=== PATIENT | female | born 1945 | race Caucasian/White ===

== ENCOUNTER 2018-12-03 12:00 | Inpatient (IN) | payer MEDICARE, BC ==
[2018-12-03] MEDS ORDERED: SODIUM CHLORIDE 0.9% 1,000 ML IV STA (12:12)
--- NOTE | 2018-12-03 12:37 | ED ---
General Adult HPI - General Source: patient, family, EMS, RN notes reviewed Mode of arrival: EMS Limitations: no limitations <Mj Kc - Last Filed: 12/03/18 15:29> <Kong Powell - Last Filed: 12/03/18 15:54> - General Stated complaint: Abd pain/weakness Time Seen by Provider: 12/03/18 12:03 - History of Present Illness Initial comments: This is a 73-year-old male presents emergency department via EMS with family chief complaint of weakness. Patient had progressive weakness over the last few weeks. Patient does live alone has not seen a primary care physician in over 30 years. Patient does ambulate currently with a walker but recently has been having more difficulty time ambulating. Patient also complains of increasing l ower abdominal pain and some urinary incontinence. Patient states that the pain is in her lower abdomen but is much better when she lays down. Family states that she is much more pale than usual she has no specific complaints of chest pain or pleuritic chest pain. Patient does complain that she does feel short of breath and she feels very rundown, weak denies noticing any melena, hematochezia, hematemesis coffee-ground emesis. (Mj Kc) - Related Data Allergies Allergy/AdvReac Type Severity Reaction Status Date / Time No Known Allergies Allergy Verified 12/03/18 12:22 Review of Systems ROS Other: All systems not noted in ROS Statement are negative. <Mj Kc - Last Filed: 12/03/18 15:29> ROS Other: All systems not noted in ROS Statement are negative. <Kong Powell - Last Filed: 12/03/18 15:54> ROS Statement: Those systems with pertinent positive or pertinent negative responses have been documented in the HPI. Past Medical History Past Medical History: No Reported History History of Any Multi-Drug Resistant Organisms: None Reported Past Surgical History: No Surgical Hx Reported Past Psychological History: No Psychological Hx Reported Smoking Status: Former smoker Past Alcohol Use History: None Reported Past Drug Use History: None Reported <Mj Kc - Last Filed: 12/03/18 15:29> General Exam Limitations: no limitations General appearance: alert, in no apparent distress, lethargic, other (Pale appearing) Head exam: Present: atraumatic, normocephalic, normal inspection Eye exam: Present: normal appearance, PERRL, EOMI. Absent: scleral icterus, conjunctival injection, periorbital swelling ENT exam: Present: normal exam, normal oropharynx, mucous membranes moist Neck exam: Present: normal inspection, full ROM. Absent: tenderness, meningismus, lymphadenopathy Respiratory exam: Present: normal lung sounds bilaterally. Absent: respiratory distress, wheezes, rales, rhonchi, stridor Cardiovascular Exam: Present: regular rate, normal rhythm, normal heart sounds. Absent: systolic murmur, diastolic murmur, rubs, gallop, clicks GI/Abdominal exam: Present: soft, tenderness, normal bowel sounds, mass. Abse nt: distended, guarding, rebound, rigid, hernia Neurological exam: Present: alert, oriented X3, CN II-XII intact Skin exam: Present: warm. Absent: normal color (Pale) <Mj Kc - Last Filed: 12/03/18 15:29> Course <Kong Powell - Last Filed: 12/03/18 15:54> Vital Signs 12/03/18 12/03/18 12/03/18 12:17 13:50 14:01 Temperature 97.6 F 97.3 F L Pulse Rate 60 54 L 52 L Respiratory 20 17 18 Rate Blood Pressure 116/87 142/64 160/72 O2 Sat by Pulse 88 L 90 L 100 Oximetry 12/03/18 12/03/18 12/03/18 14:16 14:30 15:00 Temperature 97.8 F 97.4 F L 97.3 F L Pulse Rate 54 L 53 L 49 L Respiratory 17 18 17 Rate Blood Pressure 173/71 173/76 165/62 O2 Sat by Pulse 100 100 100 Oximetry - Reevaluation(s) Reevaluation #1: 12/03/18 15:52 PA supervision: I proceeded [id number] evaluation the patient and did discuss [employer] her and with her family. Patient does have evidence of GI bleed with back he positive stool she is very anemic patient receive blood in the ER 3 and his total I did discuss case Dr. Walker. Patient will be admitted with GI consultation. I do agree with assessment and plan to the anemia the patient case will be discussed with Dr. Hairston (Kong Powell) EKG Findings - EKG Comments: EKG Findings:: EKG interpreted by me at 12:14 normal sinus rhythm rate of 60 DE 186 QRS 100 QT/QTC 458/458 <Mj Kc - Last Filed: 12/03/18 15:29> Medical Decision Making - Lab Data Result diagrams: 12/03/18 12:28 12/03/18 12:28 <Mj Kc - Last Filed: 12/03/18 15:29> - Lab Data Result diagrams: 12/03/18 12:28 12/03/18 12:28 <Kong Powell - Last Filed: 12/03/18 15:54> - Medical Decision Making Patient will be admitted for anemia with GI bleed, pleural effusion, lumbar burst fracture. Patient will consult to GI, orthopedics. (Mj Kc) - Lab Data Lab Results 12/03/18 12/03/18 12/03/18 Range/Units 12:15 12:28 12:28 WBC 2.7 L (3.8-10.6) k/uL RBC 2.15 L (3.80-5.40) m/uL Hgb 4.3 L* (11.4-16.0) gm/dL Hct 16.8 L* (34.0-46.0) % MCV 78.2 L (80.0-100.0) fL MCH 20.0 L (25.0-35.0) pg MCHC 25.5 L (31.0-37.0) g/dL RDW 19.3 H (11.5-15.5) % Plt Count 149 L (150-450) k/uL Neutrophils % (Manual) 73 % Lymphocytes % (Manual) 18 % Monocytes % (Manual) 4 % Eosinophils % (Manual) 5 % Neutrophils # (Manual) 1.97 (1.3-7.7) k/uL Lymphocytes # (Manual) 0.49 L (1.0-4.8) k/uL Monocytes # (Manual) 0.11 (0-1.0) k/uL Eosinophils # (Manual) 0.14 (0-0.7) k/uL Nucleated RBCs 0 (0-0) /100 WBC Manual Slide Review Performed Hypochromasia Marked Poikilocytosis Slight Anisocytosis Slight Microcytosis Slight PT (9.0-12.0) sec INR (<1.2) APTT (22.0-30.0) sec Sodium 141 (137-145) mmol/L Potassium 4.1 (3.5-5.1) mmol/L Chloride 104 (98-107) mmol/L Carbon Dioxide 30 (22-30) mmol/L Anion Gap 7 mmol/L BUN 27 H (7-17) mg/dL Creatinine 1.93 H (0.52-1.04) mg/dL Est GFR (CKD-EPI)AfAm 29 (>60 ml/min/1.73 sqM) Est GFR (CKD-EPI)NonAf 25 (>60 ml/min/1.73 sqM) Glucose 76 (74-99) mg/dL Plasma Lactic Acid Sharif (0.7-2.0) mmol/L Calcium 8.6 (8.4-10.2) mg/dL Phosphorus 3.1 (2.5-4.5) mg/dL Magnesium 2.2 (1.6-2.3) mg/dL Total Bilirubin 0.4 (0.2-1.3) mg/dL AST 24 (14-36) U/L ALT 21 (9-52) U/L Alkaline Phosphatase 62 (38-126) U/L Creatine Kinase 90 (30-135) U/L Troponin I (0.000-0.034) ng/mL NT-Pro-B Natriuret Pep pg/mL Total Protein 5.8 L (6.3-8.2) g/dL Albumin 3.4 L (3.5-5.0) g/dL Urine Color Urine Appearance (Clear) Urine pH (5.0-8.0) Ur Specific [place] (1.001-1.035) Urine Protein (Negative) Urine Glucose (UA) (Negative) Urine Ketones (Negative) Urine Blood (Negative) Urine Nitrite (Negative) Urine Bilirubin (Negative) Urine Urobilinogen (<2.0) mg/dL Ur Leukocyte Esterase (Negative) Stool Occult Blood (Negative) Blood Type Blood Type Confirm O Positive Blood Type Recheck Bld Type Recheck Status Antibody Screen Crossmatch Spec Expiration Date 12/03/18 12/03/18 12/03/18 Range/Units 12:28 12:28 12:28 WBC (3.8-10.6) k/uL RBC (3.80-5.40) m/uL Hgb (11.4-16.0) gm/dL Hct (34.0-46.0) % MCV (80.0-100.0) fL MCH (25.0-35.0) pg MCHC (31.0-37.0) g/dL RDW (11.5-15.5) % Plt Count (150-450) k/uL Neutrophils % (Manual) % Lymphocytes % (Manual) % Monocytes % (Manual) % Eosinophils % (Manual) % Neutrophils # (Manual) (1.3-7.7) k/uL Lymphocytes # (Manual) (1.0-4.8) k/uL Monocytes # (Manual) (0-1.0) k/uL Eosinophils # (Manual) (0-0.7) k/uL Nucleated RBCs (0-0) /100 WBC Manual Slide Review Hypochromasia Poikilocytosis Anisocytosis Microcytosis PT 10.4 (9.0-12.0) sec INR 1.0 (<1.2) APTT 23.0 (22.0-30.0) sec Sodium (137-145) mmol/L Potassium (3.5-5.1) mmol/L Chloride (98-107) mmol/L Carbon Dioxide (22-30) mmol/L Anion Gap mmol/L BUN (7-17) mg/dL Creatinine (0.52-1.04) mg/dL Est GFR (CKD-EPI)AfAm (>60 ml/min/1.73 sqM) Est GFR (CKD-EPI)NonAf (>60 ml/min/1.73 sqM) Glucose (74-99) mg/dL Plasma Lactic Acid Sharif 0.7 (0.7-2.0) mmol/L Calcium (8.4-10.2) mg/dL Phosphorus (2.5-4.5) mg/dL Magnesium (1.6-2.3) mg/dL Total Bilirubin (0.2-1.3) mg/dL AST (14-36) U/L ALT (9-52) U/L Alkaline Phosphatase (38-126) U/L Creatine Kinase (30-135) U/L Troponin I (0.000-0.034) ng/mL NT-Pro-B Natriuret Pep 808 pg/mL Total Protein (6.3-8.2) g/dL Albumin (3.5-5.0) g/dL Urine Color Urine Appearance (Clear) Urine pH (5.0-8.0) Ur Specific [place] (1.001-1.035) Urine Protein (Negative) Urine Glucose (UA) (Negative) Urine Ketones (Negative) Urine Blood (Negative) Urine Nitrite (Negative) Urine Bilirubin (Negative) Urine Urobilinogen (<2.0) mg/dL Ur Leukocyte Esterase (Negative) Stool Occult Blood (Negative) Blood Type Blood Type Confirm Blood Type Recheck Bld Type Recheck Status Antibody Screen Crossmatch Spec Expiration Date 12/03/18 12/03/18 12/03/18 Range/Units 12:28 12:28 13:15 WBC (3.8-10.6) k/uL RBC (3.80-5.40) m/uL Hgb (11.4-16.0) gm/dL Hct (34.0-46.0) % MCV (80.0-100.0) fL MCH (25.0-35.0) pg MCHC (31.0-37.0) g/dL RDW (11.5-15.5) % Plt Count (150-450) k/uL Neutrophils % (Manual) % Lymphocytes % (Manual) % Monocytes % (Manual) % Eosinophils % (Manual) % Neutrophils # (Manual) (1.3-7.7) k/uL Lymphocytes # (Manual) (1.0-4.8) k/uL Monocytes # (Manual) (0-1.0) k/uL Eosinophils # (Manual) (0-0.7) k/uL Nucleated RBCs (0-0) /100 WBC Manual Slide Review Hypochromasia Poikilocytosis Anisocytosis Microcytosis PT (9.0-12.0) sec INR (<1.2) APTT (22.0-30.0) sec Sodium (137-145) mmol/L Potassium (3.5-5.1) mmol/L Chloride (98-107) mmol/L Carbon Dioxide (22-30) mmol/L Anion Gap mmol/L BUN (7-17) mg/dL Creatinine (0.52-1.04) mg/dL Est GFR (CKD-EPI)AfAm (>60 ml/min/1.73 sqM) Est GFR (CKD-EPI)NonAf (>60 ml/min/1.73 sqM) Glucose (74-99) mg/dL Plasma Lactic Acid Sharif (0.7-2.0) mmol/L Calcium (8.4-10.2) mg/dL Phosphorus (2.5-4.5) mg/dL Magnesium (1.6-2.3) mg/dL Total Bilirubin (0.2-1.3) mg/dL AST (14-36) U/L ALT (9-52) U/L Alkaline Phosphatase (38-126) U/L Creatine Kinase (30-135) U/L Troponin I <0.012 (0.000-0.034) ng/mL NT-Pro-B Natriuret Pep pg/mL Total Protein (6.3-8.2) g/dL Albumin (3.5-5.0) g/dL Urine Color Yellow Urine Appearance Clear (Clear) Urine pH 5.5 (5.0-8.0) Ur Specific [place] 1.013 (1.001-1.035) Urine Protein Trace H (Negative) Urine Glucose (UA) Negative (Negative) Urine Ketones Negative (Negative) Urine Blood Negative (Negative) Urine Nitrite Negative (Negative) Urine Bilirubin Negative (Negative) Urine Urobilinogen <2.0 (<2.0) mg/dL Ur Leukocyte Esterase Negative (Negative) Stool Occult Blood (Negative) Blood Type O Positive Blood Type Confirm Blood Type Recheck No Previous Record Bld Type Recheck Status CABO Indicated Antibody Screen NEGATIVE Crossmatch See Detail Spec Expiration Date 12/06/2018232712/03/18 Range/Units 15:00 WBC (3.8-10.6) k/uL RBC (3.80-5.40) m/uL Hgb (11.4-16.0) gm/dL Hct (34.0-46.0) % MCV (80.0-100.0) fL MCH (25.0-35.0) pg MCHC (31.0-37.0) g/dL RDW (11.5-15.5) % Plt Count (150-450) k/uL Neutrophils % (Manual) % Lymphocytes % (Manual) % Monocytes % (Manual) % Eosinophils % (Manual) % Neutrophils # (Manual) (1.3-7.7) k/uL Lymphocytes # (Manual) (1.0-4.8) k/uL Monocytes # (Manual) (0-1.0) k/uL Eosinophils # (Manual) (0-0.7) k/uL Nucleated RBCs (0-0) /100 WBC Manual Slide Review Hypochromasia Poikilocytosis Anisocytosis Microcytosis PT (9.0-12.0) sec INR (<1.2) APTT (22.0-30.0) sec Sodium (137-145) mmol/L Potassium (3.5-5.1) mmol/L Chloride (98-107) mmol/L Carbon Dioxide (22-30) mmol/L Anion Gap mmol/L BUN (7-17) mg/dL Creatinine (0.52-1.04) mg/dL Est GFR (CKD-EPI)AfAm (>60 ml/min/1.73 sqM) Est GFR (CKD-EPI)NonAf (>60 ml/min/1.73 sqM) Glucose (74-99) mg/dL Plasma Lactic Acid Sharif (0.7-2.0) mmol/L Calcium (8.4-10.2) mg/dL Phosphorus (2.5-4.5) mg/dL Magnesium (1.6-2.3) mg/dL Total Bilirubin (0.2-1.3) mg/dL AST (14-36) U/L ALT (9-52) U/L Alkaline Phosphatase (38-126) U/L Creatine Kinase (30-135) U/L Troponin I (0.000-0.034) ng/mL NT-Pro-B Natriuret Pep pg/mL Total Protein (6.3-8.2) g/dL Albumin (3.5-5.0) g/dL Urine Color Urine Appearance (Clear) Urine pH (5.0-8.0) Ur Specific [place] (1.001-1.035) Urine Protein (Negative) Urine Glucose (UA) (Negative) Urine Ketones (Negative) Urine Blood (Negative) Urine Nitrite (Negative) Urine Bilirubin (Negative) Urine Urobilinogen (<2.0) mg/dL Ur Leukocyte Esterase (Negative) Stool Occult Blood Positive H (Negative) Blood Type Blood Type Confirm Blood Type Recheck Bld Type Recheck Status Antibody Screen Crossmatch Spec Expiration Date Critical Care Time Critical Care Time: Yes Total Critical Care Time: 35 <Mj Kc - Last Filed: 12/03/18 15:29> Critical Care Time: Total 35 minutes of critical care time was used to care for the patient. This includes initial evaluation, discussed with EMS, family, patient. Vitals were reviewed. Patient had labs ordered including CBC, CMP, PT and INR, type and screen, troponin urinalysis chest x-ray and CT of abdomen and pelvis. Patient found to have urinary retention Jones was placed at this time. Patient does have moderate constipation on CT and a burst fracture though no known trauma and neurologically intact. Patient does have a hemoglobin of 4.3 quite positive Protonix 80 mg were ordered patient was typed and screened and given 2 units of blood. Chest x-ray shows pleural effusion and CT shows evidence of small pericardial effusion. Case is discussed with admitting physician, family updated patient updated. Patient will be admitted (Mj Kc) Disposition <Mj Kc - Last Filed: 12/03/18 15:29> <Kong Powell - Last Filed: 12/03/18 15:54> Clinical Impression: Anemia, GI bleed, Pleural effusion, Lumbar burst fracture, Dyspnea, Const ipation Disposition: ADMITTED IP TO THIS HOSP Condition: Serious Referrals: Jia Siddiqui MD [Primary Care Provider] - 1-2 days
[2018-12-03 12:51] LABS: Anisocytosis Slight; Hypochromasia Marked; MCHC 25.5 g/dL (31.0-37.0); MCV 78.2 fL (80.0-100.0); Mean Platelet Volume 8.2; Microcytosis Slight; Platelet Count 149 k/uL (150-450); Poikilocytosis Slight; RBC 2.15 m/uL (3.80-5.40); RDW 19.3 % (11.5-15.5); WBC 2.7 k/uL (3.8-10.6)
[2018-12-03 12:53] LABS: Albumin 3.4 g/dL (3.5-5.0); Calcium 8.6 mg/dL (8.4-10.2); Magnesium 2.2 mg/dL (1.6-2.3); Phosphorus 3.1 mg/dL (2.5-4.5); Potassium 4.1 mmol/L (3.5-5.1); Prothrombin Time 10.4 sec (9.0-12.0); Total Bilirubin 0.4 mg/dL (0.2-1.3); Total Protein 5.8 g/dL (6.3-8.2)
[2018-12-03 13:02] LABS: HCT 16.8 % (34.0-46.0); HGB 4.3 gm/dL (11.4-16.0)
--- NOTE | 2018-12-03 13:30 | CT ---
EXAMINATION TYPE: CT abdomen pelvis wo con DATE OF EXAM: 12/03/2018 COMPARISON: NONE HISTORY: Lower abdominal pain, mass CT DLP: 458.2 mGycm Automated exposure control for dose reduction was used. FINDINGS: There is a large hiatal hernia. There are bilateral effusions. The heart is enlarged. There is approximately 1.3 cm a pericardial fluid or thickening. Within the abdomen, there is a small amount of ascites. Liver is not enlarged. The gallbladder is par tially contracted. The spleen is normal. There is extensive splenic artery calcification. There is fullness of both adrenal glands without a definite adrenal mass. There is a 5 mm upper pole calculus involving the right kidney and a smaller mid polar calculus measu ring approximately 2 mm. There is a low attenuating lesion within the upper pole of the right kidney measuring 1.8 cm. This is not simply cystic. There is a larger 4 cm exophytic lesion arising from the mid polar region of the left kidney. This may represent a cyst. Calcifications associated with the l eft kidney are believed to BE vascular. Limited views of the pancreas are unremarkable. There is no significant retroperitoneal, iliac or inguinal adenopathy. The bladder is grossly distended. The uterus is unremarkable. The ovaries are not seen with certainty. There is a tremendous amount of stool within the left side of the colon. There is no significant dive rticular change and there is no radiographic evidence of diverticulitis. The appendix is not visualiz ed with certainty. Small bowel loops are of normal caliber. No free air is seen. There is a fracture of the L3 vertebral body. The age of this is not determined but it does appear ac [place]. There is approximately 5 mm of retropulsion. There is degenerative changes in the facets. IMPRESSION: 1. BURST FRACTURE OF THE L3 VERTEBRAL BODY WITH 5 MM RETROPULSION. 2. GROSSLY DISTENDED BLADDER. 3. LARGE HIATAL HERNIA. 4. BILATERAL PLEURAL EFFUSIONS AND A SMALL PERICARDIAL EFFUSION. 5. ASCITES. 6. NONOBSTRUCTIVE RIGHT-SIDED NEPHROLITHIASIS. 7. LARGE AMOUNT OF STOOL WITHIN THE COLON. 8. MODERATE BLADDER DISTENTION.
--- NOTE | 2018-12-03 13:45 | XR ---
EXAMINATION TYPE: XR chest 2V DATE OF EXAM: 12/03/2018 HISTORY: Weakness. REFERENCE: NONE. FINDINGS: The lungs are overinflated. The heart is enlarged. There is left basilar airspace disease a s well as right basilar atelectasis. There is a left-sided effusion. IMPRESSION: 1. COPD 2. CARDIOMEGALY. 3. BIBASILAR AIRSPACE DISEASE. 4. LEFT-SIDED EFFUSION.
[2018-12-03 13:48] LABS: Appearance,Urine Clear (Clear); Bilirubin,Urine Negative (Negative); Blood,Urine Negative (Negative); Color,Urine Yellow; Glucose,Urine (UA) Negative (Negative); Ketones,Urine Negative (Negative); Leukocyte Esterase,Urine Negative (Negative); Nitrite,Urine Negative (Negative); PH, Urine 5.5 (5.0-8.0); Protein,Urine Trace (Negative); Specific Gravity,Urine 1.013 (1.001-1.035); Urobilinogen,Urine <2.0 mg/dL (<2.0)
[2018-12-03 13:51] LABS: Eosinophils # (M) 0.14 k/uL (0-0.7); Lymphocytes # (M) 0.49 k/uL (1.0-4.8); Monocytes # (M) 0.11 k/uL (0-1.0); Neutrophils % (M) 73 %; Nucleated Red Blood Cells 0 /100 WBC (0-0); Total Cells Counted 100
[2018-12-03] MEDS ORDERED: PANTOPRAZOLE 40 MG/10 ML VIAL IVP STA (14:44)
[2018-12-03] MEDS ORDERED: BISACODYL 5 MG TABLET.DR PO PRN (15:33)
[2018-12-03] MEDS ORDERED: NALOXONE 0.4 MG/ML 1 ML VIAL IV PRN (15:33)
[2018-12-03] MEDS ORDERED: NA PHOS,M-B/NA PHOS,DI-BA 133 ML ENEMA RECTAL PRN (15:33)
[2018-12-03] MEDS ORDERED: HYDROcodone/APAP 5-325MG 1 EACH TAB PO PRN (15:33)
[2018-12-03] MEDS ORDERED: ONDANSETRON 4 MG/2 ML VIAL IVP PRN (15:33)
[2018-12-03] MEDS: ACETAMINOPHEN TAB 325 MG TAB PO PRN (17:08)
[2018-12-03] MEDS ORDERED: IPRATROPIUM-ALBUTEROL 3 ML NEB INHALATION PRN (17:24)
[2018-12-03] MEDS ORDERED: FUROSEMIDE 10 MG/ML 4 ML VIAL IV STA (17:26)
--- NOTE | 2018-12-03 19:20 | HP ---
HISTORY AND PHYSICAL CHIEF COMPLAINTS: Weakness and tiredness. HISTORY OF PRESENT ILLNESS: This 73-year-old woman with a past history of history of nausea and vomiting, and other medical issues, not being followed by any primary care physician for 30 years, is scheduled to see Dr. Siddiqui in the outpatient setting soon, however the family noted that the patient is getting progressively weak. The patient also complains of leg swelling also. Occasionally . The patient also had apparently had a fall also and because of multiple symptomatology, the patient was brought to [facility] and admitted for further evaluation and treatment. Hemoglobin found to be 4.3. No active GI bleed was noted. The patient also complaining of bladder pain. Creatinine found to be 1.93. Stool OB is positive. There is no history of any fever, rigors. No history of headache, loss of consciousness. Patient is hard of hearing. PAST MEDICAL HISTORY: No significant cardiorespiratory illness. MEDICATIONS: Home medications: 1. Ibuprofen 400 mg q.8 p.r.n. 2. Vitamin B12 1000 mcg. 3. Ecotrin 81 mg p.o. daily. ALLERGIES: None. FAMILY HISTORY: No history of heart disease or strokes in the family. SOCIAL HISTORY: Previous history of smoking. No history of current smoking or alcohol. REVIEW OF SYSTEMS: ENT: Diminished vision. Diminished hearing. CARDIOVASCULAR SYSTEM: No angina or palpitations. RESPIRATIONS: Occasional cough. GI mentioned earlier. : As mentioned earlier. CENTRAL NERVOUS SYSTEM: As mentioned earlier. ALLERGY/IMMUNOLOGY: No history of asthma or hayfever. MUSCULOSKELETAL as mentioned earlier. HEMATOLOGY/ONCOLOGY: As mentioned earlier. ENDOCRINE: No history of hypothyroidism. CONSTITUTIONAL: As mentioned earlier. DERMATOLOGY: Negative. RHEUMATOLOGY negative. PSYCHIATRY as mentioned earlier. PHYSICAL EXAM: Patient is alert, oriented x3. The pulse is 52, blood pressure 179/78, respiration 18, temperature 97.5, pulse ox 98% on 4 L. HEENT: Conjunctivae pale. Significant skin pallor also present. Oral mucosa is moist. NECK is no jugular venous distention. Neck fullness present. Cardiovascular system: S1, S2 muffled. Ejection systolic murmur present. RESPIRATIONS: Breath sounds diminished in the bases. A few scattered rhonchi and crackles. ABDOMEN: Soft, nontender. No mass palpable. No ascites. LEGS: Minimal bilateral leg edema. Pulses felt normally. Some deformities of the feet also present. JOINTS: No active deforming arthropathy. NERVOUS SYSTEM: Higher functions as mentioned earlier. Moves all 4 limbs. No focal motor or sensory deficits. LYMPHATICS: No lymph nodes palpable in the neck, axillae or groin. SKIN as mentioned earlier. LAB STUDIES: At this time shows WBC 2.7, hemoglobin 4.3, and platelets are 149. Otherwise significant hypochromia and ascites, microcytosis also present in the peripheral smear. Creatinine is 1.93. ASSESSMENT: 1. Significant severe anemia for evaluation. 3. Microcytosis, rule out iron deficiency. 4. Increased creatinine with possible rule out acute renal failure. 5. Remote history of smoking. 6. FULL CODE: 7. Severe protein calorie malnutrition with BMI of 19.4. 8. Back pain with L3 vertebral fracture. 9. Large hiatal hernia. 10.Bladder distention. 11.Bilateral pleural effusion. 12.Nonobstructive right-sided nephrolithiasis and large amount of stool within the colon. Moderate bladder distention. RECOMMENDATIONS AND DISCUSSION: This 73-year-old woman presents for significant anemia. At this time, we will initiate transfusion. We will administer 3 units of transfusion with Lasix. An abdominal pelvis CAT scan was done today which showed burst fractures, L3 vertebral body with 5 mm retropulsion. A chest x-ray done showed COPD, cardiomegaly, bibasilar airspace disease and left-sided pleural effusion. I recommend x-ray, CT scan was reviewed personally by me and I recommend a course of bronchodilators. At this time, there is no evidence of any pneumonia currently, but I would monitor the patient closely. Otherwise, etiology of anemia unknown at this time. I would recommend a TSH and also gastroenterology evaluation and iron studies and Hematology/Oncology evaluation also. The overall prognosis extremely guarded because of multiple complex medical issues. A copy of dictation forwarded to Dr. Siddiqui who is the primary physician. As mentioned earlier, the patient has not seen a primary physician in the last 30 years and discussed at length with the family at the bedside. Family understands and agrees. Further recommendations to follow. MMODL / IJN: [id number] / MTDD
[2018-12-03 20:15] LABS: T4, Free (Free Thyroxine) <0.07 ng/dL (0.78-2.19)
[2018-12-03] MEDS: IPRATROPIUM-ALBUTEROL 3 ML NEB INHALATION SCH (20:55)
[2018-12-03] MEDS: PANTOPRAZOLE 40 MG/10 ML VIAL IV SCH (22:39)
[2018-12-03 23:05] LABS: Ferritin 7.1 ng/mL (10.0-291.0); Iron Saturation 2.05 (12.00-45.00)
[2018-12-04 01:19] LABS: Anisocytosis Slight; Hypochromasia Marked; MCH 25.7 pg (25.0-35.0); MCHC 30.4 g/dL (31.0-37.0); Mean Platelet Volume 8.4; Platelet Count 110 k/uL (150-450); Poikilocytosis Marked; RBC 3.43 m/uL (3.80-5.40); WBC 4.3 k/uL (3.8-10.6)
[2018-12-04 02:24] LABS: HGB 8.8 gm/dL (11.4-16.0); MCV 84.5 fL (80.0-100.0)
[2018-12-04 03:41] LABS: Band Neutrophils % 4 %; Lymphocytes # (M) 0.95 k/uL (1.0-4.8); Neutrophils % (M) 60 %; Nucleated Red Blood Cells 0 /100 WBC (0-0); Total Cells Counted 100
[2018-12-04 03:42] LABS: Large Platelets Present; Polychromasia Present
[2018-12-04] MEDS: SODIUM CHLORIDE 0.9% 1,000 ML IV SCH ×2 (05:26→23:29)
[2018-12-04 06:07] LABS: Anisocytosis Slight; Basophils % (A) 1 %; Eosinophils # (A) 0.2 k/uL (0-0.7); Eosinophils % (A) 6 %; HCT 29.2 % (34.0-46.0); HGB 8.9 gm/dL (11.4-16.0); Hypochromasia Marked; Lymphocytes # (A) 0.8 k/uL (1.0-4.8); Lymphocytes % (A) 19 %; MCH 25.9 pg (25.0-35.0); MCHC 30.4 g/dL (31.0-37.0); MCV 85.2 fL (80.0-100.0); Mean Platelet Volume 9.8; Monocytes # (A) 0.2 k/uL (0-1.0); Monocytes % (A) 5 %; Neutrophils # (A) 2.8 k/uL (1.3-7.7); Neutrophils % (A) 67 %; Platelet Count 112 k/uL (150-450); Poikilocytosis Marked; RBC 3.43 m/uL (3.80-5.40); RDW 17.8 % (11.5-15.5); WBC 4.1 k/uL (3.8-10.6)
[2018-12-04] MEDS: IPRATROPIUM-ALBUTEROL 3 ML NEB INHALATION SCH ×3 (07:45→20:52)
[2018-12-04] MEDS: PANTOPRAZOLE 40 MG/10 ML VIAL IV SCH ×2 (09:21→22:45)
[2018-12-04] MEDS: ACETAMINOPHEN TAB 325 MG TAB PO PRN (13:49)
[2018-12-04] MEDS: LEVOTHYROXINE 100 MCG TAB PO SCH (13:52)
--- NOTE | 2018-12-04 14:36 | P.CNOR ---
History of Present Illness - [facility] Consult date: 12/04/18 Consult reason: fracture (L3 burst fracture with low back pain), low back pain, other History of present illness: Patient is a pleasant 73-year-old female who seen and examined today at bedside. She is completed by HER-2 daughters at bedside. Patient is having some weakness and difficulty getting around was brought to the hospital where she was found have significant anemia and GI bleed. Apparently the patient has been having some pain at her back as well recently when she tries to mobilize and move. She denies any recent falls. She said she had a fall about a year ago but denies any falls in the past couple weeks. Apparently she had been living on her own in [place] but has now moved moved here couple weeks ago. She denies any pain in her legs. She denies any numbness in her lower extremity. She denies any weakness in her legs. She has been having trouble going the bathroom both with bowel movements and urination. She has any chest pain. She denies any shortness of breath. Review of Systems As stated per HPI. She denies any recent trauma. She denies any falls. She denies any injuries. She says she had a fall about a year ago and had some back pain at that point that resolved. Past Medical History Past Medical History: Osteoarthritis (OA) History of Any Multi-Drug Resistant Organisms: None Reported Past Surgical History: No Surgical Hx Reported Past Psychological History: No Psychological Hx Reported Smoking Status: Former smoker Past Alcohol Use History: None Reported Past Drug Use History: None Reported - Past Family History Mother Family Medical History: No Reported History Medications and Allergies Home Medications Medication Instructions Recorded Confirmed Type Aspirin EC [Ecotrin Low Dose] 81 mg PO DAILY 12/03/18 12/03/18 History Cyanocobalamin (Vitamin B-12) 1,000 mcg PO DAILY 12/03/18 12/03/18 History [Vitamin B-12] Ibuprofen [Advil] 200 - 400 mg PO Q8H PRN 12/03/18 12/03/18 History Allergies Allergy/AdvReac Type Severity Reaction Status Date / Time No Known Allergies Allergy Verified 12/03/18 15:56 Physical Examination Osteopathic Statement: *. No significant issues noted on an osteopathic structural exam other than those noted in the History and Physical/Consult. - L Spine: dermatomal strength & reflexes bilateral Strength: hip flexion: 5/5 (At her lower extremity she has 5 out of 5 strength with dorsiflexion plantarflexion and EHL. She is able to lift her legs gently off the bed independently. There is no pain with internal or external rotation of her hips. Her thighs and calves are soft nontender. She has tenderness at her lower back on the right side around her lumbosacral junction. There is no open wounds lacerations or abrasions. There is some articular paravertebral spasm.) Results - Labs Labs: Abnormal Lab Results - Last 24 Hours (Table) 12/03/18 12/03/18 12/03/18 Range/Units 12:28 12:28 12:28 RBC (3.80-5.40) m/uL Hgb (11.4-16.0) gm/dL Hct (34.0-46.0) % MCHC (31.0-37.0) g/dL RDW (11.5-15.5) % Plt Count (150-450) k/uL Lymphocytes # (1.0-4.8) k/uL Lymphocytes # (Manual) (1.0-4.8) k/uL Iron 8 L (50-170) ug/dL Iron Saturation 2.05 L (12.00-45.00) Ferritin 7.1 L (10.0-291.0) ng/mL TSH 69.100 H (0.465-4.680) mIU/L Free T4 <0.07 L (0.78-2.19) ng/dL Stool Occult Blood (Negative) Crossmatch See Detail 12/03/18 12/04/18 12/04/18 Range/Units 15:00 00:52 05:38 RBC 3.43 L 3.43 L (3.80-5.40) m/uL Hgb 8.8 L D 8.9 L (11.4-16.0) gm/dL Hct 29.0 L 29.2 L (34.0-46.0) % MCHC 30.4 L 30.4 L (31.0-37.0) g/dL RDW 17.0 H 17.8 H (11.5-15.5) % Plt Count 110 L 112 L (150-450) k/uL Lymphocytes # 0.8 L (1.0-4.8) k/uL Lymphocytes # (Manual) 0.95 L (1.0-4.8) k/uL Iron (50-170) ug/dL Iron Saturation (12.00-45.00) Ferritin (10.0-291.0) ng/mL TSH (0.465-4.680) mIU/L Free T4 (0.78-2.19) ng/dL Stool Occult Blood Positive H (Negative) Crossmatch H & H 12/03/18 12/04/18 12/04/18 Range/Units 12:28 00:52 05:38 Hgb 4.3 L* 8.8 L D 8.9 L (11.4-16.0) gm/dL Hct 16.8 L* 29.0 L 29.2 L (34.0-46.0) % Coagulation 12/03/18 Range/Units 12:28 INR 1.0 (<1.2) Result Diagrams: 12/04/18 05:38 12/03/18 12:28 - Diagnostic results CT Scan - lumbar: report reviewed, image reviewed (Computed tomography scan of lumbar spine is reviewed. There are number of the abdominal findings which are reported. Terms of her lumbar spine she has spondylolisthesis L4 5. She has evidence of a burst fracture at L3 with excellent 5 mm retropulsion. There is central and bilateral foraminal stenosis L3 4 and L4 5. Some of the stenosis is chronic due to arthrosis and ligamentum thickening and disc bulging. This is admitted to compression deformity at L3 as well.) Assessment and Plan Assessment: L3 vertebral body burst fracture, age undetermined but appears to be acute or subacute No specific recent trauma reported by the patient GI bleed with anemia No lower extremity weakness or neurologic loss at her lower extremities Plan: L3 vertebral body burst fracture, age undetermined but appears to be acute or subacute No specific recent trauma reported by the patient GI bleed with anemia No lower extremity weakness or neurologic loss at her lower extremities The patient has a L3 vertebral burst fracture of indeterminate age. The fracture lines on the computed tomography scan suggest somewhat acute fracture or at least subacute. She does have significant stenosis L3 4 and L4 5 but is not having specific lower extremity neurologic loss. I do not think that she has evidence for cauda equina syndrome though she is having difficulty with her urinating and with constipation. Certainly she has had some decrease in her mobility with her anemia and I think that this contributes to her urinary issues as well. She has a catheter in place. In terms of the burst fracture at think that she should have conservative treatment with LSO bracing. We've ordered an LSO brace for her to be worn when she is out of bed. It is okay for her to try to get to the bathroom without the brace and she may have the brace off for bathing but whenever she is out of bed she should essentially have the brace intact to sport the L3 burst fracture. At this point we do not plan surgical intervention. We could consider MRI if she has further issues with her bowel bladder function as she does have significant stenosis at L3 4 and L4 5 however many of these findings these findings appear to Be chronic rather than acute. We will see how she does with bracing and therapy. She is continue management medical management in terms of her GI bleed and anemia as well.
--- NOTE | 2018-12-04 15:21 | P.CONS ---
History of Present Illness - Reason for Consult Consult date: 12/04/18 Iron deficiency anemia - History of Present Illness The patient is a 73-year-old white female, was not had any regular medical follow-up for about 30 years. She was living in the [place], [place] area, and moved here few months ago to be closer to family. She does have a history of low back pain, and uses a walker for ambulation. Over the past few weeks she had been having increasing weakness and difficulty getting around. She had also noted increasing back pain. She was therefore brought into the emergency room, where she was found to have a hemoglobin of 4.3 with low MCV of 78. Subsequent labs showed very low iron studies with ferritin only 7.1 and saturation less than 10%, confirming iron deficiency anemia. The patient was therefore admitted and transfusion ordered. Consult was placed for further evaluation and recommendations. The patient appeared to have some hearing difficulty as well as slight memory issues due to which getting an adequate history was somewhat laborious. She denied any obvious bleeding. She denied any prior history of blood problems or need for transfusion. She denied any use of blood thinners, or even NSAIDs/aspirin on a regular basis. She has never had a GI workup previously according to her Review of Systems Constitutional: Reports chronic pain, Reports weakness Eyes: denies blurred vision, denies pain Ears: bilateral: decreased hearing, deny: ear discharge, earache, tinnitus Ears, nose, mouth and throat: Denies headache, Denies sore throat Cardiovascular: Reports dyspnea on exertion Respiratory: Reports dyspnea Gastrointestinal: Denies abdominal pain, Denies diarrhea, Denies nausea, Denies vomiting Genitourinary: Reports urinary frequency Menstruation: Reports postmenopausal Musculoskeletal: Reports low back pain, Reports muscle weakness Integumentary: Denies pruritus, Denies rash Neurological: Reports memory loss, Reports weakness Psychiatric: Reports memory loss Endocrine: Reports fatigue Hematologic/Lymphatic: Reports as per HPI Past Medical History Past Medical History: Osteoarthritis (OA) History of Any Multi-Drug Resistant Organisms: None Reported Past Surgical History: No Surgical Hx Reported Past Psychological History: No Psychological Hx Reported Smoking Status: Former smoker Past Alcohol Use History: None Reported Past Drug Use History: None Reported - Past Family History Mother Family Medical History: No Reported History Medications and Allergies Home Medications Medication Instructions Recorded Confirmed Type Aspirin EC [Ecotrin Low Dose] 81 mg PO DAILY 12/03/18 12/03/18 History Cyanocobalamin (Vitamin B-12) 1,000 mcg PO DAILY 12/03/18 12/03/18 History [Vitamin B-12] Ibuprofen [Advil] 200 - 400 mg PO Q8H PRN 12/03/18 12/03/18 History Allergies Allergy/AdvReac Type Severity Reaction Status Date / Time No Known Allergies Allergy Verified 12/03/18 15:56 Physical Exam Vitals: Vital Signs Temp Pulse Pulse Resp BP BP Pulse Ox 12/04/18 08:00 97.5 F L 54 L 18 150/64 99 12/04/18 07:56 54 L 12/04/18 07:45 52 L 100 12/04/18 04:00 97.6 F 52 L 16 164/72 100 12/04/18 01:13 97 F L 60 16 180/64 12/04/18 00:00 97.5 F L 50 L 16 162/67 100 12/03/18 21:32 185/71 12/03/18 21:31 97.7 F 50 L 16 12/03/18 21:06 60 16 12/03/18 21:02 97.5 F L 50 L 16 180/61 100 12/03/18 20:58 58 L 16 12/03/18 20:52 97.7 F 50 L 16 166/51 98 12/03/18 20:08 97.5 F L 50 L 16 190/69 12/03/18 20:00 97.4 F L 50 L 16 184/70 97 12/03/18 18:38 18 100 12/03/18 18:22 97.8 F 50 L 19 115/73 100 12/03/18 17:52 97.7 F 51 L 18 171/72 100 12/03/18 17:42 97.6 F 49 L 18 157/72 100 12/03/18 17:40 97.6 F 51 L 18 166/75 100 12/03/18 17:13 97.5 F L 52 L 18 179/78 99 12/03/18 15:30 97.5 F L 52 L 18 171/70 100 Intake and Output 12/04/18 12/04/18 12/04/18 06:59 14:59 22:59 Intake Total 300 100 Output Total 0 Balance 300 100 Intake: Oral 300 100 Output: Urine 0 Other: Voiding Method Indwelling Catheter Indwelling Catheter Weight 55.1 kg - Constitutional General appearance: no acute distress - EENT Eyes: EOMI, PERRLA ENT: hard of hearing, normal oropharynx - Neck Neck: no lymphadenopathy Thyroid: bilateral: normal size - Respiratory Respiratory: bilateral: CTA - Cardiovascular Rhythm: regular Heart sounds: normal: S1, S2 - Gastrointestinal General gastrointestinal: normal bowel sounds, soft - Integumentary Integumentary: normal - Neurologic Neurologic: CNII-XII intact - Musculoskeletal Musculoskeletal: generalized weakness, strength equal bilaterally - Psychiatric There appeared to be some difficulty in comprehension of the patient was able to give a reasonable history with repeated questioning. This appeared at least in part, due to some difficulty in hearing. There is also at least mild memory loss. Psychiatric: A&O x's 3, appropriate affect Results CBC & Chem 7: 12/04/18 05:38 12/03/18 12:28 Labs: Abnormal Lab Results - Last 24 Hours (Table) 12/03/18 12/03/18 12/03/18 Range/Units 12:28 12:28 12:28 RBC (3.80-5.40) m/uL Hgb (11.4-16.0) gm/dL Hct (34.0-46.0) % MCHC (31.0-37.0) g/dL RDW (11.5-15.5) % Plt Count (150-450) k/uL Lymphocytes # (1.0-4.8) k/uL Lymphocytes # (Manual) (1.0-4.8) k/uL Iron 8 L (50-170) ug/dL Iron Saturation 2.05 L (12.00-45.00) Ferritin 7.1 L (10.0-291.0) ng/mL TSH 69.100 H (0.465-4.680) mIU/L Free T4 <0.07 L (0.78-2.19) ng/dL Crossmatch See Detail 12/04/18 12/04/18 Range/Units 00:52 05:38 RBC 3.43 L 3.43 L (3.80-5.40) m/uL Hgb 8.8 L D 8.9 L (11.4-16.0) gm/dL Hct 29.0 L 29.2 L (34.0-46.0) % MCHC 30.4 L 30.4 L (31.0-37.0) g/dL RDW 17.0 H 17.8 H (11.5-15.5) % Plt Count 110 L 112 L (150-450) k/uL Lymphocytes # 0.8 L (1.0-4.8) k/uL Lymphocytes # (Manual) 0.95 L (1.0-4.8) k/uL Iron (50-170) ug/dL Iron Saturation (12.00-45.00) Ferritin (10.0-291.0) ng/mL TSH (0.465-4.680) mIU/L Free T4 (0.78-2.19) ng/dL Crossmatch Chest x-ray: report reviewed CT scan - abdomen: report reviewed CT scan - pelvis: report reviewed Assessment and Plan (1) Anemia Narrative/Plan: The patient is presenting with severe anemia and that is microcytic. Iron studies confirm severe iron deficiency. The patient has never had a GI workup before. Therefore this would be strongly recommended. GI is already on consult. - Agree with blood transfusion. Continue to monitor and transfuse to keep hemoglobin greater than 7 - Has a degree of microcytosis is less than the degree of anemia, I will order workup for other causes to rule out a mixed anemia. Current Visit: Yes Status: Acute Code(s): D64.9 - ANEMIA, UNSPECIFIED SNOMED Code(s): 069557449 Plan: Defer to the admitting service and other consultants for management of her other medical problems
[2018-12-04] MEDS ORDERED: BISACODYL 5 MG TABLET.DR PO STA (20:41)
--- NOTE | 2018-12-04 20:51 | PN ---
PROGRESS NOTE DATE OF SERVICE: 12/04/2018 This 73-year-old woman was admitted with significant severe anemia is being closely monitored. No active bleeding was noted but however the TSH is running low indicating hypothyroidism. Hemoglobin is found to be 8.9 after transfusion. The patient has some facial puffiness also. Multiple consultants are following the patient closely. Gastroenterology and Orthopedic. The patient is also complaining of back pain with burst fracture. Dr. Sweeney has also seen the patient for L3 vertebral burst fracture. The patient does have urination problems and constipation and Dr. Sweeney recommend conservative line of treatment with medical treatment as well as LSO bracing. No chest pain. No palpitations. PAST MEDICAL HISTORY: Reviewed. REVIEW OF SYSTEM: Cardiovascular: As mention earlier. RESPIRATORY: As mentioned earlier. GI no nausea or vomiting. as mentioned earlier. Nervous systems: As mentioned earlier. CURRENT MEDICATIONS: Reviewed and include: 1. Tylenol 650 q.6h p.r.n. 2. Bagley 5 mg q.4 p.r.n. 3. DuoNeb q.i.d. and p.r.n. 4. Dulcolax 5 mg p.r.n. 5. Synthroid 100 mcg. 6. Narcan 0.2 q.2 p.r.n. 7. Zofran 4 mg q.8 p.r.n. 8. Protonix. 9. Fleet enema. PHYSICAL EXAM: Patient is alert, oriented x3. Pulse is 54, blood pressure 150/60, respiration 18, temperature 97.4, pulse ox 98% on room air. HEENT: Conjunctivae pale. Oral mucosa moist. NECK is no jugular venous distention. No carotid bruit. No lymph node enlargement. Cardiovascular system: S1, S2 muffled. RESPIRATORY: Breath sounds diminished in the bases. Bilateral scattered rhonchi and crackles. ABDOMEN: Soft, obese, nontender. LEGS no edema. No swelling. NERVOUS SYSTEM: No focal deficits. SKIN: Significant pale pallor. LABS: WBC 4.2, hemoglobin is 8.9, platelets are 112. ASSESSMENT: 1. Severe anemia for evaluation, rule out acute gastrointestinal bleed. 2. Hypothyroidism, new onset, severe. 3. Microcytosis, possibly iron deficiency. 4. Increased creatinine with rule out acute renal failure. 5. Remote history of smoking. 6. Severe protein calorie malnutrition with BMI of 19.4. 7. Back pain with L3 vertebral burst fracture of undetermined etiology. 8. Large hiatal hernia. 9. Bladder distention. 10.Bilateral pleural effusion. 11.Nonobstructive right-sided nephrolithiasis and large amount of stool within the colon. 12.Moderate bladder distention. 13.Gait dysfunction. RECOMMENDATIONS AND DISCUSSION: In this 73-year-old woman who presented with multiple complex medical issues, we will monitor the patient closely, continue the current medications, management and symptomatic treatment. Hemoglobin is improved at this time. I recommend initiate Synthroid. PT/OT evaluation, possible ECF rehab. Otherwise, closely follow with multiple consultants including Hematology/ Oncology and as well as Gastroenterology. Otherwise orthopedic recommendations noted. Further recommendations to follow. MMODL / IJN: [id number] /
--- NOTE | 2018-12-04 20:55 | P.CONS ---
History of Present Illness - Reason for Consult Consult date: 12/04/18 Anemia Requesting physician: Tracey Walker - Chief Complaint Weakness - History of Present Illness 73-year-old female with poor medical follow-up who presented to the hospital with complaints of increasing weakness and back pain. The patient has had increasing generalized weakness and difficulty ambulating over the past few weeks. She was brought to the hospital for further evaluation of her symptoms. On presentation to the hospital patient was found to have WBC 4.1, hemoglobin 4.3 which was subsequently found to be 0.9 after transfusion, platelet count 112,000, iron 80 with saturation 2%, MCV 78.2, total bilirubin 0.4, alkaline phosphatase 62, AST 24 and ALTs 21 with stool positive for occult blood. The patient is seen lying in bed with her daughters bedside. She denies any signs or symptoms of GI bleeding. No nausea or vomiting, with the patient denying any hematemesis. Denies any history of peptic ulcer disease and reports very seldom use of Advil as needed for pain, approximately 2 pills very seldomly. She does report some nonspecific lower abdominal pain. She denies any hematochezia or melena. No family history of colon cancer reported. Review of Systems REVIEW OF SYSTEMS: CONSTITUTIONAL: Denies any fevers, chills, weight change but does report fatigue and generalized weakness. CARDIOVASCULAR: Denies any chest pain, palpitations high or low blood pressures RESPIRATORY: Denies any hemoptysis or cough but does report some shortness of breath with ambulation. GENITOURINARY: No dysuria or hematuria, but does report problems with urinary retention. MUSCULOSKELETAL: Overall weakness reported and ambulation with assistance. SKIN: Denies any new rashes or lesions, jaundice but does report pallor. PSYCHIATRIC: Denies any depression or anxiety but does note problems with memory. NEUROLOGY: Denies headache, denies any new focal deficits. EARS/NOSE/THROAT: No recent hearing change, congestion, nasal discharge or sore throat. EYES: No pain in eyes, discharge or change in vision. GASTROINTESTINAL: As per HPI. Past Medical History Past Medical History: Osteoarthritis (OA) History of Any Multi-Drug Resistant Organisms: None Reported Past Surgical History: No Surgical Hx Reported Past Psychological History: No Psychological Hx Reported Smoking Status: Former smoker Past Alcohol Use History: None Reported Past Drug Use History: None Reported - Past Family History Mother Family Medical History: No Reported History Medications and Allergies Home Medications Medication Instructions Recorded Confirmed Type Aspirin EC [Ecotrin Low Dose] 81 mg PO DAILY 12/03/18 12/03/18 History Cyanocobalamin (Vitamin B-12) 1,000 mcg PO DAILY 12/03/18 12/03/18 History [Vitamin B-12] Ibuprofen [Advil] 200 - 400 mg PO Q8H PRN 12/03/18 12/03/18 History Allergies Allergy/AdvReac Type Severity Reaction Status Date / Time No Known Allergies Allergy Verified 12/03/18 15:56 Physical Exam Vitals: Vital Signs Temp Pulse Pulse Resp BP BP Pulse Ox 12/04/18 08:00 97.5 F L 54 L 18 150/64 99 12/04/18 07:56 54 L 12/04/18 07:45 52 L 100 12/04/18 04:00 97.6 F 52 L 16 164/72 100 12/04/18 01:13 97 F L 60 16 180/64 12/04/18 00:00 97.5 F L 50 L 16 162/67 100 12/03/18 21:32 185/71 12/03/18 21:31 97.7 F 50 L 16 12/03/18 21:06 60 16 12/03/18 21:02 97.5 F L 50 L 16 180/61 100 12/03/18 20:58 58 L 16 12/03/18 20:52 97.7 F 50 L 16 166/51 98 12/03/18 20:08 97.5 F L 50 L 16 190/69 12/03/18 20:00 97.4 F L 50 L 16 184/70 97 12/03/18 18:38 18 100 12/03/18 18:22 97.8 F 50 L 19 115/73 100 12/03/18 17:52 97.7 F 51 L 18 171/72 100 Intake and Output 12/04/18 12/04/18 12/04/18 06:59 14:59 22:59 Intake Total 300 200 Output Total 0 700 Balance 300 200 -700 Intake: Oral 300 200 Output: Urine 0 700 Other: Voiding Method Indwelling Catheter Indwelling Catheter Weight 55.1 kg On physical examination, patient appears comfortable in no apparent distress. HEAD: Normocephalic, atraumatic. EYES: No scleral icterus. No conjunctival injection. MOUTH: No lesions, tongue midline. NECK: Trachea midline, no gross abnormalities. CHEST: Clear to auscultation with no wheezing or rhonchi appreciated. HEART: S1-S2 appreciated with no murmurs appreciated. ABDOMEN: Soft, obese. Bowel sounds are positive. No organomegaly. No guarding or rigidity. EXTREMITIES: No pedal edema. SKIN: No rashes, no jaundice, but pallor noted. NEUROLOGIC: Alert and oriented x2. Results CBC & Chem 7: 12/04/18 05:38 12/03/18 12:28 Labs: Abnormal Lab Results - Last 24 Hours (Table) 12/03/18 12/03/18 12/03/18 Range/Units 12:28 12:28 12:28 RBC (3.80-5.40) m/uL Hgb (11.4-16.0) gm/dL Hct (34.0-46.0) % MCHC (31.0-37.0) g/dL RDW (11.5-15.5) % Plt Count (150-450) k/uL Lymphocytes # (1.0-4.8) k/uL Lymphocytes # (Manual) (1.0-4.8) k/uL Iron 8 L (50-170) ug/dL Iron Saturation 2.05 L (12.00-45.00) Ferritin 7.1 L (10.0-291.0) ng/mL TSH 69.100 H (0.465-4.680) mIU/L Free T4 <0.07 L (0.78-2.19) ng/dL Crossmatch See Detail 12/04/18 12/04/18 Range/Units 00:52 05:38 RBC 3.43 L 3.43 L (3.80-5.40) m/uL Hgb 8.8 L D 8.9 L (11.4-16.0) gm/dL Hct 29.0 L 29.2 L (34.0-46.0) % MCHC 30.4 L 30.4 L (31.0-37.0) g/dL RDW 17.0 H 17.8 H (11.5-15.5) % Plt Count 110 L 112 L (150-450) k/uL Lymphocytes # 0.8 L (1.0-4.8) k/uL Lymphocytes # (Manual) 0.95 L (1.0-4.8) k/uL Iron (50-170) ug/dL Iron Saturation (12.00-45.00) Ferritin (10.0-291.0) ng/mL TSH (0.465-4.680) mIU/L Free T4 (0.78-2.19) ng/dL Crossmatch CT scan - abdomen: report reviewed (Computed tomography scan abdomen and pelvis with multiple findings including stool retention and large hiatal hernia, as well as multiple other findings (please see report for all findings).) Assessment and Plan (1) Iron deficiency anemia Narrative/Plan: 73-year-old female with severe symptomatic iron deficiency anemia. Patient did have stool testing positive for blood, but advised any overt signs or symptoms of GI blood loss. The patient has had poor medical follow-up over the past 30 years. She does report some vague lower abdominal pain and does use NSAIDs occasionally. No prior history of peptic ulcer disease or family history of colon cancer. No prior endoscopic evaluation reported. Unknown etiology with differential including GI blood loss, nutritional deficiencies, hematologic or mixed etiology. Current Visit: Yes Status: Acute Code(s): D50.9 - IRON DEFICIENCY ANEMIA, UNSPECIFIED SNOMED Code(s): 73980533 Plan: Supportive care Okay for diet today Clear liquid diet tomorrow Dulcolax 20 mg given today Continue to monitor hemoglobin and transfuse as needed Hematology/oncology evaluation in the patient with iron supplementation further service recommendations Plan for bowel prep tomorrow with EGD and colonoscopy to be scheduled for Wednesday for further evaluation of iron deficiency anemia Computed tomography scan and iron studies reviewed Thank you for allowing us to participate in the care of the patient we will continue to follow
[2018-12-05 06:36] LABS: Anisocytosis Slight; Basophils % (A) 1 %; Eosinophils # (A) 0.2 k/uL (0-0.7); Eosinophils % (A) 5 %; HCT 28.9 % (34.0-46.0); HGB 8.2 gm/dL (11.4-16.0); Hypochromasia Marked; Lymphocytes # (A) 0.6 k/uL (1.0-4.8); Lymphocytes % (A) 12 %; MCH 24.4 pg (25.0-35.0); MCHC 28.4 g/dL (31.0-37.0); MCV 86.1 fL (80.0-100.0); Mean Platelet Volume 10.2; Monocytes # (A) 0.2 k/uL (0-1.0); Monocytes % (A) 5 %; Neutrophils # (A) 3.4 k/uL (1.3-7.7); Neutrophils % (A) 75 %; Platelet Count 112 k/uL (150-450); Poikilocytosis Marked; RBC 3.36 m/uL (3.80-5.40); RDW 18.2 % (11.5-15.5); WBC 4.5 k/uL (3.8-10.6)
[2018-12-05] MEDS: SODIUM CHLORIDE 0.9% 1,000 ML IV SCH (06:51)
[2018-12-05] MEDS: LEVOTHYROXINE 100 MCG TAB PO SCH (06:51)
[2018-12-05] MEDS: PANTOPRAZOLE 40 MG/10 ML VIAL IV SCH ×2 (08:27→21:30)
--- NOTE | 2018-12-05 08:29 | P.PN ---
Progress Note - Text Progress Note Date: 12/05/18 Patient is a very pleasant 73-year-old female who is seen and examined at bedside for follow-up evaluation in regards to her lumbar spine. She was seen yesterday by Dr. Bob Sweeney. Since that time her back pain has been adequately controlled. She states she is not currently experiencing any significant pain while lying in bed. She has not been out of bed. She continues denying specific lower extremity weakness radiculopathy bilaterally. She is currently eating breakfast. A Jones catheter remains intact. A prescription was written yesterday for an LSO brace for her L3 burst fracture. This brace has not been delivered yet this morning. Patient has been discussed in detail nursing who is planning to contact case management about the brace. Patient has no new complaints at the bedside. Patient is also being treated for symptomatic iron deficiency anemia. Patient denies increased back pain with coughing and sneezing. Physical exam: Patient is awake, alert, and oriented 3 Vital signs stable Good chest excursion with deep inspiration and expiration Examination of lumbar spine reveals skin is intact with no abrasions, lacerations, or bruises; no erythema, purulence or signs of infection No pain with palpation along the lumbar spine Dorsiflexion, plantarflexion, and extensor hallucis longus positive sustained bilaterally Lower extremity strength positive sustained throughout range of motion bilaterally No signs or symptoms of DVT; no calf pain Pneumatic cuffs intact bilateral lower extremities No pain with internal and external rotation of the hips bilaterally Neurovascularly intact Assessment: L3 vertebral body burst fracture that is age-indeterminate appears to be acute or subacute Low back pain currently controlled Symptomatic iron deficiency Anemia Plan: 1. After reviewing of imaging, physical examination the patient, and further discussion with the patient, will currently plan to continue with conservative treatment at this time as set forth yesterday by Dr. Bob Sweeney. At this time we'll plan for bracing. A prescription has been written and provided to case management for an LSO brace. Once this brace is delivered and fitted appropriately, patient should wear this brace while sitting upright at greater than 45, during increase activities, during ambulation. Brace is not have to or while lying in bed or while bathing. Following fitting of this brace, daron corral is clear for discharge from an orthopedic spine standpoint. Following discharge, patient may follow-up with Joel Song PA-C or Dr. Bob Sweeney at [facility]. 2. Continue pain control medications as prescribed 3. Patient will continue to be seeing examined by other medical providers for her other medical diagnoses including GI bleed with anemia
[2018-12-05] MEDS: IPRATROPIUM-ALBUTEROL 3 ML NEB INHALATION SCH ×3 (08:44→21:26)
[2018-12-05] MEDS: SODIUM FERRIC GLUCONAT-SUCROSE 125 MG in SODIUM CHLORIDE 0.9% 100 ML IVPB SCH (12:14)
--- NOTE | 2018-12-05 12:53 | P.PN ---
Subjective This is a pleasant 73 years old female with past medical history of osteoarthritis. She presents because of acute back pain after she twisted her b ack, with imaging showing L3 vertebral body fracture which could be acute versus subacute, patient has been evaluated by orthopedic team and they recommended conservative medical management with back brace, and follow-up as an outpatient with their service. On admission patient also has urinary retention and Jones catheter has been placed. Patient found to have iron deficiency anemia and the tie cutter planning for EGD/colonoscopy, possibly tomorrow patient denies chest pain or dyspnea. No blood was noticed in her bowel movement however her FOBT was positive. Patient is hemodynamically stable and labs reviewed showing hemoglobin of 8.2. We'll check her BMP as well Patient is currently on Protonix 40 mg IV twice daily. Review of systems CONSTITUTIONAL: No fever, no malaise, no fatigue. HEENT: No recent visual problems or hearing problems. Denied any sore throat. CARDIOVASCULAR: No orthopnea, PND, no palpitations, no syncope. PULMONARY: No shortness of breath, no cough, no hemoptysis. GASTROINTESTINAL: Normoactive bowel sounds. NEUROLOGICAL: No headaches, no weakness, no numbness. HEMATOLOGICAL: Denies any bleeding or petechiae. GENITOURINARY: Denies any burning micturition, frequency, or urgency. ENDOCRINE: Denies any polyuria or polydipsia. Active Medications Generic Name Dose Route Start Last Admin Trade Name Freq PRN Reason Stop Dose Admin Acetaminophen 650 mg 12/03/18 15:33 12/04/18 13:49 Tylenol Tab PO 650 mg Q6HR PRN Administration Mild Pain or Fever > 100.5 Hydrocodone Bitart/Acetaminophen 1 each 12/03/18 15:33 Mchenry 5-325 PO Q4HR PRN Moderate Pain Albuterol/Ipratropium 3 ml 12/03/18 20:00 12/05/18 08:44 Duoneb 0.5 Mg-3 Mg/3 Ml Soln INHALATION 3 ml RT-TID SELMA Administration Albuterol/Ipratropium 3 ml 12/03/18 17:24 Duoneb 0.5 Mg-3 Mg/3 Ml Soln INHALATION RT-TID PRN Shortness Of Breath Or Wheezing Bisacodyl 5 mg 12/03/18 15:33 12/04/18 13:50 Dulcolax PO 5 mg DAILY PRN Administration Constipation Sodium Chloride 1,000 mls @ 20 mls/hr 12/03/18 15:45 12/05/18 06:51 Saline 0.9% IV 20 mls/hr .Q24H SELMA Administration Ferric Sodium Gluconate 125 mg 110 mls @ 100 mls/hr 12/05/18 09:00 12/05/18 12:14 / Sodium Chloride IVPB 12/06/18 10:05 100 mls/hr DAILY SELMA Administration Levothyroxine Sodium 100 mcg 12/04/18 11:36 12/05/18 06:51 Synthroid PO 100 mcg DAILY@0630 SELMA Administration Naloxone HCl 0.2 mg 12/03/18 15:33 Narcan IV Q2M PRN Opioid Reversal Ondansetron HCl 4 mg 12/03/18 15:33 Zofran IVP Q8HR PRN Nausea And Vomiting Pantoprazole Sodium 40 mg 12/03/18 21:00 12/05/18 08:27 Protonix IV 40 mg BID SELMA Administration Sodium Biphosphate/Sodium Phosphate 133 ml 12/03/18 15:33 Fleet Adult RECTAL ONCE PRN Constipation Objective - Vital Signs Vital signs: Vital Signs Temp 98.2 F 12/05/18 08:00 Pulse 56 L 12/05/18 12:00 Resp 18 12/05/18 12:00 BP 133/66 12/05/18 12:00 Pulse Ox 99 12/05/18 12:00 Intake & Output 12/04/18 12/05/18 12/05/18 18:59 06:59 18:59 Intake Total 300 470 Output Total 700 1100 Balance -400 -1100 470 Intake: Intake, IV Titration 220 Amount Sodium Chloride 0.9% 1, 120 000 ml @ 20 mls/hr IV . Q24H [facility] Rx#:[id number] Sodium Ferric Gluconat- 100 Sucrose 125 mg In Sodium Chloride 0.9% 100 ml @ 100 mls/hr IVPB DAILY [facility] Rx#:[id number] Oral 300 250 Output: Urine 700 1100 Other: Voiding Method Indwelling Catheter Indwelling Catheter Indwelling Catheter - Exam -GENERAL: The patient is alert and oriented x3, not in any acute distress. Thin and emaciated HEENT: Pupils are round and equally reacting to light. EOMI. No scleral icterus. No conjunctival pallor. Normocephalic, atraumatic. No pharyngeal erythema. No thyromegaly. CARDIOVASCULAR: S1 and S2 present. No murmurs, rubs, or gallops. PULMONARY: Chest is clear to auscultation, no wheezing or crackles. -ABDOMEN: Soft, nontender, nondistended, normoactive bowel sounds. No palpable organomegaly. Jones catheter is in place with clear urine in the back MUSCULOSKELETAL: No joint swelling or deformity. EXTREMITIES: No cyanosis, clubbing, or pedal edema. NEUROLOGICAL: Gross neurological examination did not reveal any focal deficits. SKIN: No rashes. no petechiae. - Labs CBC & Chem 7: 12/05/18 05:50 12/03/18 12:28 Labs: Abnormal Lab Results - Last 24 Hours (Table) 12/05/18 Range/Units 05:50 RBC 3.36 L (3.80-5.40) m/uL Hgb 8.2 L (11.4-16.0) gm/dL Hct 28.9 L (34.0-46.0) % MCH 24.4 L (25.0-35.0) pg MCHC 28.4 L (31.0-37.0) g/dL RDW 18.2 H (11.5-15.5) % Plt Count 112 L (150-450) k/uL Lymphocytes # 0.6 L (1.0-4.8) k/uL Assessment and Plan Assessment: After deficiency anemia, rule out GI bleed Severe new onset hypothyroidism 3 vertebral body fracture could be acute versus subacute, evaluated by orthopedic and he recommended conservative management Urinary retention, present on admission. Increased creatinine, possible acute kidney injury Severe protein calorie malnutrition with BMI of 19.4 Large hiatal hernia Bladder distention Bilateral pleural effusion Nonobstructive right-sided nephrolithiasis Large amount of stool in the colon Gait dysfunction Plan: This is a pleasant 73 year old female who presents with L3 vertebral fracture and possible GI bleed. Continue with Protonix. Continue with recommendation of GI and orthopedics teams. Patient will need possible EGD/colonoscopy Pain management. Back brace. We'll order physical therapy evaluation Labs and medication were reviewed.. Continue same treatment. Continue with symptomatic treatment. Resume home medication. Monitor lytes and vitals. DVT and GI prophylaxis. Further recommendations of the clinical course of the patient DVT prophylaxis: No anticoagulation in view of possible GI bleed GI Prophylaxis: PPI PT/OT: Pending Prognosis is guarded Discussed with the staff
[2018-12-05 14:03] LABS: Anisocytosis Slight; Basophils % (A) 1 %; Eosinophils # (A) 0.2 k/uL (0-0.7); Eosinophils % (A) 4 %; HCT 29.1 % (34.0-46.0); HGB 8.8 gm/dL (11.4-16.0); Hypochromasia Marked; Lymphocytes # (A) 0.5 k/uL (1.0-4.8); Lymphocytes % (A) 10 %; MCH 26.2 pg (25.0-35.0); MCHC 30.2 g/dL (31.0-37.0); MCV 86.9 fL (80.0-100.0); Mean Platelet Volume 8.8; Monocytes # (A) 0.2 k/uL (0-1.0); Monocytes % (A) 3 %; Neutrophils % (A) 81 %; Platelet Count 108 k/uL (150-450); Poikilocytosis Marked; RBC 3.35 m/uL (3.80-5.40); RDW 17.8 % (11.5-15.5); WBC 4.9 k/uL (3.8-10.6)
[2018-12-05 14:51] LABS: Mixed Population RBC Present
[2018-12-05 15:09] LABS: Free Kappa Lt Chain Qnt, Serum 5.71 mg/dL (0.33-1.94)
[2018-12-05] MEDS ORDERED: PEG 3350-NA SULF,BICARB,CL/KCL 4,000 ML BOTTLE PO ONE (15:56)
[2018-12-05] MEDS: ACETAMINOPHEN TAB 325 MG TAB PO PRN (17:04)
[2018-12-05] MEDS ORDERED: BISACODYL 5 MG TABLET.DR PO ONE (18:00)
--- NOTE | 2018-12-05 20:23 | P.PN ---
Subjective Progress Note Date: 12/05/18 Principal diagnosis: Iron deficiency anemia Patient is seen lying in bed resting comfortably with daughter at bedside. No acute events overnight. No signs or symptoms of GI bleeding. Objective - Vital Signs Vital signs: Vital Signs Temp 98.2 F 12/05/18 08:00 Pulse 56 L 12/05/18 15:40 Resp 18 12/05/18 12:00 BP 133/66 12/05/18 12:00 Pulse Ox 99 12/05/18 12:00 Intake & Output 12/04/18 12/05/18 12/05/18 18:59 06:59 18:59 Intake Total 300 590 Output Total 700 1100 Balance -400 -1100 590 Intake: Intake, IV Titration 220 Amount Sodium Chloride 0.9% 1, 120 000 ml @ 20 mls/hr IV . Q24H [facility] Rx#:[id number] Sodium Ferric Gluconat- 100 Sucrose 125 mg In Sodium Chloride 0.9% 100 ml @ 100 mls/hr IVPB DAILY [facility] Rx#:[id number] Oral 300 370 Output: Urine 700 1100 Other: Voiding Method Indwelling Catheter Indwelling Catheter Indwelling Catheter # Voids 0 # Bowel Movements 1 - Exam On physical examination, patient appears comfortable in no apparent distress. HEAD: Normocephalic, atraumatic. EYES: No scleral icterus. No conjunctival injection. MOUTH: No lesions, tongue midline. NECK: Trachea midline, no gross abnormalities. CHEST: No respiratory distress. ABDOMEN: Soft, obese. Bowel sounds are positive. No organomegaly. No guarding or rigidity. EXTREMITIES: No pedal edema. SKIN: No rashes, no jaundice. NEUROLOGIC: No focal deficits. - Labs CBC & Chem 7: 12/05/18 13:11 12/03/18 12:28 Labs: Abnormal Lab Results - Last 24 Hours (Table) 12/05/18 12/05/18 12/05/18 Range/Units 05:50 05:50 13:11 RBC 3.36 L 3.35 L (3.80-5.40) m/uL Hgb 8.2 L 8.8 L (11.4-16.0) gm/dL Hct 28.9 L 29.1 L (34.0-46.0) % MCH 24.4 L (25.0-35.0) pg MCHC 28.4 L 30.2 L (31.0-37.0) g/dL RDW 18.2 H 17.8 H (11.5-15.5) % Plt Count 112 L 108 L (150-450) k/uL Lymphocytes # 0.6 L 0.5 L (1.0-4.8) k/uL Free [place] LC, Quant 5.71 H (0.33-1.94) mg/dL Assessment and Plan (1) Iron deficiency anemia Narrative/Plan: 73-year-old female with severe symptomatic iron deficiency anemia. Patient did have stool testing positive for blood, but advised any overt signs or symptoms of GI blood loss. The patient has had poor medical follow-up over the past 30 years. She does report some vague lower abdominal pain and does use NSAIDs occasionally. No prior history of peptic ulcer disease or family history of colon cancer. No prior endoscopic evaluation reported. Unknown etiology with differential including GI blood loss, nutritional deficiencies, hematologic or mixed etiology. Current Visit: Yes Status: Acute Code(s): D50.9 - IRON DEFICIENCY ANEMIA, UNSPECIFIED SNOMED Code(s): 91346510 Plan: Supportive care Okay for clear liquid diet today Clear liquid diet tomorrow Dulcolax 20 mg given today Continue to monitor hemoglobin and transfuse as needed Hematology/oncology evaluation in the patient with iron supplementation further service recommendations Plan for bowel prep with EGD and colonoscopy to be scheduled for tomorrow for further evaluation of iron deficiency anemia Computed tomography scan and iron studies reviewed Thank you for allowing us to participate in the care of the patient we will continue to follow
[2018-12-05] MEDS ORDERED: LIDOCAINE 1% 20 ML VIAL (10MG/ML) FOR IV START INTRADERMA PRN (20:38)
[2018-12-05 20:39] LABS: Potassium 3.8 mmol/L (3.5-5.1)
--- NOTE | 2018-12-05 20:53 | P.PN ---
Subjective Progress Note Date: 12/05/18 Principal diagnosis: Iron Def Anemia Patient is eating clear liquid diet, Marty MARCELO at bedside Objective - Vital Signs Vital signs: Vital Signs Temp 97.0 F L 12/05/18 16:00 Pulse 59 L 12/05/18 16:00 Resp 16 12/05/18 16:00 BP 125/64 12/05/18 16:00 Pulse Ox 95 12/05/18 16:00 Intake & Output 12/05/18 12/05/18 12/06/18 06:59 18:59 06:59 Intake Total 590 Output Total 1100 Balance -1100 590 Intake: Intake, IV Titration 220 Amount Sodium Chloride 0.9% 1, 120 000 ml @ 20 mls/hr IV . Q24H [facility] Rx#:[id number] Sodium Ferric Gluconat- 100 Sucrose 125 mg In Sodium Chloride 0.9% 100 ml @ 100 mls/hr IVPB DAILY [facility] Rx#:[id number] Oral 370 Output: Urine 1100 Other: Voiding Method Indwelling Catheter Indwelling Catheter # Voids 0 # Bowel Movements 1 - Exam - Constitutional General appearance: no acute distress - EENT Eyes: EOMI, PERRLA ENT: hard of hearing, normal oropharynx - Neck Neck: no lymphadenopathy Thyroid: bilateral: normal size - Respiratory Respiratory: bilateral: CTA - Cardiovascular Rhythm: regular Heart sounds: normal: S1, S2 - Gastrointestinal General gastrointestinal: normal bowel sounds, soft - Integumentary Integumentary: normal - Neurologic Neurologic: CNII-XII intact - Musculoskeletal Musculoskeletal: generalized weakness, strength equal bilaterally - Psychiatric There appeared to be some difficulty in comprehension of the patient was able to give a reasonable history with repeated questioning. This appeared at least in part, due to some difficulty in hearing. There is also at least mild memory loss. Psychiatric: A&O x's 3, appropriate affect - Labs CBC & Chem 7: 12/05/18 13:11 12/05/18 20:07 Labs: Abnormal Lab Results - Last 24 Hours (Table) 12/05/18 12/05/18 12/05/18 Range/Units 05:50 05:50 13:11 RBC 3.36 L 3.35 L (3.80-5.40) m/uL Hgb 8.2 L 8.8 L (11.4-16.0) gm/dL Hct 28.9 L 29.1 L (34.0-46.0) % MCH 24.4 L (25.0-35.0) pg MCHC 28.4 L 30.2 L (31.0-37.0) g/dL RDW 18.2 H 17.8 H (11.5-15.5) % Plt Count 112 L 108 L (150-450) k/uL Lymphocytes # 0.6 L 0.5 L (1.0-4.8) k/uL Sodium (137-145) mmol/L Chloride (98-107) mmol/L BUN (7-17) mg/dL Creatinine (0.52-1.04) mg/dL Calcium (8.4-10.2) mg/dL Free [place] LC, Quant 5.71 H (0.33-1.94) mg/dL 12/05/18 Range/Units 20:07 RBC (3.80-5.40) m/uL Hgb (11.4-16.0) gm/dL Hct (34.0-46.0) % MCH (25.0-35.0) pg MCHC (31.0-37.0) g/dL RDW (11.5-15.5) % Plt Count (150-450) k/uL Lymphocytes # (1.0-4.8) k/uL Sodium 131 L (137-145) mmol/L Chloride 96 L (98-107) mmol/L BUN 23 H (7-17) mg/dL Creatinine 1.56 H (0.52-1.04) mg/dL Calcium 8.0 L (8.4-10.2) mg/dL Free [place] LC, Quant (0.33-1.94) mg/dL Assessment and Plan Plan: Anemia Narrative/Plan: The patient is presenting with severe anemia and that is microcytic. Iron studies confirm severe iron deficiency. The patient has never had a GI workup before. Therefore this would be strongly recommended. GI is already on consult. - Agree with blood transfusion. Continue to monitor and transfuse to keep hemoglobin greater than 7 - Has a degree of microcytosis is less than the degree of anemia, I will order workup for other causes to rule out a mixed anemia. - Appears to be prepping for egD and COlonoscopy in am - Hemoglobin stable, continue IV Iron
[2018-12-06] MEDS: LACTATED RINGERS 1,000 ML IV SCH (06:36)
[2018-12-06] MEDS: LEVOTHYROXINE 100 MCG TAB PO SCH (06:38)
[2018-12-06 08:08] LABS: Anisocytosis Slight; HCT 31.2 % (34.0-46.0); HGB 9.1 gm/dL (11.4-16.0); Hypochromasia Marked; MCH 26.6 pg (25.0-35.0); MCHC 29.1 g/dL (31.0-37.0); MCV 91.5 fL (80.0-100.0); Mean Platelet Volume 9.8; Platelet Count 104 k/uL (150-450); Poikilocytosis Marked; RBC 3.41 m/uL (3.80-5.40); WBC 9.5 k/uL (3.8-10.6)
[2018-12-06 08:16] LABS: Calcium 7.7 mg/dL (8.4-10.2); Potassium 3.8 mmol/L (3.5-5.1)
[2018-12-06 08:19] LABS: Large Platelets Present; Lymphocytes # (M) 0.19 k/uL (1.0-4.8); Monocytes # (M) 0.38 k/uL (0-1.0); Neutrophils % (M) 94 %; Nucleated Red Blood Cells 0 /100 WBC (0-0); Total Cells Counted 100
[2018-12-06] MEDS: SODIUM FERRIC GLUCONAT-SUCROSE 125 MG in SODIUM CHLORIDE 0.9% 100 ML IVPB SCH (08:29)
[2018-12-06] MEDS: PANTOPRAZOLE 40 MG/10 ML VIAL IV SCH ×2 (08:29→20:15)
[2018-12-06] MEDS: SODIUM CHLORIDE 0.9% 1,000 ML IV SCH (08:31)
--- NOTE | 2018-12-06 08:33 | P.PN ---
Subjective This is a pleasant 73 years old female with past medical history of osteoarthritis. She presents because of acute back pain after she twisted her b ack, with imaging showing L3 vertebral body fracture which could be acute versus subacute, patient has been evaluated by orthopedic team and they recommended conservative medical management with back brace, and follow-up as an outpatient with their service. On admission patient also has urinary retention and Jones catheter has been placed. 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 No blood was noticed in her bowel movement however her FOBT was positive. Patient is hemodynamically stable and labs reviewed showing hemoglobin of 8.2. We'll check her BMP as well Patient is currently on Protonix 40 mg IV twice daily. 12/06/2018 Patient remains in bed, lethargic. Her back pain is controlled. She denies chest pain or dyspnea. Vitas looks stable. No shortness improving creatinine From 1.9 down to 1.3. Hemoglobin stable at 9.1. Patient planned to go for EGD/colonoscopy today. After that she will be evaluated by physical therapist, brace for her back pain is at bedside. Currently patient remains on Protonix IV 40 mg twice daily. Objective - Vital Signs Vital signs: Vital Signs Temp 96.8 F L 12/06/18 04:00 Pulse 54 L 12/06/18 04:00 Resp 18 12/06/18 04:00 BP 159/100 12/06/18 04:00 Pulse Ox 93 L 12/06/18 04:00 Intake & Output 12/05/18 12/06/18 12/06/18 18:59 06:59 18:59 Intake Total 590 Output Total 750 Balance 590 -750 Weight 56.5 kg Intake: Intake, IV Titration 220 Amount Sodium Chloride 0.9% 1, 120 000 ml @ 20 mls/hr IV . Q24H [facility] Rx#:[id number] Sodium Ferric Gluconat- 100 Sucrose 125 mg In Sodium Chloride 0.9% 100 ml @ 100 mls/hr IVPB DAILY [facility] Rx#:[id number] Oral 370 Output: Urine 750 Other: Voiding Method Indwelling Catheter Indwelling Catheter # Voids 0 # Bowel Movements 1 1 3 - Exam -GENERAL: The patient is alert and oriented x3, not in any acute distress. Thin and emaciated HEENT: Pupils are round and equally reacting to light. EOMI. No scleral icterus. No conjunctival pallor. Normocephalic, atraumatic. No pharyngeal erythema. No thyromegaly. CARDIOVASCULAR: S1 and S2 present. No murmurs, rubs, or gallops. PULMONARY: Chest is clear to auscultation, no wheezing or crackles. -ABDOMEN: Soft, nontender, nondistended, normoactive bowel sounds. No palpable organomegaly. Jones catheter is in place with clear urine in the back MUSCULOSKELETAL: No joint swelling or deformity. EXTREMITIES: No cyanosis, clubbing, or pedal edema. NEUROLOGICAL: Gross neurological examination did not reveal any focal deficits. SKIN: No rashes. no petechiae. - Labs CBC & Chem 7: 12/06/18 07:19 12/06/18 07:19 Labs: Abnormal Lab Results - Last 24 Hours (Table) 12/05/18 12/05/18 12/05/18 Range/Units 05:50 13:11 20:07 RBC 3.35 L (3.80-5.40) m/uL Hgb 8.8 L (11.4-16.0) gm/dL Hct 29.1 L (34.0-46.0) % MCHC 30.2 L (31.0-37.0) g/dL RDW 17.8 H (11.5-15.5) % Plt Count 108 L (150-450) k/uL Neutrophils # (Manual) (1.3-7.7) k/uL Lymphocytes # 0.5 L (1.0-4.8) k/uL Lymphocytes # (Manual) (1.0-4.8) k/uL Sodium 131 L (137-145) mmol/L Chloride 96 L (98-107) mmol/L BUN 23 H (7-17) mg/dL Creatinine 1.56 H (0.52-1.04) mg/dL Calcium 8.0 L (8.4-10.2) mg/dL Free [place] LC, Quant 5.71 H (0.33-1.94) mg/dL 12/06/18 12/06/18 Range/Units 07:19 07:19 RBC 3.41 L (3.80-5.40) m/uL Hgb 9.1 L (11.4-16.0) gm/dL Hct 31.2 L (34.0-46.0) % MCHC 29.1 L (31.0-37.0) g/dL RDW 18.0 H (11.5-15.5) % Plt Count 104 L (150-450) k/uL Neutrophils # (Manual) 8.93 H (1.3-7.7) k/uL Lymphocytes # (1.0-4.8) k/uL Lymphocytes # (Manual) 0.19 L (1.0-4.8) k/uL Sodium 132 L (137-145) mmol/L Chloride 95 L (98-107) mmol/L BUN 21 H (7-17) mg/dL Creatinine 1.33 H (0.52-1.04) mg/dL Calcium 7.7 L (8.4-10.2) mg/dL Free [place] LC, Quant (0.33-1.94) mg/dL Assessment and Plan Assessment: After deficiency anemia, rule out GI bleed Severe new onset hypothyroidism 3 vertebral body fracture could be acute versus subacute, evaluated by orthopedic and he recommended conservative management Urinary retention, present on admission. Increased creatinine, possible acute kidney injury Severe protein calorie malnutrition with BMI of 19.4 Large hiatal hernia Bladder distention Bilateral pleural effusion Nonobstructive right-sided nephrolithiasis Large amount of stool in the colon Gait dysfunction Plan: This is a pleasant 73 year old female who presents with L3 vertebral fracture and possible GI bleed. Continue with Protonix. Continue with recommendation of GI and orthopedics teams. Patient will need possible EGD/colonoscopy Pain management. Back brace. We'll order physical therapy evaluation Labs and medication were reviewed.. Continue same treatment. Continue with symptomatic treatment. Resume home medication. Monitor lytes and vitals. DVT and GI prophylaxis. Further recommendations of the clinical course of the patient DVT prophylaxis: No anticoagulation in view of possible GI bleed GI Prophylaxis: PPI PT/OT: Pending Prognosis is guarded Discussed with the staff
[2018-12-06] MEDS: IPRATROPIUM-ALBUTEROL 3 ML NEB INHALATION SCH ×3 (09:43→21:16)
[2018-12-06] MEDS ORDERED: GLYCOPYRROLATE 0.2 MG/ML 2 ML VIAL ONE (10:18)
[2018-12-06] MEDS ORDERED: LACTATED RINGERS 950 ML IV ONE (10:18)
[2018-12-06] MEDS ORDERED: PROPOFOL 10 MG/ML 20 ML VIAL IV ONE (10:18)
--- NOTE | 2018-12-06 11:28 | P.PCN ---
Date of Procedure: 12/06/18 Description of Procedure: Brief history: 73-year-old female with poor medical follow-up who presented to the hospital with complaints of increasing weakness and back pain. The patient has had increasing generalized weakness and difficulty ambulating over the past few weeks. She was brought to the hospital for further evaluation of her symptoms. On presentation to the hospital patient was found to have WBC 4.1, hemoglobin 4.3 which was subsequently found to be 0.9 after transfusion, platelet count 112,000, iron 80 with saturation 2%, MCV 78.2, total bilirubin 0.4, alkaline phosphatase 62, AST 24 and ALTs 21 with stool positive for occult blood. She denies any signs or symptoms of GI bleeding. No nausea or vomiting, with the patient denying any hematemesis. Denies any history of peptic ulcer disease and reports very seldom use of Advil as needed for pain, approximately 2 pills very seldomly. She denies any hematochezia or melena. Procedure performed: Esophagogastroduodenoscopy with biopsy Colonoscopy Estimated blood loss: Minimal. Preoperative diagnosis: Iron deficiency anemia Anesthesia: MAC Procedure: After informed consent was obtained from the patient was brought into the endoscopy unit and IV sedation was administered by anesthesia under continuous monitoring. Initially upper endoscopy was done. The Olympus GF 190 video endoscope was inserted inserted into the mouth and esophagus intubated without any difficulty and was gradually advanced into the stomach and duodenum and carefully examined. The bulb and second part of the duodenum appeared normal, with biopsies taken. The scope was then withdrawn into the stomach adequately insufflated with air and upon careful examination the antrum and body, cardia and fundus appeared normal, except for some mild scattered erythema in the antrum and body suggestive of mild gastritis with biopsies taken. The scope was then withdrawn into the esophagus. The GE junction was located at 36 cm to the incisors, with a 5 cm hiatal hernia noted. It appeared regular with no erythema erosions or ulcerations. Rest of the esophagus appeared normal. Patient tolerated the procedure well. At this time the patient continued to remain sedation. Initial digital rectal examination was normal. Olympus CF 190 video colonoscope was then inserted into the rectum and gradually advanced to the cecum without any difficulty. Careful examination was performed as the scope was gradually being withdrawn. The prep was poor with a large amount of solid stool and liquid stool throughout the colon. The cecum, ascending colon, transverse colon, descending colon, sigmoid colon and rectum appeared normal, except for some mild scattered diverticulosis. The visualized mucosa did not appear irritated with no signs of bleeding, colonic masses or other pathology to explain anemia. Retroflexion was performed in the rectum and no lesions were noted. Patient tolerated the procedure well. Impression: 1. Mild gastritis antrum body, biopsied. Duodenal biopsies. Large hiatal hernia. 2. Poor prep, however was able to reach the cecum and there was no evidence of any pathology to explain the anemia from the visualized mucosa of the colon. Recommendations: Findings of this examination were discussed with the patient. Okay to resume diet. Continue to monitor hemoglobin and hematocrit and transfuse as needed. Continue urologic workup per the hematology/oncology service. Continue nutritional supplementation. If patient remains anemic she would benefit from repeat colonoscopy with two-day prep, however no further plans for endoscopic workup at this time.
--- NOTE | 2018-12-06 11:45 | P.PN ---
Subjective Progress Note Date: 12/06/18 Principal diagnosis: Iron Def Anemia Status Post colonoscopy, per procedure note no pathological explanation seen during procedure. Objective - Vital Signs Vital signs: Vital Signs Temp 97.4 F L 12/06/18 08:00 Pulse 60 12/06/18 09:56 Resp 18 12/06/18 08:00 BP 152/64 12/06/18 08:00 Pulse Ox 98 12/06/18 08:00 Intake & Output 12/05/18 12/06/18 12/06/18 18:59 06:59 18:59 Intake Total 590 550 Output Total 750 2 Balance 590 -750 548 Weight 56.5 kg Intake: IV 550 Intake, IV Titration 220 Amount Sodium Chloride 0.9% 1, 120 000 ml @ 20 mls/hr IV . Q24H SELMA Rx#:[id number] Sodium Ferric Gluconat- 100 Sucrose 125 mg In Sodium Chloride 0.9% 100 ml @ 100 mls/hr IVPB DAILY SELMA Rx#:[id number] Oral 370 Output: Urine 750 Stool 2 Other: Voiding Method Indwelling Catheter Indwelling Catheter Indwelling Catheter # Voids 0 # Bowel Movements 1 1 1 - Exam - Constitutional General appearance: no acute distress - EENT Eyes: EOMI, PERRLA ENT: hard of hearing, normal oropharynx - Neck Neck: no lymphadenopathy Thyroid: bilateral: normal size - Respiratory Respiratory: bilateral: CTA - Cardiovascular Rhythm: regular Heart sounds: normal: S1, S2 - Gastrointestinal General gastrointestinal: normal bowel sounds, soft - Integumentary Integumentary: normal - Neurologic Neurologic: CNII-XII intact - Musculoskeletal Musculoskeletal: generalized weakness, strength equal bilaterally - Psychiatric There appeared to be some difficulty in comprehension of the patient was able to give a reasonable history with repeated questioning. This appeared at least in part, due to some difficulty in hearing. There is also at least mild memory loss. Psychiatric: A&O x's 3, appropriate affect - Labs CBC & Chem 7: 12/06/18 07:19 12/06/18 07:19 Labs: Abnormal Lab Results - Last 24 Hours (Table) 12/05/18 12/05/18 12/05/18 Range/Units 05:50 13:11 20:07 RBC 3.35 L (3.80-5.40) m/uL Hgb 8.8 L (11.4-16.0) gm/dL Hct 29.1 L (34.0-46.0) % MCHC 30.2 L (31.0-37.0) g/dL RDW 17.8 H (11.5-15.5) % Plt Count 108 L (150-450) k/uL Neutrophils # (Manual) (1.3-7.7) k/uL Lymphocytes # 0.5 L (1.0-4.8) k/uL Lymphocytes # (Manual) (1.0-4.8) k/uL Sodium 131 L (137-145) mmol/L Chloride 96 L (98-107) mmol/L BUN 23 H (7-17) mg/dL Creatinine 1.56 H (0.52-1.04) mg/dL Calcium 8.0 L (8.4-10.2) mg/dL Free [place] LC, Quant 5.71 H (0.33-1.94) mg/dL 12/06/18 12/06/18 Range/Units 07:19 07:19 RBC 3.41 L (3.80-5.40) m/uL Hgb 9.1 L (11.4-16.0) gm/dL Hct 31.2 L (34.0-46.0) % MCHC 29.1 L (31.0-37.0) g/dL RDW 18.0 H (11.5-15.5) % Plt Count 104 L (150-450) k/uL Neutrophils # (Manual) 8.93 H (1.3-7.7) k/uL Lymphocytes # (1.0-4.8) k/uL Lymphocytes # (Manual) 0.19 L (1.0-4.8) k/uL Sodium 132 L (137-145) mmol/L Chloride 95 L (98-107) mmol/L BUN 21 H (7-17) mg/dL Creatinine 1.33 H (0.52-1.04) mg/dL Calcium 7.7 L (8.4-10.2) mg/dL Free [place] LC, Quant (0.33-1.94) mg/dL Assessment and Plan Plan: Anemia, The patient is presenting with severe anemia and that is microcytic. Iron studies confirm severe iron deficiency. The patient has never had a GI workup before. Therefore this would be strongly recommended. GI is already on consult. - Agree with blood transfusion. Continue to monitor and transfuse to keep h emoglobin greater than 7 - Has a degree of microcytosis is less than the degree of anemia, I will order workup for other causes to rule out a mixed anemia. - Appears to be prepping for egD and COlonoscopy in am - Hemoglobin stable, continue IV Iron Thrombocytopenia: - Mild but decreased since admision 149K to 104K - Recheck Coags - Review Diferntial smear - Likely medication versus ITP but cannot rule out mild underlying MDS Recomendations: - Refrain from NSAIDS - Monitor CBC, Platelts and Hemoglobin as outpatient
[2018-12-06] MEDS ORDERED: SODIUM FERRIC GLUCONAT-SUCROSE 125 MG in SODIUM CHLORIDE 0.9% 100 ML IVPB SCH (12:00)
[2018-12-06 13:21] LABS: Prothrombin Time 10.5 sec (9.0-12.0)
[2018-12-06 20:27] LABS: Protein, Total 4.9 g/dL (6.2-8.2)
[2018-12-07] MEDS: LACTATED RINGERS 1,000 ML IV SCH ×2 (03:00→12:33)
[2018-12-07] MEDS: SODIUM CHLORIDE 0.9% 1,000 ML IV SCH ×2 (06:12→20:59)
[2018-12-07] MEDS: LEVOTHYROXINE 100 MCG TAB PO SCH (06:21)
[2018-12-07 07:10] LABS: Anisocytosis Slight; Basophils % (A) 1 %; Eosinophils # (A) 0.1 k/uL (0-0.7); Eosinophils % (A) 2 %; HCT 27.5 % (34.0-46.0); HGB 8.2 gm/dL (11.4-16.0); Hypochromasia Marked; Lymphocytes # (A) 0.6 k/uL (1.0-4.8); Lymphocytes % (A) 13 %; MCH 25.7 pg (25.0-35.0); MCHC 29.7 g/dL (31.0-37.0); Mean Platelet Volume 7.5; Monocytes # (A) 0.2 k/uL (0-1.0); Monocytes % (A) 5 %; Neutrophils # (A) 3.7 k/uL (1.3-7.7); Neutrophils % (A) 78 %; Platelet Count 107 k/uL (150-450); Poikilocytosis Marked; RBC 3.18 m/uL (3.80-5.40); RDW 18.4 % (11.5-15.5); WBC 4.7 k/uL (3.8-10.6)
[2018-12-07 07:32] LABS: MCV 86.5 fL (80.0-100.0)
[2018-12-07] MEDS: IPRATROPIUM-ALBUTEROL 3 ML NEB INHALATION SCH ×3 (07:34→19:29)
[2018-12-07 08:41] LABS: Methylmalonic Acid 0.44 umol/L (<0.40)
[2018-12-07] MEDS: SODIUM FERRIC GLUCONAT-SUCROSE 125 MG in SODIUM CHLORIDE 0.9% 100 ML IVPB SCH (09:04)
[2018-12-07] MEDS: PANTOPRAZOLE 40 MG/10 ML VIAL IV SCH ×2 (09:04→19:58)
[2018-12-07 10:32] LABS: Free Kappa Lt Chain Qnt, Serum 4.3 mg/dL (0.33-1.94)
[2018-12-07 12:38] LABS: Albumin 2.97 g/dL (3.80-4.90); Gamma Globulin 0.51 g/dL (0.70-1.50)
--- NOTE | 2018-12-07 19:55 | P.PN ---
Subjective Progress Note Date: 12/07/18 Principal diagnosis: Iron deficiency anemia Patient is seen lying in bed resting comfortably with daughter at bedside. No acute events overnight. Patient is tolerating her diet with no signs or symptoms of GI bleeding reported. Objective - Vital Signs Vital signs: Vital Signs Temp 98.0 F 12/07/18 12:21 Pulse 88 12/07/18 12:25 Resp 18 12/07/18 12:25 BP 164/67 12/07/18 12:21 Pulse Ox 98 12/07/18 12:21 Intake & Output 12/06/18 12/07/18 12/07/18 18:59 06:59 18:59 Intake Total 790 240 118 Output Total 303 503 Balance 487 -263 118 Intake: IV 550 Oral 240 240 118 Output: Urine 300 500 Stool 3 3 Other: Voiding Method Indwelling Catheter Indwelling Catheter Indwelling Catheter # Bowel Movements 1 - Exam On physical examination, patient appears comfortable in no apparent distress. HEAD: Normocephalic, atraumatic. EYES: No scleral icterus. No conjunctival injection. MOUTH: No lesions, tongue midline. NECK: Trachea midline, no gross abnormalities. EXTREMITIES: No pedal edema. SKIN: No rashes, no jaundice. NEUROLOGIC: No focal deficits. - Labs CBC & Chem 7: 12/07/18 06:12 12/06/18 07:19 Labs: Abnormal Lab Results - Last 24 Hours (Table) 12/05/18 12/06/18 12/06/18 Range/Units 05:50 07:19 12:32 RBC (3.80-5.40) m/uL Hgb (11.4-16.0) gm/dL Hct (34.0-46.0) % MCHC (31.0-37.0) g/dL RDW (11.5-15.5) % Plt Count (150-450) k/uL Lymphocytes # (1.0-4.8) k/uL APTT 38.0 H (22.0-30.0) sec Total Protein (PEP) 4.9 L (6.2-8.2) g/dL Albumin (PEP) 2.97 L (3.80-4.90) g/dL Beta Globulins 0.51 L (0.60-1.30) g/dL Gamma Globulins 0.51 L (0.70-1.50) g/dL Methylmalonic Acid 0.44 H (<0.40) umol/L RBC Folate 1,057 H (280 - 791) ng/mL IgG 574.0 L (700.0-1600.0) mg/dL IgM 34.0 L (40.0-280.0) mg/dL Free [place] LC, Quant 4.30 H (0.33-1.94) mg/dL 12/07/18 Range/Units 06:12 RBC 3.18 L (3.80-5.40) m/uL Hgb 8.2 L (11.4-16.0) gm/dL Hct 27.5 L (34.0-46.0) % MCHC 29.7 L (31.0-37.0) g/dL RDW 18.4 H (11.5-15.5) % Plt Count 107 L (150-450) k/uL Lymphocytes # 0.6 L (1.0-4.8) k/uL APTT (22.0-30.0) sec Total Protein (PEP) (6.2-8.2) g/dL Albumin (PEP) (3.80-4.90) g/dL Beta Globulins (0.60-1.30) g/dL Gamma Globulins (0.70-1.50) g/dL Methylmalonic Acid (<0.40) umol/L RBC Folate (280 - 791) ng/mL IgG (700.0-1600.0) mg/dL IgM (40.0-280.0) mg/dL Free [place] LC, Quant (0.33-1.94) mg/dL Assessment and Plan (1) Iron deficiency anemia Narrative/Plan: 73-year-old female with severe symptomatic iron deficiency anemia. Patient did have stool testing positive for blood, but advised any overt signs or symptoms of GI blood loss. The patient has had poor medical follow-up over the past 30 years. She does report some vague lower abdominal pain and does use NSAIDs occasionally. No prior history of peptic ulcer disease or family history of colon cancer. Large hiatal hernia, gastritis with no pathology on EGD or colonoscopy to explain anemia. Currently undergoing evaluation with hematology service. Current Visit: Yes Status: Acute Code(s): D50.9 - IRON DEFICIENCY ANEMIA, UNSPECIFIED SNOMED Code(s): 10245028 Plan: Supportive care Okay for regular diet MiraLAX daily for bowel regimen Continue to monitor hemoglobin and transfuse as needed Hematology/oncology evaluation in the patient with iron supplementation further service recommendations No further plans for endoscopic evaluation at this time Thank you for allowing us to participate in the care of the patient, the gastroenterology service will stand by, please call us back with any questions or concerns
[2018-12-07] MEDS: ACETAMINOPHEN TAB 325 MG TAB PO PRN (19:58)
--- NOTE | 2018-12-07 20:22 | P.PN ---
Subjective This is a pleasant 73 years old female with past medical history of osteoarthritis. She presents because of acute back pain after she twisted her b ack, with imaging showing L3 vertebral body fracture which could be acute versus subacute, patient has been evaluated by orthopedic team and they recommended conservative medical management with back brace, and follow-up as an outpatient with their service. On admission patient also has urinary retention and Jones catheter has been placed. Patient found to have iron deficiency anemia and the sales and service consultant planning for EGD/colonoscopy, possibly tomorrow patient denies chest pain or dyspnea. No blood was noticed in her bowel movement however her FOBT was positive. Patient is hemodynamically stable and labs reviewed showing hemoglobin of 8.2. We'll check her BMP as well Patient is currently on Protonix 40 mg IV twice daily. 12/06/2018 Patient remains in bed, lethargic. Her back pain is controlled. She denies chest pain or dyspnea. Vitas looks stable. No shortness improving creatinine From 1.9 down to 1.3. Hemoglobin stable at 9.1. Patient planned to go for EGD/colonoscopy today. After that she will be evaluated by physical therapist, brace for her back pain is at bedside. Currently patient remains on Protonix IV 40 mg twice daily. 12/07/2018 today pt is stable and she feels fine, she denies chest pain or dyspnea, no abd pain , no n/v, abd still somewhat distended but pt had two bowel movement over night vitals are stable, labs are reviewed and showing stable hb at 8.2 , case was discussed with GI team and she is cleared for discharge , pending also hematology follow up Objective - Vital Signs Vital signs: Vital Signs Temp 98.9 F 12/07/18 19:54 Pulse 61 12/07/18 19:54 Resp 18 12/07/18 19:54 BP 139/60 12/07/18 19:54 Pulse Ox 93 L 12/07/18 19:54 Intake & Output 12/07/18 12/07/18 12/08/18 06:59 18:59 06:59 Intake Total 240 580 Output Total 503 500 Balance -263 80 Intake: Oral 240 580 Output: Urine 500 500 Stool 3 Other: Voiding Method Indwelling Catheter Indwelling Catheter - Exam -GENERAL: The patient is alert and oriented x3, not in any acute distress. Thin and emaciated HEENT: Pupils are round and equally reacting to light. EOMI. No scleral icterus. No conjunctival pallor. Normocephalic, atraumatic. No pharyngeal erythema. No thyromegaly. CARDIOVASCULAR: S1 and S2 present. No murmurs, rubs, or gallops. PULMONARY: Chest is clear to auscultation, no wheezing or crackles. -ABDOMEN: Soft, nontender, nondistended, normoactive bowel sounds. No palpable o rganomegaly. Jones catheter is in place with clear urine in the back MUSCULOSKELETAL: No joint swelling or deformity. EXTREMITIES: No cyanosis, clubbing, or pedal edema. NEUROLOGICAL: Gross neurological examination did not reveal any focal deficits. SKIN: No rashes. no petechiae. - Labs CBC & Chem 7: 12/07/18 06:12 12/06/18 07:19 Labs: Abnormal Lab Results - Last 24 Hours (Table) 12/05/18 12/06/18 12/07/18 Range/Units 05:50 07:19 06:12 RBC 3.18 L (3.80-5.40) m/uL Hgb 8.2 L (11.4-16.0) gm/dL Hct 27.5 L (34.0-46.0) % MCHC 29.7 L (31.0-37.0) g/dL RDW 18.4 H (11.5-15.5) % Plt Count 107 L (150-450) k/uL Lymphocytes # 0.6 L (1.0-4.8) k/uL Total Protein (PEP) 4.9 L (6.2-8.2) g/dL Albumin (PEP) 2.97 L (3.80-4.90) g/dL Beta Globulins 0.51 L (0.60-1.30) g/dL Gamma Globulins 0.51 L (0.70-1.50) g/dL Methylmalonic Acid 0.44 H (<0.40) umol/L IgG 574.0 L (700.0-1600.0) mg/dL IgM 34.0 L (40.0-280.0) mg/dL Free [place] LC, Quant 4.30 H (0.33-1.94) mg/dL Assessment and Plan Assessment: After deficiency anemia, rule out GI bleed Severe new onset hypothyroidism 3 vertebral body fracture could be acute versus subacute, evaluated by orthopedic and he recommended conservative management Urinary retention, present on admission. Increased creatinine, possible acute kidney injury Severe protein calorie malnutrition with BMI of 19.4 Large hiatal hernia Bladder distention Bilateral pleural effusion Nonobstructive right-sided nephrolithiasis Large amount of stool in the colon Gait dysfunction Plan: This is a pleasant 73 year old female who presents with L3 vertebral fracture and possible GI bleed. Continue with Protonix. Continue with recommendation of GI and orthopedics teams. Patient will need possible EGD/colonoscopy Pain management. Back brace. We'll order physical therapy evaluation Labs and medication were reviewed.. Continue same treatment. Continue with symptomatic treatment. Resume home medication. Monitor lytes and vitals. DVT and GI prophylaxis. Further recommendations of the clinical course of the renuka choi DVT prophylaxis: No anticoagulation in view of possible GI bleed GI Prophylaxis: PPI PT/OT: Pending Prognosis is guarded Discussed with the staff
[2018-12-08] MEDS: LEVOTHYROXINE 100 MCG TAB PO SCH (06:25)
[2018-12-08 07:41] LABS: Anisocytosis Slight; Basophils # (A) 0.1 k/uL (0-0.2); Basophils % (A) 1 %; Eosinophils # (A) 0.2 k/uL (0-0.7); Eosinophils % (A) 2 %; HCT 27.5 % (34.0-46.0); HGB 8.3 gm/dL (11.4-16.0); Hypochromasia Marked; Lymphocytes # (A) 0.7 k/uL (1.0-4.8); Lymphocytes % (A) 11 %; MCH 26.3 pg (25.0-35.0); MCHC 30.3 g/dL (31.0-37.0); MCV 86.8 fL (80.0-100.0); Mean Platelet Volume 8.6; Monocytes # (A) 0.3 k/uL (0-1.0); Monocytes % (A) 4 %; Neutrophils # (A) 5.1 k/uL (1.3-7.7); Neutrophils % (A) 80 %; Platelet Count 132 k/uL (150-450); Poikilocytosis Marked; RBC 3.17 m/uL (3.80-5.40); RDW 18.7 % (11.5-15.5); WBC 6.4 k/uL (3.8-10.6)
[2018-12-08] MEDS: PANTOPRAZOLE 40 MG/10 ML VIAL IV SCH ×2 (08:19→13:48)
[2018-12-08] MEDS: IPRATROPIUM-ALBUTEROL 3 ML NEB INHALATION SCH ×3 (08:24→13:48)
[2018-12-08 08:26] VITALS: RESP 18
[2018-12-08] MEDS: LACTATED RINGERS 1,000 ML IV SCH (10:17)
[2018-12-08] MEDS: SODIUM FERRIC GLUCONAT-SUCROSE 125 MG in SODIUM CHLORIDE 0.9% 100 ML IVPB SCH (10:36)
[2018-12-08 11:16] VITALS: BP 134/54; TEMP 98
[2018-12-08] MEDS ORDERED: LIDOCAINE 5% PATCH TOPICAL SCH (12:00)
[2018-12-08 12:39] VITALS: PULSE 72
--- NOTE | 2018-12-08 15:53 | P.DS ---
Providers Date of admission: 12/03/18 15:54 Attending physician: Tracey Walker Consults: 12/03/18 17:25 Consult Physician Routine Consulting Provider: Wilman Kingsley Consult Reason/Comments: anemia Do you want consulting provider notified?: Yes 12/04/18 11:45 Consult Physician Urgent Consulting Provider: Anali Sweeney Consult Reason/Comments: Burst fx L3 with 5 mm retropulsion Do you want consulting provider notified?: Yes Primary care physician: Jia Siddiqui [facility] Course: Diagnoses: iron deficiency anemia, rule out GI bleed. Patient undergone EGD/colonoscopy which were unremarkable for a cause of bleed if any Severe new onset hypothyroidism. Patient currently on levothyroxine 250 g daily L3 vertebral body fracture could be acute versus subacute, evaluated by orthopedic and he recommended conservative management. LSO brace is provided Urinary retention, present on admission. status post Jones catheter Increased creatinine, possible acute kidney injury. Improving Severe protein calorie malnutrition with BMI of 19.4 Mild thrombocytopenia Large hiatal hernia Bladder distention Bilateral pleural effusion Nonobstructive right-sided nephrolithiasis Large amount of stool in the colon Gait dysfunction Hospital course: This is a pleasant 73 years old female with past medical history of osteoarthritis. She presents because of acute back pain after she twisted her back, with imaging showing L3 vertebral body fracture which could be acute versus subacute, patient has been evaluated by orthopedic team and they recommended conservative medical management with back brace, brace is a provided for the patient and follow-up as an outpatient with their service. Physical therapy evaluated the patient and recommended subacute rehab. On admission patient also has urinary retention and Jones catheter has been placed. No blood was noticed in her bowel movement however her FOBT was positive. Patient is hemodynamically stable. Patient found to have iron deficiency anemia and the gastroenterologis did EGD/colonoscopy: Mild gastritis and large hiatal hernia, no evidence of any pathology in the colon. Hemoglobin is stable with 9.1 and 8.2 respectively. Patient will be discharged on Protonix and follow-up as an outpatient with gastroenterology. also patient has thrombocytopenia with platelets 104-108 month hematology evaluated the patient for low platelets and anemia, and patient will follow up with hematology as an outpatient for both thrombocytopenia and anemia. On the day of discharge patient denies chest pain or dyspnea. No abdominal pain or nausea vomiting. Patient tolerated diet well. No change in urine or bowel habits, however patient remains to have Jones. No fever Patient is cleared for discharge by all consultants including orthopedic, gastroenterology and hematology team's Problems and management plan were discussed with the patient and he verbalized understanding and acceptance Patient was found stable and can be discharged to shelter however he needs follow-up as an outpatient. Patient was instructed to follow up with PCP within one week and patient agrees, i talked to pt and daughter at bed side Ms. Pathak and instructed the pt to follow up with hematology , GI and ortho wiht appointments made for the pt and they agree Gen: patient is a AAOx3, no distress CVS: S1-S2, RRR, no murmur Lungs: B/L CTA, no wheezing Abdomen: soft, no distention, no tenderness, positive bowel sounds Extremity: no leg edema or induration Time spent more than 35 minutes Patient Condition at Discharge: Serious Plan - Discharge Summary Discharge Rx Participant: No New Discharge Prescriptions: New Bisacodyl [Dulcolax] 5 mg PO DAILY PRN tablet. PRN Reason: Constipation Ipratropium-Albuterol Nebulize [Duoneb 0.5 mg-3 mg/3 ml Soln] 3 ml INHALATION RT-TID ampul.neb Ipratropium-Albuterol Nebulize [Duoneb 0.5 mg-3 mg/3 ml Soln] 3 ml INHALATION RT-TID PRN ampul.neb PRN Reason: Shortness Of Breath Or Wheezing Pantoprazole Sodium [Protonix] 40 mg PO BID #60 tablet. Levothyroxine Sodium [Synthroid] 100 mcg PO DAILY@0630 tab Acetaminophen Tab [Tylenol] 650 mg PO Q6HR PRN tab PRN Reason: Mild Pain Or Fever > 100.5 Lidocaine 5% Patch [Lidoderm 5% Patch] 1 patch TOPICAL DAILY #30 patch Continue Aspirin EC [Ecotrin Low Dose] 81 mg PO DAILY Cyanocobalamin (Vitamin B-12) [Vitamin B-12] 1,000 mcg PO DAILY Discontinued Ibuprofen [Advil] 200 - 400 mg PO Q8H PRN PRN Reason: Pain Discharge Medication List Aspirin EC [Ecotrin Low Dose] 81 mg PO DAILY 12/03/18 [History] Cyanocobalamin (Vitamin B-12) [Vitamin B-12] 1,000 mcg PO DAILY 12/03/18 [History] Acetaminophen Tab [Tylenol] 650 mg PO Q6HR PRN tab 12/08/18 [Rx] Bisacodyl [Dulcolax] 5 mg PO DAILY PRN tablet. 12/08/18 [Rx] Ipratropium-Albuterol Nebulize [Duoneb 0.5 mg-3 mg/3 ml Soln] 3 ml INHALATION RT-TID ampul.mehul 12/08/18 [Rx] Ipratropium-Albuterol Nebulize [Duoneb 0.5 mg-3 mg/3 ml Soln] 3 ml INHALATION RT-TID PRN ampul.neb 12/08/18 [Rx] Levothyroxine Sodium [Synthroid] 100 mcg PO DAILY@0630 tab 12/08/18 [Rx] Lidocaine 5% Patch [Lidoderm 5% Patch] 1 patch TOPICAL DAILY #30 patch 12/08/18 [Rx] Pantoprazole Sodium [Protonix] 40 mg PO BID #60 tablet. 12/08/18 [Rx] Follow up Appointment(s)/Referral(s): Wilman Kingsley MD [STAFF PHYSICIAN] - 01/18/19 10:15 am (Wednesday hematology) Joel Song PAC [PHYSICIAN INDUSTRIAL MAINTENANCE TECHNICIAN] - 12/27/18 9:00 am (Wednesday) Jia Siddiqui MD [Primary Care Provider] - 1-2 days Justin Griffin MD [STAFF PHYSICIAN] - 01/16/19 3:00 pm (Wednesday) Patient Instructions/Handouts: Gastrointestinal Bleeding (DC), Thoracolumbar Fracture (DC) Activity/Diet/Wound Care/Special Instructions: 1. Patient may wear LSO brace for comfort and support while sitting upright at greater than 45, while working with therapy, and while ambulating; patient does not have to wear the brace while lying in bed or bathing 2. Patient should avoid excessive bending, twisting, and lifting; no lifting greater than 10 pounds cardiac diet Discharge Disposition: TRANSFER TO SNF/ECF
== END 2018-12-08 16:00 | DRG 811 ==
LOC: EC 12:00 → 3SCARD 15:54
PROVIDERS: ADMIT Hospitalist; ATTEND Hospitalist
PROC: 30233N1 Transfusion of Nonautologous Red Blood Cells into Peripheral Vein, Percutaneous Approach (ICD-10-PCS; 2018-12-03)
PROC: 0DJD8ZZ Inspection of Lower Intestinal Tract, Via Natural or Artificial Opening Endoscopic (ICD-10-PCS; principal; 2018-12-06 07:30)
PROC: 0DB78ZX Excision of Stomach, Pylorus, Via Natural or Artificial Opening Endoscopic, Diagnostic (ICD-10-PCS; principal; 2018-12-06 07:30)
DX: D53.9 Nutritional anemia, unspecified (principal); E43 Unspecified severe protein-calorie malnutrition; S32.031A Stable burst fracture of third lumbar vertebra, initial encounter for closed fracture; Z68.1 Body mass index [BMI] 19.9 or less, adult; J90 Pleural effusion, not elsewhere classified; D69.6 Thrombocytopenia, unspecified; E03.9 Hypothyroidism, unspecified; H91.90 Unspecified hearing loss, unspecified ear; K44.9 Diaphragmatic hernia without obstruction or gangrene; K57.30 Diverticulosis of large intestine without perforation or abscess without bleeding; K59.00 Constipation, unspecified; N20.0 Calculus of kidney; N32.89 Other specified disorders of bladder; R32 Unspecified urinary incontinence; W19.XXXA Unspecified fall, initial encounter; X50.1XXA Overexertion from prolonged static or awkward postures, initial encounter; Z79.82 Long term (current) use of aspirin; Z87.891 Personal history of nicotine dependence; R33.9 Retention of urine, unspecified; K29.70 Gastritis, unspecified, without bleeding
CPT/HCPCS: 36415; 36430; 43239; 45378; 51702; 71046; 74176; 80048; 80053; 81003; 82272; 82550; 82607; 82728; 82747; 82784; 83540; 83550; 83605; 83615; 83735; 83880; 83883; 83921; 84100; 84165; 84439; 84443; 84484; 85025; 85610; 85730; 86334; 86850; 86900; 86901; 86920; 88305; 88342; 93005; 94640; 94760; 96361; 96374; 96375; 99291

== ENCOUNTER 2019-02-25 21:18 | Inpatient (IN) | payer MEDICARE, BC ==
--- NOTE | 2019-02-25 21:25 | ED ---
SOB HPI - General Stated Complaint: JOJO Time Seen by Provider: 02/25/19 21:24 - History of Present Illness Initial Comments: Pamela is a 73-year-old female presents to ER today via ambulance for evaluation of shortness of breath. Family reports that prior to November 2018 the patient hadn't received any medical care for a number of years. She was admitted at that time. She did follow up with her regular doctor once since that admission and last week was started on a new oral antihypertensive though the daughters at bedside are uncertain what it is. He reports that for the past couple days patient has been feeling too well and when they which policy checker this evening she had labored breathing but did not complain of chest pain or palpitations. Upon EMS arrival they found her to have an oxygen saturation of only 80% on room air. She was treated with supplemental oxygen and breathing treatments in route with resolution of her shortness of breath. - Related Data Home Medications Medication Instructions Recorded Confirmed Aspirin EC [Ecotrin Low Dose] 81 mg PO W/SUPPER 12/03/18 02/25/19 Cyanocobalamin (Vitamin B-12) 1,000 mcg PO DAILY 12/03/18 02/25/19 [Vitamin B-12] Acetaminophen [Tylenol Extra 1,000 mg PO TID 02/25/19 02/25/19 Strength] Ferrous Sulfate [Iron] 325 mg PO BID-W/MEALS 02/25/19 02/25/19 Magnesium 200 mg PO W/SUPPER 02/25/19 02/25/19 Metoprolol Succinate [Kapspargo 25 mg PO DAILY 02/25/19 02/25/19 Sprinkle] Pantoprazole Sodium [Protonix] 40 mg PO BID-W/MEALS 02/25/19 02/25/19 Polyethylene Glycol 3350 [Miralax] 17 gm PO W/SUPPER 02/25/19 02/25/19 Previous Rx's Medication Instructions Recorded Levothyroxine Sodium [Synthroid] 100 mcg PO DAILY@0630 tab 12/08/18 Lidocaine 5% Patch [Lidoderm 5% 1 patch TOPICAL DAILY #30 patch 12/08/18 Patch] Allergies Allergy/AdvReac Type Severity Reaction Status Date / Time No Known Allergies Allergy Verified 12/03/18 15:56 Review of Systems ROS Statement: Those systems with pertinent positive or pertinent negative responses have been documented in the HPI. ROS Other: All systems not noted in ROS Statement are negative. Past Medical History Past Medical History: Osteoarthritis (OA) History of Any Multi-Drug Resistant Organisms: None Reported Past Surgical History: No Surgical Hx Reported Past Psychological History: No Psychological Hx Reported Smoking Status: Former smoker Past Alcohol Use History: None Reported Past Drug Use History: None Reported - Past Family History Mother Family Medical History: No Reported History General Exam - General Exam Comments Initial Comments: Physical Exam GENERAL: Patient is well-developed and well-nourished. Patient is nontoxic and well- hydrated and is in no distress. HENT: Normocephalic, Atraumatic. EYES: PERRL, EOMI PULMONARY: Tachypnea Decreased breath sounds on the left CARDIOVASCULAR: There is a regular rate and rhythm without any murmurs gallops or rubs. ABDOMEN: Soft and nontender with normal bowel sounds. SKIN: Skin is clear with no lesions or rashes and otherwise unremarkable. : Deferred NEUROLOGIC: Alert and oriented but a poor historian am uncertain of her medical history MUSCULOSKELETAL: Normal extremities with adequate strength and full range of motion. No lower extremity swelling or edema. No calf tenderness. PSYCHIATRIC: Normal psychiatric evaluation. Course Vital Signs 02/25/19 02/25/19 02/25/19 21:19 21:36 21:39 Temperature 97.5 F L Pulse Rate 56 L Respiratory 25 H Rate Blood Pressure 188/106 O2 Sat by Pulse 100 93 L 97 Oximetry 02/25/19 22:52 Temperature 97.9 F Pulse Rate 52 L Respiratory 22 Rate Blood Pressure 220/91 O2 Sat by Pulse 99 Oximetry Medical Decision Making - Medical Decision Making The patient was seen and evaluated, history was obtained from patient and daughters at bedside and review of medical record 73-year-old smoker with shortness of breath. Received oxygen and breathing treatments prior to arrival with oxygen saturation improvement. EKG was nonischemic chest x-ray no signs of pneumonia there is pleural scarring in the left signs of pulmonary fibrosis. Considering how hypoxic the patient was upon initial evaluation CT to evaluate for possible pulmonary embolism was obtained however was negative as small pleural effusion. Patient will be admitted for hypoxia and treatment of COPD. - Lab Data Result diagrams: 02/25/19 21:37 02/25/19 21:37 Lab Results 02/25/19 02/25/19 02/25/19 Range/Units 21:37 21:37 21:37 WBC 5.4 (3.8-10.6) k/uL RBC 3.91 (3.80-5.40) m/uL Hgb 12.2 (11.4-16.0) gm/dL Hct 39.9 (34.0-46.0) % MCV 102.0 H (80.0-100.0) fL MCH 31.1 (25.0-35.0) pg MCHC 30.5 L (31.0-37.0) g/dL RDW 15.4 (11.5-15.5) % Plt Count 152 (150-450) k/uL Neutrophils % 65 % Lymphocytes % 20 % Monocytes % 8 % Eosinophils % 4 % Basophils % 1 % Neutrophils # 3.5 (1.3-7.7) k/uL Lymphocytes # 1.1 (1.0-4.8) k/uL Monocytes # 0.4 (0-1.0) k/uL Eosinophils # 0.2 (0-0.7) k/uL Basophils # 0.0 (0-0.2) k/uL Hypochromasia Slight Macrocytosis Slight PT (9.0-12.0) sec INR (<1.2) APTT (22.0-30.0) sec Sodium 138 (137-145) mmol/L Potassium 5.4 H (3.5-5.1) mmol/L Chloride 104 (98-107) mmol/L Carbon Dioxide 27 (22-30) mmol/L Anion Gap 7 mmol/L BUN 34 H (7-17) mg/dL Creatinine 0.99 (0.52-1.04) mg/dL Est GFR (CKD-EPI)AfAm 65 (>60 ml/min/1.73 sqM) Est GFR (CKD-EPI)NonAf 56 (>60 ml/min/1.73 sqM) Glucose 86 (74-99) mg/dL Plasma Lactic Acid Sharif (0.7-2.0) mmol/L Calcium 9.0 (8.4-10.2) mg/dL Magnesium 2.0 (1.6-2.3) mg/dL Total Bilirubin 0.7 (0.2-1.3) mg/dL AST 43 H (14-36) U/L ALT 19 (4-34) U/L Alkaline Phosphatase 94 (38-126) U/L Troponin I (0.000-0.034) ng/mL NT-Pro-B Natriuret Pep pg/mL Total Protein 6.5 (6.3-8.2) g/dL Albumin 3.7 (3.5-5.0) g/dL Urine Color Urine Appearance (Clear) Urine pH (5.0-8.0) Ur Specific [place] (1.001-1.035) Urine Protein (Negative) Urine Glucose (UA) (Negative) Urine Ketones (Negative) Urine Blood (Negative) Urine Nitrite (Negative) Urine Bilirubin (Negative) Urine Urobilinogen (<2.0) mg/dL Ur Leukocyte Esterase (Negative) Urine RBC (0-5) /hpf Urine WBC (0-5) /hpf Ur Squamous Epith Cells (0-4) /hpf Urine Bacteria (None) /hpf Urine Mucus (None) /hpf Influenza Type A RNA Not Detected (Not Detectd) Influenza Type B (PCR) Not Detected (Not Detectd) 02/25/19 02/25/19 02/25/19 Range/Units 21:37 21:37 21:37 WBC (3.8-10.6) k/uL RBC (3.80-5.40) m/uL Hgb (11.4-16.0) gm/dL Hct (34.0-46.0) % MCV (80.0-100.0) fL MCH (25.0-35.0) pg MCHC (31.0-37.0) g/dL RDW (11.5-15.5) % Plt Count (150-450) k/uL Neutrophils % % Lymphocytes % % Monocytes % % Eosinophils % % Basophils % % Neutrophils # (1.3-7.7) k/uL Lymphocytes # (1.0-4.8) k/uL Monocytes # (0-1.0) k/uL Eosinophils # (0-0.7) k/uL Basophils # (0-0.2) k/uL Hypochromasia Macrocytosis PT 9.6 (9.0-12.0) sec INR 0.9 (<1.2) APTT 23.6 (22.0-30.0) sec Sodium (137-145) mmol/L Potassium (3.5-5.1) mmol/L Chloride (98-107) mmol/L Carbon Dioxide (22-30) mmol/L Anion Gap mmol/L BUN (7-17) mg/dL Creatinine (0.52-1.04) mg/dL Est GFR (CKD-EPI)AfAm (>60 ml/min/1.73 sqM) Est GFR (CKD-EPI)NonAf (>60 ml/min/1.73 sqM) Glucose (74-99) mg/dL Plasma Lactic Acid Sharif 0.9 (0.7-2.0) mmol/L Calcium (8.4-10.2) mg/dL Magnesium (1.6-2.3) mg/dL Total Bilirubin (0.2-1.3) mg/dL AST (14-36) U/L ALT (4-34) U/L Alkaline Phosphatase (38-126) U/L Troponin I 0.014 (0.000-0.034) ng/mL NT-Pro-B Natriuret Pep pg/mL Total Protein (6.3-8.2) g/dL Albumin (3.5-5.0) g/dL Urine Color Urine Appearance (Clear) Urine pH (5.0-8.0) Ur Specific [place] (1.001-1.035) Urine Protein (Negative) Urine Glucose (UA) (Negative) Urine Ketones (Negative) Urine Blood (Negative) Urine Nitrite (Negative) Urine Bilirubin (Negative) Urine Urobilinogen (<2.0) mg/dL Ur Leukocyte Esterase (Negative) Urine RBC (0-5) /hpf Urine WBC (0-5) /hpf Ur Squamous Epith Cells (0-4) /hpf Urine Bacteria (None) /hpf Urine Mucus (None) /hpf Influenza Type A RNA (Not Detectd) Influenza Type B (PCR) (Not Detectd) 02/25/19 02/25/19 Range/Units 21:37 23:24 WBC (3.8-10.6) k/uL RBC (3.80-5.40) m/uL Hgb (11.4-16.0) gm/dL Hct (34.0-46.0) % MCV (80.0-100.0) fL MCH (25.0-35.0) pg MCHC (31.0-37.0) g/dL RDW (11.5-15.5) % Plt Count (150-450) k/uL Neutrophils % % Lymphocytes % % Monocytes % % Eosinophils % % Basophils % % Neutrophils # (1.3-7.7) k/uL Lymphocytes # (1.0-4.8) k/uL Monocytes # (0-1.0) k/uL Eosinophils # (0-0.7) k/uL Basophils # (0-0.2) k/uL Hypochromasia Macrocytosis PT (9.0-12.0) sec INR (<1.2) APTT (22.0-30.0) sec Sodium (137-145) mmol/L Potassium (3.5-5.1) mmol/L Chloride (98-107) mmol/L Carbon Dioxide (22-30) mmol/L Anion Gap mmol/L BUN (7-17) mg/dL Creatinine (0.52-1.04) mg/dL Est GFR (CKD-EPI)AfAm (>60 ml/min/1.73 sqM) Est GFR (CKD-EPI)NonAf (>60 ml/min/1.73 sqM) Glucose (74-99) mg/dL Plasma Lactic Acid Sharif (0.7-2.0) mmol/L Calcium (8.4-10.2) mg/dL Magnesium (1.6-2.3) mg/dL Total Bilirubin (0.2-1.3) mg/dL AST (14-36) U/L ALT (4-34) U/L Alkaline Phosphatase (38-126) U/L Troponin I (0.000-0.034) ng/mL NT-Pro-B Natriuret Pep 21955 pg/mL Total Protein (6.3-8.2) g/dL Albumin (3.5-5.0) g/dL Urine Color Light Yellow Urine Appearance Cloudy H (Clear) Urine pH 7.0 (5.0-8.0) Ur Specific [place] 1.014 (1.001-1.035) Urine Protein Trace H (Negative) Urine Glucose (UA) Negative (Negative) Urine Ketones Negative (Negative) Urine Blood Negative (Negative) Urine Nitrite Negative (Negative) Urine Bilirubin Negative (Negative) Urine Urobilinogen <2.0 (<2.0) mg/dL Ur Leukocyte Esterase Moderate H (Negative) Urine RBC 2 (0-5) /hpf Urine WBC 32 H (0-5) /hpf Ur Squamous Epith Cells <1 (0-4) /hpf Urine Bacteria Rare H (None) /hpf Urine Mucus Rare H (None) /hpf Influenza Type A RNA (Not Detectd) Influenza Type B (PCR) (Not Detectd) - EKG Data -: EKG Interpreted by Me EKG Comments: EKG was obtained due to complaining of shortness of breath of hypertension, EKG was obtained at 2125, rate is 67 rhythm is narrow complex regular rhythm. Before each QRS consistent with sinus bradycardia. Normal axis, normal intervals, HI 176, QRS 90, QTC is 465. Significant respiratory movement artifact but no obvious ST elevations or depressions no evidence of acute ischemia or infarction. Disposition Clinical Impression: Pleural effusion, Dyspnea, Hypoxia Disposition: ADMITTED IP TO THIS HOSP Condition: Stable Referrals: Jia Siddiqui MD [Primary Care Provider] - 1-2 days
--- NOTE | 2019-02-25 21:56 | XR ---
EXAMINATION TYPE: XR chest 2V DATE OF EXAM: 02/25/2019 COMPARISON: 12/03/2018 HISTORY: Weakness TECHNIQUE: 2 views FINDINGS: There is no heart failure nor confluent pneumonic infiltrate. There is blunting left costop hrenic angle. There is coarsening of the lung markings thoracic aorta is atheromatous. There are ches t leads. IMPRESSION: Pleural diaphragmatic scarring left lung base. Pulmonary fibrosis. There is improved aera tion of the lungs compared to last exam.
[2019-02-25 22:01] LABS: Basophils % (A) 1 %; Eosinophils # (A) 0.2 k/uL (0-0.7); Eosinophils % (A) 4 %; HCT 39.9 % (34.0-46.0); HGB 12.2 gm/dL (11.4-16.0); Hypochromasia Slight; Lymphocytes # (A) 1.1 k/uL (1.0-4.8); Lymphocytes % (A) 20 %; MCH 31.1 pg (25.0-35.0); MCHC 30.5 g/dL (31.0-37.0); Macrocytosis Slight; Mean Platelet Volume 8.1; Monocytes # (A) 0.4 k/uL (0-1.0); Monocytes % (A) 8 %; Neutrophils # (A) 3.5 k/uL (1.3-7.7); Neutrophils % (A) 65 %; Platelet Count 152 k/uL (150-450); RBC 3.91 m/uL (3.80-5.40); RDW 15.4 % (11.5-15.5); WBC 5.4 k/uL (3.8-10.6)
[2019-02-25 22:12] LABS: Albumin 3.7 g/dL (3.5-5.0); INR 0.9 (<1.2); Partial Thromboplastin Time 23.6 sec (22.0-30.0); Prothrombin Time 9.6 sec (9.0-12.0); Total Bilirubin 0.7 mg/dL (0.2-1.3); Total Protein 6.5 g/dL (6.3-8.2)
[2019-02-25 22:15] LABS: Potassium 5.4 mmol/L (3.5-5.1)
--- NOTE | 2019-02-25 23:25 | CT ---
EXAMINATION TYPE: CT chest angio for PE DATE OF EXAM: 02/25/2019 COMPARISON: None HISTORY: JOJO CT DLP: 271.7 mGycm Automated exposure control for dose reduction was used. CONTRAST: Performed with IV Contrast, patient injected with 55 mL of Isovue 370. There are 3-D post processed images. There is mild coarse interstitial density in the lungs. There is some atelectasis at the left lung ba se. There is large hiatal hernia. There is small left pleural effusion. Heart is enlarged. Heart is s hifted to the left side. There is no evidence of aortic aneurysm or dissection. There are a few bilateral bronchial lymph node s up to 1 cm. I see no filling defects in the pulmonary arteries. There is mild thoracic dextroscoliosis. IMPRESSION: No evidence of pulmonary embolism. Cardiomegaly. Hiatal hernia. Small left pleural effusion with pleural thickening and atelectasis left lung base. Pulmonary mild fi brotic changes.
[2019-02-25 23:51] LABS: Appearance,Urine Cloudy (Clear); Bacteria,Urine Rare /hpf; Bilirubin,Urine Negative (Negative); Blood,Urine Negative (Negative); Color,Urine Light Yellow; Glucose,Urine (UA) Negative (Negative); Ketones,Urine Negative (Negative); Leukocyte Esterase,Urine Moderate (Negative); Mucus,Urine Rare /hpf; Nitrite,Urine Negative (Negative); Protein,Urine Trace (Negative); RBC,Urine 2 /hpf (0-5); Specific Gravity,Urine 1.014 (1.001-1.035); Squamous Epithelial Cell,Urine <1 /hpf (0-4); Urobilinogen,Urine <2.0 mg/dL (<2.0); WBC,Urine 32 /hpf (0-5)
[2019-02-26] MEDS ORDERED: methylPREDNISolone SOD SUCCI 125 MG/2 ML VIAL IV STA (00:02)
[2019-02-26] MEDS ORDERED: cloNIDine HCL 0.1 MG TAB PO STA (00:11)
[2019-02-26] MEDS ORDERED: ENALAPRILAT 1.25 MG/ML 1 ML VIAL IVP STA (01:44)
[2019-02-26] MEDS: cloNIDine HCL 0.1 MG TAB PO PRN ×2 (05:36→15:17)
[2019-02-26] MEDS: FUROSEMIDE 10 MG/ML 4 ML VIAL IV SCH ×3 (07:58→23:42)
[2019-02-26] MEDS: predniSONE 20 MG TAB PO SCH (07:58)
[2019-02-26] MEDS: METOPROLOL SUCCINATE (ER) 25 MG TAB.ER.24H PO SCH (07:58)
[2019-02-26 09:21] VITALS: BMI 21.2
--- NOTE | 2019-02-26 13:57 | P.CNPUL ---
History of Present Illness Consult date: 02/26/19 Reason for consult: dyspnea History of present illness: 73-year-old female patient, presented yesterday to the ED with shortness of breath. Apparently, the patient has not been receiving any medical care for number of years. She has history of hypertension. She also has history of hypothyroidism and osteoarthritis. She is an ex-smoker. The patient recently started moving and living currently with her daughter with seems to be the main caregiver. She denies using oxygen or any form of nebulized medications at home. She developed acute shortness of breath. She had a cough and congestion and she was unable to breathe and she felt tired and weak. She end up coming into the hospital. Influenza screen was negative. Chest x-ray showed a hiatal hernia retrocardiac and the CAT scan of the chest showed COPD and left retrocardiac hiatal hernia and addition to A small left-sided pleural effusion and pleural thickening along with atelectatic changes in the lung bases. There is some mild coarse interstitial changes bilaterally. Note that the patient's blood work showed a BUN of 34 and a creatinine of 0.9. Her LFTs are within no rmal limits. ProBNP level was 11,600. White cell count was nonelevated. The patient was started on IV Rocephin. She was also started on IV Solu-Medrol in the emergency and 125 mg was given and subsequently she was placed on 40 mg of oral prednisone. She is feeling better as morning. She is on oxygen at 2 L per minute nasal cannula. She has a cardiac murmur. She does have also some increased swelling in the lower extremities bilaterally and in her ankles more so on the right. Review of Systems Constitutional: Reports fatigue, Reports weakness Eyes: denies as per HPI, denies blurred vision, denies bulging eye, denies decr eased vision, denies diplopia, denies discharge, denies dry eye, denies irritation, denies itching, denies pain, denies photophobia, denies loss of peripheral vision, denies loss of vision, denies tunnel vision/blind spots Ears: bilateral: decreased hearing, deny: ear discharge, earache, tinnitus Ears, nose, mouth and throat: Denies headache, Denies sore throat Breasts: absent: as per HPI, change in shape, gynecomastia, masses, nipple discharge, pain, skin changes, swelling Cardiovascular: Reports decreased exercise tolerance, Reports dyspnea on exertion, Reports leg edema Respiratory: Reports cough, Reports dyspnea, Reports wheezing Gastrointestinal: Reports as per HPI Genitourinary: Reports as per HPI Menstruation: Reports as per HPI Musculoskeletal: Reports as per HPI Musculoskeletal: bilateral: ankle swelling, absent: ankle pain, ankle stiffness Integumentary: Reports as per HPI Neurological: Reports as per HPI Psychiatric: Reports as per HPI Endocrine: Reports as per HPI Hematologic/Lymphatic: Reports as per HPI Allergic/Immunologic: Reports as per HPI Past Medical History Past Medical History: Hypertension, Osteoarthritis (OA) Additional Past Medical History / Comment(s): anemia, diverticulitis, History of Any Multi-Drug Resistant Organisms: None Reported Past Surgical History: No Surgical Hx Reported Past Anesthesia/Blood Transfusion Reactions: No Reported Reaction Past Psychological History: No Psychological Hx Reported Smoking Status: Former smoker Past Alcohol Use History: None Reported Past Drug Use History: None Reported - Past Family History Mother Family Medical History: No Reported History Medications and Allergies Home Medications Medication Instructions Recorded Confirmed Type Aspirin EC [Ecotrin Low Dose] 81 mg PO W/SUPPER 12/03/18 02/25/19 History Cyanocobalamin (Vitamin B-12) 1,000 mcg PO DAILY 12/03/18 02/25/19 History [Vitamin B-12] Levothyroxine Sodium [Synthroid] 100 mcg PO DAILY@0630 tab 12/08/18 02/25/19 Rx Lidocaine 5% Patch [Lidoderm 5% 1 patch TOPICAL DAILY #30 patch 12/08/18 0 02/25/19 Rx Patch] Acetaminophen [Tylenol Extra 1,000 mg PO TID 02/25/19 02/25/19 History Strength] Ferrous Sulfate [Iron] 325 mg PO BID-W/MEALS 02/25/19 02/25/19 History Magnesium 200 mg PO W/SUPPER 02/25/19 02/25/19 History Metoprolol Succinate [Kapspargo 25 mg PO DAILY 02/25/19 02/25/19 History Sprinkle] Pantoprazole Sodium [Protonix] 40 mg PO BID-W/MEALS 02/25/19 02/25/19 History Polyethylene Glycol 3350 [Miralax] 17 gm PO W/SUPPER 01/11/20 01/11/20 History Allergies Allergy/AdvReac Type Severity Reaction Status Date / Time No Known Allergies Allergy Verified 12/03/18 15:56 Physical Exam Vitals: Vital Signs Temp Pulse Pulse Resp BP BP BP 02/26/19 07:08 164/62 02/26/19 04:45 193/73 02/26/19 03:16 98.1 F 56 L 20 213/75 02/26/19 02:21 56 L 19 179/86 02/26/19 02:05 196/84 02/26/19 01:44 97.8 F 51 L 16 206/88 02/25/19 22:52 97.9 F 52 L 22 220/91 02/25/19 21:39 02/25/19 21:36 02/25/19 21:19 97.5 F L 56 L 25 H 188/106 Pulse Ox 02/26/19 07:08 02/26/19 04:45 02/26/19 03:16 93 L 02/26/19 02:21 95 02/26/19 02:05 02/26/19 01:44 95 02/25/19 22:52 99 02/25/19 21:39 97 02/25/19 21:36 93 L 02/25/19 21:19 100 Intake and Output 02/25/19 02/26/19 02/26/19 22:59 06:59 14:59 Intake Total 100 Balance 100 Intake: Oral 100 Other: # Voids 1 3 # Bowel Movements 0 Weight 54.431 kg 54.431 kg 54.431 kg Gen. appearance, comfortable likely distress currently on 2 L of oxygen by nasal cannula Head exam was generally normal. There was no scleral icterus or corneal arcus. Mucous membranes were moist. Neck was supple and without jugular venous distension, thyromegaly, or carotid bruits. Carotids were easily palpable bilaterally. There was no adenopathy. Lungs sounds are diminished and the patient has some limited bibasilar crackles. Breath sounds are quite diminished in the left lung base. Heart sounds are positive S1 and S2 and there is a ejection murmur grade 3/6 heard over the left lateral sternal border. Abdominal exam revealed normal bowel sounds. The abdomen was soft, non-tender, and without masses, organomegaly, or appreciable enlargement of the abdominal aorta. Extremities revealed +1 edema and there is no cyanosis or clubbing. Neurologically she is a poor historian. Overall she has no focal neurological deficit and she is able to move all extremities without any limitation in the cranial nerves are intact. Results - Laboratory Findings CBC and BMP: 02/25/19 21:37 02/25/19 21:37 PT/INR, D-dimer PT 9.6 sec (9.0-12.0) 02/25/19 21:37 INR 0.9 (<1.2) 02/25/19 21:37 Abnormal lab findings: Abnormal Labs 02/25/19 02/25/19 02/25/19 21:37 21:37 23:24 MCV 102.0 H MCHC 30.5 L Potassium 5.4 H BUN 34 H AST 43 H Urine Appearance Cloudy H Urine Protein Trace H Ur Leukocyte Esterase Moderate H Urine WBC 32 H Urine Bacteria Rare H Urine Mucus Rare H - Diagnostic Findings Chest x-ray: image reviewed CT scan - chest: image reviewed Assessment and Plan Plan: 1 acute COPD exacerbation, acute bronchitis 2 large retrocardiac hiatal hernia 3 limited small left-sided pleural effusion and pleural reaction/atelectasis based on CAT scan findings 4 increased lower extremity edema along with increased proBNP level and a cardiac murmur. Consider underlying CHF. Echo of the heart will be needed. 5 hypothyroidism 6 hypertension 7 hiatal hernia, large 8 osteoarthritis Plan Continue IV Rocephin As oral Zithromax to 500 mg by mouth daily Prednisone burst taper Aspiration precautions DuoNeb nebulized treatments around the clock Echocardiogram Lasix 40 mg IV push every 8 hours for the next 24 hours and transition the patient to oral Lasix as of tomorrow Resume home medications including aspirin and Synthroid 100 g by mouth daily We'll continue to follow
[2019-02-26] MEDS: ACETAMINOPHEN TAB 500 MG TAB PO SCH ×2 (15:18→22:09)
[2019-02-26] MEDS: AZITHROMYCIN 500 MG TAB PO SCH (15:31)
--- NOTE | 2019-02-26 17:13 | P.HPIM ---
History of Present Illness H&P Date: 02/26/19 Chief Complaint: dyspnea 73-year-old female patient, presented yesterday to the ED with shortness of breath. Apparently, the patient has not been receiving any medical care for number of years. She has history of hypertension. She also has history of hypothyroidism and osteoarthritis. She is an ex-smoker. The patient recently started moving and living currently with her daughter with seems to be the main caregiver. She denies using oxygen or any form of nebulized medications at home. She developed acute shortness of breath. She had a cough and congestion and she was unable to breathe and she felt tired and weak. She end up coming into the hospital. Influenza screen was negative. Chest x-ray showed a hiatal hernia retrocardiac and the CAT scan of the chest showed COPD and left retrocardiac hiatal hernia and addition to A small left-sided pleural effusion and pleural thickening along with atelectatic changes in the lung bases. There is some mild coarse interstitial changes bilaterally. Note that the patient's blood work showed a BUN of 34 and a creatinine of 0.9. Her LFTs are within normal limits. ProBNP level was 11,600. White cell count was nonelevated. The patient was started on IV Rocephin. She was also started on IV Solu-Medrol in the emergency and 125 mg was given Review of Systems REVIEW OF SYSTEMS: CONSTITUTIONAL: No fever, no malaise, no fatigue. HEENT: No recent visual problems or hearing problems. Denied any sore throat. CARDIOVASCULAR: No chest pain, orthopnea, PND, no palpitations, no syncope. PULMONARY: No shortness of breath, no cough, no hemoptysis. GASTROINTESTINAL: No diarrhea, no nausea, no vomiting, no abdominal pain. NEUROLOGICAL: No headaches, no weakness, no numbness. HEMATOLOGICAL: Denies any bleeding or petechiae. GENITOURINARY: Denies any burning micturition, frequency, or urgency. MUSCULOSKELETAL/RHEUMATOLOGICAL: Denies any joint pain, swelling, or any muscle pain. ENDOCRINE: Denies any polyuria or polydipsia. The rest of the 14-point review of systems is negative. Past Medical History Past Medical History: Hypertension, Osteoarthritis (OA) Additional Past Medical History / Comment(s): anemia, diverticulitis, History of Any Multi-Drug Resistant Organisms: None Reported Past Surgical History: No Surgical Hx Reported Past Anesthesia/Blood Transfusion Reactions: No Reported Reaction Past Psychological History: No Psychological Hx Reported Smoking Status: Former smoker Past Alcohol Use History: None Reported Past Drug Use History: None Reported - Past Family History Mother Family Medical History: No Reported History Medications and Allergies Home Medications Medication Instructions Recorded Confirmed Type Aspirin EC [Ecotrin Low Dose] 81 mg PO W/SUPPER 12/03/18 02/25/19 History Cyanocobalamin (Vitamin B-12) 1,000 mcg PO DAILY 12/03/18 02/25/19 History [Vitamin B-12] Levothyroxine Sodium [Synthroid] 100 mcg PO DAILY@0630 tab 12/08/18 02/25/19 Rx Lidocaine 5% Patch [Lidoderm 5% 1 patch TOPICAL DAILY #30 patch 12/08/18 02/25/19 Rx Patch] Acetaminophen [Tylenol Extra 1,000 mg PO TID 02/25/19 02/25/19 History Strength] Ferrous Sulfate [Iron] 325 mg PO BID-W/MEALS 02/25/19 02/25/19 History Magnesium 200 mg PO W/SUPPER 02/25/19 02/25/19 History Metoprolol Succinate [Kapspargo 25 mg PO DAILY 02/25/19 02/25/19 History Sprinkle] Pantoprazole Sodium [Protonix] 40 mg PO BID-W/MEALS 02/25/19 02/25/19 History Polyethylene Glycol 3350 [Miralax] 17 gm PO W/SUPPER 02/25/19 02/25/19 History Allergies Allergy/AdvReac Type Severity Reaction Status Date / Time No Known Allergies Allergy Verified 12/03/18 15:56 Physical Exam Vitals: Vital Signs Temp Pulse Pulse Resp BP BP BP 02/26/19 07:08 164/62 02/26/19 04:45 193/73 02/26/19 03:16 98.1 F 56 L 20 213/75 02/26/19 02:21 56 L 19 179/86 02/26/19 02:05 196/84 02/26/19 01:44 97.8 F 51 L 16 206/88 02/25/19 22:52 97.9 F 52 L 22 220/91 02/25/19 21:39 02/25/19 21:36 02/25/19 21:19 97.5 F L 56 L 25 H 188/106 Pulse Ox 02/26/19 07:08 02/26/19 04:45 02/26/19 03:16 93 L 02/26/19 02:21 95 02/26/19 02:05 02/26/19 01:44 95 02/25/19 22:52 99 02/25/19 21:39 97 02/25/19 21:36 93 L 02/25/19 21:19 100 Intake and Output 02/25/19 02/26/19 02/26/19 22:59 06:59 14:59 Intake Total 100 Balance 100 Intake: Oral 100 Other: # Voids 1 Weight 54.431 kg 54.431 kg 54.431 kg - Constitutional General appearance: Present: average body habitus, cooperative, no acute distress - EENT Eyes: Present: anicteric sclerae, EOMI, PERRLA, normal appearance ENT: Present: hearing grossly normal, normal oropharynx Ears: bilateral: normal - Neck Neck: Present: normal ROM. Absent: lymphadenopathy, rigidity, thyromegaly Carotids: negative: bruit present Thyroid: bilateral: normal size, negative: enlarged, nodule - Respiratory Respiratory: bilateral: CTA, negative: rales, rhonchi, wheezing - Cardiovascular Rhythm: regular Heart sounds: normal: S1, S2 Abnormal Heart Sounds: Absent: systolic murmur, diastolic murmur - Gastrointestinal General gastrointestinal: Present: normal bowel sounds, soft. Absent: di stended, organomegaly, tenderness - Genitourinary Genitourinary Comment(s): deferred - Integumentary Integumentary: Present: normal turgor. Absent: jaundiced, rash, ulcer - Neurologic Neurologic: Present: CNII-XII intact. Absent: focal deficits - Musculoskeletal Musculoskeletal: Present: gait normal, strength equal bilaterally - Psychiatric Psychiatric: Present: A&O x's 3, appropriate affect, intact judgment & insight Results CBC & Chem 7: 02/25/19 21:37 02/25/19 21:37 Labs: Abnormal Lab Results - Last 24 Hours (Table) 02/25/19 02/25/19 02/25/19 Range/Units 21:37 21:37 23:24 MCV 102.0 H (80.0-100.0) fL MCHC 30.5 L (31.0-37.0) g/dL Potassium 5.4 H (3.5-5.1) mmol/L BUN 34 H (7-17) mg/dL AST 43 H (14-36) U/L Urine Appearance Cloudy H (Clear) Urine Protein Trace H (Negative) Ur Leukocyte Esterase Moderate H (Negative) Urine WBC 32 H (0-5) /hpf Urine Bacteria Rare H (None) /hpf Urine Mucus Rare H (None) /hpf Thrombosis Risk Factor Assmnt - Choose All That Apply Any of the Below Risk Factors Present?: Yes Each Factor Represents 1 point: Abnormal pulmonary function (COPD) Other Risk Factors: Yes Each Risk Factor Represents 3 Points: Age 75 years or older Other congenital or acquired thrombophilia - If yes, enter type in comment: No Thrombosis Risk Factor Assessment Total Risk Factor Score: 4 Thrombosis Risk Factor Assessment Level: Moderate Risk Assessment and Plan Assessment: 1. Hypoxia/dyspnea; acute exacerbation COPD - patient was given Solu-Medrol 125 mg IV 1 in ED; patient has been started on prednisone 40 mg by mouth daily; pulmonary service is following and agree with prednisone burst taper; DuoNeb nebulizer treatments around the clock 2. Severe purulent tracheobronchitis; Patient is started on Rocephin 1 g IV daily along with Zithromax 500 mg daily 3. Left sided pleural effusion and pleural reaction/atelectasis; Continue with IV Lasix as ordered 4. Elevated proBNP; possible underlying CHF; Patient is started on Lasix 40 mg IV every 8 hours; we will monitor strict MIKHAIL's, daily weights, renal function and electrolytes; recommend switch to oral Lasix in next 24 hours; 2-D echo is ordered 5. Hypertension; Toprol-XL 25 mg daily 6. Hypothyroidism; Levothyroxin 100 MCG daily 7. DVT prophylaxis; subcu heparin CODE STATUS; full code
[2019-02-26] MEDS: FERROUS SULFATE 325 MG TAB PO SCH (17:26)
[2019-02-26] MEDS: ASPIRIN 81 MG PO SCH (17:26)
[2019-02-26] MEDS: MAGNESIUM OXIDE 400 MG TAB PO SCH (17:26)
[2019-02-26] MEDS: POLYETHYLENE GLYCOL 3350 17 GM POWD.PACK PO SCH (17:26)
[2019-02-26] MEDS: PANTOPRAZOLE 40 MG TABLET PO SCH (17:26)
[2019-02-26] MEDS: HEPARIN SODIUM,PORCINE 5,000 UNIT/ML 1 ML VIAL SQ SCH (21:31)
[2019-02-27] MEDS: LEVOTHYROXINE 100 MCG TAB PO SCH (06:04)
[2019-02-27] MEDS ORDERED: hydrALAZINE HCL 25 MG TAB PO PRN (07:13)
--- NOTE | 2019-02-27 07:47 | P.PN ---
Subjective This is a pleasant 73 years old female with past medical history of hypertension, osteoarthritis, right leg weakness for the last 2 months, suspecte d due to punch nerve rather than stroke as per patient, patient follow up with Dr. Siddiqui. At baseline she works a little bit using her walker at home, shows with her daughter. She quit smoking about 20 years ago. This time she presents with worsening dyspnea and cough over few days duration, she denies chest pain. She states that her breathing is somewhat better today. She is moderately ruel rgic but she is awake and oriented 3, she knows why she is in the hospital. No GI symptoms. No dysuria. No fever. Review of systems CONSTITUTIONAL: No fever, no malaise, no fatigue. HEENT: No recent visual problems or hearing problems. Denied any sore throat. CARDIOVASCULAR: No orthopnea, PND, no palpitations, no syncope. PULMONARY: no hemoptysis. GASTROINTESTINAL: No diarrhea, no nausea, no vomiting, no abdominal pain. Normoactive bowel sounds. NEUROLOGICAL: No headaches, no weakness, no numbness. HEMATOLOGICAL: Denies any bleeding or petechiae. GENITOURINARY: Denies any burning micturition, frequency, or urgency. MUSCULOSKELETAL/RHEUMATOLOGICAL: Denies any joint pain, swelling, or any muscle pain. ENDOCRINE: Denies any polyuria or polydipsia. Active Medications Generic Name Dose Route Start Last Admin Trade Name Freq PRN Reason Stop Dose Admin Acetaminophen 1,000 mg 02/26/19 16:00 02/26/19 22:09 Tylenol Tab PO Not Given TID SELMA Albuterol/Ipratropium 3 ml 02/26/19 00:02 Duoneb 0.5 Mg-3 Mg/3 Ml Soln INHALATION RT-Q4H PRN Shortness Of Breath Or Wheezing Aspirin 81 mg 02/26/19 17:30 02/26/19 17:26 Aspirin PO 81 mg W/SUPPER SELMA Administration Azithromycin 500 mg 02/26/19 14:15 02/26/19 15:31 Zithromax PO 500 mg DAILY@1200 SELMA Administration Cyanocobalamin 1,000 mcg 02/27/19 09:00 Vitamin B-12 PO DAILY [facility] Ferrous Sulfate 325 mg 02/26/19 17:30 02/26/19 17:26 Feosol PO 325 mg BID-W/MEALS SELMA Administration Furosemide 40 mg 02/26/19 08:00 02/26/19 23:42 Lasix IV 40 mg Q8HR SELMA Administration Heparin Sodium (Porcine) 5,000 unit 02/26/19 21:00 02/26/19 21:31 Heparin SQ 5,000 unit Q12HR SELMA Administration Hydralazine HCl 25 mg 02/27/19 09:00 Apresoline PO BID SELMA Hydralazine HCl 25 mg 02/27/19 07:13 Apresoline PO TID PRN Hypertension Ceftriaxone Sodium 1 gm/ 50 mls @ 100 mls/hr 02/26/19 10:15 02/26/19 10:11 Sodium Chloride IVPB 100 mls/hr Q24HR SELMA Administration Levothyroxine Sodium 100 mcg 02/27/19 06:30 02/27/19 06:04 Synthroid PO 100 mcg DAILY@0630 SELMA Administration Magnesium Oxide 400 mg 02/26/19 17:30 02/26/19 17:26 Mag-Ox PO 400 mg W/SUPPER SELMA Administration Metoprolol Succinate 25 mg 02/26/19 09:00 02/26/19 07:58 Toprol Xl PO 25 mg DAILY SELMA Administration Pantoprazole Sodium 40 mg 02/26/19 17:30 02/26/19 17:26 Protonix PO 40 mg BID-W/MEALS SELMA Administration Polyethylene Glycol 17 gm 02/26/19 17:30 02/26/19 17:26 Miralax PO 17 gm W/SUPPER SELMA Administration Prednisone 40 mg 02/26/19 09:00 02/26/19 07:58 PO 40 mg DAILY SELMA Administration Objective - Vital Signs Vital signs: Vital Signs Temp 97.8 F 02/27/19 04:42 Pulse 45 L 02/27/19 04:42 Resp 17 02/27/19 04:42 BP 198/63 02/27/19 04:42 Pulse Ox 98 02/27/19 04:42 Intake & Output 02/26/19 02/27/19 02/27/19 18:59 06:59 18:59 Intake Total 450 Balance 450 Weight 54.431 kg Intake: Oral 450 Other: Voiding Method Incontinent # Voids 3 3 # Bowel Movements 0 - Exam GENERAL: The patient is alert and oriented x3, not in any acute distress. Well developed, well nourished. HEENT: Pupils are round and equally reacting to light. EOMI. No scleral icterus. No conjunctival pallor. Normocephalic, atraumatic. No pharyngeal erythema. No thyromegaly. CARDIOVASCULAR: S1 and S2 present. No murmurs, rubs, or gallops. -PULMONARY: Chest is clear to auscultation, decreased air entry bilaterally ABDOMEN: Soft, nontender, nondistended, normoactive bowel sounds. No palpable organomegaly. MUSCULOSKELETAL: No joint swelling or deformity. EXTREMITIES: No cyanosis, clubbing, or pedal edema. -NEUROLOGICAL: Gross neurological examination did not reveal any focal deficits. Cranial nerves are grossly intact. She is alert awake oriented 3. Right leg weakness which is going on for 2 months as per patient. Rest of extremities are not week. No sensation loss. Meningeal signs are absent SKIN: No rashes. no petechiae. - Labs CBC & Chem 7: 02/25/19 21:37 02/25/19 21:37 Labs: Microbiology - Last 24 Hours (Table) 02/25/19 21:37 Blood Culture - Preliminary Blood No Growth after 24 hours 02/25/19 23:24 Urine Culture - Preliminary Urine,Voided Assessment and Plan Assessment: Acute dyspnea and suspected for acute COPD exacerbation Elevated proBNP, rule out heart failure Acute tracheobronchitis Acute hypoxic respiratory failure Large hiatal hernia Small left pleural effusion Suspicion for UTI, follow-up urine culture Chronic right leg weakness for 2 months duration, at baseline patient walks using her walker for little bit at home Hypertension, uncontrolled Osteoarthritis Plan: This is a pleasant 73 years old female who presents with COPD, tracheobronchitis and possible CHF. Continue with diuretics Lasix, continue with antibiotics, continue with steroids. Follow-up recommendation by make up operator helper. Echocardiogram Labs and medication were reviewed.. Continue same treatment. Continue with symptomatic treatment. Resume home medication. Monitor lytes and vitals. DVT and GI prophylaxis. Further recommendations of the clinical course of the patient DVT prophylaxis: Subcutaneous heparin GI Prophylaxis: Protonix PT/OT: Pending Prognosis is guarded
[2019-02-27] MEDS: FUROSEMIDE 10 MG/ML 4 ML VIAL IV SCH ×2 (09:07→15:32)
[2019-02-27] MEDS: hydrALAZINE HCL 25 MG TAB PO SCH ×3 (09:08→22:23)
[2019-02-27] MEDS: METOPROLOL SUCCINATE (ER) 25 MG TAB.ER.24H PO SCH (09:08)
[2019-02-27] MEDS: predniSONE 20 MG TAB PO SCH (09:08)
[2019-02-27] MEDS: ACETAMINOPHEN TAB 500 MG TAB PO SCH ×3 (09:08→20:53)
[2019-02-27] MEDS: HEPARIN SODIUM,PORCINE 5,000 UNIT/ML 1 ML VIAL SQ SCH ×2 (09:08→20:53)
[2019-02-27] MEDS: FERROUS SULFATE 325 MG TAB PO SCH ×2 (09:09→15:30)
[2019-02-27] MEDS: PANTOPRAZOLE 40 MG TABLET PO SCH ×2 (09:09→17:30)
[2019-02-27] MEDS: CYANOCOBALAMIN 500 MCG TAB PO SCH (09:09)
[2019-02-27 10:19] LABS: Calcium 8.9 mg/dL (8.4-10.2); Potassium 4.1 mmol/L (3.5-5.1)
--- NOTE | 2019-02-27 11:16 | P.PN ---
Subjective Progress Note Date: 02/27/19 Principal diagnosis: Acute exacerbation of chronic obstructive pulmonary disease,, complicated by acute bronchitis 73-year-old female patient, presented yesterday to the ED with shortness of breath. Apparently, the patient has not been receiving any medical care for number of years. She has history of hypertension. She also has history of hypothyroidism and osteoarthritis. She is an ex-smoker. The patient recently started moving and living currently with her daughter with seems to be the main caregiver. She denies using oxygen or any form of nebulized medications at home. She developed acute shortness of breath. She had a cough and congestion and she was unable to breathe and she felt tired and weak. She end up coming into the hospital. Influenza screen was negative. Chest x-ray showed a hiatal hernia retrocardiac and the CAT scan of the chest showed COPD and left retrocardiac hiatal hernia and addition to A small left-sided pleural effusion and pleural thickening along with atelectatic changes in the lung bases. There is some mild coarse interstitial changes bilaterally. Note that the patient's blood work showed a BUN of 34 and a creatinine of 0.9. Her LFTs are within normal limits. ProBNP level was 11,600. White cell count was nonelevated. The patient was started on IV Rocephin. She was also started on IV Solu-Medrol in the emergency and 125 mg was given and subsequently she was placed on 40 mg of oral prednisone. She is feeling better as morning. She is on oxygen at 2 L per minute nasal cannula. She has a cardiac murmur. She does have also some increased swelling in the lower extremities bilaterally and in her ankles more so on the right. The patient is seen today 02/27/2019 in follow-up on the regular medical floor. She is awake and alert in no acute distress. Currently resting comfortably in bed. Maintaining O2 saturations up to 100% on 2 L/m per nasal cannula. She's afebrile. Hypertensive. Bradycardic. Urine and blood cultures reveal no growth to date. Sodium 137. Potassium 4.1. Bicarb 33. Creatinine 1.30. She is continued on ceftriaxone and azithromycin along with bronchodilators. Oral prednisone. She is on IV diuretics. No accurate I&O. The patient is incontinent. Objective - Vital Signs Vital signs: Vital Signs Temp 97.8 F 02/27/19 04:42 Pulse 45 L 02/27/19 04:42 Resp 17 02/27/19 04:42 BP 198/63 02/27/19 04:42 Pulse Ox 98 02/27/19 07:48 Intake & Output 02/26/19 02/27/19 02/27/19 18:59 06:59 18:59 Intake Total 450 Balance 450 Weight 54.431 kg Intake: Oral 450 Other: Voiding Method Incontinent # Voids 3 3 4 # Bowel Movements 0 - Exam Gen. appearance, alert 73-year-old female patient, comfortable in no acute dist ress currently on 2 L of oxygen by nasal cannula Head exam was generally normal. There was no scleral icterus or corneal arcus. Mucous membranes were moist. Neck was supple and without jugular venous distension, thyromegaly, or carotid bruits. Carotids were easily palpable bilaterally. There was no adenopathy. Lungs sounds are diminished and the patient has some limited bibasilar crackles. Breath sounds are quite diminished in the left lung base. Heart sounds are positive S1 and S2 and there is a ejection murmur grade 3/6 heard over the left lateral sternal border. Abdominal exam revealed normal bowel sounds. The abdomen was soft, non-tender, and without masses, organomegaly, or appreciable enlargement of the abdominal aorta. Extremities revealed +1 edema and there is no cyanosis or clubbing. Some weakness of the right lower extremity Neurologically she is a poor historian. Overall she has no focal neurological deficit and she is able to move all extremities without any limitation in the cranial nerves are intact. - Labs CBC & Chem 7: 02/25/19 21:37 02/27/19 09:15 Labs: Abnormal Lab Results - Last 24 Hours (Table) 02/27/19 Range/Units 09:15 Carbon Dioxide 33 H (22-30) mmol/L BUN 48 H (7-17) mg/dL Creatinine 1.30 H (0.52-1.04) mg/dL Glucose 113 H (74-99) mg/dL Microbiology - Last 24 Hours (Table) 02/25/19 21:37 Blood Culture - Preliminary Blood No Growth after 24 hours 02/25/19 23:24 Urine Culture - Preliminary Urine,Voided Assessment and Plan Assessment: 1 acute COPD exacerbation, acute bronchitis 2 large retrocardiac hiatal hernia 3 limited small left-sided pleural effusion and pleural reaction/atelectasis based on CAT scan findings 4 increased lower extremity edema along with increased proBNP level and a cardiac murmur. Consider underlying CHF. Echo of the heart will be needed. 5 hypothyroidism 6 hypertension 7 hiatal hernia, large 8 osteoarthritis 9 poor overall functional performance based on the above-mentioned multiple comorbidities Plan The patient was seen and evaluated by Dr. Lord Continue on ceftriaxone and azithromycin Prednisone taper Aspiration precautions Continue bronchodilators Echocardiogram pending Continue diuretics Titrate down the FiO2 We will continue to follow I, the cosigning physician, performed a history & physical examination of the patient. Lungs sounds with crackles in the bilateral posterior bases. Maintaining good O2 saturations in the 90s on 2 L/m per nasal cannula. I discussed the assessment and plan of care with my nurse practitioner, Sheela Choudhury. I attest to the above note as dictated by her.
[2019-02-27] MEDS: AZITHROMYCIN 500 MG TAB PO SCH (11:26)
[2019-02-27] MEDS: IPRATROPIUM-ALBUTEROL 3 ML NEB INHALATION PRN ×2 (11:47→20:03)
--- NOTE | 2019-02-27 13:00 | ECHOF ---
Referral Reason:Hypertension MEASUREMENTS -------- HEIGHT: 160.0 cm WEIGHT: 54.4 kg BP: 198/63 RVIDd: 2.5 cm (< 3.3) IVSd: 2.2 cm (0.6 - 1.1) LVIDd: 3.0 cm (3.9 - 5.3) LVPWd: 1.9 cm (0.6 - 1.1) IVSs: 2.4 cm LVIDs: 2.1 cm LVPWs: 2.0 cm LAESV Index (A-L): 43.22 ml/m Ao Diam: 2.3 cm (2.0 - 3.7) AV Cusp: 1.6 cm (1.5 - 2.6) LA Diam: 4.4 cm (2.7 - 3.8) MV EXCURSION: 9.718 mm (> 18.000) MV EF SLOPE: 19 mm/s (70 - 150) EPSS: 0.2 cm AV maxP.25 mmHg AV meanP.33 mmHg RAP: 15.00 mmHg RVSP: 42.98 mmHg TAPSE: 32.62 mm FINDINGS -------- Resting bradycardia (HR<60bpm). This was a technically good study. The left ventricular size is normal. There is severe concentric left ventricular hypertrophy. Ove rall left ventricular systolic function is low-normal with, an EF between 50 - 55 %. Both the mean atrial pressure as well as the LV end diastolic pressure is elevated {E/E'}. The right ventricle is normal in size. The right ventricular systolic function is normal. LA is severely dilated >40 ml/m2 The right atrial size is normal. Aortic valve is trileaflet and is mildly thickened. There is mild aortic valve sclerosis. Peak/me an gradient across the Aortic Valve is 12.25mmHg / 7.33mmHg. The mitral valve is normal. The mitral valve leaflets are mildly thickened. Moderate mitral regur gitation is present. The tricuspid valve appears structurally normal. Mild tricuspid regurgitation present. There is m ild pulmonary hypertension. The right ventricular systolic pressure, as measured by Doppler, is 42. 98mmHg. There is no pulmonic regurgitation present. The aortic root size is normal. The inferior vena cava is mildly dilated. There is a small, generalized pericardial effusion present. CONCLUSIONS -------- 1. Resting bradycardia (HR<60bpm). 2. This was a technically good study. 3. The left ventricular size is normal. 4. There is severe concentric left ventricular hypertrophy. 5. Overall left ventricular systolic function is low-normal with, an EF between 50 - 55 %. 6. Both the mean atrial pressure as well as the LV end diastolic pressure is elevated {E/E'}. 7. The right ventricle is normal in size. 8. The right ventricular systolic function is normal. 9. LA is severely dilated >40 ml/m2 10. The right atrial size is normal. 11. Aortic valve is trileaflet and is mildly thickened. 12. There is mild aortic valve sclerosis. 13. Peak/mean gradient across the Aortic Valve is 12.25mmHg / 7.33mmHg. 14. The mitral valve is normal. 15. The mitral valve leaflets are mildly thickened. 16. Moderate mitral regurgitation is present. 17. The tricuspid valve appears structurally normal. 18. Mild tricuspid regurgitation present. 19. There is mild pulmonary hypertension. 20. The right ventricular systolic pressure, as measured by Doppler, is 42.98mmHg. 21. There is no pulmonic regurgitation present. 22. The aortic root size is normal. 23. The inferior vena cava is mildly dilated. 24. There is a small, generalized pericardial effusion present. HEAD END DESIZING MACHINE OPERATOR: Claudia Tellez RDCS
[2019-02-27] MEDS: POLYETHYLENE GLYCOL 3350 17 GM POWD.PACK PO SCH (15:28)
[2019-02-27] MEDS: ASPIRIN 81 MG PO SCH (15:29)
[2019-02-27] MEDS: MAGNESIUM OXIDE 400 MG TAB PO SCH (15:29)
[2019-02-28] MEDS: amLODIPine 10 MG TAB PO SCH ×2 (00:34→07:52)
[2019-02-28] MEDS: hydrALAZINE HCL 25 MG TAB PO SCH (06:15)
[2019-02-28] MEDS: LEVOTHYROXINE 100 MCG TAB PO SCH (06:15)
--- NOTE | 2019-02-28 07:18 | P.PN ---
Subjective This is a pleasant 73 years old female with past medical history of hypertension, osteoarthritis, right leg weakness for the last 2 months, suspecte d due to punch nerve rather than stroke as per patient, patient follow up with Dr. Siddiqui. At baseline she works a little bit using her walker at home, shows with her daughter. She quit smoking about 20 years ago. This time she presents with worsening dyspnea and cough over few days duration, she denies chest pain. She states that her breathing is somewhat better today. She is moderately ruel rgic but she is awake and oriented 3, she knows why she is in the hospital. No GI symptoms. No dysuria. No fever. 02/28/2019 Patient breathing feels better. No urinary symptoms. No abdominal complaints. No new weakness or headache. Her blood pressure still uncontrolled 190/67 despite she was placed on Norvasc 10 mg and hydralazine 25 mg, we are going to increase her hydralazine dose to 50 mg. Her echocardiogram showing severe concentric left ventricular hypertrophy with ejection fraction of 50-55% and moderate MITRAL regurgitation. Possibly related to her uncontrolled hypertension. Patient informed and she agrees. Her Lasix is switched to 40 mg orally because creatinine went up yesterday to 1.3. Urine culture showing gram- negative bacilli and final result is pending. Patient remains on Zithromax and Rocephin. Objective - Vital Signs Vital signs: Vital Signs Temp 97.9 F 02/28/19 06:04 Pulse 53 L 02/28/19 06:04 Resp 16 02/28/19 06:04 BP 190/67 02/28/19 06:04 Pulse Ox 98 02/28/19 06:04 Intake & Output 02/27/19 02/28/19 02/28/19 18:59 06:59 18:59 Intake Total 450 Balance 450 Intake: IV 50 cefTRIAXone 1 gm In 50 Sodium Chloride 0.9% 50 ml @ 100 mls/hr IVPB Q24HR [facility] Rx#:[id number] Oral 400 Other: Voiding Method Incontinent Incontinent # Voids 3 3 # Bowel Movements 1 - Exam GENERAL: The patient is alert and oriented x3, not in any acute distress. Well developed, well nourished. HEENT: Pupils are round and equally reacting to light. EOMI. No scleral icterus. No conjunctival pallor. Normocephalic, atraumatic. No pharyngeal erythema. No thyromegaly. CARDIOVASCULAR: S1 and S2 present. No murmurs, rubs, or gallops. -PULMONARY: Chest is clear to auscultation, decreased air entry bilaterally ABDOMEN: Soft, nontender, nondistended, normoactive bowel sounds. No palpable organomegaly. MUSCULOSKELETAL: No joint swelling or deformity. EXTREMITIES: No cyanosis, clubbing, or pedal edema. -NEUROLOGICAL: Gross neurological examination did not reveal any focal deficits. Cranial nerves are grossly intact. She is alert awake oriented 3. Right leg weakness which is going on for 2 months as per patient. Rest of extremities are not week. No sensation loss. Meningeal signs are absent SKIN: No rashes. no petechiae. - Labs CBC & Chem 7: 02/25/19 21:37 02/27/19 09:15 Labs: Abnormal Lab Results - Last 24 Hours (Table) 02/27/19 Range/Units 09:15 Carbon Dioxide 33 H (22-30) mmol/L BUN 48 H (7-17) mg/dL Creatinine 1.30 H (0.52-1.04) mg/dL Glucose 113 H (74-99) mg/dL Microbiology - Last 24 Hours (Table) 02/25/19 21:37 Blood Culture - Preliminary Blood No Growth after 48 hours 02/25/19 23:24 Urine Culture - Preliminary Urine,Voided Gram Neg Bacilli Assessment and Plan Assessment: Acute dyspnea and suspected for acute COPD exacerbation Elevated proBNP, most likely related to diastolic CHF. Acute tracheobronchitis Acute hypoxic respiratory failure Large hiatal hernia Small left pleural effusion Suspicion for UTI, follow-up urine culture Chronic right leg weakness for 2 months duration, at baseline patient walks using her walker for little bit at home Hypertension, uncontrolled Osteoarthritis Plan: This is a pleasant 73 years old female who presents with COPD, tracheobronchitis and possible CHF. Continue with diuretics Lasix and change to oral dose, continue with antibiotics, continue with steroids with lower dose at 30 mg of prednisone. 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 Follow-up urine culture Labs and medication were reviewed.. Continue same treatment. Continue with symptomatic treatment. Resume home medication. Monitor lytes and vitals. DVT and GI prophylaxis. Further recommendations of the clinical course of the patient DVT prophylaxis: Subcutaneous heparin GI Prophylaxis: Protonix PT/OT: Home health care, order Prognosis is guarded
[2019-02-28] MEDS: IPRATROPIUM-ALBUTEROL 3 ML NEB INHALATION PRN (07:19)
[2019-02-28] MEDS: HEPARIN SODIUM,PORCINE 5,000 UNIT/ML 1 ML VIAL SQ SCH ×2 (07:51→21:37)
[2019-02-28] MEDS: FUROSEMIDE 40 MG TAB PO SCH ×2 (07:51→15:46)
[2019-02-28] MEDS: CYANOCOBALAMIN 500 MCG TAB PO SCH (07:51)
[2019-02-28] MEDS: FERROUS SULFATE 325 MG TAB PO SCH ×2 (07:51→15:46)
[2019-02-28] MEDS: METOPROLOL SUCCINATE (ER) 25 MG TAB.ER.24H PO SCH (07:51)
[2019-02-28] MEDS: ACETAMINOPHEN TAB 500 MG TAB PO SCH ×3 (07:51→21:34)
[2019-02-28] MEDS: PANTOPRAZOLE 40 MG TABLET PO SCH ×2 (07:52→15:46)
[2019-02-28] MEDS: predniSONE 10 MG TAB PO SCH (07:56)
[2019-02-28 08:48] LABS: Basophils % (A) 0 %; Eosinophils % (A) 0 %; HCT 39.3 % (34.0-46.0); HGB 11.9 gm/dL (11.4-16.0); Hypochromasia Slight; Lymphocytes # (A) 1.8 k/uL (1.0-4.8); Lymphocytes % (A) 26 %; MCH 31.4 pg (25.0-35.0); MCHC 30.2 g/dL (31.0-37.0); MCV 104.2 fL (80.0-100.0); Macrocytosis Slight; Mean Platelet Volume 8.4; Monocytes # (A) 0.5 k/uL (0-1.0); Monocytes % (A) 7 %; Neutrophils # (A) 4.3 k/uL (1.3-7.7); Neutrophils % (A) 64 %; Platelet Count 161 k/uL (150-450); RBC 3.77 m/uL (3.80-5.40); RDW 15.2 % (11.5-15.5); WBC 6.7 k/uL (3.8-10.6)
[2019-02-28 09:18] LABS: Calcium 8.9 mg/dL (8.4-10.2); Potassium 4.3 mmol/L (3.5-5.1)
[2019-02-28] MEDS: AZITHROMYCIN 500 MG TAB PO SCH (12:02)
--- NOTE | 2019-02-28 12:14 | P.PN ---
Subjective Progress Note Date: 02/28/19 Principal diagnosis: Acute exacerbation of chronic obstructive pulmonary disease,, complicated by acute bronchitis 73-year-old female patient, presented yesterday to the ED with shortness of breath. Apparently, the patient has not been receiving any medical care for number of years. She has history of hypertension. She also has history of hypothyroidism and osteoarthritis. She is an ex-smoker. The patient recently started moving and living currently with her daughter with seems to be the main caregiver. She denies using oxygen or any form of nebulized medications at home. She developed acute shortness of breath. She had a cough and congestion and she was unable to breathe and she felt tired and weak. She end up coming into the hospital. Influenza screen was negative. Chest x-ray showed a hiatal hernia retrocardiac and the CAT scan of the chest showed COPD and left retrocardiac hiatal hernia and addition to A small left-sided pleural effusion and pleural thickening along with atelectatic changes in the lung bases. There is some mild coarse interstitial changes bilaterally. Note that the patient's blood work showed a BUN of 34 and a creatinine of 0.9. Her LFTs are within normal limits. ProBNP level was 11,600. White cell count was nonelevated. The patient was started on IV Rocephin. She was also started on IV Solu-Medrol in the emergency and 125 mg was given and subsequently she was placed on 40 mg of oral prednisone. She is feeling better as morning. She is on oxygen at 2 L per minute nasal cannula. She has a cardiac murmur. She does have also some increased swelling in the lower extremities bilaterally and in her ankles more so on the right. The patient is seen today 02/27/2019 in follow-up on the regular medical floor. She is awake and alert in no acute distress. Currently resting comfortably in bed. Maintaining O2 saturations up to 100% on 2 L/m per nasal cannula. She's afebrile. Hypertensive. Bradycardic. Urine and blood cultures reveal no growth to date. Sodium 137. Potassium 4.1. Bicarb 33. Creatinine 1.30. She is continued on ceftriaxone and azithromycin along with bronchodilators. Oral prednisone. She is on IV diuretics. No accurate I&O. The patient is incontinent. Patient is seen today 02/28/2019 in follow-up on the regular medical floor. She is currently resting comfortably in bed. Awake and alert in no acute distress. Maintaining good O2 saturations in the upper 90s on 2 L/m per nasal cannula. She's afebrile. Urine culture positive for gram-negative bacilli. Blood culture showing no growth. White count 6.7. Hemoglobin 11.9. Sodium 140. Potassium 4.3. Creatinine 1.26. She is continued on DuoNeb inhalations, ceftriaxone and azithromycin, oral prednisone. Objective - Vital Signs Vital signs: Vital Signs Temp 97.9 F 02/28/19 06:04 Pulse 60 02/28/19 07:31 Resp 16 02/28/19 06:04 BP 187/65 02/28/19 07:18 Pulse Ox 98 02/28/19 06:04 Intake & Output 02/27/19 02/28/19 02/28/19 18:59 06:59 18:59 Intake Total 450 Balance 450 Intake: IV 50 cefTRIAXone 1 gm In 50 Sodium Chloride 0.9% 50 ml @ 100 mls/hr IVPB Q24HR [facility] Rx#:[id number] Oral 400 Other: Voiding Method Incontinent Incontinent Incontinent # Voids 3 3 # Bowel Movements 1 - Exam Gen. appearance, alert 73-year-old female patient, comfortable in no acute distress currently on 2 L of oxygen by nasal cannula Head exam was generally normal. There was no scleral icterus or corneal arcus. Mucous membranes were moist. Neck was supple and without jugular venous distension, thyromegaly, or carotid bruits. Carotids were easily palpable bilaterally. There was no adenopathy. Lungs sounds are diminished and the patient has some limited bibasilar crackles. Breath sounds with faint crackles and diminished in the left lung base. Heart sounds are positive S1 and S2 and there is a ejection murmur grade 3/6 heard over the left lateral sternal border. Abdominal exam revealed normal bowel sounds. The abdomen was soft, non-tender, and without masses, organomegaly, or appreciable enlargement of the abdominal aorta. Extremities revealed +1 edema and there is no cyanosis or clubbing. Some weakness of the right lower extremity Neurologically she is a poor historian. Overall she has no focal neurological deficit and she is able to move all extremities without any limitation in the cranial nerves are intact. - Labs CBC & Chem 7: 02/28/19 08:19 02/28/19 08:19 Labs: Abnormal Lab Results - Last 24 Hours (Table) 02/28/19 02/28/19 Range/Units 08:19 08:19 RBC 3.77 L (3.80-5.40) m/uL MCV 104.2 H (80.0-100.0) fL MCHC 30.2 L (31.0-37.0) g/dL Carbon Dioxide 32 H (22-30) mmol/L BUN 59 H (7-17) mg/dL Creatinine 1.26 H (0.52-1.04) mg/dL Microbiology - Last 24 Hours (Table) 02/25/19 21:37 Blood Culture - Preliminary Blood No Growth after 48 hours 02/25/19 23:24 Urine Culture - Preliminary Urine,Voided Gram Neg Bacilli Assessment and Plan Assessment: 1 acute COPD exacerbation, acute bronchitis 2 large retrocardiac hiatal hernia 3 limited small left-sided pleural effusion and pleural reaction/atelectasis based on CAT scan findings 4 increased lower extremity edema along with increased proBNP level and a cardi ac murmur. Consider underlying diastolic CHF. Echocardiogram revealed preserved left ventricular systolic function with ejection fraction 50-55%. 5 hypothyroidism 6 hypertension 7 hiatal hernia, large 8 osteoarthritis 9 poor overall functional performance based on the above-mentioned multiple monty rbidities Plan The patient was seen and evaluated by Dr. Lord Repeat chest x-ray in the a.m. Probable discharge in the a.m. Continue on ceftriaxone and azithromycin Prednisone taper Aspiration precautions Continue bronchodilators Continue diuretics Titrate down the FiO2 We will continue to follow I, the cosigning physician, performed a history & physical examination of the p atient. Lungs sounds with crackles in the left lung base. Maintaining good O2 saturations in the 90s on 2 L/m per nasal cannula. I discussed the assessment and plan of care with my nurse practitioner, Sheela Choudhury. I attest to the above note as dictated by her.
[2019-02-28] MEDS: ASPIRIN 81 MG PO SCH (15:46)
[2019-02-28] MEDS: MAGNESIUM OXIDE 400 MG TAB PO SCH (15:46)
[2019-02-28] MEDS: hydrALAZINE HCL 50 MG TAB PO SCH ×2 (15:46→21:35)
[2019-02-28] MEDS: POLYETHYLENE GLYCOL 3350 17 GM POWD.PACK PO SCH (15:52)
[2019-03-01] MEDS: LEVOTHYROXINE 100 MCG TAB PO SCH (06:16)
[2019-03-01] MEDS: amLODIPine 10 MG TAB PO SCH (08:01)
[2019-03-01] MEDS: predniSONE 10 MG TAB PO SCH (08:01)
[2019-03-01] MEDS: FERROUS SULFATE 325 MG TAB PO SCH ×2 (08:01→16:59)
[2019-03-01] MEDS: ACETAMINOPHEN TAB 500 MG TAB PO SCH ×3 (08:01→21:15)
[2019-03-01 08:02] LABS: Calcium 8.9 mg/dL (8.4-10.2); Potassium 4.5 mmol/L (3.5-5.1)
[2019-03-01] MEDS: PANTOPRAZOLE 40 MG TABLET PO SCH ×2 (08:02→16:59)
[2019-03-01] MEDS: CYANOCOBALAMIN 500 MCG TAB PO SCH (08:02)
[2019-03-01] MEDS: METOPROLOL SUCCINATE (ER) 25 MG TAB.ER.24H PO SCH (08:02)
[2019-03-01] MEDS: FUROSEMIDE 40 MG TAB PO SCH ×2 (08:02→16:59)
[2019-03-01] MEDS: HEPARIN SODIUM,PORCINE 5,000 UNIT/ML 1 ML VIAL SQ SCH ×2 (08:02→21:15)
[2019-03-01] MEDS: hydrALAZINE HCL 50 MG TAB PO SCH ×3 (08:10→21:15)
[2019-03-01] MEDS: AZITHROMYCIN 500 MG TAB PO SCH (11:42)
--- NOTE | 2019-03-01 12:34 | CDI ---
Documentation Clarification Form Date: 03/01/2019 12:15:27 PM From: Kelly Dhaliwal RN, CCDS Admit Date: 02/26/2019 12:02:00 AM Patient Name: Pamela Vilchis Visit Number: [id number] Discharge Date: ATTENTION: The Clinical Documentation Specialists (CDI) and [facility] Coding Staff appreciate your assistance in clarifying documentation. Please respond to the clarification below the line at the bottom and electronically sign. The CDI & [facility] Coding staff will review the response and follow-up if needed. Please note: Queries are made part of the Legal Health Record. If you have any questions, please contact the author of this message via ITS. Dr. Cha E Sheet CHF is documented in the H&P and ongoing progress notes and further clarification is needed. History/Risk Factors: Osteoarthritis, Former smoker Clinical Indicators: 73-year-old female present to ER for evaluation of shortness of breath. She has increased lower extremity edema. Lung sounds are diminished and patient has some limited bibasilar crackles per pulmonary exam on 02/27/19. VS/Pulse OX: (on arrival 02/25/19@ 21:19) 188/106 56 25 97.5 100 % NRB BNP: 41960 Echocardiogram Results: Resting bradycardia (HR <60) EF 50-55 % Chest X Ray: 02/25/19: Pulmonary fibrosis Chest CTA: No pulmonary embolism, small left pleural effusion with pleural thickening and atelectasis. Pulmonary fibrotic changes Treatment: Lasix IV, now 40 mg PO Monitor O2 Sat's In your professional opinion, can you please clarify the acuity of the Diastolic CHF if known? Acute Diastolic Heart Failure: Acute on Chronic Diastolic Heart Failure Unable to Determine Other, please specify (Last Revision: May 2017) Acute Diastolic Heart Failure: improving MTDD
--- NOTE | 2019-03-01 13:03 | CDI ---
Documentation Clarification Form Date: 03/01/2019 12:37:16 PM From: Kelly Dhaliwal RN, CCDS Admit Date: 02/26/2019 12:02:00 AM Patient Name: Pamela Vilchis Visit Number: [id number] Discharge Date: ATTENTION: The Clinical Documentation Specialists (CDI) and [facility] Coding Staff appreciate your assistance in clarifying documentation. Please respond to the clarification below the line at the bottom and electronically sign. The CDI & [facility] Coding staff will review the response and follow-up if needed. Please note: Queries are made part of the Legal Health Record. If you have any questions, please contact the author of this message via ITS. Dr. Cha E Sheet The patient presented with the shortness of breath and elevated blood pressure. History/Risk Factors: Hypertension Osteoarthritis, Former smoker Clinical Indicators: 73-year-old female present to ER for evaluation of shortness of breath and was treated with oxygen and nebulized medications at home. Vital signs on admission 188/106 56 25, 220/91 52 22, 206/88 51 16. She denies headaches, no numbness. Lab findings: BNP 14710 Treatment: Vasotec 2.5 mg IV x1 Apresoline 100 mg PO TID Norvasc 10 mg daily Toprol Xl 25 mg PO daily In your professional opinion, can you please further clarify Hypertension, uncontrolled? Hypertensive Urgency Other, please specify Unable to determine (Last Revision: May 2017) chronically uncontrolled hypertension MTDD
--- NOTE | 2019-03-01 13:08 | XR ---
EXAMINATION TYPE: XR chest 1V DATE OF EXAM: 03/01/2019 COMPARISON: 02/25/2019 INDICATION: Short of breath COPD TECHNIQUE: Single frontal view of the chest is obtained. FINDINGS: The heart size is normal. The pulmonary vasculature is normal. Infiltrate is at the left base silhouetting the diaphragm. Small left pleural effusion is present. IMPRESSION: 1. Left lower lobe infiltrate with small left pleural effusion
[2019-03-01] MEDS ORDERED: LISINOPRIL 2.5 MG TAB PO STA (13:29)
--- NOTE | 2019-03-01 15:40 | P.PN ---
Subjective Progress Note Date: 03/01/19 Principal diagnosis: Acute exacerbation of chronic obstructive pulmonary disease, comfortable. Acute tracheobronchitis 73-year-old female patient, presented yesterday to the ED with shortness of breath. Apparently, the patient has not been receiving any medical care for number of years. She has history of hypertension. She also has history of hypothyroidism and osteoarthritis. She is an ex-smoker. The patient recently started moving and living currently with her daughter with seems to be the main caregiver. She denies using oxygen or any form of nebulized medications at home. She developed acute shortness of breath. She had a cough and congestion and she was unable to breathe and she felt tired and weak. She end up coming into the hospital. Influenza screen was negative. Chest x-ray showed a hiatal hernia retrocardiac and the CAT scan of the chest showed COPD and left retrocardiac hiatal hernia and addition to A small left-sided pleural effusion and pleural thickening along with atelectatic changes in the lung bases. There is some mild coarse interstitial changes bilaterally. Note that the patient's blood work showed a BUN of 34 and a creatinine of 0.9. Her LFTs are within normal limits. ProBNP level was 11,600. White cell count was nonelevated. The patient was started on IV Rocephin. She was also started on IV Solu-Medrol in the emergency and 125 mg was given and subsequently she was placed on 40 mg of oral prednisone. She is feeling better as morning. She is on oxygen at 2 L per minute nasal cannula. She has a cardiac murmur. She does have also some increased swelling in the lower extremities bilaterally and in her ankles more so on the right. The patient is seen today 02/27/2019 in follow-up on the regular medical floor. She is awake and alert in no acute distress. Currently resting comfortably in bed. Maintaining O2 saturations up to 100% on 2 L/m per nasal cannula. She's afebrile. Hypertensive. Bradycardic. Urine and blood cultures reveal no growth to date. Sodium 137. Potassium 4.1. Bicarb 33. Creatinine 1.30. She is continued on ceftriaxone and azithromycin along with bronchodilators. Oral prednisone. She is on IV diuretics. No accurate I&O. The patient is incontinent. Patient is seen today 02/28/2019 in follow-up on the regular medical floor. She is currently resting comfortably in bed. Awake and alert in no acute distress. Maintaining good O2 saturations in the upper 90s on 2 L/m per nasal cannula. She's afebrile. Urine culture positive for gram-negative bacilli. Blood culture showing no growth. White count 6.7. Hemoglobin 11.9. Sodium 140. Potassium 4.3. Creatinine 1.26. She is continued on DuoNeb inhalations, ceftriaxone and azithromycin, oral prednisone. On 03/01/2019 patient seen in follow-up on general medical floor, doing well, she states her breathing has completely recovered, she is currently on room air, earlier her pulse ox was 100% on 2 L, lung sounds are clear, she denies any cough or congestion, she's been treated with the Zithromax, Rocephin, nebulized bronchodilators, she is on oral Lasix, follow-up chest x-ray was reviewed showing left lower lobe infiltrate with small left pleural effusion. Patient is stable, and she is anticipated to be discharged home today Objective - Vital Signs Vital signs: Vital Signs Temp 98.2 F 03/01/19 05:15 Pulse 48 L 03/01/19 05:15 Resp 18 03/01/19 08:00 BP 174/62 03/01/19 05:15 Pulse Ox 100 03/01/19 08:13 Intake & Output 02/28/19 03/01/19 03/01/19 18:59 06:59 18:59 Intake Total 50 Balance 50 Intake: IV 50 cefTRIAXone 1 gm In 50 Sodium Chloride 0.9% 50 ml @ 100 mls/hr IVPB Q24HR [facility] Rx#:[id number] Other: Voiding Method Incontinent Incontinent Incontinent # Voids 3 # Bowel Movements 1 - Exam GENERAL EXAM: Alert, very pleasant, 73-year-old white female, on room air comfortable in no apparent distress. HEAD: Normocephalic/atraumatic. EYES: Normal reaction of pupils, equal size. Conjunctiva pink, sclera white. NOSE: Clear with pink turbinates. THROAT: No erythema or exudates. NECK: No masses, no JVD, no thyroid enlargement, no adenopathy. CHEST: No chest wall deformity. Symmetrical expansion. LUNGS: Equal air entry with no crackles, wheeze, rhonchi or dullness. CVS: Regular rate and rhythm, normal S1 and S2, no gallops, no murmurs, no rubs ABDOMEN: Soft, nontender. No hepatosplenomegaly, normal bowel sounds, no guarding or rigidity. EXTREMITIES: No clubbing, no edema, no cyanosis, 2+ pulses and upper and lower extremities. MUSCULOSKELETAL: Muscle strength and tone normal. SPINE: No scoliosis or deformity SKIN: No rashes CENTRAL NERVOUS SYSTEM: Alert and oriented -3. No focal deficits, tone is normal in all 4 extremities. PSYCHIATRIC: Alert and oriented -3. Appropriate affect. Intact judgment and insight. - Labs CBC & Chem 7: 02/28/19 08:19 03/01/19 07:21 Labs: Abnormal Lab Results - Last 24 Hours (Table) 03/01/19 Range/Units 07:21 Carbon Dioxide 36 H (22-30) mmol/L BUN 61 H (7-17) mg/dL Creatinine 1.28 H (0.52-1.04) mg/dL Microbiology - Last 24 Hours (Table) 02/25/19 23:24 Urine Culture - Final Urine,Voided Klebsiella pneumoniae 02/25/19 21:37 Blood Culture - Preliminary Blood No Growth after 72 hours Assessment and Plan Plan: Assessment: 1 acute COPD exacerbation, acute bronchitis 2 large retrocardiac hiatal hernia 3 limited small left-sided pleural effusion and pleural reaction/atelectasis based on CAT scan findings 4 increased lower extremity edema along with increased proBNP level and a cardiac murmur. Consider underlying diastolic CHF. Echocardiogram revealed preserved left ventricular systolic function with ejection fraction 50-55%. 5 hypothyroidism 6 hypertension 7 hiatal hernia, large 8 osteoarthritis 9 poor overall functional performance based on the above-mentioned multiple comorbidities Plan: Chest x-ray has been reviewed showing small left lower lobe infiltrate, likely patient has improved, she stable, she is on room air, she's had no fever or chills, no shortness of breath, no chest pain, no cough or congestion, she is anticipated to be discharged home today, she will need outpatient follow-up with Dr. Lerma in the office in one to 2 weeks I performed a history & physical examination of the patient and discussed their management with my nurse practitioner, Jeni Carson. I reviewed the nurse practitioner's note and agree with the documented findings and plan of care. Lung sounds are positive for clear breath sounds The findings and the impression was discussed with the patient. I attest to the documentation by the nurse practitioner. Time with Patient: Less than 30
[2019-03-01] MEDS: MAGNESIUM OXIDE 400 MG TAB PO SCH (16:58)
[2019-03-01] MEDS: ASPIRIN 81 MG PO SCH (16:59)
--- NOTE | 2019-03-01 21:53 | P.PN ---
Subjective This is a pleasant 73 years old female with past medical history of hypertension, osteoarthritis, right leg weakness for the last 2 months, suspecte d due to punch nerve rather than stroke as per patient, patient follow up with Dr. Siddiqui. At baseline she works a little bit using her walker at home, shows with her daughter. She quit smoking about 20 years ago. This time she presents with worsening dyspnea and cough over few days duration, she denies chest pain. She states that her breathing is somewhat better today. She is moderately ruel rgic but she is awake and oriented 3, she knows why she is in the hospital. No GI symptoms. No dysuria. No fever. 02/28/2019 Patient breathing feels better. No urinary symptoms. No abdominal complaints. No new weakness or headache. Her blood pressure still uncontrolled 190/67 despite she was placed on Norvasc 10 mg and hydralazine 25 mg, we are going to increase her hydralazine dose to 50 mg. Her echocardiogram showing severe concentric left ventricular hypertrophy with ejection fraction of 50-55% and moderate MITRAL regurgitation. Possibly related to her uncontrolled hypertension. Patient informed and she agrees. Her Lasix is switched to 40 mg orally because creatinine went up yesterday to 1.3. Urine culture showing gram- negative bacilli and final result is pending. Patient remains on Zithromax and Rocephin. 03/01/19 pt is improving , her breathing is qiut and back close to baseline , repeat cxr is reviewed and is stable, pt is been evaluated by pulmonary service and she was cleared for discharge, uc is growing klebsiella that is sensitive to antibiotic, creatinine is stable. 'we increased her bp medication pt is cleared medically today by pulmonary and medical services however she is pending placement as she supposed to go to rehab Objective - Vital Signs Vital signs: Vital Signs Temp 98.6 F 03/01/19 15:00 Pulse 55 L 03/01/19 15:00 Resp 18 03/01/19 15:45 BP 168/74 03/01/19 18:05 Pulse Ox 93 L 03/01/19 15:00 Intake & Output 03/01/19 03/01/19 03/02/19 06:59 18:59 06:59 Other: Voiding Method Incontinent Incontinent # Voids 3 3 # Bowel Movements 1 4 - Exam GENERAL: The patient is alert and oriented x3, not in any acute distress. Well developed, well nourished. HEENT: Pupils are round and equally reacting to light. EOMI. No scleral icterus. No conjunctival pallor. Normocephalic, atraumatic. No pharyngeal erythema. No thyromegaly. CARDIOVASCULAR: S1 and S2 present. No murmurs, rubs, or gallops. -PULMONARY: Chest is clear to auscultation, decreased air entry bilaterally ABDOMEN: Soft, nontender, nondistended, normoactive bowel sounds. No palpable organomegaly. MUSCULOSKELETAL: No joint swelling or deformity. EXTREMITIES: No cyanosis, clubbing, or pedal edema. -NEUROLOGICAL: Gross neurological examination did not reveal any focal deficits. Cranial nerves are grossly intact. She is alert awake oriented 3. Right leg weakness which is going on for 2 months as per patient. Rest of extremities are not week. No sensation loss. Meningeal signs are absent SKIN: No rashes. no petechiae. - Labs CBC & Chem 7: 02/28/19 08:19 03/01/19 07:21 Labs: Abnormal Lab Results - Last 24 Hours (Table) 03/01/19 Range/Units 07:21 Carbon Dioxide 36 H (22-30) mmol/L BUN 61 H (7-17) mg/dL Creatinine 1.28 H (0.52-1.04) mg/dL Microbiology - Last 24 Hours (Table) 02/25/19 23:24 Urine Culture - Final Urine,Voided Klebsiella pneumoniae 02/25/19 21:37 Blood Culture - Preliminary Blood No Growth after 72 hours Assessment and Plan Assessment: Acute dyspnea and suspected for acute COPD exacerbation Elevated proBNP, most likely related to diastolic CHF. Acute tracheobronchitis Acute hypoxic respiratory failure Large hiatal hernia Small left pleural effusion Suspicion for UTI, follow-up urine culture Chronic right leg weakness for 2 months duration, at baseline patient walks using her walker for little bit at home Hypertension, uncontrolled Osteoarthritis Plan: This is a pleasant 73 years old female who presents with COPD, tracheobronchitis and possible CHF. Continue with diuretics Lasix and change to oral dose, continue with antibiotics, continue with steroids with lower dose at 30 mg of prednisone. Follow-up recommendation by partner marketing manager. Follow-up urine culture Labs and medication were reviewed.. Continue same treatment. Continue with symptomatic treatment. Resume home medication. Monitor lytes and vitals. DVT and GI prophylaxis. Further recommendations of the clinical course of the patient DVT prophylaxis: Subcutaneous heparin GI Prophylaxis: Protonix PT/OT: Home health care, order Prognosis is guarded pt is cleared medically today pending placement
[2019-03-02 00:25] VITALS: RESP 20
[2019-03-02] MEDS: LEVOTHYROXINE 100 MCG TAB PO SCH (05:22)
[2019-03-02 05:24] VITALS: BP 139/65
[2019-03-02 05:37] VITALS: PULSE 52; TEMP 98.1
--- NOTE | 2019-03-02 07:01 | P.DS ---
Providers Date of admission: 02/26/19 00:02 Attending physician: Tracey Walker Consults: 02/26/19 09:43 Consult Physician Routine Consulting Provider: Martinez Hairston Consult Reason/Comments: hypoxia/ dyspnea Do you want consulting provider notified?: Yes Primary care physician: Jia Siddiqui Hospital Course: Diagnoses Acute dyspnea , multifactorial suspected for acute COPD exacerbation, possible CHF, and infection Elevated proBNP, most likely related to acute diastolic CHF. new Diagnoses Acute tracheobronchitis, improving Acute hypoxic respiratory failure Large hiatal hernia Small left pleural effusion Suspicion for UTI, follow-up urine culture Chronic right leg weakness for 2 months duration, at baseline patient walks using her walker for little bit at home Hypertension, uncontrolled Osteoarthritis Hospital course: This is a pleasant 73 years old female with past medical history of hypertension, osteoarthritis, right leg weakness for the last 2 months, suspected due to punch nerve rather than stroke as per patient, patient follow up with Dr. Siddiqui. At baseline she walks a little bit using her walker at home, she lives with her daughter. She quit smoking about 20 years ago. This time she presents with worsening dyspnea and cough over few days duration, she denies chest pain. Patient has found to have acute COPD exacerbation, acute tracheobronchitis, valvular heart disease with severe concentric left ventricular hypertrophy suspicious for diastolic heart failure with ejection fraction of 50-55%. Patient has been treated with antibiotics with Zithromax and Rocephin, Lasix intravenously and switched to oral later on and steroids. Patient showed interval improvement in her symptoms are improved, her dyspnea is significantly improved and she is not tachypneic anymore. Her cough subsided. Her weakness is improved. Patient has been evaluated by instructor weaving No other symptoms or complaints. She denies abdominal pain or nausea vomiting. No change in urine or bowel habits. And no fever. Also patient found to have UTI secondary to Klebsiella pneumonia which is sensitive to antibiotics including cephalosporin. Patient will be discharged a short course of oral antibiotics. And tapered steroids Also patient had uncontrolled blood pressure, patient was started on Norvasc 10 mg and hydralazine 100 mg 3 times daily, as well as Lasix 40 mg twice daily, and to continue with her metoprolol 25 mg daily The patientfor discharge by pulmonary service, patient herself thinks she can go home today Problems and management plan were discussed with the patient and he verbalized understanding and acceptance Patient was found stable and can be discharged home however he needs follow-up as an outpatient. Patient was instructed to follow up with PCP within one week and patient agrees. Patient was instructed to follow up with her PCP, college professor, instructor weaving and adjunct mathematics instructor as an outpatient and she agrees, see discharge instructions. Cardiology office has been contacted and they informed the staff that they are going to call the patient for an appointment, patient is made aware of her need for cardiology follow-up for her new heart failure and she agrees Gen: patient is a AAOx3, no distress CVS: S1-S2, RRR, no murmur Lungs: B/L CTA, no wheezing Abdomen: soft, no distention, no tenderness, positive bowel sounds Extremity: no leg edema or induration -Neuro: Cranial nerves are grossly intact. Right leg weakness, chronic for 2 months as per patient. No other weakness or sensory deficit. Meningeal signs are absent Patient Condition at Discharge: Stable Plan - Discharge Summary New Discharge Prescriptions: New hydrALAZINE HCL [Apresoline] 100 mg PO TID tab Cefuroxime Axetil [Ceftin] 500 mg PO BID 7 Days #14 tab Ipratropium-Albuterol Nebulize [Duoneb 0.5 mg-3 mg/3 ml Soln] 3 ml INHALATION RT-Q4H PRN ampul.neb PRN Reason: Shortness Of Breath Or Wheezing Heparin Sodium,Porcine [Heparin Sodium] 5,000 unit SQ Q12HR vial Furosemide [Lasix] 40 mg PO BID@0900,1600 tab amLODIPine [Norvasc] 10 mg PO DAILY tab predniSONE 0 mg PO DIRECTED #12 tab Enalapril Maleate [Vasotec] 2.5 mg PO Q6HR PRN 3 Days #12 tab PRN Reason: Blood Pressure - High Continue Aspirin EC [Ecotrin Low Dose] 81 mg PO W/SUPPER Cyanocobalamin (Vitamin B-12) [Vitamin B-12] 1,000 mcg PO DAILY Levothyroxine Sodium [Synthroid] 100 mcg PO DAILY@0630 tab Lidocaine 5% Patch [Lidoderm 5% Patch] 1 patch TOPICAL DAILY #30 patch Magnesium 200 mg PO W/SUPPER Ferrous Sulfate [Iron] 325 mg PO BID-W/MEALS Acetaminophen [Tylenol Extra Strength] 1,000 mg PO TID Pantoprazole Sodium [Protonix] 40 mg PO BID-W/MEALS Metoprolol Succinate [Kapspargo Sprinkle] 25 mg PO DAILY Discontinued Polyethylene Glycol 3350 [Miralax] 17 gm PO W/SUPPER Discharge Medication List Aspirin EC [Ecotrin Low Dose] 81 mg PO W/SUPPER 12/03/18 [History] Cyanocobalamin (Vitamin B-12) [Vitamin B-12] 1,000 mcg PO DAILY 12/03/18 [History] Levothyroxine Sodium [Synthroid] 100 mcg PO DAILY@0630 tab 12/08/18 [Rx] Lidocaine 5% Patch [Lidoderm 5% Patch] 1 patch TOPICAL DAILY #30 patch 12/08/18 [Rx] Acetaminophen [Tylenol Extra Strength] 1,000 mg PO TID 02/25/19 [History] Ferrous Sulfate [Iron] 325 mg PO BID-W/MEALS 02/25/19 [History] Magnesium 200 mg PO W/SUPPER 02/25/19 [History] Metoprolol Succinate [Kapspargo Sprinkle] 25 mg PO DAILY 02/25/19 [History] Pantoprazole Sodium [Protonix] 40 mg PO BID-W/MEALS 02/25/19 [History] Cefuroxime Axetil [Ceftin] 500 mg PO BID 7 Days #14 tab 03/01/19 [Rx] Enalapril Maleate [Vasotec] 2.5 mg PO Q6HR PRN 3 Days #12 tab 03/01/19 [Rx] Furosemide [Lasix] 40 mg PO BID@0900,1600 tab 03/01/19 [Rx] Heparin Sodium,Porcine [Heparin Sodium] 5,000 unit SQ Q12HR vial 03/01/19 [Rx] Ipratropium-Albuterol Nebulize [Duoneb 0.5 mg-3 mg/3 ml Soln] 3 ml INHALATION RT-Q4H PRN ampul.neb 03/01/19 [Rx] amLODIPine [Norvasc] 10 mg PO DAILY tab 03/01/19 [Rx] hydrALAZINE HCL [Apresoline] 100 mg PO TID tab 03/01/19 [Rx] predniSONE 0 mg PO DIRECTED #12 tab 03/01/19 [Rx] Follow up Appointment(s)/Referral(s): Justo Lord MD [STAFF PHYSICIAN] - [address] [facility], [NON-STAFF] - [facility], [NON-STAFF] - 1 Week Dorothea Conrad MD [STAFF PHYSICIAN] - 1 Week (right leg weakness) Jia Siddiqui MD [Primary Care Provider] - 1-2 days Minh Carter MD [STAFF PHYSICIAN] - 10 Days (college professor for diastolic heart failure, office will call patient) Patient Instructions/Handouts: Heart Failure (DC), COPD (Chronic Obstructive Pulmonary Disease) (DC) Activity/Diet/Wound Care/Special Instructions: Cardiac diet Activity as tolerated, fall precautions. Daily weight in morning and record.
[2019-03-02] MEDS: ACETAMINOPHEN TAB 500 MG TAB PO SCH (08:41)
[2019-03-02] MEDS: hydrALAZINE HCL 50 MG TAB PO SCH (08:41)
[2019-03-02] MEDS: predniSONE 10 MG TAB PO SCH (08:42)
[2019-03-02] MEDS: METOPROLOL SUCCINATE (ER) 25 MG TAB.ER.24H PO SCH (08:42)
[2019-03-02] MEDS: CYANOCOBALAMIN 500 MCG TAB PO SCH (08:42)
[2019-03-02] MEDS: amLODIPine 10 MG TAB PO SCH (08:42)
[2019-03-02] MEDS: HEPARIN SODIUM,PORCINE 5,000 UNIT/ML 1 ML VIAL SQ SCH (08:43)
[2019-03-02] MEDS: PANTOPRAZOLE 40 MG TABLET PO SCH (08:43)
[2019-03-02] MEDS: FUROSEMIDE 40 MG TAB PO SCH (08:43)
[2019-03-02] MEDS: FERROUS SULFATE 325 MG TAB PO SCH (08:43)
[2019-03-02] MEDS: AZITHROMYCIN 500 MG TAB PO SCH (11:35)
== END 2019-03-02 14:08 | DRG 190 ==
LOC: EC 21:18 → 6NMEDSUR 02-26 00:02
PROVIDERS: ADMIT Hospitalist; ATTEND Hospitalist
DX: J44.1 Chronic obstructive pulmonary disease with (acute) exacerbation (principal); I50.31 Acute diastolic (congestive) heart failure; J96.01 Acute respiratory failure with hypoxia; J98.11 Atelectasis; N39.0 Urinary tract infection, site not specified; J44.0 Chronic obstructive pulmonary disease with (acute) lower respiratory infection; J20.9 Acute bronchitis, unspecified; K44.9 Diaphragmatic hernia without obstruction or gangrene; I11.0 Hypertensive heart disease with heart failure; E03.9 Hypothyroidism, unspecified; M19.90 Unspecified osteoarthritis, unspecified site; I34.0 Nonrheumatic mitral (valve) insufficiency; B96.1 Klebsiella pneumoniae [K. pneumoniae] as the cause of diseases classified elsewhere; R32 Unspecified urinary incontinence; Z79.890 Hormone replacement therapy; Z79.899 Other long term (current) drug therapy; Z87.891 Personal history of nicotine dependence
CPT/HCPCS: 36415; 71045; 71046; 71275; 80048; 80053; 81001; 83605; 83735; 83880; 84484; 85025; 85610; 85730; 87040; 87077; 87086; 87186; 87324; 87502; 93005; 93306; 94640; 94760; 96374; 96375; 99285

== ENCOUNTER 2020-02-03 12:04 | Inpatient (IN) | payer MEDICARE, BC ==
[2020-02-03 12:54] LABS: Basophils # (A) 0.1 k/uL (0-0.2); Basophils % (A) 1 %; Eosinophils # (A) 0.2 k/uL (0-0.7); Eosinophils % (A) 3 %; HCT 44.4 % (34.0-46.0); HGB 14.7 gm/dL (11.4-16.0); Lymphocytes % (A) 15 %; MCH 32.9 pg (25.0-35.0); MCHC 33.1 g/dL (31.0-37.0); MCV 99.4 fL (80.0-100.0); Mean Platelet Volume 7.2; Monocytes # (A) 0.4 k/uL (0-1.0); Monocytes % (A) 5 %; Neutrophils # (A) 4.9 k/uL (1.3-7.7); Neutrophils % (A) 74 %; Platelet Count 236 k/uL (150-450); RBC 4.47 m/uL (3.80-5.40); RDW 12.2 % (11.5-15.5); WBC 6.6 k/uL (3.8-10.6)
[2020-02-03 13:02] LABS: Albumin 4.4 g/dL (3.5-5.0); Calcium 9.6 mg/dL (8.4-10.2); Potassium 4.5 mmol/L (3.5-5.1); Total Bilirubin 0.6 mg/dL (0.2-1.3); Total Protein 7.2 g/dL (6.3-8.2)
[2020-02-03] MEDS ORDERED: SODIUM CHLORIDE 0.9% 1,000 ML IV ONE (13:07)
[2020-02-03] MEDS ORDERED: MORPHINE SULFATE 4 MG/ML SYRINGE IVP STA (13:13)
--- NOTE | 2020-02-03 13:13 | ED ---
Back Pain [facility] - General Chief Complaint: Back Pain/Injury Stated Complaint: Back pain Time Seen by Provider: 02/03/20 12:10 Source: patient Limitations: no limitations - History of Present Illness Initial Comments: Patient is a 74-year-old female past medical history of hypertension, COPD department with reported back pain. Daughter is at bedside provide the history. States the patient has had issues with chronic back pain. She lives alone in the walker. States that pain originally started in January and they thought it was secondary to the patient being constipated. They went and saw Dr. Siddiqui and she was put on a bowel regimen. States that she finally started have bowel movements and her back pain was improving. The patient then became constipated once again, only one week ago in the back pain became worse. The daughter has been giving her Colace and prune juice. The patient did have a bowel movement 2 days in row however continues to have the back pain. It is reproducible in nature. States that the pain is worse when she gets up to ambulate and is b [place] laying down. She is wearing a Lidoderm patch and taking Tylenol. She denies dysuria, hematuria or difficulty voiding. No urinary retention or incontinence. Denies any bowel incontinence. No weakness in her lower extremities. No pain that radiates into the legs. Denies any numbness, ting ling or paresthesias into the leg. No fevers or chills. No past history of cancer. The patient denies any trauma. No other alleviating, precipitating or modifying factors - Related Data Home Medications Medication Instructions Recorded Confirmed Aspirin EC [Ecotrin Low Dose] 81 mg PO W/SUPPER 12/03/18 02/03/20 Cyanocobalamin (Vitamin B-12) 1,000 mcg PO Q48H 12/03/18 02/03/20 [Vitamin B-12] Acetaminophen [Tylenol Extra 1,000 mg PO BID 02/25/19 02/03/20 Strength] Metoprolol Succinate [Kapspargo 25 mg PO DAILY 02/25/19 02/03/20 Sprinkle] Pantoprazole Sodium [Protonix] 40 mg PO W/SUPPER 02/25/19 02/03/20 Cetirizine HCl [Zyrtec] 10 mg PO DAILY 02/03/20 02/03/20 Ergocalciferol (Vitamin D2) 50,000 unit PO FR 02/03/20 02/03/20 [Drisdol] Furosemide [Lasix] 40 mg PO DAILY 02/03/20 02/03/20 Lactulose 10 gm PO DAILY PRN 02/03/20 02/03/20 Levothyroxine Sodium [Synthroid] 100 mcg PO DAILY 02/03/20 02/03/20 Lidocaine [Aspercreme Patch] 1 patch TRANSDERM DAILY PRN 02/03/20 02/03/20 lisinopriL [Zestril] 5 mg PO W/SUPPER 02/03/20 02/03/20 Previous Rx's Medication Instructions Recorded amLODIPine [Norvasc] 10 mg PO DAILY tab 03/01/19 Allergies Allergy/AdvReac Type Severity Reaction Status Date / Time No Known Allergies Allergy Verified 02/03/20 13:14 Review of Systems ROS Statement: Those systems with pertinent positive or pertinent negative responses have been documented in the HPI. ROS Other: All systems not noted in ROS Statement are negative. Past Medical History Past Medical History: Heart Failure, COPD, Hypertension, Neurologic Disorder, Osteoarthritis (OA) Additional Past Medical History / Comment(s): anemia, diverticulitis, neuopathy History of Any Multi-Drug Resistant Organisms: None Reported Past Surgical History: No Surgical Hx Reported Past Anesthesia/Blood Transfusion Reactions: No Reported Reaction Past Psychological History: No Psychological Hx Reported Smoking Status: Never smoker Past Alcohol Use History: None Reported Past Drug Use History: None Reported - Past Family History Mother Family Medical History: No Reported History General Exam Limitations: no limitations Course Vital Signs 02/03/20 02/03/20 12:06 15:00 Temperature 98.3 F Pulse Rate 59 L 57 L Respiratory 18 18 Rate Blood Pressure 143/63 151/62 O2 Sat by Pulse 98 95 Oximetry Medical Decision Making - Medical Decision Making Upon arrival patient is placed into room 21. A thorough history and physical exam was performed. Peripheral IV is established. The patient was given a liter bolus of normal saline. Laboratory studies were conducted and a straight cath was performed. Laboratory studies demonstrate a creatinine of 1.7. Urinalysis does demonstrate moderate leukocyte esterase with a few bacteria. Specimen is sent for culture. CT of the patient's abdomen and pelvis demonstrates a large hiatal hernia. Angiomyolipoma right kidney. Left renal cortical cyst. Old L3 burst fracture. New L1 and T11 fractures. The patient was given a dose of Rocephin. Formal grams of morphine was administered for pain control. The patient is reevaluated and continues to have pain. States it's too difficult to sit up in bed due to the pain. I discussed diagnosis, differential treatment options. Did recommend admission for physical therapy, evaluation by spine surgery for which the patient did agree to. The case with Dr. Spicer who agreed to admit the patient. She is awaiting a bed on the floor - Lab Data Result diagrams: 02/03/20 12:47 02/03/20 12:47 Lab Results 02/03/20 02/03/20 02/03/20 Range/Units 12:47 12:47 13:33 WBC 6.6 (3.8-10.6) k/uL RBC 4.47 (3.80-5.40) m/uL Hgb 14.7 (11.4-16.0) gm/dL Hct 44.4 (34.0-46.0) % MCV 99.4 (80.0-100.0) fL MCH 32.9 (25.0-35.0) pg MCHC 33.1 (31.0-37.0) g/dL RDW 12.2 (11.5-15.5) % Plt Count 236 (150-450) k/uL MPV 7.2 Neutrophils % 74 % Lymphocytes % 15 % Monocytes % 5 % Eosinophils % 3 % Basophils % 1 % Neutrophils # 4.9 (1.3-7.7) k/uL Lymphocytes # 1.0 (1.0-4.8) k/uL Monocytes # 0.4 (0-1.0) k/uL Eosinophils # 0.2 (0-0.7) k/uL Basophils # 0.1 (0-0.2) k/uL Sodium 140 (137-145) mmol/L Potassium 4.5 (3.5-5.1) mmol/L Chloride 102 (98-107) mmol/L Carbon Dioxide 30 (22-30) mmol/L Anion Gap 8 mmol/L BUN 52 H (7-17) mg/dL Creatinine 1.77 H (0.52-1.04) mg/dL Est GFR (CKD-EPI)AfAm 32 (>60 ml/min/1.73 sqM) Est GFR (CKD-EPI)NonAf 28 (>60 ml/min/1.73 sqM) Glucose 106 H (74-99) mg/dL Calcium 9.6 (8.4-10.2) mg/dL Total Bilirubin 0.6 (0.2-1.3) mg/dL AST 20 (14-36) U/L ALT 11 (4-34) U/L Alkaline Phosphatase 162 H (38-126) U/L Total Protein 7.2 (6.3-8.2) g/dL Albumin 4.4 (3.5-5.0) g/dL Urine Color Colorless Urine Appearance Clear (Clear) Urine pH 6.0 (5.0-8.0) Ur Specific Martinez 1.008 (1.001-1.035) Urine Protein Negative (Negative) Urine Glucose (UA) Negative (Negative) Urine Ketones Negative (Negative) Urine Blood Negative (Negative) Urine Nitrite Negative (Negative) Urine Bilirubin Negative (Negative) Urine Urobilinogen <2.0 (<2.0) mg/dL Ur Leukocyte Esterase Moderate H (Negative) Urine RBC 6 H (0-5) /hpf Urine WBC 7 H (0-5) /hpf Ur Squamous Epith Cells <1 (0-4) /hpf Urine Bacteria Few H (None) /hpf Hyaline Casts 7 H (0-2) /lpf Urine Mucus Rare H (None) /hpf Disposition Clinical Impression: Lumbar burst fracture, Compression fracture Disposition: ADMITTED IP TO THIS [facility] Condition: Stable Is patient prescribed a controlled substance at d/c from ED?: No Referrals: Jia Siddiqui MD [Primary Care Provider] - 1-2 days Decision to Admit Reason: Admit from EC Decision Date: 02/03/20 Decision Time: 15:07
--- NOTE | 2020-02-03 13:31 | CT ---
EXAMINATION TYPE: CT lumbar spine wo con DATE OF EXAM: 02/03/2020 COMPARISON: None HISTORY: Back pain, constipation, inablility to ambulate CT DLP: 0 mGycm Automated exposure control for dose reduction was used. Images were obtained from L1 to S to vertebra without contrast. There is 50% compression deformity of L3 vertebral body with some fragment extension to mild degree i nto the spinal canal. Age of this fracture is not clear. Abdominal aorta is atheromatous. There is no lumbar paraspinal mass. Sacroiliac joints are intact. The posterior elements are intact. There is a mild relative spinal stenosis at L3 level due to slight expansion of the vertebral body. There is biconcave deformity of L1 vertebral body that could be acute. There is a low-attenuation 2 cm mass posterior right kidney that is probably angiomyolipoma. IMPRESSION: There is a mild burst fracture of the L3 vertebral body with slight posterior fragment extension into the spinal canal. There is a mild relative spinal stenosis. This fracture does not appear acute. There is a mild degenerative first-degree L4-5 spondylolisthesis. There is 15% biconcave compression deformity of L1 vertebral body that could be an acute fracture. Ac [place] fracture is probably the inferior endplate.
--- NOTE | 2020-02-03 13:42 | CT ---
EXAMINATION TYPE: CT abdomen pelvis wo con DATE OF EXAM: 02/03/2020 COMPARISON: 12/03/2018 HISTORY: Back pain, constipation, inability to ambulate CT DLP: 857.6 mGycm Automated exposure control for dose reduction was used. Images obtained from the diaphragm to the floor the pelvis with no contrast. Lung bases are clear of consolidation. There is no pleural effusion heart size is fairly normal. Ther e is large hiatal hernia. There is intrathoracic stomach. Liver shows no focal defect. Gallbladder appears normal. Spleen is intact. There is no pancreatic mas s. There is atherosclerotic vascular calcification. There is no retroperitoneal adenopathy. There is no adrenal mass. There is 2 cm fat density mass posterior right kidney consistent with angio myolipoma. There is 2 mm calculus lower pole right kidney. There is renal vascular calcification. The re is 3.5 cm low-density rounded focus posterior left kidney that is probably a cyst. This has densit y 17. There is no retroperitoneal adenopathy. There are a few sigmoid diverticula. I see no sign of d iverticulitis. Bladder distends smoothly. There is no inguinal hernia. Appendix is posterior and appe ars normal. Uterus is intact. There is no evidence of a pelvic mass. There is compression fractures of L1 and L3 vertebral bodies which are described in the CT lumbar spi ne report. The bony pelvis is intact. Hip joints are intact. There is depression of the superior endp late of T11 20%. IMPRESSION: Large hiatal hernia. Angiomyolipoma right kidney. Left renal cortical cyst. Normal appendix. Renal abnormalities unchanged compared to 12/03/2018. There is clearing of the pleural effusions comp ared to old exam. Old burst fracture L3 vertebral body unchanged compared to 12/03/2018. There is L1 biconcave compression fracture that is new compared to 12/03/2018. This fracture is proba hyacinth new compared to 02/25/2019. There is also 20% depression superior endplate of T11 vertebral body c onsistent with relatively acute fracture that which is also a change compared to 02/25/2019.
[2020-02-03 13:52] LABS: Appearance,Urine Clear (Clear); Bacteria,Urine Few /hpf; Bilirubin,Urine Negative (Negative); Blood,Urine Negative (Negative); Color,Urine Colorless; Glucose,Urine (UA) Negative (Negative); Hyaline Casts,Urine 7 /lpf (0-2); Ketones,Urine Negative (Negative); Leukocyte Esterase,Urine Moderate (Negative); Mucus,Urine Rare /hpf; Nitrite,Urine Negative (Negative); Protein,Urine Negative (Negative); RBC,Urine 6 /hpf (0-5); Specific Gravity,Urine 1.008 (1.001-1.035); Squamous Epithelial Cell,Urine <1 /hpf (0-4); Urobilinogen,Urine <2.0 mg/dL (<2.0); WBC,Urine 7 /hpf (0-5)
[2020-02-03] MEDS ORDERED: cefTRIAXone IN SWFI 1,000 MG/10 ML SYRINGE IVP STA (14:41)
[2020-02-03] MEDS ORDERED: NALOXONE 0.4 MG/ML 1 ML VIAL IV PRN (15:07)
[2020-02-03] MEDS ORDERED: NA PHOS,M-B/NA PHOS,DI-BA 133 ML ENEMA RECTAL STA (15:10)
[2020-02-03] MEDS: SODIUM CHLORIDE 0.9% 1,000 ML IV SCH ×2 (15:41→19:42)
[2020-02-03] MEDS: MORPHINE SULFATE 4 MG/ML SYRINGE IV PRN (19:48)
[2020-02-03] MEDS: DOCUSATE 100 MG CAP PO SCH (19:52)
[2020-02-03] MEDS ORDERED: LIDOCAINE TRANSDERM PRN (23:10)
[2020-02-03] MEDS ORDERED: LACTULOSE 20 GM/30 ML CUP PO PRN (23:10)
--- NOTE | 2020-02-03 23:14 | P.HPIM ---
History of Present Illness H&P Date: 02/03/20 Chief Complaint: back pain Patient is a 74-year-old female with a known history of hypertension, COPD, memory impairment, osteoarthritis, hypothyroidism and previous history of smoking and history of compression fractures presents to ER with complaints of lower back pain and unable to move around at home. Patient lives by herself at home and usually walks with walker. For the past 1 week patient is not able to get out of bed. She is also having issues with constipation. Patient was started on bowel regimen which seemed to improve her constipation. Otherwise patient feels very weak and could not get out of bed. Family is concerned about her status and brought to the hospital. Otherwise patient denied any complaints of fever or chills. No dysuria or hematuria. No nausea vomiting or diarrhea abdominal pain. Patient does have some poor oral intake. No cough or sputum production. Denied any shooting down pain in the legs. No paresthesias. CT lumbar spine showed there is mild burst fracture of L3 vertebral body with slight posterior fragment extension into the spinal canal. There is a mild grade 2 spinal stenosis. This fracture does not appear acute. There is mild degenerative first-degree L4-L5 spondylosis and there is a 15% bi concave compression deformity of the L1 vertebral body that could be an acute fracture. CT of the abdomen pelvis was done which showed large hiatal hernia. Angiomyolipoma right kidney. Left renal cortical cyst. Normal appendix. Renal abnormalities unchanged compared to 12/03/2018 There is clearing of the pleural effusions compared to old exam. There is old burst fracture L3 vertebral body unchanged. Laboratory data showed BUN 52 and creatinine 1.77 UA showed large leukocyte esterase and WBC 7 and less than 1 squamous epithelial cells. Review of Systems Constitutional: Patient denies any fever or chills . Generalized weakness and poor appetite.. Abdomen: Patient denied nausea vomiting and diarrhea and abdominal pain. Cardiovascular: Patient denies any chest pain or short of breath no palpitations. Respiratory: patient denied any cough or sputum production. No shortness of breath Neurologic: Patient denied any numbness or tingling headache. Musculoskeletal: Patient does have lower back pain.. Skin: Negative Psychiatric: Negative Endocrine: No heat or cold intolerance. No recent weight gain. Genitourinary: No dysuria or hematuria. All other 14 point ROS negative except the above Past Medical History Past Medical History: Heart Failure, COPD, Hypertension, Memory Impairment, Ne urologic Disorder, Osteoarthritis (OA), Thyroid Disorder Additional Past Medical History / Comment(s): anemia, diverticulitis, neuopathy, has hx blood transfusions with a previous hospitalization History of Any Multi-Drug Resistant Organisms: None Reported Past Surgical History: No Surgical Hx Reported Past Anesthesia/Blood Transfusion Reactions: No Reported Reaction Past Psychological History: No Psychological Hx Reported Smoking Status: Former smoker Past Alcohol Use History: None Reported Past Drug Use History: None Reported - Past Family History Mother Family Medical History: No Reported History Medications and Allergies Home Medications Medication Instructions Recorded Confirmed Type Aspirin EC [Ecotrin Low Dose] 81 mg PO W/SUPPER 12/03/18 02/03/20 History Cyanocobalamin (Vitamin B-12) 1,000 mcg PO Q48H 12/03/18 02/03/20 History [Vitamin B-12] Acetaminophen [Tylenol Extra 1,000 mg PO BID 02/25/19 02/03/20 History Strength] Metoprolol Succinate [Kapspargo 25 mg PO DAILY 02/25/19 02/03/20 History Sprinkle] Pantoprazole Sodium [Protonix] 40 mg PO W/SUPPER 02/25/19 02/03/20 History amLODIPine [Norvasc] 10 mg PO DAILY tab 03/01/19 02/03/20 Rx Cetirizine HCl [Zyrtec] 10 mg PO DAILY 02/03/20 02/03/20 History Ergocalciferol (Vitamin D2) 50,000 unit PO FR 02/03/20 02/03/20 History [Drisdol] Furosemide [Lasix] 40 mg PO DAILY 02/03/20 02/03/20 History Lactulose 10 gm PO DAILY PRN 02/03/20 02/03/20 History Levothyroxine Sodium [Synthroid] 100 mcg PO DAILY 02/03/20 02/03/20 History Lidocaine [Aspercreme Patch] 1 patch TRANSDERM DAILY PRN 02/03/20 02/03/20 History lisinopriL [Zestril] 5 mg PO W/SUPPER 02/03/20 02/03/20 History Allergies Allergy/AdvReac Type Severity Reaction Status Date / Time No Known Allergies Allergy Verified 02/03/20 13:14 Physical Exam Vitals: Vital Signs Temp Pulse Pulse Resp BP BP Pulse Ox 02/03/20 15:35 97.8 F 65 16 147/74 99 02/03/20 15:00 57 L 18 151/62 95 02/03/20 12:06 98.3 F 59 L 18 143/63 98 Intake and Output 02/03/20 02/03/20 02/03/20 06:59 14:59 22:59 Other: Weight 62.596 kg 62.596 kg PHYSICAL EXAMINATION: Patient is lying in the bed comfortably, Mild distress due to pain, awake alert and oriented.. HEENT: Normocephalic. Neck is supple. Pupils reactive. Nostrils clear. Oral cavity is moist. Ears reveal no drainage. Neck reveals no JVD, carotid bruits, or thyromegaly. CHEST EXAMINATION: Trachea is central. Symmetrical expansion. Lung schaeffer clear to auscultation and percussion. CARDIAC: Normal S1, S2 with no gallops. No murmurs ABDOMEN: Soft. Bowel sounds normal. No organomegaly. No abdominal bruits. Extremities: reveal no edema. No clubbing or cyanosis Neurologically awake, alert, oriented x3 .Able to move extremities while in bed. . No focal deficits noted Skin: No rash or skin lesions. Psychiatric: Coperative. Nonsuicidal Musculoskeletal: No joint swelling or deformity. . Results CBC & Chem 7: 02/03/20 12:47 02/03/20 12:47 Labs: Abnormal Lab Results - Last 24 Hours (Table) 02/03/20 02/03/20 Range/Units 12:47 13:33 BUN 52 H (7-17) mg/dL Creatinine 1.77 H (0.52-1.04) mg/dL Glucose 106 H (74-99) mg/dL Alkaline Phosphatase 162 H (38-126) U/L Ur Leukocyte Esterase Moderate H (Negative) Urine RBC 6 H (0-5) /hpf Urine WBC 7 H (0-5) /hpf Urine Bacteria Few H (None) /hpf Hyaline Casts 7 H (0-2) /lpf Urine Mucus Rare H (None) /hpf Thrombosis Risk Factor Assmnt - DVT/VTE Prophylaxis DVT/VTE Prophylaxis: Pharmacologic Prophylaxis ordered - Choose All That Apply Any of the Below Risk Factors Present?: Yes Each Factor Represents 1 point: Abnormal pulmonary function (COPD), Medical pt on bed rest Each Risk Factor Represents 3 Points: Age 75 years or older Thrombosis Risk Factor Assessment Total Risk Factor Score: 5 Thrombosis Risk Factor Assessment Level: High Risk Assessment and Plan Assessment: Intractable low back pain due to new L1 vertebral body compression fracture. History of L3 vertebral compression fracture. Acute kidney injury likely prerenal with poor oral intake COPD not in exacerbation Memory impairment Osteoarthritis Hypothyroidism Previous history of smoking DVT prophylaxis with heparin subcu Patient will be continued on pain management with morphine. We will add [place] and provide IV pain medications. Continue with gentle hydration and monitor renal function. Orthopedic surgery was consulted. Continue with home medications and further recommendations based on the clinical course. Time with Patient: Greater than 30
[2020-02-04] MEDS: HEPARIN SODIUM,PORCINE 5,000 UNIT/ML 1 ML VIAL SQ SCH ×4 (02:09→23:33)
[2020-02-04] MEDS: MORPHINE SULFATE 4 MG/ML SYRINGE IV PRN ×2 (02:15→08:35)
[2020-02-04] MEDS: LEVOTHYROXINE 100 MCG TAB PO SCH (07:30)
[2020-02-04] MEDS: ACETAMINOPHEN TAB 500 MG TAB PO SCH ×2 (08:41→23:33)
[2020-02-04] MEDS: DOCUSATE 100 MG CAP PO SCH ×2 (08:44→23:39)
[2020-02-04] MEDS: amLODIPine 10 MG TAB PO SCH (08:44)
[2020-02-04] MEDS: CYANOCOBALAMIN 500 MCG TAB PO SCH (08:44)
[2020-02-04] MEDS ORDERED: METOPROLOL SUCCINATE 25 MG PO SCH (09:00)
[2020-02-04] MEDS: METOPROLOL SUCCINATE (ER) 25 MG TAB.ER.24H PO SCH (12:38)
[2020-02-04 12:58] LABS: African American GFR (CKD) 42.2 (60.0-200.0); Anion Gap 8.9 mmol/L (4.00-12.00); BUN/Creat Ratio 27.86 Ratio (12.00-20.00); Calcium 9.1 mg/dL (8.7-10.3); Carbon Dioxide 27.1 mmol/L (21.6-31.8); Non-African American GFR(CKD) 36.4 (60.0-200.0); Potassium 4.3 mmol/L (3.5-5.5)
[2020-02-04] MEDS: HYDROcodone/APAP 5-325MG 1 EACH TAB PO PRN (15:33)
[2020-02-04] MEDS: SODIUM CHLORIDE 0.9% 1,000 ML IV SCH (15:41)
[2020-02-04] MEDS: ASPIRIN 81 MG PO SCH (16:49)
[2020-02-04] MEDS: PANTOPRAZOLE 40 MG TABLET PO SCH (16:50)
--- NOTE | 2020-02-04 23:21 | P.PN ---
Subjective Progress Note Date: 02/04/20 Principal diagnosis: Intractable low back pain due to new L1 vertebral body compression fracture. Patient is a 74-year-old female with a known history of hypertension, COPD, memory impairment, osteoarthritis, hypothyroidism and previous history of smoking and history of compression fractures presents to ER with complaints of lower back pain and unable to move around at home. Patient lives by herself at home and usually walks with walker. For the past 1 week patient is not able to get out of bed. She is also having issues with constipation. Patient was started on bowel regimen which seemed to improve her constipation. Otherwise patient feels very weak and could not get out of bed. Family is concerned about her status and brought to the hospital. Otherwise patient denied any complaints of fever or chills. No dysuria or hematuria. No nausea vomiting or diarrhea abdominal pain. Patient does have some poor oral intake. No cough or sputum production. Denied any shooting down pain in the legs. No paresthesias. CT lumbar spine showed there is mild burst fracture of L3 vertebral body with slight posterior fragment extension into the spinal canal. There is a mild grade 2 spinal stenosis. This fracture does not appear acute. There is mild degenerative first-degree L4-L5 spondylosis and there is a 15% bi concave compression deformity of the L1 vertebral body that could be an acute fracture. CT of the abdomen pelvis was done which showed large hiatal hernia. Angiomyolipoma right kidney. Left renal cortical cyst. Normal appendix. Renal abnormalities unchanged compared to 12/03/2018 There is clearing of the pleural effusions compared to old exam. There is old burst fracture L3 vertebral body unchanged. Laboratory data showed BUN 52 and creatinine 1.77 UA showed large leukocyte esterase and WBC 7 and less than 1 squamous epitheli 02/04/2020 Patient is currently resting in the bed comfortably. Pain is controlled with m edications. Patient is tolerating oral diet continued on IV hydration. Renal function is normalized. Patient has been afebrile. No leg weakness noted. PT OT will be consulted and orthopedic surgery is on board. Patient is being continued antibiotics in the form of ceftriaxone for possible UTI. Current medications reviewed. Objective - Vital Signs Vital signs: Vital Signs Temp 98.6 F 02/04/20 08:45 Pulse 79 02/04/20 08:45 Resp 16 02/04/20 08:45 BP 158/67 12/20/20 08:45 Pulse Ox 89 L 02/04/20 08:45 Intake & Output 02/03/20 02/04/20 02/04/20 18:59 06:59 18:59 Output Total 600 Balance -600 Weight 62.596 kg Output: Urine 600 - Exam PHYSICAL EXAMINATION: Patient is lying in the bed comfortably, Mild distress due to pain, awake alert and oriented.. HEENT: Normocephalic. Neck is supple. Pupils reactive. Nostrils clear. Oral cavity is moist. Ears reveal no drainage. Neck reveals no JVD, carotid bruits, or thyromegaly. CHEST EXAMINATION: Trachea is central. Symmetrical expansion. Lung schaeffer clear to auscultation and percussion. CARDIAC: Normal S1, S2 with no gallops. No murmurs ABDOMEN: Soft. Bowel sounds normal. No organomegaly. No abdominal bruits. Extremities: reveal no edema. No clubbing or cyanosis Neurologically awake, alert, oriented x3 .Able to move extremities while in bed. . No focal deficits noted Skin: No rash or skin lesions. Psychiatric: Coperative. Nonsuicidal Musculoskeletal: No joint swelling or deformity. . - Labs CBC & Chem 7: 02/03/20 12:47 02/04/20 06:23 Labs: Abnormal Lab Results - Last 24 Hours (Table) 02/04/20 Range/Units 06:23 BUN 39.0 H (9.0-27.0) mg/dL Est GFR (CKD-EPI)AfAm 42.2 L (60.0-200.0) Est GFR (CKD-EPI)NonAf 36.4 L (60.0-200.0) BUN/Creatinine Ratio 27.86 H (12.00-20.00) Ratio Assessment and Plan Assessment: Intractable low back pain due to new L1 vertebral body compression fracture. History of L3 vertebral compression fracture. Acute kidney injury likely prerenal with poor oral intake COPD not in exacerbation Memory impairment Osteoarthritis Hypothyroidism Previous history of smoking DVT prophylaxis with heparin subcu Patient will be continued on pain management with morphine. added [place] and provide IV pain medications. Continue with gentle hydration and monitor renal function. Orthopedic surgery was consulted. Continue with home medications and further recommendations based on the clinical course. Time with Patient: Greater than 30
[2020-02-05] MEDS: HYDROcodone/APAP 5-325MG 1 EACH TAB PO PRN ×3 (03:58→22:30)
[2020-02-05] MEDS: LEVOTHYROXINE 100 MCG TAB PO SCH (03:59)
[2020-02-05] MEDS: amLODIPine 10 MG TAB PO SCH (07:17)
[2020-02-05] MEDS: METOPROLOL SUCCINATE (ER) 25 MG TAB.ER.24H PO SCH (07:17)
[2020-02-05] MEDS: DOCUSATE 100 MG CAP PO SCH ×2 (07:17→22:29)
[2020-02-05] MEDS: HEPARIN SODIUM,PORCINE 5,000 UNIT/ML 1 ML VIAL SQ SCH ×3 (07:18→22:29)
[2020-02-05] MEDS: ACETAMINOPHEN TAB 500 MG TAB PO SCH ×2 (07:18→22:29)
[2020-02-05 07:57] LABS: Basophils % (A) 1 %; Eosinophils # (A) 0.4 k/uL (0-0.7); Eosinophils % (A) 7 %; HCT 35.7 % (34.0-46.0); Lymphocytes # (A) 1.4 k/uL (1.0-4.8); Lymphocytes % (A) 27 %; MCH 33.3 pg (25.0-35.0); MCHC 32.7 g/dL (31.0-37.0); MCV 102.1 fL (80.0-100.0); Mean Platelet Volume 7.5; Monocytes # (A) 0.4 k/uL (0-1.0); Monocytes % (A) 8 %; Neutrophils # (A) 3.1 k/uL (1.3-7.7); Neutrophils % (A) 57 %; Platelet Count 175 k/uL (150-450); RDW 12.2 % (11.5-15.5); WBC 5.4 k/uL (3.8-10.6)
[2020-02-05 08:01] LABS: HGB 11.7 gm/dL (11.4-16.0)
--- NOTE | 2020-02-05 08:34 | P.CNOR ---
History of Present Illness - HPI Consult date: 02/05/20 Consult reason: fracture History of present illness: This is a 74 yo female who presented from her apartment in [place] where she lives alone for continued and progressive low back pain that has now prevented her fro m ambulating. She states that over the past few weeks she has become more painful in her back and that now she cannot stand due to this. She states about 1-2 years ago she had a fall and a fracture in her low back before, for which she was treated with a brace. She does not remember any new trauma or event to cause this new back pain but states it just slowly kept getting worse and worse. She denies any weakness, but cannot stand due to her pain. She denies any perineal numbness/tingling. She states some urinary urgency before the hayes was placed, but denies any incontinence or issues with bowels. She denies any genital or perianal numbness/tingling. She currently denies any f/c/sob/cp at this time. She has a complex medical history. Lives alone in an apartment in [place], that is close to her daughters. She recently lost her . Denies smoking or tobacco use currently. Denies ETOH use. Review of Systems 14 points review of systems completed and as stated in HPI, all other systems reviewed are negative. Past Medical History Past Medical History: Heart Failure, COPD, Hypertension, Memory Impairment, Neurologic Disorder, Osteoarthritis (OA), Thyroid Disorder Additional Past Medical History / Comment(s): anemia, diverticulitis, neuopathy, has hx blood transfusions with a previous hospitalization History of Any Multi-Drug Resistant Organisms: None Reported Past Surgical History: No Surgical Hx Reported Past Anesthesia/Blood Transfusion Reactions: No Reported Reaction Past Psychological History: No Psychological Hx Reported Smoking Status: Former smoker Past Alcohol Use History: None Reported Past Drug Use History: None Reported - Past Family History Mother Family Medical History: No Reported History Medications and Allergies Home Medications Medication Instructions Recorded Confirmed Type Aspirin EC [Ecotrin Low Dose] 81 mg PO W/SUPPER 12/03/18 02/03/20 History Cyanocobalamin (Vitamin B-12) 1,000 mcg PO Q48H 12/03/18 02/03/20 History [Vitamin B-12] Acetaminophen [Tylenol Extra 1,000 mg PO BID 02/25/19 02/03/20 History Strength] Metoprolol Succinate [Kapspargo 25 mg PO DAILY 02/25/19 02/03/20 History Sprinkle] Pantoprazole Sodium [Protonix] 40 mg PO W/SUPPER 02/25/19 02/03/20 History amLODIPine [Norvasc] 10 mg PO DAILY tab 03/01/19 02/03/20 Rx Cetirizine HCl [Zyrtec] 10 mg PO DAILY 02/03/20 02/03/20 History Ergocalciferol (Vitamin D2) 50,000 unit PO FR 02/03/20 02/03/20 History [Drisdol] Furosemide [Lasix] 40 mg PO DAILY 02/03/20 02/03/20 History Lactulose 10 gm PO DAILY PRN 02/03/20 02/03/20 History Levothyroxine Sodium [Synthroid] 100 mcg PO DAILY 02/03/20 02/03/20 History Lidocaine [Aspercreme Patch] 1 patch TRANSDERM DAILY PRN 02/03/20 02/03/20 History lisinopriL [Zestril] 5 mg PO W/SUPPER 02/03/20 02/03/20 History Allergies Allergy/AdvReac Type Severity Reaction Status Date / Time No Known Allergies Allergy Verified 02/03/20 13:14 Physical Examination Osteopathic Statement: *. No significant issues noted on an osteopathic structural exam other than those noted in the History and Physical/Consult. GEN: AOX3, NAD VSS Symmetrical chest rise normal respirations at this time Inspection: Patient is seated in bed with a slightly kyphotic presentation. Palpation: She has tenderness and pain to palpation paraspinally as well as centrally over the thoracolumbar spine lower lumbar spine and over the L3 and L5 segments. She has no tenderness to palpation of the thoracic spine or cervical spine. There is positive ballottement at the lower lumbar and middle lumbar spine. Motor: 5/5 shoulder abd/EF/EE/WF/intrinsics 5/5 DF/PF/EHL/FHL/HF/KE/KF she has slight weakness 4+/5 strength in her right hip flexion as this causes her pain in her lower back. There are no tensioning signs however Patient is overall generalized weakness secondary to her medical conditions and state Reflexes: 2/4 DTR all upper and LE Sensation intact to light touch in C5-T1 as well as L2-S1 distribution Vieira's: Negative bilaterally Clonus: Negative Bilaterally Babinski: Negative bilaterally Cranial nerves II through XII are grossly intact She is unable to ambulate in the room at this time secondary to her pain. She normally uses a cane or walker for ambulation. Data kinesis intact bilaterally Results CT of the lumbar spine is reviewed which demonstrates a chronic L3 A4 burst fracture which has healed in this area. There is a new appearing L1 burst fracture A2 split fracture noted with no retropulsion. There is a grade 1 spondylolisthesis of L4 on L5 which is also noted. There is no other areas of severe canal compression that can be seen on CT however there is canal compromise secondary to the spondylolisthesis and the A3 burst fracture which is a chronic. The likely acute A2 fracture at L1 does not show any displacement at this time. Overall alignment is fairly well maintained with a good lumbar lordosis. There is no acute kyphotic segments. Coronal alignment is also maintained at this time. - Labs Labs: Abnormal Lab Results - Last 24 Hours (Table) 02/04/20 02/05/20 Range/Units 06:23 06:58 RBC 3.50 L (3.80-5.40) m/uL MCV 102.1 H (80.0-100.0) fL BUN 39.0 H (9.0-27.0) mg/dL Est GFR (CKD-EPI)AfAm 42.2 L (60.0-200.0) Est GFR (CKD-EPI)NonAf 36.4 L (60.0-200.0) BUN/Creatinine Ratio 27.86 H (12.00-20.00) Ratio H & H 02/03/20 02/05/20 Range/Units 12:47 06:58 Hgb 14.7 11.7 D (11.4-16.0) gm/dL Hct 44.4 35.7 (34.0-46.0) % Result Diagrams: 02/05/20 06:58 02/04/20 06:23 Assessment and Plan Assessment: 74-year-old female with complex medical history 1. Likely acute L1 A2 split fracture 2. Chronic L3 A4 burst fracture, healed 3. Grade I spondyolisthesis of L4-5 4. Complex medical patient Plan: It is my pleasure to have seen and examined the patient today. We had a chance to go over her clinical signs and symptoms as well as her imaging. At this time I would make the following recommendations: 1. CT of Thoracic spine to complete bony picture 2. MRI of T and L spine to assess fractures, alignment and neural elements as well as fracture acuity 3. TLSO brace for attempt at mobilization 4. PT/OT 5. Pain control 6. Medical management. I spoke with the patient at length about her fractures and her condition. We can attempt to mobilize her in a TLSO brace and with pain control. Should this not be adequate, she would need a surgical fixation of these fractures, of which she states she does not want at this time, which is reasonable. We can attempt conservative treatment first, and, if this fails we can stabilize surgically. Depending on MRI findings, kyphoplasty may be an option of the L1 fracture, however as mostly a split fracture, these tend to heal if stabilized as there is good bony surface area for healing and cement can prevent this. Posterior stabilization would be a better option should she want it at some point. We will see how she does with TLSO and PT/OT, pain control.
[2020-02-05 11:40] LABS: African American GFR (CKD) 42.2 (60.0-200.0); Anion Gap 4.2 mmol/L (4.00-12.00); BUN/Creat Ratio 24.29 Ratio (12.00-20.00); Carbon Dioxide 28.8 mmol/L (21.6-31.8); Non-African American GFR(CKD) 36.4 (60.0-200.0)
--- NOTE | 2020-02-05 14:27 | P.PN ---
Subjective Progress Note Date: 02/05/20 Intractable low back pain due to new L1 vertebral body compression fracture. Patient is a 74-year-old female with a known history of hypertension, COPD, memory impairment, osteoarthritis, hypothyroidism and previous history of smoking and history of compression fractures presents to ER with complaints of lower back pain and unable to move around at home. Patient lives by herself at home and usually walks with walker. For the past 1 week patient is not able to get out of bed. She is also having issues with constipation. Patient was started on bowel regimen which seemed to improve her constipation. Otherwise patient feels very weak and could not get out of bed. Family is concerned about her status and brought to the hospital. Otherwise patient denied any complaints of fever or chills. No dysuria or hematuria. No nausea vomiting or diarrhea abdominal pain. Patient does have some poor oral intake. No cough or sputum production. Denied any shooting down pain in the legs. No paresthesias. CT lumbar spine showed there is mild burst fracture of L3 vertebral body with slight posterior fragment extension into the spinal canal. There is a mild grade 2 spinal stenosis. This fracture does not appear acute. There is mild degenerative first-degree L4-L5 spondylosis and there is a 15% bi concave compression deformity of the L1 vertebral body that could be an acute fracture. CT of the abdomen pelvis was done which showed large hiatal hernia. Angiomyolipoma right kidney. Left renal cortical cyst. Normal appendix. Renal abnormalities unchanged compared to 12/03/2018 There is clearing of the pleural effusions compared to old exam. There is old burst fracture L3 vertebral body unchanged. Laboratory data showed BUN 52 and creatinine 1.77 UA showed large leukocyte esterase and WBC 7 and less than 1 squamous epitheli 02/04/2020 Patient is currently resting in the bed comfortably. Pain is controlled with medications. Patient is tolerating oral diet continued on IV hydration. Renal function is normalized. Patient has been afebrile. No leg weakness noted. PT OT will be consulted and orthopedic surgery is on board. Patient is being continued antibiotics in the form of ceftriaxone for possible UTI. 02/05/2020 Patient is seen in follow-up this morning and currently awaiting MRI that was ordered by orthopedics as patient continues to have lower back pain. Awaiting for PT/OT evaluation once patient receives MRI along with the back brace. Case management provided with a prescription to obtain a TLSO back brace. Patient denies any shortness of breath although his continued on 2 L via nasal cannula as per nursing staff she had oxygenation less than 85%. Patient is currently at 97-98% on the 2 L. Discussed with RN about weaning FiO2. Patient does not wear oxygen at home. Patient is currently maintained on IV antibiotics in the form of Ceftin and will continue at this time. Will await MRI report to be done sometime this afternoon. Review of systems: Constitutional: No reports of fatigue, fever, or chills, reports continued back pain Cardiovascular: No reports of chest pain or palpitations Respiratory: No reports of shortness of breath or cough GI: No reports of nausea, vomiting, or diarrhea : No reports of dysuria or retention Neurovascular: Reports weakness with no reports of numbness All medications have been reviewed Objective - Vital Signs Vital signs: Vital Signs Temp 98 F 02/05/20 07:16 Pulse 53 L 02/05/20 07:16 Resp 14 02/05/20 07:16 BP 153/66 02/05/20 07:16 Pulse Ox 97 02/05/20 07:16 Intake & Output 02/04/20 02/05/20 02/05/20 18:59 06:59 18:59 Output Total 700 1175 Balance -700 -1175 Output: Urine 700 1175 Other: Voiding Method Indwelling Catheter Indwelling Catheter - Exam Patient is sitting up in the bed comfortably, Mild distress due to pain of the lower back, awake alert and oriented.. HEENT: Normocephalic. Neck is supple. Pupils reactive. Nostrils clear. Oral cavity is moist. Ears reveal no drainage. Neck reveals no JVD, carotid bruits, or thyromegaly. CHEST EXAMINATION: Trachea is central. Symmetrical expansion. Lung schaeffer clear to auscultation and percussion. CARDIAC: Normal S1, S2 with no gallops. No murmurs ABDOMEN: Soft. Bowel sounds normal. No organomegaly. No abdominal bruits. Extremities: reveal no edema. No clubbing or cyanosis Neurologically awake, alert, oriented x3 .Able to move extremities while in bed. . No focal deficits noted Skin: No rash or skin lesions. Psychiatric: Cooperative. Non-suicidal Musculoskeletal: No joint swelling or deformity. . - Labs CBC & Chem 7: 02/05/20 06:58 02/05/20 06:58 Labs: Abnormal Lab Results - Last 24 Hours (Table) 02/05/20 02/05/20 Range/Units 06:58 06:58 RBC 3.50 L (3.80-5.40) m/uL MCV 102.1 H (80.0-100.0) fL BUN 34.0 H (9.0-27.0) mg/dL Est GFR (CKD-EPI)AfAm 42.2 L (60.0-200.0) Est GFR (CKD-EPI)NonAf 36.4 L (60.0-200.0) BUN/Creatinine Ratio 24.29 H (12.00-20.00) Ratio Assessment and Plan Assessment: Intractable low back pain due to new L1 vertebral body compression fracture. History of L3 vertebral compression fracture. Acute kidney injury likely prerenal with poor oral intake, improving, current creatinine is 1.4 COPD not in exacerbation Memory impairment Osteoarthritis Hypothyroidism Previous history of smoking DVT prophylaxis with heparin subcu Plan: Patient will be continued on pain management with morphine. added Compton and provide IV pain medications. Orthopedic ordered an MRI of the back and currently pending at this time. Prescription provided to case management for TLSO back brace and will need PT/OT evaluation. Continue with gentle hydration and monitor renal function. Will repeat a.m. labs. Wean FiO2 as tolerated. Orthopedic surgery following. Continue with home medications and further recommendations based on the clinical course.
[2020-02-05] MEDS: ASPIRIN 81 MG PO SCH (16:51)
[2020-02-05] MEDS: PANTOPRAZOLE 40 MG TABLET PO SCH (16:51)
[2020-02-06] MEDS: SODIUM CHLORIDE 0.9% 1,000 ML IV SCH (03:13)
[2020-02-06] MEDS: LEVOTHYROXINE 100 MCG TAB PO SCH (05:25)
[2020-02-06] MEDS: HEPARIN SODIUM,PORCINE 5,000 UNIT/ML 1 ML VIAL SQ SCH ×3 (08:42→20:24)
[2020-02-06] MEDS: ACETAMINOPHEN TAB 500 MG TAB PO SCH ×2 (08:43→20:25)
[2020-02-06] MEDS: DOCUSATE 100 MG CAP PO SCH ×2 (08:44→20:25)
[2020-02-06] MEDS: CYANOCOBALAMIN 500 MCG TAB PO SCH (08:44)
[2020-02-06] MEDS: HYDROcodone/APAP 5-325MG 1 EACH TAB PO PRN ×3 (08:44→23:47)
[2020-02-06] MEDS: amLODIPine 10 MG TAB PO SCH (08:45)
[2020-02-06] MEDS: METOPROLOL SUCCINATE (ER) 25 MG TAB.ER.24H PO SCH (08:45)
--- NOTE | 2020-02-06 10:14 | XR ---
EXAMINATION TYPE: XR chest 1V portable DATE OF EXAM: 02/06/2020 HISTORY: Shortness of breath. COMPARISON: 03/01/2019 TECHNIQUE: Single view of the chest is submitted. FINDINGS: Demonstrated are scattered senescent parenchymal change. Improving left lower lobe infiltrate. Large fixed hiatal hernia persists. The heart is stable. Hilar and mediastinal structures are within normal limits. Degenerative changes are seen of the dorsal spine. IMPRESSION: 1. Improving left lower lobe infiltrate. Large fixed hiatal hernia persists.
--- NOTE | 2020-02-06 12:20 | CT ---
EXAMINATION TYPE: CT thoracic spine wo con DATE OF EXAM: 02/06/2020 COMPARISON: CT lumbar spine 02/03/2020 HISTORY: Fracture CT of the thoracic spine was performed in the axial coronal and sagittal planes. CT DLP: 757.1 mGycm Automated exposure control for dose reduction was used. FINDINGS: There is mild superior endplate loss of height involving the T11 vertebral segment with loss of heigh t estimated at approximately 30%. Mild paraspinal edema suggest relatively recent fracture. No additi onal thoracic fractures are seen. There is no evidence for bony retropulsion. Previously described L1 fracture is redemonstrated. Multilevel degenerative disc space narrowing and spondylosis seen throug hout the mild in degree. Mildly exaggerated thoracic kyphosis. IMPRESSION: MILD SUPERIOR ENDPLATE LOSS OF HEIGHT INVOLVING T11 OF UNCERTAIN AGE AND/OR ETIOLOGY ALTHOUGH LIKELY RECENT. NO BONY RETROPULSION SEEN.
[2020-02-06 12:27] LABS: African American GFR (CKD) 48 (>60 ml/min/1.73 sqM); Anion Gap 5 mmol/L; Blood Urea Nitrogen 31 mg/dL (7-17); Calcium 8.9 mg/dL (8.4-10.2); Carbon Dioxide 27 mmol/L (22-30); Chloride 103 mmol/L (98-107); Glucose 110 mg/dL (74-99); Non-African American GFR(CKD) 41 (>60 ml/min/1.73 sqM); Potassium 4.4 mmol/L (3.5-5.1); Sodium 135 mmol/L (137-145)
--- NOTE | 2020-02-06 12:38 | MR ---
EXAMINATION TYPE: MR miriam/lspine wo con DATE OF EXAM: 02/06/2020 COMPARISON: CT thoracic spine 02/06/2020, CT lumbar spine 02/03/2020 HISTORY: Fracture TECHNIQUE: Multiplanar, multisequence imaging of the thoracic and lumbar spine is performed without I V contrast. FINDINGS: Thoracic spine MRI Superior endplate of T11 shows depression as noted on CT, loss of height of approximately 20-25% is s uspected, only minimal retropulsion. Superior endplate shows low signal on T1 and T2-weighted sequenc es with some mild increased T2 signal which is likely subacute to chronic. Remaining thoracic vertebr al bodies show preserved height. Disc spaces are maintained. There is some endplate discogenic marrow signal changes present, T6 vertebral body shows a small hemangioma, T2 bright, T1 bright signal. Mil d heterogeneous appearance overall. Bone marrow signal suggests underlying low bone mineralization. T here is no evident spinal stenosis or foraminal encroachment, no sizable disc herniation. Facet arthr opathy changes are noted at the lower thoracic spine. Thoracic cord signal is normal. There is underl juan a spinal curvature. IMPRESSION: Superior endplate fracture at T11 thought likely to be subacute to chronic, only minimal retropulsion and mild loss of height. Lumbar spine MRI: L1 vertebral body shows loss of height centrally, linear central vertical cephalad to caudal fracture line within the vertebral body seen on sagittal image [address] scan is not as well appreciated o n MRI. Low signal is noted on T1 weighted sequences, there is some increased signal associated and T 2-weighted sequences suggesting subacute finding. Central loss of height present at L3 is noted with near fenestration between the superior and inferio r endplates, there is some retropulsion of the vertebral body due to the central fracture. Anterolisthesis grade 1 L4-5. Disc spaces relatively preserved. L5-S1 is unremarkable L4-5 shows some mild spinal stenosis, there is facet arthropathy change, hypertrophic ligamentum flav um causes posterior lateral mass effect on the thecal sac, trefoil appearance of the thecal sac, list hesis contributes to cause some foraminal encroachment greater on the right. L3-4: Facet arthropathy with hypertrophy ligamentum flavum causes posterior lateral mass effect on th e thecal sac. The retropulsion contributes to cause foraminal encroachment bilaterally, posterior ext ension endplate disc complex causes anterior mass effect on the thecal sac, only mild spinal stenosis . L2-3: The retropulsion of the superior endplate results in moderate spinal stenosis. There is facet a rthropathy with hypertrophy ligamentum flavum causing posterior lateral mass effect on the thecal sac . Circumferential extension of endplate disc complex encroaches somewhat on the foramina left greater than right. L1-2: Minimal posterior disc bulge causes slight anterior mass effect on the thecal sac. No significa nt spinal stenosis or foraminal encroachment. Cortical cyst incidentally noted within the left kidney. IMPRESSION: Subacute fracture suspected at L1. Chronic fracture at L3 as described with listhesis an d spinal stenosis, foraminal encroachment, facet arthropathy..
[2020-02-06] MEDS ORDERED: FUROSEMIDE 10 MG/ML 4 ML VIAL IV STA (13:08)
--- NOTE | 2020-02-06 13:40 | P.PN ---
Progress Note - Text Progress Note Date: 02/06/[address] reviewed. MRI of thoracic and lumbar spine demonstrates a chronic L3 split fracture with no interval changes. There is a acute on chronic/subacute L1 split fracture with no retropulsion no malalignment and no other canal compromise. There is a subacute T11 superior endplate fracture. There is no areas of severe canal compromise compression or stenosis noted. There is a grade 1 anterior listhesis of L4 and L5 noted. CT redemonstrates these fractures there is no posterior ligamentous instability or compromise throughout. The patient does have neck deformity with overall kyphosis within the thoracic spine there is a heterogeneous marrow signal throughout the T2 and T1 signals. No other fractures or dislocations or lesions noted. -Continue with conservative measures with pain control -Obtain TLSO -Attempt mobilization with physical therapy -Patient stated she did not want surgery at this time
[2020-02-06] MEDS: FUROSEMIDE 40 MG TAB PO SCH (13:41)
--- NOTE | 2020-02-06 14:59 | P.PN ---
Subjective Progress Note Date: 02/06/20 Intractable low back pain due to new L1 vertebral body compression fracture. Patient is a 74-year-old female with a known history of hypertension, COPD, memory impairment, osteoarthritis, hypothyroidism and previous history of smoking and history of compression fractures presents to ER with complaints of lower back pain and unable to move around at home. Patient lives by herself at home and usually walks with walker. For the past 1 week patient is not able to get out of bed. She is also having issues with constipation. Patient was started on bowel regimen which seemed to improve her constipation. Otherwise patient feels very weak and could not get out of bed. Family is concerned about her status and brought to the hospital. Otherwise patient denied any complaints of fever or chills. No dysuria or hematuria. No nausea vomiting or diarrhea abdominal pain. Patient does have some poor oral intake. No cough or sputum production. Denied any shooting down pain in the legs. No paresthesias. CT lumbar spine showed there is mild burst fracture of L3 vertebral body with slight posterior fragment extension into the spinal canal. There is a mild grade 2 spinal stenosis. This fracture does not appear acute. There is mild degenerative first-degree L4-L5 spondylosis and there is a 15% bi concave compression deformity of the L1 vertebral body that could be an acute fracture. CT of the abdomen pelvis was done which showed large hiatal hernia. Angiomyolipoma right kidney. Left renal cortical cyst. Normal appendix. Renal abnormalities unchanged compared to 12/03/2018 There is clearing of the pleural effusions compared to old exam. There is old burst fracture L3 vertebral body unchanged. Laboratory data showed BUN 52 and creatinine 1.77 UA showed large leukocyte esterase and WBC 7 and less than 1 squamous epitheli 02/04/2020 Patient is currently resting in the bed comfortably. Pain is controlled with medications. Patient is tolerating oral diet continued on IV hydration. Renal function is normalized. Patient has been afebrile. No leg weakness noted. PT OT will be consulted and orthopedic surgery is on board. Patient is being continued antibiotics in the form of ceftriaxone for possible UTI. 02/05/2020 Patient is seen in follow-up this morning and currently awaiting MRI that was ordered by orthopedics as patient continues to have lower back pain. Awaiting for PT/OT evaluation once patient receives MRI along with the back brace. Case management provided with a prescription to obtain a TLSO back brace. Patient denies any shortness of breath although his continued on 2 L via nasal cannula as per nursing staff she had oxygenation less than 85%. Patient is currently at 97-98% on the 2 L. Discussed with RN about weaning FiO2. Patient does not wear oxygen at home. Patient is currently maintained on IV antibiotics in the form of Ceftin and will continue at this time. Will await MRI report to be done sometime this afternoon. 02/06/2020 Patient is seen in follow-up and underwent CT and MRI of the thoracic spine and or the following. Patient to continue with conservative management at this time as she does not want surgery. Patient was seen and evaluated by PT/OT recommending close / care or possible subacute rehab. Patient does have family members that live close by and she will be going to stay with her daug hter upon discharge. She did receive TLSO brace and is to continue with this while out of bed. Patient continues to have some shortness of breath and incentive spirometer was ordered. Chest x-ray was ordered showing an improving left lower lobe infiltrate with a large fixed hiatal hernia persistent although on abdominal pelvis CT there is no evidence of pneumonia with the possibility of pleural effusion or atelectasis. Patient appears to have congestive heart failure with diastolic dysfunction as most recent echo in February 2019 shows systolic function is low to normal with an EF of 50-55%. Patient was maintained on 40 mg of oral Lasix daily and will resume. Patient is currently 97-98% on 2 L of oxygen and discussed with nursing staff about weaning FiO2 as tolerated. Current creatinine is improving and is 1.27 with a potassium of 4.4 and blood pressures have been slightly elevated and will resume lisinopril. Social work also following and making arrangements for ECF placement as she is now agreeable to go there for continued PT/OT therapy. Will await authorization and accep tance. Review of systems: Constitutional: No reports of fatigue, fever, or chills, reports continued back pain Cardiovascular: No reports of chest pain or palpitations Respiratory: Reports mild shortness of breath GI: No reports of nausea, vomiting, or diarrhea : No reports of dysuria or retention Neurovascular: Reports weakness with no reports of numbness All medications have been reviewed Objective - Vital Signs Vital signs: Vital Signs Temp 97.9 F 12/22/20 06:47 Pulse 52 L 02/06/20 06:47 Resp 18 02/06/20 06:47 BP 157/59 02/06/20 06:47 Pulse Ox 97 02/06/20 06:47 Intake & Output 02/05/20 02/06/20 02/06/20 18:59 06:59 18:59 Intake Total 160 100 Output Total 1 1550 Balance 159 -1450 Intake: Oral 160 100 Output: Urine 1550 Stool 1 Other: Voiding Method Indwelling Catheter - Exam Patient is sitting up in the bed comfortably, Mild distress due to pain of the lower back, awake alert and oriented.. HEENT: Normocephalic. Neck is supple. Pupils reactive. Nostrils clear. Oral cavity is moist. Ears reveal no drainage. Neck reveals no JVD, carotid bruits, or thyromegaly. CHEST EXAMINATION: Trachea is central. Symmetrical expansion. Lung sounds diminished otherwise schaeffer clear to auscultation and percussion. CARDIAC: Normal S1, S2 with no gallops. No murmurs ABDOMEN: Soft. Bowel sounds normal. No organomegaly. No abdominal bruits. Extremities: reveal no edema. No clubbing or cyanosis Neurologically awake, alert, oriented x3 .Able to move extremities while in bed.. No focal deficits noted Skin: No rash or skin lesions. Psychiatric: Cooperative. Non-suicidal Musculoskeletal: No joint swelling or deformity. . - Labs CBC & Chem 7: 02/05/20 06:58 02/06/20 11:43 Labs: Abnormal Lab Results - Last 24 Hours (Table) 02/05/20 Range/Units 06:58 BUN 34.0 H (9.0-27.0) mg/dL Est GFR (CKD-EPI)AfAm 42.2 L (60.0-200.0) Est GFR (CKD-EPI)NonAf 36.4 L (60.0-200.0) BUN/Creatinine Ratio 24.29 H (12.00-20.00) Ratio Assessment and Plan Assessment: Intractable low back pain due to new L1 vertebral body compression fracture. History of L3 vertebral compression fracture. Acute kidney injury likely prerenal with poor oral intake, improving, current creatinine is 1.2 COPD not in exacerbation Congestive heart failure acute on chronic diastolic dysfunction, acute exacerbation, will resume Lasix Memory impairment Osteoarthritis Hypothyroidism Previous history of smoking DVT prophylaxis with heparin subcu Plan: Patient will be continued on current medications. To continue with pain management. Patient was having shortness of breath and a dose of Lasix was ordered and will resume home medication dose of 40 mg daily. PT/OT evaluated the patient with TLSO brace and recommending subacute rehab. Initially patient stated she would go stay with her daughter although is now agreeable to [facility] for continued PT/OT therapy. Case management and social work following looking for an accepting facility. Wean FiO2 as tolerated. Orthopedic surgery following recommending conservative management at this time. Patient does not want any surgical interventions. Continue with home medications and further recommendations based on the clinical course. Possible discharge in 24 hours.
[2020-02-06] MEDS: PANTOPRAZOLE 40 MG TABLET PO SCH (17:23)
[2020-02-06] MEDS: ASPIRIN 81 MG PO SCH (17:23)
[2020-02-06] MEDS ORDERED: lisinopriL 5 MG TAB PO SCH (17:30)
[2020-02-07] MEDS: LEVOTHYROXINE 100 MCG TAB PO SCH (05:13)
--- NOTE | 2020-02-07 08:52 | P.PN ---
Progress Note - Text Progress Note Date: 02/07/20 Patient seen and examined well-being boost up in bed. She has quite a bit of pain when being boosted. She states that she was up in the chair with her brace yesterday but it did not ride high on her and this made it difficult to sit in this brace. She states that she could not really walk secondary to her pain she does not know if the brace helped her. She denies any changes in bowel or bladder condition. She denies any numbness or tingling in her legs. She denies any weakness or leg she simply has a lot of pain. Around her low back now although was in her upper back before. GEN: AOX3, NAD VSS Palpation: Still has tenderness around her mid back and low back paraspinally. Motor: 06/19 shoulder abd/EF/EE/WF/intrinsics 06/19 DF/PF/EHL/FHL/HF/KE/KF Patient has generalized weakness secondary to her condition and medical issues Reflexes: 03/21 DTR all upper and LE Sensation intact to light touch in C5-T1 as well as L2-S1 distribution Negative Hoffmans negative clonus and negative Babinskis bilaterally Cranial nerves II through XII are grossly intact Assessment: -Severe osteoporosis -T11 L1 acute on chronic fractures without displacement without instability -Chronic L3 fracture with continued pain -Complex medical patient Plan: I discussed with the patient her clinical signs and symptoms. At this time she continues to not want surgery. I did discuss with her that should she start to deteriorate or have more problems or not be only get up and out of bed with a brace that she will likely need some sort of surgical stabilization to help her to mobilize. She understood this but she would like to continue with conservative treatments at this right time. She does not want surgery at this time. We will continue to monitor. If she does not progress we will push surgery more but at this time she is only tried the brace once and is only been up once and so I would suggest continuing with brace care as well as PT OT.
[2020-02-07] MEDS: HYDROcodone/APAP 5-325MG 1 EACH TAB PO PRN ×2 (08:53→14:45)
[2020-02-07] MEDS: FUROSEMIDE 40 MG TAB PO SCH (08:54)
[2020-02-07] MEDS: DOCUSATE 100 MG CAP PO SCH (08:57)
[2020-02-07] MEDS: ACETAMINOPHEN TAB 500 MG TAB PO SCH (08:58)
[2020-02-07] MEDS: METOPROLOL SUCCINATE (ER) 25 MG TAB.ER.24H PO SCH (08:58)
[2020-02-07] MEDS: HEPARIN SODIUM,PORCINE 5,000 UNIT/ML 1 ML VIAL SQ SCH (08:59)
[2020-02-07] MEDS ORDERED: TAMSULOSIN 0.4 MG CAP.ER.24H PO STA (09:18)
[2020-02-07 10:10] VITALS: BP 137/50; RESP 22; TEMP 98
--- NOTE | 2020-02-07 12:11 | P.DS ---
Providers Date of admission: 02/05/20 12:46 Expected date of discharge: 02/07/20 Attending physician: Tracey Walker Consults: 02/03/20 15:09 Consult Physician Urgent Consulting Provider: Tc Maddox Consult Reason/Comments: acute lumbar back pain, t11/l1 acute compression fx Do you want consulting provider notified?: Yes Primary care physician: Jia Siddiqui Hospital Course: Final diagnosis Intractable low back pain due to new L1 vertebral body compression fracture. History of L3 vertebral compression fracture. Acute kidney injury likely prerenal with poor oral intake COPD not in exacerbation Congestive heart failure acute on chronic diastolic dysfunction, acute exacerbation Memory impairment Osteoarthritis Hypothyroidism Previous history of smoking DVT prophylaxis Discharge disposition Patient is being discharged in a stable condition with guarded prognosis to [facility] for continued rehab. Patient will follow-up with Dr. Siddiqui in the outpatient setting upon discharge. Patient will also follow-up with orthopedic surgery in the outpatient setting as needed. Total time taken is greater than 35 minutes. History of present illness This is a 74-year-old female who was recently admitted with intractable lower back pain due to L1 vertebral body compression fracture and was being closely monitored. Patient was seen and evaluated by orthopedic surgery and underwent CT and MRI of the thoracic spine showing chronic fractures and changes within the T-spine and discussed the options of possible surgical intervention. Patient CT of the lumbar spine showed mild burst fracture of the L3 vertebral body with some spinal stenosis and spondylosis of L4-L5. Patient is against any surgical interventions at this time and would like to continue with conservative treatment and follow-up in the outpatient setting as needed. Patient was provided a TLSO brace and will continue while out of bed and during therapy. Patient continues to be weak and was seen and evaluated by physical therapy recommending subacute rehab for strength and mobility. Initially patient was hesitant of [facility] for rehab and was going to stay with daughter but changed her mind. Patient had urinalysis done on admission which showed possibility of acute urinary tract infection although patient denies any symptoms of dysuria or retention and is most likely asymptomatic bacteriuria and patient was treated with 3 days of IV ceftriaxone and will not require antibiotics upon discharge. Patient does have a history of congestive heart failure diastolic dysfunction and was resumed on home medication dose of Lasix and will continue. Patient will also continue with blood pressure medications in the outpatient setting. Patient was having some shortness of breath and was instructed to continue using incentive spirometer at least 10 times every hour while awake along with increasing activity as tolerated and sitting up out of the bed more often. Patient is 94% on room air. Currently no reports of chest pain, shortness of breath, or palpitations. Patient is afebrile. No reports of nausea or vomiting and patient is tolerating diet. Patient will be going to [facility] today. On exam vital signs are stable. Temp is 98.0F, pulse is 51, respirations are 22, blood pressure is 137/50, oxygen saturation is 94-96% on room air. Cardio S1, S2 are muffled. Respiratory system shows diminished breath sounds at the bases with no wheezing or rhonchi noted. Abdomen is soft and nontender. Nervous system shows diffuse weakness. Please refer to medication reconciliation sheet for a list of medications. Patient Condition at Discharge: Stable Plan - Discharge Summary Discharge Rx Participant: Yes New Discharge Prescriptions: New Docusate [Colace] 100 mg PO BID cap HYDROcodone/APAP 5-325MG [Hurt 5-325] 1 each PO Q6HR PRN #12 tab PRN Reason: Pain Continue Aspirin EC [Ecotrin Low Dose] 81 mg PO W/SUPPER Cyanocobalamin (Vitamin B-12) [Vitamin B-12] 1,000 mcg PO Q48H Acetaminophen [Tylenol Extra Strength] 1,000 mg PO BID Pantoprazole Sodium [Protonix] 40 mg PO W/SUPPER Metoprolol Succinate [[place] Sprinkle] 25 mg PO DAILY Furosemide [Lasix] 40 mg PO DAILY Levothyroxine Sodium [Synthroid] 100 mcg PO DAILY Cetirizine HCl [Zyrtec] 10 mg PO DAILY lisinopriL [Zestril] 5 mg PO W/SUPPER Lactulose 10 gm PO DAILY PRN PRN Reason: Constipation Ergocalciferol (Vitamin D2) [Drisdol] 50,000 unit PO FR Lidocaine [Aspercreme Patch] 1 patch TRANSDERM DAILY PRN PRN Reason: Pain Discontinued amLODIPine [Norvasc] 10 mg PO DAILY tab Discharge Medication List Aspirin EC [Ecotrin Low Dose] 81 mg PO W/SUPPER 12/03/18 [History] Cyanocobalamin (Vitamin B-12) [Vitamin B-12] 1,000 mcg PO Q48H 12/03/18 [History] Acetaminophen [Tylenol Extra Strength] 1,000 mg PO BID 02/25/19 [History] Metoprolol Succinate [[place] Sprinkle] 25 mg PO DAILY 02/25/19 [History] Pantoprazole Sodium [Protonix] 40 mg PO W/SUPPER 02/25/19 [History] Cetirizine HCl [Zyrtec] 10 mg PO DAILY 02/03/20 [History] Ergocalciferol (Vitamin D2) [Drisdol] 50,000 unit PO FR 02/03/20 [History] Furosemide [Lasix] 40 mg PO DAILY 02/03/20 [History] Lactulose 10 gm PO DAILY PRN 02/03/20 [History] Levothyroxine Sodium [Synthroid] 100 mcg PO DAILY 02/03/20 [History] Lidocaine [Aspercreme Patch] 1 patch TRANSDERM DAILY PRN 02/03/20 [History] lisinopriL [Zestril] 5 mg PO W/SUPPER 02/03/20 [History] Docusate [Colace] 100 mg PO BID cap 02/07/20 [Rx] HYDROcodone/APAP 5-325MG [Hurt 5-325] 1 each PO Q6HR PRN #12 tab 02/07/20 [Rx] Follow up Appointment(s)/Referral(s): Jia Siddiqui MD [Primary Care Provider] - 1-2 days Julianna Nye [NON-STAFF] - 1 Week (Please call if you have any questions about TLSO Brace ) Activity/Diet/Wound Care/Special Instructions: Patient is going to ECF Activity as tolerated Continue current diet Follow-up with primary care provider upon discharge Continue with lisinopril and hold Norvasc and monitor blood pressure every shift Continue with TLSO brace while out of bed Continue working with PT/OT Discharge Disposition: TRANSFER TO SNF/ECF
[2020-02-07 14:22] VITALS: PULSE 76
[2020-02-09] MEDS ORDERED: ERGOCALCIFEROL 50,000 UNIT CAP PO SCH (09:00)
== END 2020-02-07 15:25 | DRG 542 ==
LOC: EC 12:04 → 5NMEDONC 15:07 → OBSVTOIN 02-05 12:46
PROVIDERS: ADMIT Hospitalist; ATTEND Hospitalist
DX: M80.88XA Other osteoporosis with current pathological fracture, vertebra(e), initial encounter for fracture (principal); I50.33 Acute on chronic diastolic (congestive) heart failure; N17.9 Acute kidney failure, unspecified; K59.00 Constipation, unspecified; J44.9 Chronic obstructive pulmonary disease, unspecified; I11.0 Hypertensive heart disease with heart failure; E03.9 Hypothyroidism, unspecified; M48.02 Spinal stenosis, cervical region; M47.816 Spondylosis without myelopathy or radiculopathy, lumbar region; K44.9 Diaphragmatic hernia without obstruction or gangrene; M40.209 Unspecified kyphosis, site unspecified; Z60.2 Problems related to living alone; N28.1 Cyst of kidney, acquired; Z79.890 Hormone replacement therapy; Z87.891 Personal history of nicotine dependence; Z79.899 Other long term (current) drug therapy
CPT/HCPCS: 36415; 71045; 72128; 72131; 72146; 72148; 74176; 80048; 80053; 81001; 85025; 96361; 96374; 96375; 99284

== ENCOUNTER 2021-03-28 13:03 | Emergency (ER) | payer MEDICARE, BC ==
[2021-03-28 13:08] VITALS: PULSE 70
[2021-03-28 14:25] LABS: Appearance,Urine Clear (Clear); Bacteria,Urine Many /hpf; Bilirubin,Urine Negative (Negative); Blood,Urine Large (Negative); Color,Urine Light Yellow; Glucose,Urine (UA) Negative (Negative); Hyaline Casts,Urine 3 /lpf (0-2); Ketones,Urine Negative (Negative); Leukocyte Esterase,Urine Trace (Negative); Mucus,Urine Rare /hpf; Nitrite,Urine Negative (Negative); Protein,Urine Negative (Negative); RBC,Urine >182 /hpf (0-5); Specific Gravity,Urine 1.007 (1.001-1.035); Squamous Epithelial Cell,Urine <1 /hpf (0-4); Urobilinogen,Urine <2.0 mg/dL (<2.0); WBC,Urine 5 /hpf (0-5)
[2021-03-28] MEDS ORDERED: CEPHALEXIN 500 MG CAP PO STA (14:53)
--- NOTE | 2021-03-28 14:55 | ED ---
Female Urogenital HPI - General Chief complaint: Urogenital Stated complaint: hematuria Source: family Mode of arrival: wheelchair Limitations: no limitations - History of Present Illness Initial comments: 75-year-old female is brought to the emergency department by her daughter with reports that she has blood in her urine. Patient states that she feels a little bit wobbly on her feet. She noted that she had blood in her urine this morning. She denies any abdominal pain or back pain. No fevers. Denies any nausea or vomiting. No vaginal bleeding or discharge. Denies any changes in her bowel habits to include diarrhea, constipation, black or bloody stools. Denies history of frequent urinary tract infections. No confusion per the daughter. No other alleviating, precipitating or modifying factors - Related Data Home Medications Medication Instructions Recorded Confirmed Aspirin EC [Ecotrin Low Dose] 81 mg PO W/SUPPER 12/03/18 02/03/20 Cyanocobalamin (Vitamin B-12) 1,000 mcg PO Q48H 12/03/18 02/03/20 [Vitamin B-12] Acetaminophen [Tylenol Extra 1,000 mg PO BID 02/25/19 02/03/20 Strength] Metoprolol Succinate [[place]apspargo 25 mg PO DAILY 02/25/19 02/03/20 Sprinkle] Pantoprazole Sodium [Protonix] 40 mg PO W/SUPPER 02/25/19 02/03/20 Cetirizine HCl [Zyrtec] 10 mg PO DAILY 02/03/20 02/03/20 Ergocalciferol (Vitamin D2) 50,000 unit PO FR 02/03/20 02/03/20 [Drisdol (50,000 Iu)] Furosemide [Lasix] 40 mg PO DAILY 02/03/20 02/03/20 Lactulose 10 gm PO DAILY PRN 02/03/20 02/03/20 Levothyroxine Sodium [Synthroid] 100 mcg PO DAILY 02/03/20 02/03/20 Lidocaine [Aspercreme Patch] 1 patch TRANSDERM DAILY PRN 02/03/20 02/03/20 lisinopriL [Zestril] 5 mg PO W/SUPPER 02/03/20 02/03/20 Previous Rx's Medication Instructions Recorded Docusate [Colace] 100 mg PO BID cap 02/07/20 HYDROcodone/APAP 5-325MG [[place] 1 each PO Q6HR PRN #12 tab 02/07/20 5-325] Cephalexin [Keflex] 500 mg PO BID 1 Days #14 cap 03/28/21 Allergies Allergy/AdvReac Type Severity Reaction Status Date / Time No Known Allergies Allergy Verified 03/28/21 13:05 Review of Systems ROS Statement: Those systems with pertinent positive or pertinent negative responses have been documented in the HPI. ROS Other: All systems not noted in ROS Statement are negative. Past Medical History Past Medical History: Heart Failure, COPD, Hypertension, Neurologic Disorder, Osteoarthritis (OA) Additional Past Medical History / Comment(s): anemia, diverticulitis, neuopathy History of Any Multi-Drug Resistant Organisms: None Reported Past Surgical History: No Surgical Hx Reported Past Anesthesia/Blood Transfusion Reactions: No Reported Reaction Past Psychological History: No Psychological Hx Reported Smoking Status: Never smoker Past Alcohol Use History: None Reported Past Drug Use History: None Reported - Past Family History Mother Family Medical History: No Reported History General Exam Limitations: no limitations Course Vital Signs 03/28/21 03/28/21 13:05 15:02 Temperature 97.6 F 97.9 F Pulse Rate 70 70 Respiratory 20 16 Rate Blood Pressure 160/73 153/75 O2 Sat by Pulse 96 95 Oximetry Medical Decision Making - Medical Decision Making Upon arrival patient is placed in room 31. Thorough history and physical exam was performed. Urinalysis does demonstrate trace leukocyte esterase, greater than 182 red blood cells, many bacteria. Patient is given a dose of Keflex in the emergency department. Patient is appropriate without signs of confusion. Patient is able to get up and ambulate without difficulty. She will be discharged home at this time with a prescription for Keflex. Instructed follow up with her primary care doctor in 2-4 days. Return for any new or worsening symptoms for patient was discharged home in stable condition - Lab Data Lab Results 03/28/21 Range/Units 13:24 Urine Color Light Yellow Urine Appearance Clear (Clear) Urine pH 6.0 (5.0-8.0) Ur Specific [place] 1.007 (1.001-1.035) Urine Protein Negative (Negative) Urine Glucose (UA) Negative (Negative) Urine Ketones Negative (Negative) Urine Blood Large H (Negative) Urine Nitrite Negative (Negative) Urine Bilirubin Negative (Negative) Urine Urobilinogen <2.0 (<2.0) mg/dL Ur Leukocyte Esterase Trace H (Negative) Urine RBC >182 H (0-5) /hpf Urine WBC 5 (0-5) /hpf Ur Squamous Epith Cells <1 (0-4) /hpf Urine Bacteria Many H (None) /hpf Hyaline Casts 3 H (0-2) /lpf Urine Mucus Rare H (None) /hpf Disposition Clinical Impression: UTI (urinary tract infection), Hematuria Disposition: HOME SELF-CARE Condition: Stable Instructions (If sedation given, give patient instructions): Urinary Tract Infection in Women (ED) Additional Instructions: Take the antibiotics as directed. Follow-up with your doctor on Wednesday. Return to the emergency department for any new or worsening symptoms Prescriptions: Cephalexin [Keflex] 500 mg PO BID 1 Days #14 cap Is patient prescribed a controlled substance at d/c from ED?: No Referrals: Jia Siddiqui MD [Primary Care Provider] - 1-2 days Time of Disposition: 14:55
[2021-03-28 15:03] VITALS: BP 153/75; RESP 16; TEMP 97.9
== END 2021-03-28 15:08 | disposition home or self-care (01) ==
LOC: EC 13:03
DX: R31.9 Hematuria, unspecified (principal); N39.0 Urinary tract infection, site not specified; I11.0 Hypertensive heart disease with heart failure; I50.9 Heart failure, unspecified; J44.9 Chronic obstructive pulmonary disease, unspecified; M19.90 Unspecified osteoarthritis, unspecified site; Z79.82 Long term (current) use of aspirin
CPT/HCPCS: 81001; 99283

== ENCOUNTER 2021-04-21 09:28 | Emergency (ER) | payer MEDICARE, BC ==
[2021-04-21 09:32] VITALS: TEMP 97
[2021-04-21] MEDS ORDERED: SODIUM CHLORIDE 0.9% 500 ML 500 ML IV STA (09:45)
[2021-04-21 10:14] LABS: Appearance,Urine Clear (Clear); Bilirubin,Urine Negative (Negative); Blood,Urine Large (Negative); Color,Urine Yellow; Glucose,Urine (UA) Negative (Negative); Ketones,Urine Negative (Negative); Leukocyte Esterase,Urine Negative (Negative); Mucus,Urine Rare /hpf; Nitrite,Urine Negative (Negative); PH, Urine 5.5 (5.0-8.0); Protein,Urine Negative (Negative); RBC,Urine >182 /hpf (0-5); Urobilinogen,Urine <2.0 mg/dL (<2.0); WBC,Urine 3 /hpf (0-5)
[2021-04-21 10:22] LABS: Basophils # (A) 0.1 k/uL (0-0.2); Basophils % (A) 1 %; Eosinophils # (A) 0.2 k/uL (0-0.7); Eosinophils % (A) 4 %; HCT 46.8 % (34.0-46.0); HGB 15.1 gm/dL (11.4-16.0); Lymphocytes % (A) 16 %; MCH 34.2 pg (25.0-35.0); MCHC 32.4 g/dL (31.0-37.0); MCV 105.5 fL (80.0-100.0); Macrocytosis Slight; Mean Platelet Volume 7.9; Monocytes # (A) 0.4 k/uL (0-1.0); Monocytes % (A) 6 %; Neutrophils # (A) 4.6 k/uL (1.3-7.7); Neutrophils % (A) 72 %; Platelet Count 183 k/uL (150-450); RBC 4.43 m/uL (3.80-5.40); RDW 12.4 % (11.5-15.5); WBC 6.3 k/uL (3.8-10.6)
[2021-04-21 10:42] LABS: Albumin 4.4 g/dL (3.5-5.0); Potassium 4.5 mmol/L (3.5-5.1); Total Protein 7.3 g/dL (6.3-8.2)
[2021-04-21 10:43] LABS: Calcium 9.2 mg/dL (8.4-10.2); Total Bilirubin 0.8 mg/dL (0.2-1.3)
--- NOTE | 2021-04-21 11:12 | CT ---
EXAMINATION TYPE: CT abdomen pelvis wo con DATE OF EXAM: 04/21/2021 COMPARISON: CT dated 02/03/2020 HISTORY: UTI with hematuria. CT DLP: 500.3 mGycm Automated exposure control for dose reduction was used. TECHNIQUE: Helical acquisition of images was performed from the lung bases through the pelvis. FINDINGS: LUNG BASES: Unremarkable lung bases. LIVER/GB: No significant abnormality is appreciated. PANCREAS: Stable cystic area seen at the posterior aspect of the pancreatic head/uncinate process ayad suring up to 2 cm as well as the more inferior and lateral cyst measuring 11 mm, likely representing benign lesions like pancreatic cysts or IPMNs however further MRI assessment should be considered. Gr ossly unremarkable remainder of the pancreas. SPLEEN: No significant abnormality is seen. ADRENALS: Stable slightly thickened adrenals. 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 Suspected slightly complex cyst at the upper pole of the right kidney measuring 2.4 cm, suboptimally assessed by this unenhanced CT scan . Another suspected slightly hyperdense cyst is seen at the posterior aspect of the left kidney measu ring up to 3.1 cm. Recommend further elective ultrasound assessment. Scattered bilateral nonobstructi ng renal calculi versus arterial calcifications measuring up to 3 mm. No hydronephrosis bilaterally. FREE AIR: No free air is visualized RETROPERITONEAL ADENOPATHY: No pathologically enlarged. REPRODUCTIVE ORGANS: No gross uterine or adnexal mass. URINARY BLADDER: Grossly unremarkable. PELVIC ADENOPATHY: No pathologically enlarged. OSSEOUS STRUCTURES: Stable chronic fractures of T11, L1 and L3 vertebral bodies. Mild anterolisthesi s of L4 over L5 with severe bilateral L4-5 facet osteoarthropathy. BOWEL: Large hiatal hernia containing almost the entire stomach, not completely included in the scan . Portion of the transverse colon is tethered towards the hernia. Unremarkable duodenum and small bow el. Scattered uncomplicated colonic diverticulosis with scattered segments of mild nonspecific coloni c wall thickening. Normal appendix. OTHER: Extensive arterial atherosclerotic calcifications with infrarenal abdominal aortic ectasia ayad suring up to 2.6 cm. No sizable ascites. IMPRESSION: 1. No hydroureter or hydronephrosis. Bilateral nonobstructing renal calculi versus arterial calcifica tion measuring up to 3 mm. Right renal angiomyolipoma, stable. Suspected bilateral renal cysts, not c ompletely characterized by this nonenhanced CT scan. For further elective enhanced CT assessment vers us ultrasound assessment. 2. Pancreatic head cysts as described above, stable yet suboptimally assessed. For further elective M RI assessment. Other incidental findings as described above.
--- NOTE | 2021-04-21 11:26 | ED ---
Abdominal Pain HPI - General Chief Complaint: Abdominal Pain Stated Complaint: UTI Time Seen by Provider: 04/21/21 09:38 Source: patient, family, RN notes reviewed Mode of arrival: ambulatory Limitations: no limitations - History of Present Illness Initial Comments: 75-year-old female presents emergency Department with chief complaint of blood in her urine. Patient seen here a few weeks ago for possible UTI had blood in her urine at that time. Patient states she does not have much discomfort states occasionally some lower abdominal spasms. Patient denies any fevers or chills no flank pain no blood thinners or chest pain or shortness breath. - Related Data Home Medications Medication Instructions Recorded Confirmed Aspirin EC [Ecotrin Low Dose] 81 mg PO W/SUPPER 12/03/18 04/21/21 Cyanocobalamin (Vitamin B-12) 1,000 mcg PO Q48H 12/03/18 04/21/21 [Vitamin B-12] Acetaminophen [Tylenol Extra 1,000 mg PO BID 02/25/19 04/21/21 Strength] Metoprolol Succinate [[place]spargo 25 mg PO DAILY 02/25/19 04/21/21 Sprinkle] Cetirizine HCl [Zyrtec] 10 mg PO HS 02/03/20 04/21/21 Ergocalciferol (Vitamin D2) 50,000 unit PO FR 02/03/20 04/21/21 [Drisdol (50,000 Iu)] Furosemide [Lasix] 40 mg PO DAILY 02/03/20 04/21/21 Alendronate Sodium [Fosamax] 70 mg PO FR 04/21/21 04/21/21 Docusate [Colace] 100 mg PO DAILY 04/21/21 04/21/21 Famotidine [Pepcid] 40 mg PO DAILY 04/21/21 04/21/21 Levothyroxine Sodium [Synthroid] 88 mcg PO DAILY 04/21/21 04/21/21 Lisinopril [Zestril] 10 mg PO W/SUPPER 04/21/21 04/21/21 Previous Rx's Medication Instructions Recorded Ciprofloxacin HCl [Cipro] 250 mg PO Q12HR #14 tab 04/21/21 Allergies Allergy/AdvReac Type Severity Reaction Status Date / Time No Known Allergies Allergy Verified 04/21/21 10:12 Review of Systems ROS Statement: Those systems with pertinent positive or pertinent negative responses have been documented in the HPI. ROS Other: All systems not noted in ROS Statement are negative. Past Medical History Past Medical History: Heart Failure, COPD, Hypertension, Neurologic Disorder, Osteoarthritis (OA) Additional Past Medical History / Comment(s): anemia, diverticulitis, neuopathy History of Any Multi-Drug Resistant Organisms: None Reported Past Surgical History: No Surgical Hx Reported Past Anesthesia/Blood Transfusion Reactions: No Reported Reaction Past Psychological History: No Psychological Hx Reported Smoking Status: Never smoker Past Alcohol Use History: None Reported Past Drug Use History: None Reported - Past Family History Mother Family Medical History: No Reported History General Exam Limitations: no limitations General appearance: alert, in no apparent distress Head exam: Present: atraumatic, normocephalic, normal inspection Eye exam: Present: normal appearance, PERRL, EOMI. Absent: scleral icterus, conjunctival injection, periorbital swelling ENT exam: Present: normal exam, mucous membranes moist Neck exam: Present: normal inspection. Absent: tenderness, meningismus, lymphadenopathy Respiratory exam: Present: normal lung sounds bilaterally. Absent: respiratory distress, wheezes, rales, rhonchi, stridor Cardiovascular Exam: Present: regular rate, normal rhythm, normal heart sounds. Absent: systolic murmur, diastolic murmur, rubs, gallop, clicks GI/Abdominal exam: Present: soft, normal bowel sounds. Absent: distended, t enderness, guarding, rebound, rigid Back exam: Absent: CVA tenderness (R), CVA tenderness (L) Course Vital Signs 04/21/21 09:29 Temperature 97 F L Pulse Rate 65 Respiratory 18 Rate Blood Pressure 156/72 O2 Sat by Pulse 97 Oximetry Medical Decision Making - Medical Decision Making Patient CT shows multiple stones otherwise no significant findings. Patient urinalysis continues to show hematuria. Patient will follow-up with urology for possible cystoscopy and further evaluation. - Lab Data Result diagrams: 04/21/21 09:56 04/21/21 09:56 Lab Results 04/21/21 04/21/21 04/21/21 Range/Units 09:56 09:56 09:56 WBC 6.3 (3.8-10.6) k/uL RBC 4.43 (3.80-5.40) m/uL Hgb 15.1 (11.4-16.0) gm/dL Hct 46.8 H (34.0-46.0) % MCV 105.5 H (80.0-100.0) fL MCH 34.2 (25.0-35.0) pg MCHC 32.4 (31.0-37.0) g/dL RDW 12.4 (11.5-15.5) % Plt Count 183 (150-450) k/uL MPV 7.9 Neutrophils % 72 % Lymphocytes % 16 % Monocytes % 6 % Eosinophils % 4 % Basophils % 1 % Neutrophils # 4.6 (1.3-7.7) k/uL Lymphocytes # 1.0 (1.0-4.8) k/uL Monocytes # 0.4 (0-1.0) k/uL Eosinophils # 0.2 (0-0.7) k/uL Basophils # 0.1 (0-0.2) k/uL Macrocytosis Slight Sodium 139 (137-145) mmol/L Potassium 4.5 (3.5-5.1) mmol/L Chloride 103 (98-107) mmol/L Carbon Dioxide 31 H (22-30) mmol/L Anion Gap 5 mmol/L BUN 26 H (7-17) mg/dL Creatinine 1.40 H (0.52-1.04) mg/dL Est GFR (CKD-EPI)AfAm 42 (>60 ml/min/1.73 sqM) Est GFR (CKD-EPI)NonAf 36 (>60 ml/min/1.73 sqM) Glucose 114 H (74-99) mg/dL Plasma Lactic Acid Sharif (0.7-2.0) mmol/L Calcium 9.2 (8.4-10.2) mg/dL Total Bilirubin 0.8 (0.2-1.3) mg/dL AST 25 (14-36) U/L ALT 18 (4-34) U/L Alkaline Phosphatase 72 (38-126) U/L Total Protein 7.3 (6.3-8.2) g/dL Albumin 4.4 (3.5-5.0) g/dL Amylase 123 H (30-110) U/L Lipase 150 (23-300) U/L Urine Color Yellow Urine Appearance Clear (Clear) Urine pH 5.5 (5.0-8.0) Ur Specific [place] 1.010 (1.001-1.035) Urine Protein Negative (Negative) Urine Glucose (UA) Negative (Negative) Urine Ketones Negative (Negative) Urine Blood Large H (Negative) Urine Nitrite Negative (Negative) Urine Bilirubin Negative (Negative) Urine Urobilinogen <2.0 (<2.0) mg/dL Ur Leukocyte Esterase Negative (Negative) Urine RBC >182 H (0-5) /hpf Urine WBC 3 (0-5) /hpf Urine Mucus Rare H (None) /hpf 04/21/21 Range/Units 09:56 WBC (3.8-10.6) k/uL RBC (3.80-5.40) m/uL Hgb (11.4-16.0) gm/dL Hct (34.0-46.0) % MCV (80.0-100.0) fL MCH (25.0-35.0) pg MCHC (31.0-37.0) g/dL RDW (11.5-15.5) % Plt Count (150-450) k/uL MPV Neutrophils % % Lymphocytes % % Monocytes % % Eosinophils % % Basophils % % Neutrophils # (1.3-7.7) k/uL Lymphocytes # (1.0-4.8) k/uL Monocytes # (0-1.0) k/uL Eosinophils # (0-0.7) k/uL Basophils # (0-0.2) k/uL Macrocytosis Sodium (137-145) mmol/L Potassium (3.5-5.1) mmol/L Chloride (98-107) mmol/L Carbon Dioxide (22-30) mmol/L Anion Gap mmol/L BUN (7-17) mg/dL Creatinine (0.52-1.04) mg/dL Est GFR (CKD-EPI)AfAm (>60 ml/min/1.73 sqM) Est GFR (CKD-EPI)NonAf (>60 ml/min/1.73 sqM) Glucose (74-99) mg/dL Plasma Lactic Acid Sharif 0.9 (0.7-2.0) mmol/L Calcium (8.4-10.2) mg/dL Total Bilirubin (0.2-1.3) mg/dL AST (14-36) U/L ALT (4-34) U/L Alkaline Phosphatase (38-126) U/L Total Protein (6.3-8.2) g/dL Albumin (3.5-5.0) g/dL Amylase (30-110) U/L Lipase (23-300) U/L Urine Color Urine Appearance (Clear) Urine pH (5.0-8.0) Ur Specific [place] (1.001-1.035) Urine Protein (Negative) Urine Glucose (UA) (Negative) Urine Ketones (Negative) Urine Blood (Negative) Urine Nitrite (Negative) Urine Bilirubin (Negative) Urine Urobilinogen (<2.0) mg/dL Ur Leukocyte Esterase (Negative) Urine RBC (0-5) /hpf Urine WBC (0-5) /hpf Urine Mucus (None) /hpf Disposition Clinical Impression: Hematuria Disposition: HOME SELF-CARE Condition: Stable Instructions (If sedation given, give patient instructions): Hematuria (ED) Additional Instructions: Please return to the Emergency Department if symptoms worsen or any other concerns. Prescriptions: Ciprofloxacin HCl [Cipro] 250 mg PO Q12HR #14 tab Is patient prescribed a controlled substance at d/c from ED?: No Referrals: Jia Siddiqui MD [Primary Care Provider] - 1-2 days Florentin Welsh MD [STAFF PHYSICIAN] - 1-2 days Time of Disposition: 11:25
[2021-04-21 12:26] VITALS: BP 166/80; PULSE 78; RESP 20
== END 2021-04-21 12:26 | disposition home or self-care (01) ==
LOC: EC 09:28
DX: R31.9 Hematuria, unspecified (principal); R10.9 Unspecified abdominal pain; I11.0 Hypertensive heart disease with heart failure; I50.9 Heart failure, unspecified; M19.90 Unspecified osteoarthritis, unspecified site; J44.9 Chronic obstructive pulmonary disease, unspecified; Z79.899 Other long term (current) drug therapy; Z79.82 Long term (current) use of aspirin
CPT/HCPCS: 36415; 74176; 80053; 81001; 82150; 83605; 83690; 85025; 87086; 96360; 99284

== ENCOUNTER → 2021-12-25 | Outpatient (CLI) | payer MEDICARE, BC ==
--- NOTE | 2021-12-25 09:27 | US ---
EXAMINATION TYPE: US kidneys/renal and bladder DATE OF EXAM: 12/25/2021 COMPARISON: NONE CLINICAL HISTORY: N28.1 Renal cyst. renal cyst EXAM MEASUREMENTS: Right Kidney: 8.3 x 3.8 x 4.0 cm Left Kidney: 8.9 x 4.5 x 3.9 cm Right Kidney: angiomyolipoma upper pole = 2.2 x 1.9 x 2.4cm. cystic area = 2.0 x 2.1 x 2.4cm Left Kidney: cystic area = 3.2 x 3.1 x 2.6cm Bladder: not fully distended Bilateral Jets seen: no IMPRESSION: 1. Hyperechoic lesion superior pole right kidney likely is a angiomyolipoma. Monitoring with follow-u p exam in one year can be performed. Material Bilateral simple appearing renal cysts
== END | disposition home or self-care (01) ==
LOC: RADUSWWP 08:25
PROVIDERS: ATTEND Urology
DX: N28.1 Cyst of kidney, acquired (principal)
CPT/HCPCS: 76770

== ENCOUNTER 2022-06-09 14:06 | Emergency (ER) | payer MEDICARE, BC ==
--- NOTE | 2022-06-09 15:14 | ED ---
General Adult HPI - General Chief complaint: Extremity Injury, Lower Stated complaint: Hip & Knee Pain Time Seen by Provider: 06/09/22 14:35 Source: patient, family, RN notes reviewed Mode of arrival: wheelchair Limitations: no limitations - History of Present Illness Initial comments: 76-year-old female presents emergency Department with chief complaint of left hip pain. Patient states that it started 2 or 3 days ago. She states that the pain starts in her head and goes down to her knee. She states that she has been taking Tylenol. Denies aggravating or alleviating factors. She states that she is unable to describe the pain. She states that she has a history of kidney disease. Denies leg swelling, fever, redness. Denies history of blood clot. Past medical history includes hypertension, diabetes, CKD. - Related Data Home Medications Medication Instructions Recorded Confirmed Aspirin EC [Ecotrin Low Dose] 81 mg PO W/SUPPER 12/03/18 04/21/21 Cyanocobalamin (Vitamin B-12) 1,000 mcg PO Q48H 12/03/18 04/21/21 [Vitamin B-12] Acetaminophen [Tylenol Extra 1,000 mg PO BID 02/25/19 04/21/21 Strength] Metoprolol Succinate [Kapspargo 25 mg PO DAILY 02/25/19 04/21/21 Sprinkle] Cetirizine HCl [Zyrtec] 10 mg PO HS 02/03/20 04/21/21 Ergocalciferol (Vitamin D2) 50,000 unit PO FR 02/03/20 04/21/21 [Drisdol (50,000 Iu)] Furosemide [Lasix] 40 mg PO DAILY 02/03/20 04/21/21 Alendronate Sodium [Fosamax] 70 mg PO FR 04/21/21 04/21/21 Docusate [Colace] 100 mg PO DAILY 04/21/21 04/21/21 Famotidine [Pepcid] 40 mg PO DAILY 04/21/21 04/21/21 Levothyroxine Sodium [Synthroid] 88 mcg PO DAILY 04/21/21 04/21/21 lisinopriL [Zestril] 10 mg PO W/SUPPER 04/21/21 04/21/21 Previous Rx's Medication Instructions Recorded Ciprofloxacin HCl [Cipro] 250 mg PO Q12HR #14 tab 04/21/21 Allergies Allergy/AdvReac Type Severity Reaction Status Date / Time No Known Allergies Allergy Verified 06/09/22 14:11 Review of Systems ROS Statement: Those systems with pertinent positive or pertinent negative responses have been documented in the HPI. ROS Other: All systems not noted in ROS Statement are negative. Past Medical History Past Medical History: Heart Failure, COPD, Hypertension, Neurologic Disorder, Osteoarthritis (OA) Additional Past Medical History / Comment(s): anemia, diverticulitis, neuopathy, COVID 2019 History of Any Multi-Drug Resistant Organisms: None Reported Past Surgical History: No Surgical Hx Reported Past Anesthesia/Blood Transfusion Reactions: No Reported Reaction Past Psychological History: No Psychological Hx Reported Smoking Status: Never smoker Past Alcohol Use History: None Reported Past Drug Use History: None Reported - Past Family History Mother Family Medical History: No Reported History General Exam Limitations: no limitations General appearance: alert, in no apparent distress Head exam: Present: atraumatic, normocephalic, normal inspection Eye exam: Present: normal appearance Respiratory exam: Present: normal lung sounds bilaterally. Absent: respiratory distress, wheezes, rales, rhonchi, stridor Cardiovascular Exam: Present: regular rate, normal rhythm, normal heart sounds. Absent: systolic murmur, diastolic murmur, rubs, gallop, clicks Extremities exam: Present: normal inspection, full ROM, tenderness (left hip tenderness), normal capillary refill. Absent: pedal edema, joint swelling, calf tenderness Neurological exam: Present: alert, oriented X3 Psychiatric exam: Present: normal affect, normal mood Skin exam: Present: warm, dry, intact, normal color. Absent: rash Course Vital Signs 06/09/22 06/09/22 14:07 17:06 Temperature 97.5 F L 97.8 F Pulse Rate 62 65 Respiratory 20 18 Rate Blood Pressure 143/62 137/89 O2 Sat by Pulse 92 L 95 Oximetry Medical Decision Making - Medical Decision Making Was pt. sent in by a medical professional or institution (, PA, COUPLES THERAPIST, urgent care, hospital, or [facility]...) When possible be specific @ -No Did you speak to anyone other than the patient for history (EMS, parent, family, police, friend...)? What history was obtained from this source @ -No Did you review nursing and triage notes (agree or disagree)? Why? @ -I reviewed and agree with nursing and triage notes Were old charts reviewed (outside hosp., previous admission, EMS record, old EKG, old radiological studies, urgent care reports/EKG's, [facility] records)? Report findings @ -No old charts were reviewed Differential Diagnosis (chest pain, altered mental status, abdominal pain women, abdominal pain men, vaginal bleeding, weakness, fever, dyspnea, syncope, headache, dizziness, GI bleed, back pain, seizure, CVA, palpatations, mental health, musculoskeletal)? @ -Differential Musculoskeletal Muscular strain, contusion, ligament sprain, fracture, arthritis, septic arthritis, bursitis, cellulitis, muscle spasm, nerve compression, DVT, arterial occlusion, herpes zoster, electrolyte abnormality, tumor.... This is not meant to be in all inclusive list EKG interpreted by me (3pts min.). @ -None X-rays interpreted by me (1pt min.). @ -XR left hip showed no acute fracture CT interpreted by me (1pt min.). @ -None done U/S interpreted by me (1pt. min.). @ -None done What testing was considered but not performed or refused? (CT, X-rays, U/S, labs)? Why? @ -None What meds were considered but not given or refused? Why? @ -None Did you discuss the management of the patient with other professionals (professionals i.e. , PA, COUPLES THERAPIST, lab, RT, psych nurse, director of social services, senior microsoft consultant, teacher, emergency communications officer, manager case)? Give summary @ -No Was smoking cessation discussed for >3mins.? @ -No Was critical care preformed (if so, how long)? @ -No Were there social determinants of health that impacted care today? How? (Homelessness, low income, unemployed, alcoholism, drug addiction, transportation, low edu. Level, literacy, decrease access to med. care, skilled nursing, rehab)? @ -No Was there de-escalation of care discussed even if they declined (Discuss DNR or withdrawal of care, Hospice)? DNR status @ -No What co-morbidities impacted this encounter? (DM, HTN, Smoking, COPD, CAD, Cancer, CVA, ARF, Chemo, Hep., AIDS, mental health diagnosis, sleep apnea, morbid obesity)? @ -None Was patient admitted / discharged? Hospital course, mention meds given and route, prescriptions, significant lab abnormalities, going to OR and other pertinent info. @ -Discharged. Patient presented to the emergency department with left hip pain that started 2-3 days ago. She has been taking tylenol for the pain. Xr left hip was obtained which showed no acute pathology. Patient discharged in stable condition. Case discussed with Robson Quispe. Undiagnosed new problem with uncertain prognosis? @ -No Drug Therapy requiring intensive monitoring for toxicity (Heparin, Nitro, Insulin, Cardizem)? @ -No Were any procedures done? @ -No Diagnosis/symptom? @ -hip pain Acute, or Chronic, or Acute on Chronic? @ -acute Uncomplicated (without systemic symptoms) or Complicated (systemic symptoms)? @ -default Side effects of treatment? @ -No Exacerbation, Progression, or Severe Exacerbation? @ -No Poses a threat to life or bodily function? How? (Chest pain, USA, [place], pneumonia, PE, COPD, DKA, ARF, appy, cholecystitis, CVA, Diverticulitis, Homicidal, Suicidal, threat to staff... and all critical care pts) @ -No Disposition Clinical Impression: Hip pain, left Disposition: HOME SELF-CARE Condition: Stable Instructions (If sedation given, give patient instructions): Hip Pain (ED) Additional Instructions: Please return to the Emergency Department if symptoms worsen or any other concerns. Is patient prescribed a controlled substance at d/c from ED?: No Referrals: Jia Siddiqui MD [Primary Care Provider] - 1-2 days
--- NOTE | 2022-06-09 15:37 | XR ---
EXAMINATION TYPE: XR Hip Complete LT DATE OF EXAM: 06/09/2022 COMPARISON: NONE HISTORY: Pain TECHNIQUE: 2 views submitted FINDINGS: There is no evidence of erosive change or acute fracture. Diffuse osteopenia with mild concentric winnie rowing of the hip joint. Vascular calcifications noted. IMPRESSION: 1. No evidence of acute fracture or dislocation. 2. Diffuse osteopenia and mild axial arthropathy.
[2022-06-09] MEDS ORDERED: ACET/COD 300 MG/30 MG STARTER PACK 6 TAB BTL PO STA (16:25)
[2022-06-09 17:08] VITALS: BP 137/89; PULSE 65; RESP 18; TEMP 97.8
== END 2022-06-09 17:07 | disposition home or self-care (01) ==
LOC: EC 14:06
DX: M25.552 Pain in left hip (principal); I13.0 Hypertensive heart and chronic kidney disease with heart failure and stage 1 through stage 4 chronic kidney disease, or unspecified chronic kidney disease; E11.22 Type 2 diabetes mellitus with diabetic chronic kidney disease; E11.40 Type 2 diabetes mellitus with diabetic neuropathy, unspecified; I50.9 Heart failure, unspecified; N18.9 Chronic kidney disease, unspecified; J44.9 Chronic obstructive pulmonary disease, unspecified; M19.90 Unspecified osteoarthritis, unspecified site; Z86.16 Personal history of COVID-19; Z79.82 Long term (current) use of aspirin; Z79.899 Other long term (current) drug therapy
CPT/HCPCS: 73502; 99283

== ENCOUNTER → 2022-06-24 | Outpatient (CLI) | payer MEDICARE, BC ==
--- NOTE | 2022-06-24 13:04 | US ---
EXAMINATION TYPE: US kidneys/renal and bladder DATE OF EXAM: 06/24/2022 COMPARISON: Renal ultrasound 12/25/2021, CT abdomen and pelvis 04/21/2021 CLINICAL INDICATION: Female, 76 years old with history of N18.32 CHRONIC KIDNEY DISEASE, STAGE 3B; CK D, known cysts and angiomyolipoma EXAM MEASUREMENTS: Right Kidney: 8.1 x 3.3 x 4.0 cm Left Kidney: 8.4 x 3.8 x 4.4 cm Right Kidney: 2.0 x 1.9 x 1.8cm hyperechoic lesion seen lateral kidney may represent angiomyolipoma, anechoic lesion seen superior pole = 2.5 x 2.0 x 2.2cm may represent a cyst Left Kidney: 3.1 x 2.8 x 2.7cm inferior anechoic lesion may represent a cyst Bladder: not fully distended, wall thickness = 0.6cm Bilateral Jets seen: yes There is no evidence for hydronephrosis at this point in time. No nephrolithiasis is seen. Bilateral renal cysts identified. Rounded homogeneous hyperechoic lesion in the lateral right kidney is redemo nstrated. No internal color flow identified. The urinary bladder is anechoic and underdistended. Otis ateral ureteral jets are seen. IMPRESSION: Stable hyperechoic lesion within the right kidney is again favored to represent an angiomyolipoma. Co nsider follow-up examination in one year. Bilateral renal cysts.
== END | disposition home or self-care (01) ==
LOC: RADUSWWP 12:22
PROVIDERS: ATTEND Internal Medicine
DX: N18.32 Chronic kidney disease, stage 3b (principal); N28.1 Cyst of kidney, acquired; D17.71 Benign lipomatous neoplasm of kidney
CPT/HCPCS: 76770

== ENCOUNTER 2022-07-22 18:47 | Emergency (ER) | payer MEDICARE, BC ==
[2022-07-22 21:14] LABS: Basophils % (A) 0 %; Eosinophils # (A) 0.3 k/uL (0-0.7); Eosinophils % (A) 4 %; HGB 14.1 gm/dL (11.4-16.0); Lymphocytes # (A) 1.5 k/uL (1.0-4.8); Lymphocytes % (A) 21 %; MCH 32.6 pg (25.0-35.0); MCHC 32.9 g/dL (31.0-37.0); MCV 98.9 fL (80.0-100.0); Mean Platelet Volume 8.2; Monocytes # (A) 0.5 k/uL (0-1.0); Monocytes % (A) 7 %; Neutrophils # (A) 4.5 k/uL (1.3-7.7); Neutrophils % (A) 66 %; Platelet Count 164 k/uL (150-450); RBC 4.34 m/uL (3.80-5.40); RDW 12.9 % (11.5-15.5); WBC 6.9 k/uL (3.8-10.6)
[2022-07-22 21:16] VITALS: PULSE 65
[2022-07-22 21:26] LABS: ALT 17 U/L (4-34); AST 26 U/L (14-36); African American GFR (CKD) 30 (>60 ml/min/1.73 sqM); Albumin 4.3 g/dL (3.5-5.0); Alkaline Phosphatase 93 U/L (38-126); Anion Gap 9 mmol/L; Blood Urea Nitrogen 40 mg/dL (7-17); Calcium 9.1 mg/dL (8.4-10.2); Carbon Dioxide 30 mmol/L (22-30); Chloride 100 mmol/L (98-107); Glucose 93 mg/dL (74-99); Non-African American GFR(CKD) 26 (>60 ml/min/1.73 sqM); Potassium 4.9 mmol/L (3.5-5.1); Sodium 139 mmol/L (137-145); Total Bilirubin 0.4 mg/dL (0.2-1.3); Total Protein 6.9 g/dL (6.3-8.2)
[2022-07-22] MEDS ORDERED: SODIUM CHLORIDE 0.9% 1,000 ML IV STA (21:30)
--- NOTE | 2022-07-22 22:05 | ED ---
General Adult HPI - General Chief complaint: Recheck/Abnormal Lab/Rx Stated complaint: abn labs Time Seen by Provider: 07/22/22 21:05 Source: patient, RN notes reviewed, old records reviewed Mode of arrival: ambulatory Limitations: no limitations - History of Present Illness Initial comments: Patient is a 76-year-old female with past medical history remarkable for CK D, COPD, heart failure, hypertension who presents emergency department for laboratory check. Patient was found to be hyperkalemic Labs this morning. Potassium was greater than 6. Was instructed to come to the emergency and evaluation. Patient has no acute complaints at this time. Denies any chest pain or shortness of breath. He is following up with outpatient nephrology and urology. Has no other acute complaints at this time. Presents for further evaluation and repeat laboratory draw. - Related Data Home Medications Medication Instructions Recorded Confirmed Aspirin EC [Ecotrin Low Dose] 81 mg PO W/SUPPER 12/03/18 04/21/21 Cyanocobalamin (Vitamin B-12) 1,000 mcg PO Q48H 12/03/18 04/21/21 [Vitamin B-12] Acetaminophen [Tylenol Extra 1,000 mg PO BID 02/25/19 04/21/21 Strength] Metoprolol Succinate [Kapspargo 25 mg PO DAILY 02/25/19 04/21/21 Sprinkle] Cetirizine HCl [Zyrtec] 10 mg PO HS 02/03/20 04/21/21 Ergocalciferol (Vitamin D2) 50,000 unit PO FR 02/03/20 04/21/21 [Drisdol (50,000 Iu)] Furosemide [Lasix] 40 mg PO DAILY 02/03/20 04/21/21 Alendronate Sodium [Fosamax] 70 mg PO FR 04/21/21 04/21/21 Docusate [Colace] 100 mg PO DAILY 04/21/21 04/21/21 Famotidine [Pepcid] 40 mg PO DAILY 04/21/21 04/21/21 Levothyroxine Sodium [Synthroid] 88 mcg PO DAILY 04/21/21 04/21/21 lisinopriL [Zestril] 10 mg PO W/SUPPER 04/21/21 04/21/21 Previous Rx's Medication Instructions Recorded Ciprofloxacin HCl [Cipro] 250 mg PO Q12HR #14 tab 04/21/21 Allergies Allergy/AdvReac Type Severity Reaction Status Date / Time No Known Allergies Allergy Verified 07/22/22 19:18 Review of Systems ROS Statement: Those systems with pertinent positive or pertinent negative responses have been documented in the HPI. Review of Systems: CONST: Denies fever EYES: Denies blurry vision ENT: Denies nasal congestion C/V: Denies Chest pain RESP: Denies shortness of breath GI: Denies abdominal pain : Denies dysuria SKIN: Denies rash. MSK: Denies joint pain. NEURO: Denies headache ROS Other: All systems not noted in ROS Statement are negative. Past Medical History Past Medical History: Heart Failure, COPD, Hypertension, Neurologic Disorder, Osteoarthritis (OA) Additional Past Medical History / Comment(s): anemia, diverticulitis, neuopathy, COVID 2019 History of Any Multi-Drug Resistant Organisms: None Reported Past Surgical History: No Surgical Hx Reported Past Anesthesia/Blood Transfusion Reactions: No Reported Reaction Past Psychological History: No Psychological Hx Reported Smoking Status: Never smoker Past Alcohol Use History: None Reported Past Drug Use History: None Reported - Past Family History Mother Family Medical History: No Reported History General Exam - General Exam Comments Initial Comments: General: Appears in no acute distress. HEAD: Normal with no signs of head trauma. EYES: PERRLA, EOMI, conjunctiva normal, no discharge. ENT: Hearing grossly intact, normal oropharynx. RESPIRATORY: Clear breath sounds bilaterally. No wheezes, rales, or rhonchi. C/V: Regular rate and rhythm. S1 and S2 auscultated, no edema, peripheral pulses 2+ and intact throughout ABD: Abd is soft, nontender, nondistended EXT: Normal range of motion, no obvious deformity SKIN: No rashes or lesions observed on exposed skin. NEURO: Alert and oriented 4. Limitations: no limitations Course Vital Signs 07/22/22 07/22/22 19:15 21:11 Temperature 97.9 F 98.4 F Pulse Rate 58 L 65 Respiratory 16 17 Rate Blood Pressure 134/80 164/68 O2 Sat by Pulse 97 95 Oximetry Medical Decision Making - Medical Decision Making Was pt. sent in by a medical professional or institution (, PA, SPARE HAND, urgent care, hospital, or halfway...) When possible be specific @ -No Did you speak to anyone other than the patient for history (EMS, parent, family, police, friend...)? What history was obtained from this source @ -No Did you review nursing and triage notes (agree or disagree)? Why? @ -I reviewed and agree with nursing and triage notes Were old charts reviewed (outside hosp., previous admission, EMS record, old EKG, old radiological studies, urgent care reports/EKG's, halfway records)? Report findings @ -Review laboratory studies from earlier today which did reveal hyperkalemia as well as her CK D. Differential Diagnosis (chest pain, altered mental status, abdominal pain women, abdominal pain men, vaginal bleeding, weakness, fever, dyspnea, syncope, headache, dizziness, GI bleed, back pain, seizure, CVA, palpatations, mental health, musculoskeletal)? @ -Hyperkalemia, CK D, ALVA, incorrect lab draw, as this is not all inclusive. EKG interpreted by me (3pts min.). @ -As above X-rays interpreted by me (1pt min.). @ -None done CT interpreted by me (1pt min.). @ -None done U/S interpreted by me (1pt. min.). @ -None done What testing was considered but not performed or refused? (CT, X-rays, U/S, labs)? Why? @ -None What meds were considered but not given or refused? Why? @ -None Did you discuss the management of the patient with other professionals (professionals i.e. , PA, SPARE HAND, lab, RT, psych nurse, medical social worker, account review specialist, teacher, svp chief marketing officer, caseworker)? Give summary @ -No Was smoking cessation discussed for >3mins.? @ -No Was critical care preformed (if so, how long)? @ -No Were there social determinants of health that impacted care today? How? (Homelessness, low income, unemployed, alcoholism, drug addiction, transportation, low edu. Level, literacy, decrease access to med. care, [facility], rehab)? @ -No Was there de-escalation of care discussed even if they declined (Discuss DNR or withdrawal of care, Hospice)? DNR status @ -No What co-morbidities impacted this encounter? (DM, HTN, Smoking, COPD, CAD, Cancer, CVA, ARF, Chemo, Hep., AIDS, mental health diagnosis, sleep apnea, morbid obesity)? @ -None Was patient admitted / discharged? Hospital course, mention meds given and route, prescriptions, significant lab abnormalities, going to OR and other pertinent info. @ -Based on the patient's presentation and physical exam, presents with no acute complaints at this time. Presents for laboratory draw and she was told she is hyperkalemic. Does have a history of CK D. Presents for further evalu ation. We will obtain basic labs, as well as a screening EKG and provide her with a small fluid bolus of 500 mL which should help treat the hyperkalemia at that is present.. She was in agreement with this plan. EKG shows no evidence of hyperkalemia changes. Repeat lab draw reveals a potassium of 4.9. She has an elevated BUN/creatinine somewhat within her baseline, she has fluctuated between 1.9 and 1.28 over the last 4 years. On reevaluation, patient is feeling well. We discussed her laboratory results. She does have adequate follow-up with kidney specialists and her PCP. She'll be discharged home at this time. Instructed her to obtain repeat labs next week. She was in agreement with this plan. I instructed the patient to follow up with their PCP in the next 1-3 days. I explained that the patient should return to the emergency department if they experience any worsening symptoms. Strict return precautions were discussed with the patient. The patient expressed understanding of these instructions. I answered all questions that the patient had. The patient was discharged home in good condition with their prescriptions and follow up information. Undiagnosed new problem with uncertain prognosis? @ -No Drug Therapy requiring intensive monitoring for toxicity (Heparin, Nitro, Insulin, Cardizem)? @ -No Were any procedures done? @ -No Diagnosis/symptom? @ -Repeat Lab draw Acute, or Chronic, or Acute on Chronic? @ -Acute Uncomplicated (without systemic symptoms) or Complicated (systemic symptoms)? @ -Uncomplicated Side effects of treatment? @ -No Exacerbation, Progression, or Severe Exacerbation? @ -No Poses a threat to life or bodily function? How? (Chest pain, USA, [place], pneumonia, PE, COPD, DKA, ARF, appy, cholecystitis, CVA, Diverticulitis, Homicidal, Suicidal, threat to staff... and all critical care pts) @ -No Diagnosis/symptom? @ -CK D Acute, or Chronic, or Acute on Chronic? @ -Chronic Uncomplicated (without systemic symptoms) or Complicated (systemic symptoms)? @ -Uncomplicated Side effects of treatment? @ -none Exacerbation, Progression, or Severe Exacerbation] @ -no Poses a threat to life or bodily function? @ -no - Lab Data Result diagrams: 07/22/22 21:05 07/22/22 21:05 Lab Results 07/22/22 07/22/22 Range/Units 21: 21:05 WBC 6.9 (3.8-10.6) k/uL RBC 4.34 (3.80-5.40) m/uL Hgb 14.1 (11.4-16.0) gm/dL Hct 43.0 (34.0-46.0) % MCV 98.9 (80.0-100.0) fL MCH 32.6 (25.0-35.0) pg MCHC 32.9 (31.0-37.0) g/dL RDW 12.9 (11.5-15.5) % Plt Count 164 (150-450) k/uL MPV 8.2 Neutrophils % 66 % Lymphocytes % 21 % Monocytes % 7 % Eosinophils % 4 % Basophils % 0 % Neutrophils # 4.5 (1.3-7.7) k/uL Lymphocytes # 1.5 (1.0-4.8) k/uL Monocytes # 0.5 (0-1.0) k/uL Eosinophils # 0.3 (0-0.7) k/uL Basophils # 0.0 (0-0.2) k/uL Sodium 139 (137-145) mmol/L Potassium 4.9 (3.5-5.1) mmol/L Chloride 100 (98-107) mmol/L Carbon Dioxide 30 (22-30) mmol/L Anion Gap 9 mmol/L BUN 40 H (7-17) mg/dL Creatinine 1.83 H (0.52-1.04) mg/dL Est GFR (CKD-EPI)AfAm 30 (>60 ml/min/1.73 sqM) Est GFR (CKD-EPI)NonAf 26 (>60 ml/min/1.73 sqM) Glucose 93 (74-99) mg/dL Calcium 9.1 (8.4-10.2) mg/dL Total Bilirubin 0.4 (0.2-1.3) mg/dL AST 26 (14-36) U/L ALT 17 (4-34) U/L Alkaline Phosphatase 93 (38-126) U/L Total Protein 6.9 (6.3-8.2) g/dL Albumin 4.3 (3.5-5.0) g/dL - EKG Data -: EKG Interpreted by Me EKG Comments: 12-lead Electrocardiogram Interpretation Note EKG was reviewed and interpreted by myself. 12-lead ECG performed at 2124 is interpreted by me as revealing normal sinus rhythm at a rate of 66 beats per min [place]. [place] is normal. AR interval is 193 ms, QRS durations 89 ms, QTc is 439 ms.. Isolated T-wave inversion in lead III. No evidence of hyperkalemic changes. There were no acute ST or T wave abnormalities to suggest myocardial ischemia or injury. R wave progression across the precordium was satisfactory. By my interpretation this EKG is non-diagnostic for acute ischemia. Disposition Clinical Impression: Routine lab draw, CKD (chronic kidney disease) Disposition: HOME SELF-CARE Condition: Good Instructions (If sedation given, give patient instructions): Chronic Kidney Disease (ED) Is patient prescribed a controlled substance at d/c from ED?: No Referrals: Jia Siddiqui MD [Primary Care Provider] - 1-2 days Time of Disposition: 21:58
[2022-07-22 22:08] VITALS: BP 170/81; RESP 16; TEMP 98.2
== END 2022-07-22 22:14 | disposition home or self-care (01) ==
LOC: EC 18:47
DX: Z01.812 Encounter for preprocedural laboratory examination (principal); I13.0 Hypertensive heart and chronic kidney disease with heart failure and stage 1 through stage 4 chronic kidney disease, or unspecified chronic kidney disease; I50.9 Heart failure, unspecified; N18.9 Chronic kidney disease, unspecified; J44.9 Chronic obstructive pulmonary disease, unspecified; M19.90 Unspecified osteoarthritis, unspecified site; Z86.16 Personal history of COVID-19; Z79.82 Long term (current) use of aspirin; Z79.899 Other long term (current) drug therapy
CPT/HCPCS: 36415; 80053; 85025; 93005; 96360; 99284

== ENCOUNTER → 2022-07-22 | Outpatient (CLI) | payer MEDICARE, BC ==
[2022-07-22 16:27] LABS: Phosphorus 4.1 mg/dL (2.4-5.1)
[2022-07-22 16:35] LABS: ALT 13 U/L (8-44); AST 20 U/L (13-35); Albumin 4.3 d/dL (3.8-4.9); Albumin/Globulin Ratio 1.95 Ratio (1.60-3.17); Alkaline Phosphatase 83 U/L (41-126); BUN/Creat Ratio 19.74 Ratio (12.00-20.00); Blood Urea Nitrogen 37.5 mg/dL (9.0-27.0); Calcium 9.5 mg/dL (8.7-10.3); Carbon Dioxide 27.7 mmol/L (21.6-31.8); Chloride 103 mmol/L (96-109); Globulin 2.2 d/dL (1.6-3.3); Glucose 98 mg/dL (70-110); Potassium 6.2 mmol/L (3.5-5.5); Sodium 141 mmol/L (135-145); Total Bilirubin 0.4 mg/dL (0.3-1.2); Total Protein 6.5 d/dL (6.2-8.2)
[2022-07-22 19:38] LABS: HCT 41.6 % (37.2-46.3); HGB 13.3 d/dL (12.0-15.0); MCH 33.3 pg (27.0-32.0); NRBC Per 100 WBC 0 X 10*3/uL (0.00-0.01); Platelet Count 197 X 10*3/uL (140-440); RDW 12.5 % (11.5-14.5); WBC 7.18 X 10*3/uL (4.50-10.00)
[2022-07-22 22:23] LABS: Appearance,Urine Cloudy (Clear); Bilirubin,Urine Negative (Negative); Blood,Urine Negative (Negative); Color,Urine Yellow (Yellow); Ketones,Urine Negative (Negative); Nitrite,Urine Negative (Negative); Specific Gravity,Urine 1.012 (1.001-1.030); Urobilinogen,Urine 0.2
== END | disposition home or self-care (01) ==
LOC: LABWHC1 09:35
PROVIDERS: ATTEND Internal Medicine
DX: N18.32 Chronic kidney disease, stage 3b (principal)
CPT/HCPCS: 36415; 80053; 81050; 82570; 84100; 84156; 85027

== ENCOUNTER → 2023-08-23 | Outpatient (CLI) | payer MEDICARE, BC ==
--- NOTE | 2023-08-24 22:05 | US ---
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 EXAM MEASUREMENTS: Right Kidney: 8.5 x 3.9 x cm Left Kidney: 8.6 x 4.2 x 3.0 cm Right Kidney: Solid Hyperechoic area upper pole 2.7 x 2.3 x 2.5 cm . Additional workup for neoplasm is recommended. This has enlarged from the comparison study dated 06/24/2022 with a previous measurem ent of 1.8 x 2.0 x 1.9 cm. Anechoic area 2.8 x 2.8 x 2.9 cm and be a simple cyst upper pole right kid romel. Left Kidney: Anechoic area lower pole 2.5 x 2.3 x 3.1 cm compatible with a cyst. Bladder: anechoic Bilateral Jets seen: no IMPRESSION: 1. Solid lesion superior pole right kidney. Additional workup for neoplasm is recommended. 2. Bilateral renal cysts.
== END | disposition home or self-care (01) ==
LOC: RADUSWWP 12:41
PROVIDERS: ATTEND Urology
DX: D41.01 Neoplasm of uncertain behavior of right kidney (principal); N28.1 Cyst of kidney, acquired; N18.30 Chronic kidney disease, stage 3 unspecified
CPT/HCPCS: 76770

== ENCOUNTER → 2023-09-29 | Outpatient (CLI) | payer MEDICARE, BC ==
--- NOTE | 2023-10-26 16:40 | MR ---
Patient: Pamela Vilchis Ordering Physician: Unknown, Unknown ID: [id number] Phone, Pager: Phone: N/A Pager: N/A : [phone] Age/Gender: 77Y, F Primary Location: N/A Procedure: MRI KIDNEY W/WO CONTRAST Study Date: 09/29/2023 7:20:02 AM EXAMINATION TYPE: MR kidney wo/w con DATE OF EXAM: 10/09/2023 9:08 AM CLINICAL INDICATION: Right renal mass COMPARISON: Ultrasound 08/23/2023 TECHNIQUE: Multiplanar multi-sequence imaging was performed without contrast. Post contrast imaging was performed. Post IV contrast subtraction images were also submitted for review. IV Contrast: cc 7 cc FINDINGS: LOWER CHEST: Aortic hiatus hernia containing loop of colon and the stomach. ABDOMEN Liver: No evidence for hepatic steatosis or cirrhosis. Gallbladder and Bile ducts: No evidence for ductal dilation, or biliary stricture or evidence of chol edocholithiasis. The gallbladder demonstrates layering gallstones. Pancreas: Scattered cystic lesions seen throughout the pancreas including pancreatic tail, head and u ncinate process. The largest. Cystic lesion in the pancreatic head measuring 25 x 16 mm. No ductal di lation. No evidence for solid mass. Spleen: Normal for size. Adrenal glands: Unremarkable. Kidneys: Bilateral renal cysts the largest on the right measuring up to 31 mm and on the left measuri ng up to 29 mm. These are high T2/low T1 signal. No suspicious enhancing renal neoplasms. Renal lesion within the right kidney seen on prior ultrasound is compatible with fat-containing lesio n which suppresses on fat suppression imaging. No abnormal postcontrast enhancement within this regio n area measures 20 x 17 mm Stomach and Bowel: No evidence for bowel wall thickening or evidence for obstruction. Scattered colon ic diverticula. Retroperitoneum/Peritoneum: No evidence of pneumoperitoneum or free fluid. Vasculature: No aortic aneurysm. Musculoskeletal: The osseous structures appear intact. Lymph Nodes: No gross evidence for lymphadenopathy. Abdominal wall: Unremarkable. IMPRESSION: 1. Area of concern in the right superior kidney is most compatible with angiomyolipoma. 2. Bilateral simple appearing renal cysts. 3. Cholelithiasis. 4. Scattered pancreatic cystic lesions possibly representing sequela of prior pancreatitis versus [place] branch intraductal mucinous neoplasm versus other cystic neoplasms. Attention on follow-up imaging in one year with MRI MRCP with contrast to ensure stability. 5. Aortic hiatus hernia containing loop of transverse colon and majority of the stomach.
== END | disposition home or self-care (01) ==
LOC: RADMRIMAIN 07:46
PROVIDERS: ATTEND Urology
DX: D41.01 Neoplasm of uncertain behavior of right kidney (principal); K80.20 Calculus of gallbladder without cholecystitis without obstruction; K86.2 Cyst of pancreas; N28.1 Cyst of kidney, acquired; N28.89 Other specified disorders of kidney and ureter; K44.9 Diaphragmatic hernia without obstruction or gangrene
CPT/HCPCS: 74183; A9585

== ENCOUNTER 2024-08-14 13:08 | Inpatient (IN) | payer MEDICARE, BC ==
--- NOTE | 2024-08-14 13:31 | ED ---
General Adult HPI - General Chief complaint: Weakness Stated complaint: weak Time Seen by Provider: 08/14/24 13:12 Source: patient, RN notes reviewed Mode of arrival: EMS Limitations: no limitations - History of Present Illness Initial comments: Patient is an 78-year-old female present to the emergency department for weakness. Patient states yesterday she slid out of her chair, unclear when. Patient was too weak to get up since that time. No isolated area of weakness. No confusion. No history of similar symptoms previously. Patient is unclear if she tried to stand up or not. Patient did not pass out. Patient has been on the ground since yesterday. Patient states her COPD may be acting up a little bit on her. Patient denies chest pain. - Related Data Home Medications Medication Instructions Recorded Confirmed Aspirin EC [Ecotrin Low Dose] 81 mg PO W/SUPPER 12/03/18 08/14/24 Metoprolol Succinate [Kapspargo 25 mg PO DAILY 02/25/19 08/14/24 Sprinkle] Furosemide [Lasix] 40 mg PO DAILY 02/03/20 08/14/24 Alendronate Sodium [Fosamax] 70 mg PO FR 04/21/21 08/14/24 Docusate [Colace] 200 mg PO DAILY 04/21/21 08/14/24 Famotidine [Pepcid] 40 mg PO DAILY 04/21/21 08/14/24 Levothyroxine Sodium [Synthroid] 88 mcg PO AC-BRKFST 04/21/21 08/14/24 Fluticasone Nasal [place] [Flonase 1 spr EA NOSTRIL DAILY 08/14/24 08/14/24 Nasal [place]] Losartan [Cozaar] 25 mg PO DAILY 08/14/24 08/14/24 Pravastatin Sodium [Pravachol] 20 mg PO W/SUPPER 08/14/24 08/14/24 Tylenol(Unknown Dose) 1 tab PO BID 08/14/24 08/14/24 Unknown Allergy Tab 1 tab PO HS 08/14/24 08/14/24 Vitamin B-12(Unknown Dose) 1 tab PO DAILY 08/14/24 08/14/24 amLODIPine [Norvasc] 5 mg PO DAILY 08/14/24 08/14/24 Allergies Allergy/AdvReac Type Severity Reaction Status Date / Time No Known Allergies Allergy Verified 08/14/24 16:16 Review of Systems ROS Statement: Those systems with pertinent positive or pertinent negative responses have been documented in the HPI. ROS Other: All systems not noted in ROS Statement are negative. Constitutional: Denies: fever Eyes: Denies: eye pain Respiratory: Reports: as per HPI Cardiovascular: Denies: chest pain Neurological: Reports: weakness. Denies: headache Past Medical History Past Medical History: Heart Failure, COPD, Hypertension, Neurologic Disorder, Osteoarthritis (OA) Additional Past Medical History / Comment(s): anemia, diverticulitis, neuopathy, COVID 2019 History of Any Multi-Drug Resistant Organisms: None Reported Past Surgical History: No Surgical Hx Reported Past Anesthesia/Blood Transfusion Reactions: No Reported Reaction Past Psychological History: No Psychological Hx Reported Smoking Status: Never smoker Past Alcohol Use History: None Reported Past Drug Use History: None Reported - Past Family History Mother Family Medical History: No Reported History General Exam Limitations: no limitations General appearance: alert, in no apparent distress Head exam: Present: atraumatic, normocephalic Eye exam: Present: normal appearance, PERRL, EOMI ENT exam: Present: normal oropharynx Neck exam: Present: normal inspection Respiratory exam: Present: normal lung sounds bilaterally Cardiovascular Exam: Present: regular rate, normal rhythm GI/Abdominal exam: Present: soft. Absent: tenderness Extremities exam: Present: normal inspection Neurological exam: Present: alert, oriented X3, CN II-XII intact. Absent: motor sensory deficit Expanded Neurological exam: Present: protecting the airway Speech: Present: fluid speech Cranial nerves: EOM's Intact: Normal Motor strength exam: RUE: 5, LUE: 5, RLE: 5, LLE: 5 Eye Response: (4) open spontaneously Motor Response: (6) obeys commands Verbal Response: (5) oriented Psychiatric exam: Present: normal affect, normal mood Skin exam: Present: normal color Course Vital Signs 08/14/24 08/14/24 08/14/24 13:12 14:27 16:16 Pulse Rate 96 86 76 Respiratory 17 26 H Rate Blood Pressure 136/70 128/70 O2 Sat by Pulse 98 98 Oximetry 08/14/24 08/14/24 08/14/24 16:30 17:32 19:47 Pulse Rate 68 77 72 Respiratory 16 17 Rate Blood Pressure 122/65 129/78 O2 Sat by Pulse 98 95 Oximetry EKG Findings - EKG Results: EKG: interpreted by ERMD (Left axis. Poor R wave progression. Nonspecific ST.), sinus rhythm Medical Decision Making - Medical Decision Making Was pt. sent in by a medical professional or institution (, PA, CYBER LEGAL ADVISOR, urgent care, hospital, or fpc...) When possible be specific @ -No Did you speak to anyone other than the patient for history (EMS, parent, family, police, friend...)? What history was obtained from this source @ -No Did you review nursing and triage notes (agree or disagree)? Why? @ -I reviewed and agree with nursing and triage notes Were old charts reviewed (outside hosp., previous admission, EMS record, old EKG, old radiological studies, urgent care reports/EKG's, fpc records)? Report findings @ -No old charts were reviewed Differential Diagnosis (chest pain, altered mental status, abdominal pain women, abdominal pain men, vaginal bleeding, weakness, fever, dyspnea, syncope, headache, dizziness, GI bleed, back pain, seizure, CVA, palpatations, mental health, musculoskeletal)? @ -Differential Weakness: Hypoglycemia, shock, sepsis, hyponatremia, anemia, infection, GA, ETOH, adverse medicine reaction, overdose, stroke, this is not meant to be an all-inclusive list. EKG interpreted by me (3pts min.). @ -As above X-rays interpreted by me (1pt min.). @ -Chest x-ray does not reveal acute abnormality CT interpreted by me (1pt min.). @ -CT scan of the brain with age-related changes, no acute intercranial abnormality U/S interpreted by me (1pt. min.). @ -None done What testing was considered but not performed or refused? (CT, X-rays, U/S, labs)? Why? @ -None What meds were considered but not given or refused? Why? @ -None Did you discuss the management of the patient with other professionals (professionals i.e. , JUAN CARLOS, CYBER LEGAL ADVISOR, lab, RT, psych nurse, social service coordinator, test lead application testing, teacher, senior loan officer, heel caser)? Give summary @ -Case was discussed with Dr. Babb who will admit covering Dr. Siddiqui Was smoking cessation discussed for >3mins.? @ -No Was critical care preformed (if so, how long)? @ -32 minutes critical care time Were there social determinants of health that impacted care today? How? (Homelessness, low income, unemployed, alcoholism, drug addiction, transp ortation, low edu. Level, literacy, decrease access to med. care, usp, rehab)? @ -No Was there de-escalation of care discussed even if they declined (Discuss DNR or withdrawal of care, Hospice)? DNR status @ -No What co-morbidities impacted this encounter? (DM, HTN, Smoking, COPD, CAD, Cancer, CVA, ARF, Chemo, Hep., AIDS, mental health diagnosis, sleep apnea, morbid obesity)? @ -None Was patient admitted / discharged? Hospital course, mention meds given and route, prescriptions, significant lab abnormalities, going to OR and other pertinent info. @ -Patient presents with generalized weakness and lying on the floor. Patient does have dehydration with urinary tract infection and elevated white blood cell count. In addition patient has rhabdomyolysis. Patient will be admitted with IV fluid hydration and IV antibiotics. Patient was reevaluated and updated. Admission orders are written Undiagnosed new problem with uncertain prognosis? @ -No Drug Therapy requiring intensive monitoring for toxicity (Heparin, Nitro, Insulin, Cardizem)? @ -No Were any procedures done? @ -No Diagnosis/symptom? @ -Rhabdomyolysis, ALVA, UTI Acute, or Chronic, or Acute on Chronic? @ -Acute, acute, acute Uncomplicated (without systemic symptoms) or Complicated (systemic symptoms)? @ -Default Side effects of treatment? @ -No Exacerbation, Progression, or Severe Exacerbation? @ -No Poses a threat to life or bodily function? How? (Chest pain, USA, GA, pneumonia, PE, COPD, DKA, ARF, appy, cholecystitis, CVA, Diverticulitis, Homicidal, Suicidal, threat to staff... and all critical care pts) @ -Threat to renal function - Lab Data Result diagrams: 08/14/24 14:05 08/14/24 17:51 Lab Results 08/14/24 08/14/24 08/14/24 Range/Units 13:52 14:05 14:05 WBC 13.99 H (4.50-10.00) 10*3/uL RBC 4.76 (4.10-5.20) 10*6/uL Hgb 15.8 H (12.0-15.0) g/dL Hct 47.4 H (37.2-46.3) % MCV 99.6 H (80.0-97.0) fL MCH 33.2 H (27.0-32.0) pg MCHC 33.3 (32.0-37.0) g/dL Plt Count 124 L (140-440) 10*3/uL MPV 12.2 (9.5-12.2) fL Immature Gran % (Auto) 0.4 % Neutrophils % 87.2 % Lymphocytes % 5.6 % Monocytes % 6.2 % Eosinophils % 0.3 % Basophils % 0.3 % Immature Gran # 0.05 H (0.00-0.04) 10*3/uL Neutrophils # 12.21 H (1.80-7.70) 10*3/uL Lymphocytes # 0.78 L (0.90-5.00) 10*3/uL Monocytes # 0.87 (0.20-1.00) 10*3/uL Eosinophils # 0.04 (0.04-0.35) 10*3/uL Basophils # 0.04 (0.00-0.10) 10*3/uL Immature Plt Fraction 4.3 (1.1-6.1) % PT 10.4 (10.0-12.5) sec INR 0.9 (<1.2) APTT 23.3 (22.0-30.0) sec Sodium (137-145) mmol/L Potassium (3.5-5.1) mmol/L Chloride (98-107) mmol/L Carbon Dioxide (22-30) mmol/L Anion Gap mmol/L BUN (7-17) mg/dL Creatinine (0.52-1.04) mg/dL Est GFR (CKD-EPI)AfAm (>60 ml/min/1.73 sqM) Est GFR (CKD-EPI)NonAf (>60 ml/min/1.73 sqM) Glucose (74-99) mg/dL Plasma Lactic Acid Sharif (0.7-2.0) mmol/L Calcium (8.4-10.2) mg/dL Magnesium (1.6-2.3) mg/dL Total Bilirubin (0.2-1.3) mg/dL AST (14-36) U/L ALT (4-34) U/L Alkaline Phosphatase (38-126) U/L Creatine Kinase (30-135) U/L Troponin I (0.000-0.034) ng/mL Total Protein (6.3-8.2) g/dL Albumin (3.5-5.0) g/dL TSH (0.465-4.680) mIU/L Urine Color Yellow Urine Appearance Turbid H (Clear) Urine pH 6.5 (5.0-8.0) Ur Specific [place] 1.017 (1.001-1.035) Urine Protein 1+ H (Negative) Urine Glucose (UA) Negative (Negative) Urine Ketones Negative (Negative) Urine Blood Moderate H (Negative) Urine Nitrite Negative (Negative) Urine Bilirubin Negative (Negative) Urine Urobilinogen <2.0 (<2.0) mg/dL Ur Leukocyte Esterase Large H (Negative) Urine RBC 4 (0-5) /hpf Urine WBC >182 H (0-5) /hpf Urine WBC Clumps Many H (None) /hpf Urine Bacteria Many H (None) /hpf Urine Mucus Few H (None) /hpf 08/14/24 08/14/24 08/14/24 Range/Units 14:05 17:51 17:51 WBC (4.50-10.00) 10*3/uL RBC (4.10-5.20) 10*6/uL Hgb (12.0-15.0) g/dL Hct (37.2-46.3) % MCV (80.0-97.0) fL MCH (27.0-32.0) pg MCHC (32.0-37.0) g/dL Plt Count (140-440) 10*3/uL MPV (9.5-12.2) fL Immature Gran % (Auto) % Neutrophils % % Lymphocytes % % Monocytes % % Eosinophils % % Basophils % % Immature Gran # (0.00-0.04) 10*3/uL Neutrophils # (1.80-7.70) 10*3/uL Lymphocytes # (0.90-5.00) 10*3/uL Monocytes # (0.20-1.00) 10*3/uL Eosinophils # (0.04-0.35) 10*3/uL Basophils # (0.00-0.10) 10*3/uL Immature Plt Fraction (1.1-6.1) % PT (10.0-12.5) sec INR (<1.2) APTT (22.0-30.0) sec Sodium 144 (137-145) mmol/L Potassium 4.2 (3.5-5.1) mmol/L Chloride 105 (98-107) mmol/L Carbon Dioxide 29 (22-30) mmol/L Anion Gap 10 mmol/L BUN 57 H (7-17) mg/dL Creatinine 2.12 H (0.52-1.04) mg/dL Est GFR (CKD-EPI)AfAm 25 (>60 ml/min/1.73 sqM) Est GFR (CKD-EPI)NonAf 22 (>60 ml/min/1.73 sqM) Glucose 111 H (74-99) mg/dL Plasma Lactic Acid Sharif 1.5 (0.7-2.0) mmol/L Calcium 8.8 (8.4-10.2) mg/dL Magnesium 2.3 (1.6-2.3) mg/dL Total Bilirubin 0.6 (0.2-1.3) mg/dL AST 216 H (14-36) U/L ALT 51 H (4-34) U/L Alkaline Phosphatase 62 (38-126) U/L Creatine Kinase 6951 H* (30-135) U/L Troponin I 5.070 H* (0.000-0.034) ng/mL Total Protein 5.8 L (6.3-8.2) g/dL Albumin 3.4 L (3.5-5.0) g/dL TSH 2.630 (0.465-4.680) mIU/L Urine Color Urine Appearance (Clear) Urine pH (5.0-8.0) Ur Specific [place] (1.001-1.035) Urine Protein (Negative) Urine Glucose (UA) (Negative) Urine Ketones (Negative) Urine Blood (Negative) Urine Nitrite (Negative) Urine Bilirubin (Negative) Urine Urobilinogen (<2.0) mg/dL Ur Leukocyte Esterase (Negative) Urine RBC (0-5) /hpf Urine WBC (0-5) /hpf Urine WBC Clumps (None) /hpf Urine Bacteria (None) /hpf Urine Mucus (None) /hpf Disposition Clinical Impression: Rhabdomyolysis Disposition: ADMITTED IP TO THIS HOSP Is patient prescribed a controlled substance at d/c from ED?: No Referrals: None,Stated [REFERRING] - 1-2 days Time of Disposition: 20:19
[2024-08-14 14:03] LABS: Bacteria,Urine Many /hpf; Bilirubin,Urine Negative (Negative); Blood,Urine Moderate (Negative); Color,Urine Yellow; Glucose,Urine (UA) Negative (Negative); Ketones,Urine Negative (Negative); Leukocyte Esterase,Urine Large (Negative); Mucus,Urine Few /hpf; Nitrite,Urine Negative (Negative); PH, Urine 6.5 (5.0-8.0); Protein,Urine 1+ (Negative); RBC,Urine 4 /hpf (0-5); Specific Gravity,Urine 1.017 (1.001-1.035); Urobilinogen,Urine <2.0 mg/dL (<2.0); WBC,Urine >182 /hpf (0-5)
[2024-08-14] MEDS: SODIUM CHLORIDE 0.9% 1,000 ML IV SCH ×2 (14:14→20:47)
[2024-08-14 14:16] LABS: Basophils # (A) 0.04 10*3/uL (0.00-0.10); Basophils % (A) 0.3 %; Eosinophils # (A) 0.04 10*3/uL (0.04-0.35); Eosinophils % (A) 0.3 %; HCT 47.4 % (37.2-46.3); HGB 15.8 g/dL (12.0-15.0); Immature Platelet Fraction 4.3 % (1.1-6.1); Lymphocytes # (A) 0.78 10*3/uL (0.90-5.00); Lymphocytes % (A) 5.6 %; MCH 33.2 pg (27.0-32.0); MCHC 33.3 g/dL (32.0-37.0); MCV 99.6 fL (80.0-97.0); Monocytes # (A) 0.87 10*3/uL (0.20-1.00); Monocytes % (A) 6.2 %; Neutrophils # (A) 12.21 10*3/uL (1.80-7.70); Neutrophils % (A) 87.2 %; Platelet Count 124 10*3/uL (140-440); RBC 4.76 10*6/uL (4.10-5.20); RDW 12.9 % (11.5-14.5); WBC 13.99 10*3/uL (4.50-10.00)
[2024-08-14 15:05] LABS: INR 0.9 (<1.2); Partial Thromboplastin Time 23.3 sec (22.0-30.0); Prothrombin Time 10.4 sec (10.0-12.5)
--- NOTE | 2024-08-14 16:06 | CT ---
EXAMINATION TYPE: CT brain wo con CT DLP: 1156 mGycm, Automated exposure control for dose reduction was used. DATE OF EXAM: 08/14/2024 3:53 PM COMPARISON: None. CLINICAL INDICATION:Female, 78 years old with history of weakness, found on floor/weak TECHNIQUE: Brain: Multiple axial CT images of the brain were obtained without IV contrast. . Coronal and sagitta l reformats reviewed. FINDINGS: Brain: Extra-axial spaces: No abnormal extra-axial fluid collections. Ventricular system: Dilatation in proportion to cerebral atrophy. Cerebral parenchyma: Mild cerebral atrophy. No acute intraparenchymal hemorrhage or mass effect. The abraham-white junction is well differentiated. Confluent hypoattenuating areas are seen within the francie ventricular and subcortical white matter. Cerebellum: Unremarkable. Mass effect: No evidence of midline shift. Intracranial vasculature: Atherosclerotic calcifications of the intracranial vessels. Soft tissues: Normal. Calvarium/osseous structures: No depressed skull fracture. Paranasal sinuses and mastoid air cells: Bilateral mastoid effusions. Probable 1.3 cm mucous retentio n cyst within the left maxillary sinus. Additional mild mucosal thickening. Nasal septal deviation to the right. Small mucous retention cyst suggested within the left maxillary sinus. Remaining paranasa l sinuses are relatively clear. Visualized orbits: Bilateral aphakia IMPRESSION: 1. No acute intracranial process. 2. Advanced osteoarthritic white matter changes, likely secondary to chronic small vessel ischemic di sease. [facility], , 08/14/2024 4:04 PM
--- NOTE | 2024-08-14 16:07 | XR ---
EXAMINATION TYPE: XR chest 2V DATE OF EXAM: 08/14/2024 3:58 PM COMPARISON: 02/06/2020 CLINICAL INDICATION: Female, 78 years old with history of Weakness: Shortness of breath TECHNIQUE: XR chest 2V views of the chest are obtained. FINDINGS: Scattered senescent parenchymal changes noted. Hyperinflation compatible with COPD. No evidence for infiltrate. No evidence for atelectasis. Heart size is stable. Mediastinal structures are stable and grossly unremarkable. No evidence for hilar prominence. Degenerative changes dorsal spine. IMPRESSION: 1. No evidence for acute pulmonary disease. [facility], , 08/14/2024 4:05 PM
[2024-08-14] MEDS: IPRATROPIUM-ALBUTEROL 3 ML NEB INHALATION STA (16:16)
[2024-08-14] MEDS: methylPREDNISolone SOD SUCCI 125 MG/2 ML VIAL IV SCH (17:29)
[2024-08-14] MEDS: ASPIRIN 81 MG PO SCH (17:55)
[2024-08-14] MEDS: PRAVASTATIN SODIUM 20 MG TAB PO SCH (17:57)
[2024-08-14 18:26] LABS: ALT 51 U/L (4-34); AST 216 U/L (14-36); African American GFR (CKD) 25 (>60 ml/min/1.73 sqM); Albumin 3.4 g/dL (3.5-5.0); Alkaline Phosphatase 62 U/L (38-126); Anion Gap 10 mmol/L; Blood Urea Nitrogen 57 mg/dL (7-17); Calcium 8.8 mg/dL (8.4-10.2); Carbon Dioxide 29 mmol/L (22-30); Chloride 105 mmol/L (98-107); Glucose 111 mg/dL (74-99); Magnesium 2.3 mg/dL (1.6-2.3); Non-African American GFR(CKD) 22 (>60 ml/min/1.73 sqM); Potassium 4.2 mmol/L (3.5-5.1); Sodium 144 mmol/L (137-145); Total Protein 5.8 g/dL (6.3-8.2)
[2024-08-14 19:23] LABS: Creatine Kinase 6951 U/L (30-135)
[2024-08-14] MEDS: IPRATROPIUM-ALBUTEROL 3 ML NEB INHALATION SCH (20:05)
[2024-08-14] MEDS ORDERED: NALOXONE 0.4 MG/ML 1 ML VIAL IV PRN (20:19)
[2024-08-14] MEDS: ACETAMINOPHEN TAB 325 MG TAB PO SCH (20:19)
[2024-08-14] MEDS: SODIUM CHLORIDE 0.9% 500 ML 500 ML IV STA (20:59)
[2024-08-14] MEDS: HEPARIN SODIUM 1,000 UN/ML (10ML VL) IV ONE (22:05)
[2024-08-14] MEDS: HEPARIN SOD,PORK IN 0.45% NACL 25,000 UNIT in 0.45% NACL 1 250ML.BAG IV SCH (22:05)
--- NOTE | 2024-08-14 22:24 | P.CONS ---
History of Present Illness - Reason for Consult Consult date: 08/14/24 Sepsis Requesting physician: Tracey Walker - Chief Complaint Weakness and fall x 1 day - History of Present Illness Patient is a 78-year-old female with a past medical history significant for COPD hypertension osteoarthritis diverticulitis patient has been brought into the hospital for evaluation of weakness apparently the patient did slid out of her chair and the patient was too weak to get up since that time and remains to be on the floor patient did not mention that she passed out patient denies having any headache or URI symptoms no chest pain no shortness of breath occasional cough no sputum production no nausea no vomiting no abdominal pain diarrhea or constipation patient did mention some darker urine but no frequency or suprapubic pain on presentation to the hospital the patient was afebrile and no fever Hemoccult subsequently patient was not tachycardic hypotensive mildly hypoxic currently on 2 L nasal cannula oxygen patient did have elevated white count 13.99 BUN and creatinine has been elevated liver enzymes mildly elevated also have elevated CK troponins are elevated did have positive UA patient did have a chest x-ray there was were negative for acute cardiopulmonary disease patient was started on Rocephin infectious was consulted concern for possible sepsis Review of Systems Positive point and negatives has been mentioned in the HPI, complete review of systems was performed and all other systems are negative Past Medical History Past Medical History: Heart Failure, COPD, Hypertension, Neurologic Disorder, Osteoarthritis (OA) Additional Past Medical History / Comment(s): anemia, diverticulitis, neuopathy, COVID 2019 History of Any Multi-Drug Resistant Organisms: None Reported Past Surgical History: No Surgical Hx Reported Past Anesthesia/Blood Transfusion Reactions: No Reported Reaction Past Psychological History: No Psychological Hx Reported Smoking Status: Never smoker Past Alcohol Use History: None Reported Past Drug Use History: None Reported - Past Family History Mother Family Medical History: No Reported History Medications and Allergies Home Medications Medication Instructions Recorded Confirmed Type Aspirin EC [Ecotrin Low Dose] 81 mg PO W/SUPPER 12/03/18 08/14/24 History Metoprolol Succinate [Kapspargo 25 mg PO DAILY 02/25/19 08/14/24 History Sprinkle] Furosemide [Lasix] 40 mg PO DAILY 02/03/20 08/14/24 History Alendronate Sodium [Fosamax] 70 mg PO FR 04/21/21 08/14/24 History Docusate [Colace] 200 mg PO DAILY 04/21/21 08/14/24 History Famotidine [Pepcid] 40 mg PO DAILY 04/21/21 08/14/24 History Levothyroxine Sodium [Synthroid] 88 mcg PO AC-BRKFST 04/21/21 08/14/24 History Fluticasone Nasal [place] [Flonase 1 spr EA NOSTRIL DAILY 08/14/24 08/14/24 History Nasal [place]] Losartan [Cozaar] 25 mg PO DAILY 08/14/24 08/14/24 History Pravastatin Sodium [Pravachol] 20 mg PO W/SUPPER 08/14/24 08/14/24 History Tylenol(Unknown Dose) 1 tab PO BID 08/14/24 08/14/24 History Unknown Allergy Tab 1 tab PO HS 08/14/24 08/14/24 History Vitamin B-12(Unknown Dose) 1 tab PO DAILY 08/14/24 08/14/24 History amLODIPine [Norvasc] 5 mg PO DAILY 08/14/24 08/14/24 History Allergies Allergy/AdvReac Type Severity Reaction Status Date / Time No Known Allergies Allergy Verified 08/14/24 16:16 Physical Exam Vitals: Vital Signs Temp Pulse Resp BP Pulse Ox 08/14/24 22:00 76 18 101/52 95 08/14/24 20:50 75 08/14/24 20:45 98.0 F 71 18 124/68 93 L 08/14/24 20:38 74 08/14/24 19:47 72 17 129/78 95 08/14/24 17:32 77 16 122/65 98 08/14/24 16:30 68 08/14/24 16:16 76 08/14/24 14:27 86 26 H 128/70 98 08/14/24 13:12 96 17 136/70 98 Intake and Output 08/14/24 08/14/24 08/14/24 06:59 14:59 22:59 Other: Weight 68.039 kg GENERAL DESCRIPTION: Elderly female lying in bed, no distress. No tachypnea or accessory muscle of respiration use. HEENT: Shows Pallor , no scleral icterus. Oral mucous membrane is dry. NECK: Trachea central, no thyromegaly. LUNGS: Unlabored breathing. Clear to auscultation anteriorly. No wheeze or crackle. HEART: S1, S2, regular rate and rhythm. No loud murmur ABDOMEN: Soft, mild suprapubic tenderness EXTREMITIES: No edema of feet. SKIN: No rash, no masses palpable. NEUROLOGICAL: The patient is awake, alert, oriented x3, mood and affect normal. Results CBC & Chem 7: 08/15/24 03:26 08/15/24 03:26 Labs: Abnormal Lab Results - Last 24 Hours (Table) 08/14/24 08/14/24 08/14/24 Range/Units 13:52 14:05 17:51 WBC 13.99 H (4.50-10.00) 10*3/uL Hgb 15.8 H (12.0-15.0) g/dL Hct 47.4 H (37.2-46.3) % MCV 99.6 H (80.0-97.0) fL MCH 33.2 H (27.0-32.0) pg Plt Count 124 L (140-440) 10*3/uL Immature Gran # 0.05 H (0.00-0.04) 10*3/uL Neutrophils # 12.21 H (1.80-7.70) 10*3/uL Lymphocytes # 0.78 L (0.90-5.00) 10*3/uL BUN (7-17) mg/dL Creatinine (0.52-1.04) mg/dL Glucose (74-99) mg/dL AST (14-36) U/L ALT (4-34) U/L Creatine Kinase (30-135) U/L Troponin I 5.070 H* (0.000-0.034) ng/mL Total Protein (6.3-8.2) g/dL Albumin (3.5-5.0) g/dL Urine Appearance Turbid H (Clear) Urine Protein 1+ H (Negative) Urine Blood Moderate H (Negative) Ur Leukocyte Esterase Large H (Negative) Urine WBC >182 H (0-5) /hpf Urine WBC Clumps Many H (None) /hpf Urine Bacteria Many H (None) /hpf Urine Mucus Few H (None) /hpf 08/14/24 08/14/24 Range/Units 17:51 20:29 WBC (4.50-10.00) 10*3/uL Hgb (12.0-15.0) g/dL Hct (37.2-46.3) % MCV (80.0-97.0) fL MCH (27.0-32.0) pg Plt Count (140-440) 10*3/uL Immature Gran # (0.00-0.04) 10*3/uL Neutrophils # (1.80-7.70) 10*3/uL Lymphocytes # (0.90-5.00) 10*3/uL BUN 57 H (7-17) mg/dL Creatinine 2.12 H (0.52-1.04) mg/dL Glucose 111 H (74-99) mg/dL AST 216 H (14-36) U/L ALT 51 H (4-34) U/L Creatine Kinase 6951 H* (30-135) U/L Troponin I 5.690 H* (0.000-0.034) ng/mL Total Protein 5.8 L (6.3-8.2) g/dL Albumin 3.4 L (3.5-5.0) g/dL Urine Appearance (Clear) Urine Protein (Negative) Urine Blood (Negative) Ur Leukocyte Esterase (Negative) Urine WBC (0-5) /hpf Urine WBC Clumps (None) /hpf Urine Bacteria (None) /hpf Urine Mucus (None) /hpf Assessment and Plan (1) UTI (urinary tract infection) Current Visit: Yes Status: Acute Code(s): N39.0 - URINARY TRACT INFECTION, SITE NOT SPECIFIED SNOMED Code(s): 31670278 (2) Leukocytosis Current Visit: Yes Status: Acute Code(s): D72.829 - ELEVATED WHITE BLOOD CELL COUNT, UNSPECIFIED SNOMED Code(s): 579574771 Plan: 1patient presented to hospital with with weakness did have a fall unable to get up he did have symptom of darker urine and some suprapubic tenderness elevated white count significantly positive UA concerning for symptomatic UTI likely from enteric gram-negative pathogen, patient also have elevated creatinine anemia rule out any obstructive uropathy 2-we will check an ultrasound of the abdomen 3-patient empirically treat with Rocephin 2 g daily while waiting for the culture to finalize We will follow on clinical condition and cultures to further adjust medication if needed Thank you for this consultation we will follow the patient along with you Dictation was produced using [employer] dictation software. please excuse any grammatical, word or spelling errors. Time with Patient: Greater than 30
[2024-08-15] MEDS: SYMBICORT 160-4.5 MCG INHALER INHALATION SCH (00:47)
--- NOTE | 2024-08-15 02:26 | HP ---
HISTORY AND PHYSICAL CHIEF CONCERN: Weakness. HISTORY OF PRESENT ILLNESS: This is an 78-year-old woman with a past medical history of COPD, was living by herself. The patient apparently fell out of chair and the family found that this morning the patient is mildly confused. The patient is short of breath because of COPD. The patient was found to have evidence of UTI also. The patient . There is no history of any fever, rigors, or chills at this time. Chest x-ray showed no acute abnormality. CT of the brain did not show any acute intracranial process. PAST MEDICAL HISTORY: Reviewed, includes history of CHF, COPD, reviewed. HOME MEDICATIONS: Reviewed, includes Norvasc, doses and rest of medications reviewed. ALLERGIES: None. FAMILY HISTORY: No history of heart disease or strokes in the family. SOCIAL HISTORY: No history of smoking or alcohol. REVIEW OF SYSTEMS: Fourteen-point review of systems negative except as mentioned earlier. PHYSICAL EXAMINATION: VITAL SIGNS: Pulse is 86, blood pressure 138/70, respirations 26. HEENT: Conjunctivae normal. NECK: No jugular venous distention. CARDIOVASCULAR: S1, S2. RESPIRATIONS: A few scattered rhonchi. ABDOMEN: Soft, nontender. LEGS: No edema. No swelling. NERVOUS SYSTEM: Moves all 4 limbs. No focal deficit. LABORATORY DATA: WBC 18.9 and hemoglobin is 15.8. The rest of the labs are noted. ASSESSMENT: 1. Acute urinary tract infection with sepsis possibly. 2. Chronic obstructive pulmonary disease acute exacerbation. fall and rhabdo possible mi 3. Elevated WBC. 4. History of congestive heart failure. 5. Hypertension. 6. Degenerative joint disease. 7. History of anemia. 8. Remote history of COVID-19. RECOMMENDATIONS: This 78-year-old woman presented with multiple complex medical issues. We will monitor the patient closely. Continue the current management and treatment. Recommend empiric antibiotics, bronchodilators, otherwise obtain cultures. Resume the home medications once they are confirmed. Prognosis guarded because of multiple complex medical problems. See orders. Had detailed discussion with her daughter. Otherwise, I would also recommend PT and OT evaluation and explore the possibility of possible rehab also. MMODL / IJN: [id number] / MTDD
[2024-08-15 04:36] LABS: INR 1.0 (<1.2); Partial Thromboplastin Time 80.1 sec (22.0-30.0); Prothrombin Time 11.1 sec (10.0-12.5)
[2024-08-15 07:17] LABS: Basophils # (A) 0.01 X 10*3/uL (0.00-0.10); Basophils % (A) 0.1 %; Eosinophils # (A) 0 X 10*3/uL (0.04-0.35); Eosinophils % (A) 0 %; HCT 42.7 % (37.2-46.3); HGB 13.4 g/dL (12.0-15.0); Immature Grans, Automated 0.20 %; Lymphocytes # (A) 0.41 X 10*3/uL (0.90-5.00); Lymphocytes % (A) 5.1 %; MCH 32.4 pg (27.0-32.0); MCHC 31.4 g/dL (32.0-37.0); MCV 103.1 FL (80.0-97.0); Monocytes # (A) 0.09 X 10*3/uL (0.20-1.00); Monocytes % (A) 1.1 %; NRBC Per 100 WBC 0 X 10*3/uL (0.00-0.01); Neutrophils # (A) 7.58 X 10*3/uL (1.80-7.70); Neutrophils % (A) 93.5 %; Platelet Count 105 X 10*3/uL (140-440); RBC 4.14 X 10*6/uL (4.10-5.20); RDW 13.0 % (11.5-14.5); WBC 8.11 X 10*3/uL (4.50-10.00)
[2024-08-15] MEDS ORDERED: LOSARTAN 25 MG TAB PO SCH (09:00)
[2024-08-15] MEDS ORDERED: FUROSEMIDE 40 MG TAB PO SCH (09:00)
[2024-08-15] MEDS: LEVOTHYROXINE 88 MCG TAB PO SCH (09:12)
[2024-08-15] MEDS: DOCUSATE 100 MG CAP PO SCH (09:13)
[2024-08-15] MEDS: FAMOTIDINE 20 MG TAB PO SCH (09:14)
[2024-08-15] MEDS: amLODIPine 5 MG TAB PO SCH (09:14)
[2024-08-15] MEDS: CYANOCOBALAMIN 500 MCG TAB PO SCH (09:14)
[2024-08-15] MEDS: METOPROLOL SUCCINATE 25 MG PO SCH (09:15)
[2024-08-15] MEDS: METOPROLOL SUCCINATE (ER) 25 MG TAB.ER.24H PO SCH (09:17)
[2024-08-15] MEDS: FLUTICASONE NASAL 50MCG/SPRAY 16GM BTL EA NOSTRIL SCH (09:20)
[2024-08-15 09:50] LABS: Magnesium 2.2 mg/dL (1.5-2.4)
[2024-08-15 09:53] LABS: ALT 52 U/L (8-44); AST 156 U/L (13-35); Albumin 3.2 g/dL (3.8-4.9); Albumin/Globulin Ratio 1.78 Ratio (1.60-3.17); Alkaline Phosphatase 53 U/L (41-126); Anion Gap 16.50 mmol/L (4.00-12.00); BUN/Creat Ratio 24.73 Ratio (12.00-20.00); Blood Urea Nitrogen 54.4 mg/dL (9.0-27.0); Calcium 7.9 mg/dL (8.7-10.3); Carbon Dioxide 21.5 mmol/L (21.6-31.8); Chloride 109 mmol/L (96-109); Globulin 1.8 g/dL (1.6-3.3); Glucose 145 mg/dL (70-110); Potassium 4.4 mmol/L (3.5-5.5); Sodium 147 mmol/L (135-145); Total Protein 5.0 g/dL (6.2-8.2)
--- NOTE | 2024-08-15 10:12 | P.CRDCN ---
History of Present Illness History of present illness: HISTORY OF PRESENT ILLNESS: This is a 78-year-old female with a past medical history significant for LVH, congestive heart failure, hypertension, and chronic kidney disease. Patient follows in the office with Dr. Jacobson. We have been asked to see the patient in consultation for elevated troponins. Patient examined at the bedside in the emergency room. Patient states that she was at home and slid out of her chair onto the ground. She states she was unable to get up and laid on the floor for several hours until her daughter found her the next day. She currently denies any chest pain or pressure. She denies any shortness of breath. DIAGNOSTICS: - EKG reveals sinus mechanism with no signs of acute ischemia - Chest xray no evidence for acute pulmonary disease - Laboratory data: WBC 8.11. Hemoglobin 13.4. Platelet count 105. Sodium 144. Potassium 4.2. BUN 57. Creatinine 2.12 creatinine kinase 6951. Troponin 5.070. 5.690. 6.860. TSH 2.630 - Current home cardiac medications include amlodipine 5 mg daily, Pravachol 20 mg daily, losartan 25 mg daily, metoprolol succinate 25 mg daily, Lasix 40 mg daily, aspirin 81 mg daily. - Most recent echocardiogram obtained in March 2022 revealing ejection fraction 60%, mild MR, mild TR - Cardiac catheterization history: Unknown REVIEW OF SYSTEMS: At the time of my exam: CONSTITUTIONAL: Denies fever or chills. HEENT: Denies blurred vision, vision changes, or eye pain. Denies hemoptysis CARDIOVASCULAR: Denies chest pain. Denies orthopnea. Denies PND. Denies palpitations RESPIRATORY: Denies shortness of breath. GASTROINTESTINAL: Denies abdominal pain. Denies nausea or vomiting. HEMATOLOGIC: Denies bleeding disorders. GENITOURINARY: Denies any blood in urine. SKIN: Denies pruitis. Denies rash. PHYSICAL EXAM: VITAL SIGNS: Reviewed. GENERAL: Well-developed in no acute distress. HEENT: Head is normocephalic. Pupils are equal, round. Sclerae anicteric. Mucous membranes of the mouth are moist. Neck supple. No JVD or thyromegaly LUNGS: Respirations even and unlabored. Lungs essentially clear to auscultation bilaterally. HEART: Regular rate and rhythm. S1 and S2 heard. 3/6 systolic murmur. ABDOMEN: Soft. Nondistended. Nontender. EXTREMITIES: Normal range of motion. No clubbing or cyanosis. Peripheral pulses intact. No lower extremity edema NEUROLOGIC: Awake and alert. Oriented x 3. ASSESSMENT: Urinary tract infection Rhabdomyolysis Non-STEMI Acute on chronic chronic kidney disease Chronic congestive heart failure with preserved EF Hypertension History of LVH PLAN: Obtain 2D echo to assess cardiac structure and function Continue IV heparin Continue IV fluids Hold Lasix and losartan today Continue with low intensity statin. Continue to monitor LFTs Continue aspirin and metoprolol Add Imdur 30 mg daily No plans for cardiac catheterization at this time. Continue with medical management. Further recommendations pending patient course Nurse practitioner note has been reviewed by physician. Signing provider agrees with the documented findings, assessment, and plan of care documented by UNSTACKER as a scribe. Past Medical History Past Medical History: Heart Failure, COPD, Hypertension, Neurologic Disorder, Osteoarthritis (OA) Additional Past Medical History / Comment(s): anemia, diverticulitis, neuopathy, COVID 2019 History of Any Multi-Drug Resistant Organisms: None Reported Past Surgical History: No Surgical Hx Reported Past Anesthesia/Blood Transfusion Reactions: No Reported Reaction Past Psychological History: No Psychological Hx Reported Smoking Status: Never smoker Past Alcohol Use History: None Reported Past Drug Use History: None Reported - Past Family History Mother Family Medical History: No Reported History Medications and Allergies Home Medications Medication Instructions Recorded Confirmed Type Aspirin EC [Ecotrin Low Dose] 81 mg PO W/SUPPER 12/03/18 08/14/24 History Metoprolol Succinate [Kapspargo 25 mg PO DAILY 02/25/19 08/14/24 History Sprinkle] Furosemide [Lasix] 40 mg PO DAILY 02/03/20 08/14/24 History Alendronate Sodium [Fosamax] 70 mg PO FR 04/21/21 08/14/24 History Docusate [Colace] 200 mg PO DAILY 04/21/21 08/14/24 History Famotidine [Pepcid] 40 mg PO DAILY 04/21/21 08/14/24 History Levothyroxine Sodium [Synthroid] 88 mcg PO AC-BRKFST 04/21/21 08/14/24 History Fluticasone Nasal [place] [Flonase 1 spr EA NOSTRIL DAILY 08/14/24 08/14/24 History Nasal [place]] Losartan [Cozaar] 25 mg PO DAILY 08/14/24 08/14/24 History Pravastatin Sodium [Pravachol] 20 mg PO W/SUPPER 08/14/24 08/14/24 History Tylenol(Unknown Dose) 1 tab PO BID 08/14/24 08/14/24 History Unknown Allergy Tab 1 tab PO HS 08/14/24 08/14/24 History Vitamin B-12(Unknown Dose) 1 tab PO DAILY 08/14/24 08/14/24 History amLODIPine [Norvasc] 5 mg PO DAILY 08/14/24 08/14/24 History Allergies Allergy/AdvReac Type Severity Reaction Status Date / Time No Known Allergies Allergy Verified 08/14/24 16:16 Physical Exam Vitals: Vital Signs Temp Pulse Resp BP Pulse Ox 08/15/24 07:19 72 18 121/63 95 08/15/24 06:00 66 17 111/60 96 08/15/24 04:00 64 17 112/58 95 08/15/24 03:00 60 17 96/50 95 08/15/24 01:14 59 L 08/15/24 01:04 65 08/15/24 00:00 69 18 112/67 97 08/14/24 22:00 76 18 101/52 95 08/14/24 20:50 75 08/14/24 20:45 98.0 F 71 18 124/68 93 L 08/14/24 20:38 74 08/14/24 19:47 72 17 129/78 95 08/14/24 17:32 77 16 122/65 98 08/14/24 16:30 68 08/14/24 16:16 76 08/14/24 14:27 86 26 H 128/70 98 08/14/24 13:12 96 17 136/70 98 Intake and Output 08/14/24 08/15/24 08/15/24 22:59 06:59 14:59 Intake Total 55.93 Balance 55.93 Intake: Intake, IV Titration 55.93 Amount Heparin Sod,Pork in 0.45% 55.93 NaCl 25,000 unit In 0.45 % NaCl 1 250ml.bag @ 12 UNITS/KG/HR 8.165 mls/hr IV .Q24H [facility] Rx#: [id number] Results 08/15/24 03:26 08/15/24 03:26 Cardiac Enzymes 08/14/24 08/14/24 08/14/24 Range/Units 17:51 17:51 20:29 AST 216 H (14-36) U/L Troponin I 5.070 H* 5.690 H* (0.000-0.034) ng/mL 08/14/24 Range/Units 23:16 AST (14-36) U/L Troponin I 6.860 H* (0.000-0.034) ng/mL Coagulation 08/14/24 08/15/24 Range/Units 14:05 03:26 PT 10.4 11.1 (10.0-12.5) sec APTT 23.3 80.1 H (22.0-30.0) sec CBC 08/14/24 08/15/24 Range/Units 14:05 03:26 WBC 13.99 H 8.11 (4.50-10.00) 10*3/uL RBC 4.76 4.14 (4.10-5.20) 10*6/uL Hgb 15.8 H 13.4 (12.0-15.0) g/dL Hct 47.4 H 42.7 (37.2-46.3) % Plt Count 124 L 105 L (140-440) 10*3/uL Comprehensive Metabolic Panel 08/14/24 Range/Units 17:51 Sodium 144 (137-145) mmol/L Potassium 4.2 (3.5-5.1) mmol/L Chloride 105 (98-107) mmol/L Carbon Dioxide 29 (22-30) mmol/L BUN 57 H (7-17) mg/dL Creatinine 2.12 H (0.52-1.04) mg/dL Glucose 111 H (74-99) mg/dL Calcium 8.8 (8.4-10.2) mg/dL AST 216 H (14-36) U/L ALT 51 H (4-34) U/L Alkaline Phosphatase 62 (38-126) U/L Total Protein 5.8 L (6.3-8.2) g/dL Albumin 3.4 L (3.5-5.0) g/dL Current Medications Generic Name Dose Route Start Last Admin Trade Name Freq PRN Reason Stop Dose Admin Acetaminophen 325 mg 08/14/24 21:00 08/14/24 20:19 Acetaminophen Tab 325 Mg Tab PO 325 mg BID SELMA Administration Albuterol/Ipratropium 3 ml 08/14/24 17:00 08/15/24 01:02 Ipratropium-Albuterol 3 Ml Neb INHALATION 3 ml RT-Q6H SELMA Administration Amlodipine Besylate 5 mg 08/15/24 09:00 Amlodipine 5 Mg Tab PO DAILY SELMA Aspirin 81 mg 08/14/24 17:30 08/14/24 17:55 Aspirin 81 Mg PO 81 mg W/SUPPER SELMA Administration Budesonide/Formoterol Fumarate 2 puff 08/14/24 20:00 08/15/24 00:47 Symbicort 160-4.5 Mcg Inhaler INHALATION Not Given RT-BID [facility] Cyanocobalamin 500 mcg 08/15/24 09:00 Cyanocobalamin 500 Mcg Tab PO DAILY [facility] Docusate Sodium 200 mg 08/15/24 09:00 Docusate 100 Mg Cap PO DAILY SELMA Famotidine 20 mg 08/15/24 09:00 Famotidine 20 Mg Tab PO DAILY [facility] Fluticasone Propionate 1 spray 08/15/24 09:00 Fluticasone Nasal 50mcg/Council 16gm Btl EA NOSTRIL DAILY [facility] Furosemide 40 mg 08/15/24 09:00 Furosemide 40 Mg Tab PO DAILY [facility] Heparin Sodium (Porcine) 0 unit 08/14/24 21:27 Heparin Sodium 1,000 Un/Ml (10ml Vl) IV PER PROTOCOL PRN Low PTT Protocol Sodium Chloride 1,000 mls @ 75 mls/hr 08/14/24 13:30 08/14/24 23:21 Saline 0.9% IV Not Given .[id number] [facility] Ceftriaxone Sodium 2 gm/ 50 mls @ 100 mls/hr 08/15/24 09:00 Sodium Chloride IVPB Q24HR SELMA Protocol Sodium Chloride 1,000 mls @ 130 mls/hr 08/14/24 20:30 08/15/24 05:00 Saline 0.9% IV Not Given .Q7H42M SELMA Heparin Sodium/Sodium Chloride 250 mls @ 8.165 mls/hr 08/14/24 21:30 08/15/24 04:56 25,000 unit/ Sodium Chloride IV 10 units/kg/hr .Q24H SELMA 6.804 mls/hr Titration Protocol 12 UNITS/KG/HR Levothyroxine Sodium 88 mcg 08/15/24 07:30 Levothyroxine 88 Mcg Tab PO AC-BRKFST [facility] Losartan Potassium 25 mg 08/15/24 09:00 Losartan 25 Mg Tab PO DAILY [facility] Methylprednisolone Sodium Succinate 60 mg 08/14/24 18:00 08/15/24 05:08 Methylprednisolone Sod Succi 125 Mg/2 Ml Vial IV 60 mg Q6HR [facility] Administration Naloxone HCl 0.2 mg 08/14/24 20:19 Naloxone 0.4 Mg/Ml 1 Ml Vial IV Q2M PRN Opioid Reversal Non-Formulary Medication 25 mg 08/15/24 09:00 Metoprolol Succinate [Kapspargo Sprinkle] PO DAILY [facility] Non-Formulary Medication 70 mg 08/18/24 09:00 Alendronate Sodium [Fosamax] PO FR [facility] Pravastatin Sodium 20 mg 08/14/24 17:30 08/14/24 17:57 Pravastatin Sodium 20 Mg Tab PO 20 mg W/SUPPER [facility] Administration Intake and Output 08/14/24 08/15/24 08/15/24 22:59 06:59 14:59 Intake Total 55.93 Balance 55.93 Intake: Intake, IV Titration 55.93 Amount Heparin Sod,Pork in 0.45% 55.93 NaCl 25,000 unit In 0.45 % NaCl 1 250ml.bag @ 12 UNITS/KG/HR 8.165 mls/hr IV .Q24H [facility] Rx#: [id number] 08/15/24 03:26 08/14/24 17:51
[2024-08-15] MEDS: ISOSORBIDE MONONITRATE ER 30 MG TAB.ER.24H PO SCH (10:21)
--- NOTE | 2024-08-15 11:09 | P.NPCON ---
History of Present Illness - Reason for Consult acute renal failure, chronic renal failure - History of Present Illness Reason for consultation: Acute kidney injury on chronic kidney disease History of present illness: Patient is a 78-year-old female seen in renal consultation for acute kidney injury and chronic kidney disease. Patient has chronic kidney disease stage IV with baseline creatinine 1.7-2. Creatinine 2.1-2.2 this admission. Patient came to the hospital after she slid from her chair to the ground. Patient states she was down for about 12 hours to which she was found by her daughter saji shah called EMS. She was subsequently brought to the hospital. Patient was noted to have an elevated CK level of 6951. Hemodynamically stable. She denies use of nonsteroidals. Denies syncopal episodes. Denies history of diabetes or coronary artery disease. No gross hematuria or dysuria. She was taking Lasix as well as losartan outpatient which are both currently held. She is currently receiving IV fluids. Vital signs are stable. General: No acute distress. HEENT: Head exam is unremarkable. On nasal cannula. LUNGS: No audible rhonchi or wheezes. HEART: Rate and Rhythm are regular. ABDOMEN: Nontender. EXTREMITITES: No edema. Past Medical History Past Medical History: Heart Failure, COPD, Hypertension, Neurologic Disorder, Osteoarthritis (OA) Additional Past Medical History / Comment(s): anemia, diverticulitis, neuopathy, COVID 2019 History of Any Multi-Drug Resistant Organisms: None Reported Past Surgical History: No Surgical Hx Reported Past Anesthesia/Blood Transfusion Reactions: No Reported Reaction Past Psychological History: No Psychological Hx Reported Smoking Status: Never smoker Past Alcohol Use History: None Reported Past Drug Use History: None Reported - Past Family History Mother Family Medical History: No Reported History Medications and Allergies Home Medications Medication Instructions Recorded Confirmed Type Aspirin EC [Ecotrin Low Dose] 81 mg PO W/SUPPER 12/03/18 08/14/24 History Metoprolol Succinate [Kapspargo 25 mg PO DAILY 02/25/19 08/14/24 History Sprinkle] Furosemide [Lasix] 40 mg PO DAILY 02/03/20 08/14/24 History Alendronate Sodium [Fosamax] 70 mg PO FR 04/21/21 08/14/24 History Docusate [Colace] 200 mg PO DAILY 04/21/21 08/14/24 History Famotidine [Pepcid] 40 mg PO DAILY 04/21/21 08/14/24 History Levothyroxine Sodium [Synthroid] 88 mcg PO AC-BRKFST 04/21/21 08/14/24 History Fluticasone Nasal [place] [Flonase 1 spr EA NOSTRIL DAILY 08/14/24 08/14/24 History Nasal [place]] Losartan [Cozaar] 25 mg PO DAILY 08/14/24 08/14/24 History Pravastatin Sodium [Pravachol] 20 mg PO W/SUPPER 08/14/24 08/14/24 History Tylenol(Unknown Dose) 1 tab PO BID 08/14/24 08/14/24 History Unknown Allergy Tab 1 tab PO HS 08/14/24 08/14/24 History Vitamin B-12(Unknown Dose) 1 tab PO DAILY 08/14/24 08/14/24 History amLODIPine [Norvasc] 5 mg PO DAILY 08/14/24 08/14/24 History Allergies Allergy/AdvReac Type Severity Reaction Status Date / Time No Known Allergies Allergy Verified 08/14/24 16:16 Physical Exam Vitals: Vital Signs Temp Pulse Resp BP Pulse Ox 08/15/24 10:00 94 18 125/57 93 L 08/15/24 09:31 86 08/15/24 09:19 80 95 08/15/24 09:11 64 18 118/57 94 L 08/15/24 07:19 72 18 121/63 95 08/15/24 06:00 66 17 111/60 96 08/15/24 04:00 64 17 112/58 95 08/15/24 03:00 60 17 96/50 95 08/15/24 01:14 59 L 08/15/24 01:04 65 08/15/24 00:00 69 18 112/67 97 08/14/24 22:00 76 18 101/52 95 08/14/24 20:50 75 08/14/24 20:45 98.0 F 71 18 124/68 93 L 08/14/24 20:38 74 08/14/24 19:47 72 17 129/78 95 08/14/24 17:32 77 16 122/65 98 08/14/24 16:30 68 08/14/24 16:16 76 08/14/24 14:27 86 26 H 128/70 98 08/14/24 13:12 96 17 136/70 98 Intake and Output 08/14/24 08/15/24 08/15/24 22:59 06:59 14:59 Intake Total 55.93 Balance 55.93 Intake: Intake, IV Titration 55.93 Amount Heparin Sod,Pork in 0.45% 55.93 NaCl 25,000 unit In 0.45 % NaCl 1 250ml.bag @ 12 UNITS/KG/HR 8.165 mls/hr IV .Q24H [facility] Rx#: [id number] Results - Lab Results Most recent lab results Calcium 7.9 mg/dL (8.7-10.3) L 08/15/24 03:26 Magnesium 2.2 mg/dL (1.5-2.4) 08/15/24 03:26 08/15/24 03:26 08/15/24 03:26 Assessment and Plan Plan: Assessment: 1. Acute kidney injury secondary to ATN secondary to rhabdomyolysis and hypovolemia. Creatinine stable at 2.2 today. 2. Chronic kidney disease stage IV baseline creatinine 1.7-2 secondary to nephrosclerosis. 3. UTI on antibiotics. 4. Hypertension with chronic kidney disease. Stable. 5. Rhabdomyolysis secondary to fall. 6. Non-ST elevated myocardial infarction. Cardiology following. 7. Chronic diastolic CHF. Plan: Maintain IV fluids. Continue to hold losartan and diuretics. Follow-up CK level. Avoid nephrotoxins. Continue to monitor renal function and urine output. Follow-up echocardiogram and abdominal ultrasound. Thank you for the consultation. I will continue to follow the patient with you during her hospital stay
--- NOTE | 2024-08-15 11:24 | US ---
EXAMINATION TYPE: US abdomen limited DATE OF EXAM: 08/15/2024 COMPARISON: MR kidney 10/25/2023, renal ultrasound 08/23/2023 CLINICAL INDICATION: Female, 78 years old with history of Elevated liver enzyme and creatinine; [place] liver enzymes. Exam limited due to patient unable to move or hold breath. TECHNIQUE: Grayscale and color Doppler imaging of the right upper quadrant was performed. FINDINGS: EXAM MEASUREMENTS: Liver Length: 12 cm Gallbladder Wall: .2 cm CBD: .4 cm Right Kidney: 8.4 x 3.3 x 3.0 cm [employer] NOTES: Pancreas: Obscured by bowel gas Liver: Increased attenuation limited Gallbladder: no stones seen Evidence for sonographic Bishop's sign: no CBD: wnl Right Kidney: Anechoic area upper pole 2.9 x 3.2 x 2.6 cm Diffusely increased echogenicity of the liver without focal lesion identified. No distinct surface no dularity identified. Pancreas is obscured by overlying bowel gas. The gallbladder appears unremarkabl e without evidence of stones, wall thickening or surrounding fluid. Negative sonographic Bishop's sig n. Common bile duct is within normal limits. Right kidney demonstrates no shadowing calculus or hydro nephrosis. Known angiomyolipoma is not visualized likely due to overlying bowel gas. Simple upper eladia e cyst is identified. IMPRESSION: 1. Hepatic steatosis. 2. 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 3. Simple right renal cyst. [facility], , 08/15/2024 11:21 AM
[2024-08-15] MEDS: HEPARIN SODIUM 1,000 UN/ML (10ML VL) IV PRN (12:31)
--- NOTE | 2024-08-15 14:54 | PN ---
PROGRESS NOTE DATE OF SERVICE: 08/15/2024 HISTORY OF PRESENT ILLNESS: This is an 78-year-old woman admitted with focal weakness and fall, also had features of rhabdomyolysis. Troponin is elevated indicating acute myocardial infarction. The patient will be closely monitored. At this time, the patient is started on IV heparin. The patient is still monitored in ICU. Multiple consultants are following the patient closely. PAST MEDICAL HISTORY: Reviewed. REVIEW OF SYSTEMS: Fourteen-point review is negative except as mentioned earlier. CURRENT MEDICATIONS: Reviewed. PHYSICAL EXAMINATION: VITAL SIGNS: Pulse is 82, blood pressure 114/80, respirations 18. HEENT: Conjunctivae normal. NECK: No JVD. CARDIOVASCULAR: S1 and S2. ABDOMEN: Soft. EXTREMITIES: Legs no edema. NERVOUS SYSTEM: Nonfocal. LABORATORY DATA: Reviewed. CK is 6951. ASSESSMENT: 1. Acute urinary tract infection likely present on admission. 2. Fall and acute rhabdomyolysis. 3. Chronic obstructive pulmonary disease exacerbation. 4. Possible acute [id number] elevation myocardial infarction with troponin up to 6.860. 5. History of congestive heart failure. 6. Hypertension. 7. History of degenerative joint disease. 8. History of anemia. 9. Remote history of COVID-19. RECOMMENDATIONS: Recommend to continue current management and continue symptomatic treatment. Repeat labs. Closely follow with multiple consultants. Monitor lytes closely. The sodium is 147 today. The patient has empiric antibiotics. We will continue to monitor. Infectious Disease, Cardiology, and Nephrology have been consulted. Continue to monitor. Cautious hydration. MMODL / IJN: [id number] / MTDD
--- NOTE | 2024-08-15 15:14 | P.PN ---
Subjective Progress Note Date: 08/15/24 Principal diagnosis: Reason for follow-up is leukocytosis and UTI Patient is a 78-year-old female with a past medical history significant for COPD hypertension osteoarthritis diverticulitis patient has been brought into the hospital for evaluation of weakness patient did have a positive UA elevated white count mental status changes concerning for symptomatic UTI. On today's evaluation that is 08/15/2024, Patient is afebrile this morning patient denies having any chest pain shortness of breath or cough, the patient is currently on 3 L nasal oxygen, patient denies any abdominal pain no diarrhea no nausea no vomiting. Patient white count normalized to 8.11, creatinine is 2.2 abdominal ultrasound hepatic steatosis and simple right renal cyst Objective - Vital Signs Vital signs: Vital Signs Temp 98.0 F 08/14/24 20:45 Pulse 86 08/15/24 09:31 Resp 18 08/15/24 09:11 BP 118/57 08/15/24 09:11 Pulse Ox 95 08/15/24 09:19 FiO2 Intake & Output 08/14/24 08/15/24 08/15/24 18:59 06:59 18:59 Intake Total 55.93 Balance 55.93 Weight 68.039 kg Intake: Intake, IV Titration 55.93 Amount Heparin Sod,Pork in 0.45% 55.93 NaCl 25,000 unit In 0.45 % NaCl 1 250ml.bag @ 12 UNITS/KG/HR 8.165 mls/hr IV .Q24H [facility] Rx#: [id number] - Exam GENERAL DESCRIPTION: An elderly female lying in bed in no distress RESPIRATORY SYSTEM: Unlabored breathing , decreased breath sounds at bases HEART: S1 S2 regular rate and rhythm , ABDOMEN: Soft , no tenderness EXTREMITIES: No edema feet - Labs CBC & Chem 7: 08/15/24 03:26 08/15/24 03:26 Labs: Abnormal Lab Results - Last 24 Hours (Table) 08/14/24 08/14/24 08/14/24 Range/Units 13:52 14:05 17:51 WBC 13.99 H (4.50-10.00) 10*3/uL Hgb 15.8 H (12.0-15.0) g/dL Hct 47.4 H (37.2-46.3) % MCV 99.6 H (80.0-97.0) fL MCH 33.2 H (27.0-32.0) pg MCHC (32.0-37.0) g/dL Plt Count 124 L (140-440) 10*3/uL Immature Gran # 0.05 H (0.00-0.04) 10*3/uL Neutrophils # 12.21 H (1.80-7.70) 10*3/uL Lymphocytes # 0.78 L (0.90-5.00) 10*3/uL Monocytes # (0.20-1.00) X 10*3/uL Eosinophils # (0.04-0.35) X 10*3/uL APTT (22.0-30.0) sec BUN (7-17) mg/dL Creatinine (0.52-1.04) mg/dL Glucose (74-99) mg/dL AST (14-36) U/L ALT (4-34) U/L Creatine Kinase (30-135) U/L Troponin I 5.070 H* (0.000-0.034) ng/mL Total Protein (6.3-8.2) g/dL Albumin (3.5-5.0) g/dL Urine Appearance Turbid H (Clear) Urine Protein 1+ H (Negative) Urine Blood Moderate H (Negative) Ur Leukocyte Esterase Large H (Negative) Urine WBC >182 H (0-5) /hpf Urine WBC Clumps Many H (None) /hpf Urine Bacteria Many H (None) /hpf Urine Mucus Few H (None) /hpf 08/14/24 08/14/24 08/14/24 Range/Units 17:51 20:29 23:16 WBC (4.50-10.00) 10*3/uL Hgb (12.0-15.0) g/dL Hct (37.2-46.3) % MCV (80.0-97.0) fL MCH (27.0-32.0) pg MCHC (32.0-37.0) g/dL Plt Count (140-440) 10*3/uL Immature Gran # (0.00-0.04) 10*3/uL Neutrophils # (1.80-7.70) 10*3/uL Lymphocytes # (0.90-5.00) 10*3/uL Monocytes # (0.20-1.00) X 10*3/uL Eosinophils # (0.04-0.35) X 10*3/uL APTT (22.0-30.0) sec BUN 57 H (7-17) mg/dL Creatinine 2.12 H (0.52-1.04) mg/dL Glucose 111 H (74-99) mg/dL AST 216 H (14-36) U/L ALT 51 H (4-34) U/L Creatine Kinase 6951 H* (30-135) U/L Troponin I 5.690 H* 6.860 H* (0.000-0.034) ng/mL Total Protein 5.8 L (6.3-8.2) g/dL Albumin 3.4 L (3.5-5.0) g/dL Urine Appearance (Clear) Urine Protein (Negative) Urine Blood (Negative) Ur Leukocyte Esterase (Negative) Urine WBC (0-5) /hpf Urine WBC Clumps (None) /hpf Urine Bacteria (None) /hpf Urine Mucus (None) /hpf 08/15/24 08/15/24 Range/Units 03:26 03:26 WBC (4.50-10.00) 10*3/uL Hgb (12.0-15.0) g/dL Hct (37.2-46.3) % MCV 103.1 H (80.0-97.0) fL MCH 32.4 H (27.0-32.0) pg MCHC 31.4 L (32.0-37.0) g/dL Plt Count 105 L (140-440) 10*3/uL Immature Gran # (0.00-0.04) 10*3/uL Neutrophils # (1.80-7.70) 10*3/uL Lymphocytes # 0.41 L (0.90-5.00) 10*3/uL Monocytes # 0.09 L (0.20-1.00) X 10*3/uL Eosinophils # 0 L (0.04-0.35) X 10*3/uL APTT 80.1 H (22.0-30.0) sec BUN (7-17) mg/dL Creatinine (0.52-1.04) mg/dL Glucose (74-99) mg/dL AST (14-36) U/L ALT (4-34) U/L Creatine Kinase (30-135) U/L Troponin I (0.000-0.034) ng/mL Total Protein (6.3-8.2) g/dL Albumin (3.5-5.0) g/dL Urine Appearance (Clear) Urine Protein (Negative) Urine Blood (Negative) Ur Leukocyte Esterase (Negative) Urine WBC (0-5) /hpf Urine WBC Clumps (None) /hpf Urine Bacteria (None) /hpf Urine Mucus (None) /hpf Assessment and Plan (1) UTI (urinary tract infection) Current Visit: Yes Status: Acute Code(s): N39.0 - URINARY TRACT INFECTION, SITE NOT SPECIFIED SNOMED Code(s): 91838168 (2) Leukocytosis Current Visit: Yes Status: Acute Code(s): D72.829 - ELEVATED WHITE BLOOD CELL COUNT, UNSPECIFIED SNOMED Code(s): 724651654 Plan: 1patient presented to hospital with with weakness did have a fall unable to get up he did have symptom of darker urine and some suprapubic tenderness elevated white count significantly positive UA concerning for symptomatic UTI likely from enteric gram-negative pathogen, patient also have elevated creatinine anemia rule out any obstructive uropathy 2- ultrasound of the abdominal did shows hepatic steatosis and a right renal cyst 3-patient white count normalized with Rocephin 2 g daily to continue while waiting for the culture to finalize Dictation was produced using [employer] software. please excuse any grammatical, word or spelling errors. Time with Patient: Less than 30
[2024-08-15] MEDS: SODIUM CHLORIDE 0.45% 1,000 ML IV SCH (17:36)
--- NOTE | 2024-08-15 18:24 | US ---
EXAMINATION TYPE: US kidneys/renal and bladder DATE OF EXAM: 08/15/2024 COMPARISON: Abdominal ultrasound 08/15/2024, renal ultrasound 08/23/2023, 06/24/2022, 12/25/2021, MR estrada y 10/25/2023 CLINICAL INDICATION: Female, 78 years old with history of robert; robert TECHNIQUE: Grayscale imaging of the bilateral kidneys and urinary bladder: FINDINGS: EXAM MEASUREMENTS: Right Kidney: 8.2 x 3.7 x 3.6 cm Left Kidney: 8.7 x 3.4 x 4.5 cm Right Kidney: cystic area seen sup pole measuring 2.6cm Left Kidney: No hydronephrosis or masses seen Bladder: debris seen posteriorly Bilateral Jets seen: no There is no evidence for hydronephrosis at this point in time. No nephrolithiasis is seen. Simple t hin-walled cyst within the upper pole of the right kidney. No right renal angiomyolipoma is not well- visualized. No left renal solid mass. There is some loss of corticomedullary differentiation involvin g the left kidney. Appears preserved involving the right kidney. There is debris seen layering sterile processing technician iorly within the urinary bladder. The bilateral ureteral jets are not identified. IMPRESSION: 1. No hydronephrosis or nephrolithiasis. 2. Simple right renal upper pole cyst. 3. Known right renal angiomyolipoma is not well-visualized. 4. Findings suggesting chronic medical renal disease involving the left kidney. 5. Nonspecific debris within the urinary bladder. Correlate with urinalysis. [facility], , 08/15/2024 6:22 PM
[2024-08-15] MEDS: ACETAMINOPHEN TAB 325 MG TAB PO PRN (23:26)
[2024-08-16 06:35] LABS: Glucose,Whole Blood 151 mg/dL (70-110)
[2024-08-16 09:07] LABS: Basophils # (A) 0.01 10*3/uL (0.00-0.10); Basophils % (A) 0.1 %; Eosinophils # (A) 0.00 10*3/uL (0.04-0.35); Eosinophils % (A) 0.0 %; HCT 39.1 % (37.2-46.3); Lymphocytes # (A) 0.46 10*3/uL (0.90-5.00); Lymphocytes % (A) 4.3 %; MCH 32.1 pg (27.0-32.0); MCHC 30.9 g/dL (32.0-37.0); MCV 103.7 fL (80.0-97.0); Monocytes # (A) 0.21 10*3/uL (0.20-1.00); Monocytes % (A) 2.0 %; Neutrophils # (A) 9.92 10*3/uL (1.80-7.70); Neutrophils % (A) 93.0 %; Platelet Count 124 10*3/uL (140-440); RBC 3.77 10*6/uL (4.10-5.20); RDW 12.6 % (11.5-14.5); WBC 10.66 10*3/uL (4.50-10.00)
[2024-08-16 09:12] LABS: HGB 12.1 g/dL (12.0-15.0)
[2024-08-16 09:23] LABS: African American GFR (CKD) 26 (>60 ml/min/1.73 sqM); Anion Gap 11 mmol/L; Blood Urea Nitrogen 64 mg/dL (7-17); Calcium 8.5 mg/dL (8.4-10.2); Carbon Dioxide 23 mmol/L (22-30); Chloride 106 mmol/L (98-107); Creatine Kinase 561 U/L (30-135); Glucose 119 mg/dL (74-99); Magnesium 2.5 mg/dL (1.6-2.3); Non-African American GFR(CKD) 23 (>60 ml/min/1.73 sqM); Potassium 4.1 mmol/L (3.5-5.1); Sodium 140 mmol/L (137-145)
--- NOTE | 2024-08-16 10:18 | P.PN ---
Subjective Patient is seen in follow-up for acute kidney injury on chronic kidney disease. Renal function slightly better. CK levels trending down. No active complaints. Oral intake is good. Vital signs are stable. General: No acute distress. HEENT: Head exam is unremarkable. LUNGS: No audible rhonchi or wheezes. HEART: Rate and Rhythm are regular. ABDOMEN: Nontender. EXTREMITITES: No edema. Objective - Vital Signs Vital signs: Vital Signs Temp 97.9 F 08/15/24 22:00 Pulse 62 08/16/24 05:45 Resp 16 08/16/24 05:45 BP 126/68 08/16/24 05:00 Pulse Ox 94 L 08/16/24 05:45 FiO2 Intake & Output 08/15/24 08/16/24 08/16/24 18:59 06:59 18:59 Intake Total 51.71 88.811 0 Balance 51.71 88.811 0 Weight 68.039 kg Intake: Intake, IV Titration 51.71 88.811 Amount Heparin Sod,Pork in 0.45% 51.71 88.811 NaCl 25,000 unit In 0.45 % NaCl 1 250ml.bag @ 12 UNITS/KG/HR 8.165 mls/hr IV .Q24H [facility] Rx#: [id number] Oral 0 Other: Voiding Method External Catheter - Labs CBC & Chem 7: 08/16/24 07:48 08/16/24 07:48 Labs: Abnormal Lab Results - Last 24 Hours (Table) 08/15/24 08/15/24 08/15/24 Range/Units 06:00 10:38 18:25 WBC (4.50-10.00) 10*3/uL RBC (4.10-5.20) 10*6/uL MCV (80.0-97.0) fL MCH (27.0-32.0) pg MCHC (32.0-37.0) g/dL Plt Count (140-440) 10*3/uL Immature Gran # (0.00-0.04) 10*3/uL Neutrophils # (1.80-7.70) 10*3/uL Lymphocytes # (0.90-5.00) 10*3/uL Eosinophils # (0.04-0.35) 10*3/uL APTT 37.2 H 73.8 H (22.0-30.0) sec BUN (7-17) mg/dL Creatinine (0.52-1.04) mg/dL Glucose (74-99) mg/dL POC Glucose (mg/dL) (70-110) mg/dL Magnesium (1.6-2.3) mg/dL Creatine Kinase 2472 H (26-186) U/L 08/16/24 08/16/24 08/16/24 Range/Units 01:53 06:33 07:48 WBC (4.50-10.00) 10*3/uL RBC (4.10-5.20) 10*6/uL MCV (80.0-97.0) fL MCH (27.0-32.0) pg MCHC (32.0-37.0) g/dL Plt Count (140-440) 10*3/uL Immature Gran # (0.00-0.04) 10*3/uL Neutrophils # (1.80-7.70) 10*3/uL Lymphocytes # (0.90-5.00) 10*3/uL Eosinophils # (0.04-0.35) 10*3/uL APTT 43.9 H (22.0-30.0) sec BUN 64 H (7-17) mg/dL Creatinine 2.03 H (0.52-1.04) mg/dL Glucose 119 H (74-99) mg/dL POC Glucose (mg/dL) 151 H (70-110) mg/dL Magnesium 2.5 H (1.6-2.3) mg/dL Creatine Kinase 561 H (26-186) U/L 08/16/24 08/16/24 Range/Units 07:48 07:48 WBC 10.66 H (4.50-10.00) 10*3/uL RBC 3.77 L (4.10-5.20) 10*6/uL MCV 103.7 H (80.0-97.0) fL MCH 32.1 H (27.0-32.0) pg MCHC 30.9 L (32.0-37.0) g/dL Plt Count 124 L (140-440) 10*3/uL Immature Gran # 0.06 H (0.00-0.04) 10*3/uL Neutrophils # 9.92 H (1.80-7.70) 10*3/uL Lymphocytes # 0.46 L (0.90-5.00) 10*3/uL Eosinophils # 0.00 L (0.04-0.35) 10*3/uL APTT (22.0-30.0) sec BUN (7-17) mg/dL Creatinine (0.52-1.04) mg/dL Glucose (74-99) mg/dL POC Glucose (mg/dL) (70-110) mg/dL Magnesium (1.6-2.3) mg/dL Creatine Kinase 529 H (26-186) U/L Microbiology - Last 24 Hours (Table) 08/14/24 17:04 Blood Culture - Preliminary Blood 08/14/24 13:52 Urine Culture - Preliminary Urine,Voided Gram Neg Bacilli Assessment and Plan Plan: Assessment: 1. Acute kidney injury secondary to ATN secondary to rhabdomyolysis and hypovolemia. Creatinine slightly better at 2.03 today. Atrophic kidneys with no evidence of hydronephrosis noted. 2. Chronic kidney disease stage IV baseline creatinine 1.7-2 secondary to nephrosclerosis. 3. Gram-negative UTI on antibiotics. 4. Hypertension with chronic kidney disease. Stable. 5. Rhabdomyolysis secondary to fall. CK levels trending down. 6. Non-ST elevated myocardial infarction. Cardiology following. 7. Chronic diastolic CHF. 8. Hypernatremia from lack of oral water intake. Better. Plan: Change fluids to normal saline at 60 cc an hour. Continue to hold losartan and diuretics. Avoid nephrotoxins. Continue to monitor renal function and urine output. Encouraged oral intake.
--- NOTE | 2024-08-16 11:18 | P.PN ---
Subjective Progress Note Date: 08/16/24 HISTORY OF PRESENT ILLNESS: This is a 78-year-old female with a past medical history significant for LVH, congestive heart failure, hypertension, and chronic kidney disease. Patient follows in the office with Dr. Jacobson. We have been asked to see the patient in consultation for elevated troponins. Patient examined at the bedside in the emergency room. Patient states that she was at home and slid out of her chair onto the ground. She states she was unable to get up and laid on the floor for several hours until her daughter found her the next day. She currently denies any chest pain or pressure. She denies any shortness of breath. DIAGNOSTICS: - EKG reveals sinus mechanism with no signs of acute ischemia - Chest xray no evidence for acute pulmonary disease - Laboratory data: WBC 8.11. Hemoglobin 13.4. Platelet count 105. Sodium 144. Potassium 4.2. BUN 57. Creatinine 2.12 creatinine kinase 6951. Troponin 5.070. 5.690. 6.860. TSH 2.630 - Current home cardiac medications include amlodipine 5 mg daily, Pravachol 20 mg daily, losartan 25 mg daily, metoprolol succinate 25 mg daily, Lasix 40 mg daily, aspirin 81 mg daily. - Most recent echocardiogram obtained in March 2022 revealing ejection fraction 60%, mild MR, mild TR - Cardiac catheterization history: Unknown 08/16/2024 Patient is seen and examined on the cardiac stepdown unit. Patient denies having any chest pain chest pressure. No chest tightness. She states she has a little shortness of breath. Echocardiogram is pending. She has been maintained on heparin drip. Imdur was started yesterday. Blood pressure 126/68, heart rate in the 60s, pulse ox 94% on room air. Repeat blood work reveals WBC 10.6, hemoglobin 12. BUN 64 and creatinine 2.03. PHYSICAL EXAM: VITAL SIGNS: Reviewed. GENERAL: Well-developed in no acute distress. HEENT: Head is normocephalic. Pupils are equal, round. Sclerae anicteric. Mucous membranes of the mouth are moist. Neck supple. No JVD or thyromegaly LUNGS: Respirations even and unlabored. Lungs essentially clear to auscultation bilaterally. HEART: Regular rate and rhythm. S1 and S2 heard. 3/6 systolic murmur. ABDOMEN: Soft. Nondistended. Nontender. EXTREMITIES: Normal range of motion. No clubbing or cyanosis. Peripheral pulses intact. No lower extremity edema NEUROLOGIC: Awake and alert. Oriented x 3. ASSESSMENT: Urinary tract infection Rhabdomyolysis Non-STEMI, type II secondary to rhabdomyolysis, acute kidney injury Acute kidney injury Chronic kidney disease stage IV Chronic congestive heart failure with preserved EF Hypertension History of LVH PLAN: Obtain 2D echo to assess cardiac structure and function Continue IV heparin Continue IV fluids Hold Lasix and losartan today Continue with low intensity statin. Continue to monitor LFTs Continue aspirin, metoprolol, Imdur 30 mg daily No plans for cardiac catheterization at this time. Continue with medical management. Further recommendations pending patient course Nurse practitioner note has been reviewed by physician. Signing provider agrees with the documented findings, assessment, and plan of care documented by CHISEL MORTISER OPERATOR as a scribe. Objective - Vital Signs Vital signs: Vital Signs Temp 97.9 F 08/15/24 22:00 Pulse 62 08/16/24 05:45 Resp 16 08/16/24 05:45 BP 126/68 08/16/24 05:00 Pulse Ox 94 L 08/16/24 05:45 FiO2 Intake & Output 08/15/24 08/16/24 08/16/24 18:59 06:59 18:59 Intake Total 51.71 88.811 0 Balance 51.71 88.811 0 Weight 68.039 kg Intake: Intake, IV Titration 51.71 88.811 Amount Heparin Sod,Pork in 0.45% 51.71 88.811 NaCl 25,000 unit In 0.45 % NaCl 1 250ml.bag @ 12 UNITS/KG/HR 8.165 mls/hr IV .Q24H [facility] Rx#: [id number] Oral 0 Other: Voiding Method External Catheter - Labs CBC & Chem 7: 08/16/24 07:48 08/16/24 07:48 Labs: Abnormal Lab Results - Last 24 Hours (Table) 08/15/24 08/15/24 08/15/24 Range/Units 03:26 06:00 10:38 APTT 37.2 H (22.0-30.0) sec Sodium 147 H (135-145) mmol/L Carbon Dioxide 21.5 L (21.6-31.8) mmol/L Anion Gap 16.50 H (4.00-12.00) mmol/L BUN 54.4 H (9.0-27.0) mg/dL Creatinine 2.2 H (0.6-1.5) mg/dL Est GFR (CKD-EPI) 22 L (>=60) BUN/Creatinine Ratio 24.73 H (12.00-20.00) Ratio Glucose 145 H (70-110) mg/dL POC Glucose (mg/dL) (70-110) mg/dL Calcium 7.9 L (8.7-10.3) mg/dL Total Bilirubin 0.2 L (0.3-1.2) mg/dL AST 156 H (13-35) U/L ALT 52 H (8-44) U/L Creatine Kinase 2472 H (26-186) U/L Total Protein 5.0 L (6.2-8.2) g/dL Albumin 3.2 L (3.8-4.9) g/dL 08/15/24 08/16/24 08/16/24 Range/Units 18:25 01:53 06:33 APTT 73.8 H 43.9 H (22.0-30.0) sec Sodium (135-145) mmol/L Carbon Dioxide (21.6-31.8) mmol/L Anion Gap (4.00-12.00) mmol/L BUN (9.0-27.0) mg/dL Creatinine (0.6-1.5) mg/dL Est GFR (CKD-EPI) (>=60) BUN/Creatinine Ratio (12.00-20.00) Ratio Glucose (70-110) mg/dL POC Glucose (mg/dL) 151 H (70-110) mg/dL Calcium (8.7-10.3) mg/dL Total Bilirubin (0.3-1.2) mg/dL AST (13-35) U/L ALT (8-44) U/L Creatine Kinase (26-186) U/L Total Protein (6.2-8.2) g/dL Albumin (3.8-4.9) g/dL Microbiology - Last 24 Hours (Table) 08/14/24 17:04 Blood Culture - Preliminary Blood 08/14/24 13:52 Urine Culture - Preliminary Urine,Voided Gram Neg Bacilli
[2024-08-16 11:29] LABS: Glucose,Whole Blood 118 mg/dL (70-110)
[2024-08-16] MEDS: SODIUM CHLORIDE 0.9% 1,000 ML IV SCH (11:45)
--- NOTE | 2024-08-16 12:02 | CA ---
Transthoracic Echo Report Name: Pamela Vilchis Age: 78 Gender: F : 1945 Exam Date: 08/16/2024 08:24 Exam Location: [facility] Ht (in): 61 Wt (lb): 150 Ordering Physician: Merry Gracia Attending/Referring Phys: [id number], [facility] Attendant Anupama Appiah RDCS Procedure CPT: Indications: elevated troponins, rhabdomyolysis Cardiac Hx: Technical Quality: Fair Contrast 1: Total Dose (mL): Contrast 2: Total Dose (mL): MEASUREMENTS (Male / Female) Normal Values 2D ECHO LV Diastolic Diameter PLAX 4.0 cm 4.2 - 5.9 / 3.9 - 5.3 cm LV Systolic Diameter PLAX 2.2 cm IVS Diastolic Thickness 1.0 cm 0.6 - 1.0 / 0.6 - 0.9 cm LVPW Diastolic Thickness 1.1 cm 0.6 - 1.0 / 0.6 - 0.9 cm LV Relative Wall Thickness 0.5 RV Internal Dim ED PLAX 1.7 cm LVOT Diameter 1.5 cm LA Systolic Diameter LX 3.6 cm 3.0 - 4.0 / 2.7 - 3.8 cm LV Diastolic Volume MOD BP 42.3 cm??? 67 - 155 / 56 - 104 cm??? LV Systolic Volume MOD BP 8.5 cm??? 22 - 58 / 19 - 49 cm??? LV Ejection Fraction MOD BP 79.9 % >= 55 % LV Cardiac Index MOD BP 1424.9 cm???/min???m??? LV Diastolic Volume MOD 4C 36.2 cm??? LV Systolic Volume MOD 4C 4.1 cm??? LV Ejection Fraction MOD 4C 88.7 % LV Cardiac Index MOD 4C 1352.6 cm???/min???m??? LV Diastolic Length 4C 6.6 cm LV Systolic Length 4C 1.3 cm LV Diastolic Volume MOD 2C 45.2 cm??? LV Systolic Volume MOD 2C 9.0 cm??? LV Ejection Fraction MOD 2C 80.2 % LV Cardiac Index MOD 2C 1526.1 cm???/min???m??? LV Diastolic Length 2C 7.4 cm LV Systolic Length 2C 2.6 cm M-MODE Aortic Root Diameter MM 2.6 cm LA Systolic Diameter MM 4.2 cm LA Ao Ratio MM 1.6 AV Cusp Separation MM 1.6 cm DOPPLER Mitral E Point Velocity 129.5 cm/s Mitral A Point Velocity 136.5 cm/s Mitral E to A Ratio 0.9 MV Deceleration Time 345.7 ms MV E' Velocity 4.5 cm/s Mitral E to MV E' Ratio 28.5 TR Peak Velocity 302.8 cm/s TR Peak Gradient 36.7 mmHg Right Ventricular Systolic Press 47.7 mmHg FINDINGS Left Ventricle Left ventricular ejection fraction is estimated at 55-60 %. Mildly increased septal wall thickness. Mildly increased posterior wall thickness. Normal left ventricular systolic function with no obvious regional wall motion abnormalities. Increased LVOT velocity with Valsalva maneuver, 43 mmHg. Right Ventricle Normal right ventricular size and function. Moderate pulmonary hypertension. Right Atrium Mild right atrial dilatation. Left Atrium Moderate left atrial dilatation. Mitral Valve Mitral valve thickened. Mitral annular calcification. Mild mitral regurgitation. Aortic Valve Trileaflet aortic valve. Diffuse thickening (sclerosis) of the aortic valve cusps without reduced excursion. Tricuspid Valve Structurally normal tricuspid valve. Mild tricuspid regurgitation. No tricuspid stenosis. Pulmonic Valve Structurally normal pulmonic valve. No pulmonic stenosis. Trace pulmonic regurgitation. Pericardium No pericardial or pleural effusion. Echo free space anterior to the right ventricle likely represents a fat pad. Aorta Normal size aortic root and proximal ascending aorta. CONCLUSIONS Normal LV function biatrial enlargement Mild mitral and tricuspid regurgitation Previewed by: Dr. Meliton Ortega MD (Electronically Signed) Final Date: 16 August 2024 12:01
--- NOTE | 2024-08-16 13:21 | CDI ---
Documentation Clarification Form Date: 08/16/2024 12:52:39 PM From: Cookie Hayes RN CCDS Phone: [phone] Admit Date: 08/14/2024 08:20:00 PM Patient Name: Pamela Vilchis Visit Number: [id number] Discharge Date: ATTENTION: The Clinical Documentation Specialists (CDI) and [facility] Coding Staff appreciate your assistance in clarifying documentation. Please respond to the clarification below the line at the bottom and electronically sign. The CDI & [facility] Coding staff will review the response and follow-up if needed. Please note: Queries are made part of the Legal Health Record. If you have any questions, please contact the author of this message via ITS. Doctor: Isaías Ramirez Rhabdomyolysis is documented 08/15, Nephrology consult. Additional clarification regarding the type of rhabdomyolysis is requested. History/Risk Factors: 78 year old female presents to the ED after she slid from her chair to the ground. Patient states she was down about 12 hours was found by her daughter. Medical History: CHF, COPD, HTN and Anemia. 08/15, Nephrology consult. Clinical Indicators: Creatinine Kinase: 08/14: 6951; 08/15: 2472; 08/16: 561; 529 Treatment: 08/14 08/15 0.9NS IV 80cc/hr; 08/14 0.9NS 500cc IV x 1; 08/16 0.9NS IV 60cc/hr Please clarify the type of rhabdomyolysis, if known: [ ] Traumatic rhabdomyolysis due to fall [ x ] Traumatic rhabdomyolysis due to prolonged immobility [ ] Other, please specify [ ] Unable to Determine (Template Last Revised: April 2020) MTDD
--- NOTE | 2024-08-16 13:49 | CDI ---
Documentation Clarification Form Date: 08/16/2024 12:52:39 PM From: Cookie Hayes Phone: [phone] Admit Date: 08/14/2024 08:20:00 PM Patient Name: Pamela Vilchis Visit Number: [id number] Discharge Date: ATTENTION: The Clinical Documentation Specialists (CDI) and [facility] Coding Staff appreciate your assistance in clarifying documentation. Please respond to the clarification below the line at the bottom and electronically sign. The CDI & [facility] Coding staff will review the response and follow-up if needed. Please note: Queries are made part of the Legal Health Record. If you have any questions, please contact the author of this message via ITS. Doctor: Tracey Walker Sepsis is documented 08/15, medicine note, which may lack sufficient clinical evidence/support in the medical record. Additional clarification is requested. History/Risk Factors: 78 year old female presents to the ED after she slid from her chair to the ground. Patient states she was down about 12 hours was found by her daughter. Medical History: CHF, COPD, HTN and Anemia. 08/15, Nephrology consult. Clinical Indicators: VSS,08/14: B/P 124/68, HR 71, RR 18, Temp 98.0F Axillary, SpO2 93% 2l nc LABS, 08/14: Wbc 13.99, Neutrophils 12.21 Urine Culture, 08/14: Gram Neg Bacilli Blood Culture, 08/16: No growth after 24 hours HP, 08/14: There is no history of any fever, rigors or chills at this time. ID Consult, 08/14: patient presented to hospital with with weakness did have a fall unable to get up he did have symptom of darker urine and some suprapubic tenderness elevated white count significantly positive UA concerning for symptomatic UTI likely from enteric gram-negative pathogen, patient also have elevated creatinine anemia rule out any obstructive uropathy. Treatment: 08/14 Ceftriaxone IVPB x 1; 08/15 Ceftriaxone IVPB Q24h FLUIDS: 08/14 08/15 0.9NS IV 80cc/hr; 08/14 0.9NS 500cc IV x 1; 08/16 0.9NS IV 60cc/hr After work up and study, please clarify which diagnosis is most appropriate? [ ] Sepsis is ruled out. The patient had a localized infection without systemic response or organ dysfunction. [ ] Sepsis was initially suspected, but subsequent clinical findings did not support the diagnosis, and it has been ruled out. [ ] Sepsis is clinically supported as evidenced by these additional clinical indicators: [ ] Other, please specify [ ] Unable to determine SIRS Criteria: 2 or more of the following may indicate SIRS Temperature < 96.8F (36C) or > 101.0F (38.3C) Heart Rate > 90 bpm Respiratory Rate > 20 breaths/min or PaCO2 < 32 mmHg White Blood Cell Count > 12,000 or < 4,000 cells/mm3 or > 10% bands (Template Last Reviewed: February 2023) Sepsis was initially suspected, but subsequent clinical findings did not support the diagnosis, and it has been ruled out. MTDD
[2024-08-16 16:36] LABS: Glucose,Whole Blood 130 mg/dL (70-110)
[2024-08-16 20:01] LABS: Glucose,Whole Blood 120 mg/dL (70-110)
[2024-08-16] MEDS: MECLIZINE 12.5 MG TAB PO SCH (20:48)
[2024-08-17 03:17] LABS: Basophils # (A) 0.01 10*3/uL (0.00-0.10); Basophils % (A) 0.1 %; Eosinophils # (A) 0.00 10*3/uL (0.04-0.35); Eosinophils % (A) 0.0 %; HCT 35.6 % (37.2-46.3); HGB 11.3 g/dL (12.0-15.0); Immature Platelet Fraction 5.8 % (1.1-6.1); Lymphocytes # (A) 0.41 10*3/uL (0.90-5.00); Lymphocytes % (A) 5.2 %; MCH 32.2 pg (27.0-32.0); MCHC 31.7 g/dL (32.0-37.0); MCV 101.4 fL (80.0-97.0); Monocytes # (A) 0.15 10*3/uL (0.20-1.00); Monocytes % (A) 1.9 %; Neutrophils # (A) 7.20 10*3/uL (1.80-7.70); Neutrophils % (A) 92.3 %; Platelet Count 121 10*3/uL (140-440); RBC 3.51 10*6/uL (4.10-5.20); RDW 12.5 % (11.5-14.5); WBC 7.81 10*3/uL (4.50-10.00)
[2024-08-17 03:28] LABS: African American GFR (CKD) 31 (>60 ml/min/1.73 sqM); Anion Gap 7 mmol/L; Blood Urea Nitrogen 62 mg/dL (7-17); Calcium 8.0 mg/dL (8.4-10.2); Carbon Dioxide 23 mmol/L (22-30); Chloride 108 mmol/L (98-107); Glucose 124 mg/dL (74-99); Magnesium 2.5 mg/dL (1.6-2.3); Non-African American GFR(CKD) 27 (>60 ml/min/1.73 sqM); Potassium 4.1 mmol/L (3.5-5.1); Sodium 138 mmol/L (137-145)
[2024-08-17 05:49] LABS: Glucose,Whole Blood 117 mg/dL (70-110)
--- NOTE | 2024-08-17 07:29 | PN ---
PROGRESS NOTE DATE OF SERVICE: 08/16/2024 SUBJECTIVE: This 78-year-old woman, who was admitted with acute rhabdomyolysis, also had history of fall, also with multiple complex medical issues. Also, white count is slightly elevated. The patient is being closely monitored. PAST MEDICAL HISTORY: Reviewed. REVIEW OF SYSTEMS: Could not be taken. CURRENT MEDICATIONS: Reviewed. PHYSICAL EXAMINATION: VITAL SIGNS: Pulse is 60, blood pressure n, and respirations 16. HEENT: Conjunctivae normal. NECK: No JVD. CARDIOVASCULAR: S1 and S2. RESPIRATIONS: A few scattered rhonchi. ABDOMEN: Soft. NERVOUS SYSTEM: Nonfocal. LABORATORY DATA: WBC 10.66, creatinine is 2.03. Creatine kinase improving. The cultures are showing Gram-negative bacilli. ASSESSMENT: 1. Acute urinary tract infection, likely present on admission with Gram-negative bacilli. 2. Fall and acute rhabdomyolysis. 3. Chronic obstructive pulmonary disease. 4. Possible acute [id number] elevation myocardial infarction with troponin up to 6.860. 5. History of congestive heart failure. 6. Hypertension. 7. History of degenerative joint disease. 8. History of anemia. 9. Remote history of coronavirus disease 2019. RECOMMENDATION: To continue current management and symptomatic treatment. Repeat labs. Otherwise, await for the final ID of the UA. Closely follow with multiple consultants, empiric antibiotics, bronchodilators. Increase ambulation. The patient is on IV steroids also. Guarded prognosis. Further recommendations to follow. MMODL / IJN: [id number] / MTDD
--- NOTE | 2024-08-17 10:26 | P.PN ---
Subjective Patient is seen in follow-up for acute kidney injury on chronic kidney disease. Renal function better. No active complaints. Oral intake is good. Vital signs are stable. General: No acute distress. HEENT: Head exam is unremarkable. LUNGS: No audible rhonchi or wheezes. HEART: Rate and Rhythm are regular. ABDOMEN: Nontender. EXTREMITITES: No edema. Objective - Vital Signs Vital signs: Vital Signs Temp 98.3 F 08/17/24 03:49 Pulse 60 08/17/24 09:51 Resp 18 08/17/24 03:49 BP 107/49 08/17/24 03:49 Pulse Ox 95 08/17/24 03:49 FiO2 Intake & Output 08/16/24 08/17/24 08/17/24 18:59 06:59 18:59 Intake Total 240 372.1 240 Output Total 850 Balance 240 -477.9 240 Intake: Intake, IV Titration 372.1 Amount Heparin Sod,Pork in 0.45% 192.1 NaCl 25,000 unit In 0.45 % NaCl 1 250ml.bag @ 12 UNITS/KG/HR 8.165 mls/hr IV .Q24H [facility] Rx#: [id number] Sodium Chloride 0.9% 1, 180 000 ml @ 60 mls/hr IV . [id number] [facility] Rx#:[id number] Oral 240 240 Output: Urine 850 Other: Voiding Method External Catheter External Catheter # Bowel Movements 1 - Labs CBC & Chem 7: 08/17/24 02:29 08/17/24 02:29 Labs: Abnormal Lab Results - Last 24 Hours (Table) 08/16/24 08/16/24 08/16/24 Range/Units 11:27 16:35 20:00 RBC (4.10-5.20) 10*6/uL Hgb (12.0-15.0) g/dL Hct (37.2-46.3) % MCV (80.0-97.0) fL MCH (27.0-32.0) pg MCHC (32.0-37.0) g/dL Plt Count (140-440) 10*3/uL Lymphocytes # (0.90-5.00) 10*3/uL Monocytes # (0.20-1.00) 10*3/uL Eosinophils # (0.04-0.35) 10*3/uL APTT (22.0-30.0) sec Chloride (98-107) mmol/L BUN (7-17) mg/dL Creatinine (0.52-1.04) mg/dL Glucose (74-99) mg/dL POC Glucose (mg/dL) 118 H 130 H 120 H (70-110) mg/dL Calcium (8.4-10.2) mg/dL Magnesium (1.6-2.3) mg/dL 08/17/24 08/17/24 08/17/24 Range/Units 02:29 02:29 02:29 RBC 3.51 L (4.10-5.20) 10*6/uL Hgb 11.3 L (12.0-15.0) g/dL Hct 35.6 L (37.2-46.3) % MCV 101.4 H (80.0-97.0) fL MCH 32.2 H (27.0-32.0) pg MCHC 31.7 L (32.0-37.0) g/dL Plt Count 121 L (140-440) 10*3/uL Lymphocytes # 0.41 L (0.90-5.00) 10*3/uL Monocytes # 0.15 L (0.20-1.00) 10*3/uL Eosinophils # 0.00 L (0.04-0.35) 10*3/uL APTT 38.3 H (22.0-30.0) sec Chloride 108 H (98-107) mmol/L BUN 62 H (7-17) mg/dL Creatinine 1.77 H (0.52-1.04) mg/dL Glucose 124 H (74-99) mg/dL POC Glucose (mg/dL) (70-110) mg/dL Calcium 8.0 L (8.4-10.2) mg/dL Magnesium 2.5 H (1.6-2.3) mg/dL 08/17/24 Range/Units 05:47 RBC (4.10-5.20) 10*6/uL Hgb (12.0-15.0) g/dL Hct (37.2-46.3) % MCV (80.0-97.0) fL MCH (27.0-32.0) pg MCHC (32.0-37.0) g/dL Plt Count (140-440) 10*3/uL Lymphocytes # (0.90-5.00) 10*3/uL Monocytes # (0.20-1.00) 10*3/uL Eosinophils # (0.04-0.35) 10*3/uL APTT (22.0-30.0) sec Chloride (98-107) mmol/L BUN (7-17) mg/dL Creatinine (0.52-1.04) mg/dL Glucose (74-99) mg/dL POC Glucose (mg/dL) 117 H (70-110) mg/dL Calcium (8.4-10.2) mg/dL Magnesium (1.6-2.3) mg/dL Microbiology - Last 24 Hours (Table) 08/14/24 17:04 Blood Culture - Preliminary Blood 08/14/24 13:52 Urine Culture - Final Urine,Voided Klebsiella pneumoniae Assessment and Plan Plan: Assessment: 1. Acute kidney injury secondary to ATN secondary to rhabdomyolysis and hypovolemia. Better. Creatinine 1.77. Atrophic kidneys with no evidence of hydronephrosis noted. 2. Chronic kidney disease stage IV baseline creatinine 1.7-2 secondary to nephrosclerosis. 3. Klebsiella UTI on antibiotics. 4. Hypertension with chronic kidney disease. Stable. 5. Rhabdomyolysis secondary to fall. CK levels trending down. 6. Non-ST elevated myocardial infarction. Cardiology following. 7. Chronic diastolic CHF. 8. Hypernatremia from lack of oral water intake. Better. Plan: Maintain normal saline at 60 cc an hour. Continue to hold losartan and diuretics. Avoid nephrotoxins. Continue to monitor renal function and urine output. Encouraged oral intake.
[2024-08-17 11:20] LABS: Glucose,Whole Blood 121 mg/dL (70-110)
--- NOTE | 2024-08-17 13:39 | P.PN ---
Subjective Progress Note Date: 08/17/24 HISTORY OF PRESENT ILLNESS: This is a 78-year-old female with a past medical history significant for LVH, congestive heart failure, hypertension, and chronic kidney disease. Patient follows in the office with Dr. Jacobson. We have been asked to see the patient in consultation for elevated troponins. Patient examined at the bedside in the emergency room. Patient states that she was at home and slid out of her chair onto the ground. She states she was unable to get up and laid on the floor for several hours until her daughter found her the next day. She currently denies any chest pain or pressure. She denies any shortness of breath. DIAGNOSTICS: - EKG reveals sinus mechanism with no signs of acute ischemia - Chest xray no evidence for acute pulmonary disease - Laboratory data: WBC 8.11. Hemoglobin 13.4. Platelet count 105. Sodium 144. Potassium 4.2. BUN 57. Creatinine 2.12 creatinine kinase 6951. Troponin 5.070. 5.690. 6.860. TSH 2.630 - Current home cardiac medications include amlodipine 5 mg daily, Pravachol 20 mg daily, losartan 25 mg daily, metoprolol succinate 25 mg daily, Lasix 40 mg daily, aspirin 81 mg daily. - Most recent echocardiogram obtained in March 2022 revealing ejection fraction 60%, mild MR, mild TR - Cardiac catheterization history: Unknown 08/16/2024 Patient is seen and examined on the cardiac stepdown unit. Patient denies having any chest pain chest pressure. No chest tightness. She states she has a little shortness of breath. Echocardiogram is pending. She has been maintained on heparin drip. Imdur was started yesterday. Blood pressure 126/68, heart rate in the 60s, pulse ox 94% on room air. Repeat blood work reveals WBC 10.6, hemoglobin 12. BUN 64 and creatinine 2.03. 08/17 Patient seen and examined. She has been continued on a heparin drip which will be discontinued today. She has had improvement of CK and recent most recent 1 drawn yesterday was 529. Blood work today reveals improved renal function with BUN 62 creatinine 1.77. Hemoglobin 11.3, platelet count 121. Echocardiogram reveals EF of 55 to 60%, biatrial enlargement. Mild mitral and tricuspid regurgitation. Results of the echocardiogram reviewed with the patient. PHYSICAL EXAM: VITAL SIGNS: Reviewed. GENERAL: Well-developed in no acute distress. HEENT: Head is normocephalic. Pupils are equal, round. Sclerae anicteric. Mucous membranes of the mouth are moist. Neck supple. No JVD or thyromegaly LUNGS: Respirations even and unlabored. Lungs essentially clear to auscultation bilaterally. HEART: Regular rate and rhythm. S1 and S2 heard. 3/6 systolic murmur. ABDOMEN: Soft. Nondistended. Nontender. EXTREMITIES: Normal range of motion. No clubbing or cyanosis. Peripheral pulses intact. No lower extremity edema NEUROLOGIC: Awake and alert. Oriented x 3. ASSESSMENT: Urinary tract infection Rhabdomyolysis, improved Non-STEMI, type II secondary to rhabdomyolysis, acute kidney injury Acute kidney injury, improving Chronic kidney disease stage IV Chronic congestive heart failure with preserved EF Hypertension History of LVH PLAN: Discontinue heparin drip Consider resuming Lasix and losartan as renal function improves Continue with low intensity statin. Continue to monitor LFTs Continue aspirin, metoprolol, Imdur 30 mg daily No plans for cardiac catheterization at this time. Continue with medical management. Cardiology will sign off this case and follow on an as-needed basis. Please reconsult for any new concerns. Patient may follow-up in the office with Dr. Jacobson in one to 2 weeks. Nurse practitioner note has been reviewed by physician. Signing provider agrees with the documented findings, assessment, and plan of care documented by [facility] [employer]IST as a scribe. Objective - Vital Signs Vital signs: Vital Signs Temp 98.3 F 08/17/24 03:49 Pulse 60 08/17/24 09:51 Resp 18 08/17/24 03:49 BP 107/49 08/17/24 03:49 Pulse Ox 95 08/17/24 03:49 FiO2 Intake & Output 08/16/24 08/17/24 08/17/24 18:59 06:59 18:59 Intake Total 240 372.1 240 Output Total 850 Balance 240 -477.9 240 Intake: Intake, IV Titration 372.1 Amount Heparin Sod,Pork in 0.45% 192.1 NaCl 25,000 unit In 0.45 % NaCl 1 250ml.bag @ 12 UNITS/KG/HR 8.165 mls/hr IV .Q24H [facility] Rx#: [id number] Sodium Chloride 0.9% 1, 180 000 ml @ 60 mls/hr IV . [id number] [facility] Rx#:[id number] Oral 240 240 Output: Urine 850 Other: Voiding Method External Catheter External Catheter # Bowel Movements 1 - Labs CBC & Chem 7: 08/17/24 02:08/17/24 02:29 Labs: Abnormal Lab Results - Last 24 Hours (Table) 08/16/24 08/16/24 08/16/24 Range/Units 11:27 16:35 20:00 RBC (4.10-5.20) 10*6/uL Hgb (12.0-15.0) g/dL Hct (37.2-46.3) % MCV (80.0-97.0) fL MCH (27.0-32.0) pg MCHC (32.0-37.0) g/dL Plt Count (140-440) 10*3/uL Lymphocytes # (0.90-5.00) 10*3/uL Monocytes # (0.20-1.00) 10*3/uL Eosinophils # (0.04-0.35) 10*3/uL APTT (22.0-30.0) sec Chloride (98-107) mmol/L BUN (7-17) mg/dL Creatinine (0.52-1.04) mg/dL Glucose (74-99) mg/dL POC Glucose (mg/dL) 118 H 130 H 120 H (70-110) mg/dL Calcium (8.4-10.2) mg/dL Magnesium (1.6-2.3) mg/dL 08/17/24 08/17/24 08/17/24 Range/Units 02: 02:29 02:29 RBC 3.51 L (4.10-5.20) 10*6/uL Hgb 11.3 L (12.0-15.0) g/dL Hct 35.6 L (37.2-46.3) % MCV 101.4 H (80.0-97.0) fL MCH 32.2 H (27.0-32.0) pg MCHC 31.7 L (32.0-37.0) g/dL Plt Count 121 L (140-440) 10*3/uL Lymphocytes # 0.41 L (0.90-5.00) 10*3/uL Monocytes # 0.15 L (0.20-1.00) 10*3/uL Eosinophils # 0.00 L (0.04-0.35) 10*3/uL APTT 38.3 H (22.0-30.0) sec Chloride 108 H (98-107) mmol/L BUN 62 H (7-17) mg/dL Creatinine 1.77 H (0.52-1.04) mg/dL Glucose 124 H (74-99) mg/dL POC Glucose (mg/dL) (70-110) mg/dL Calcium 8.0 L (8.4-10.2) mg/dL Magnesium 2.5 H (1.6-2.3) mg/dL 08/17/24 Range/Units 05:47 RBC (4.10-5.20) 10*6/uL Hgb (12.0-15.0) g/dL Hct (37.2-46.3) % MCV (80.0-97.0) fL MCH (27.0-32.0) pg MCHC (32.0-37.0) g/dL Plt Count (140-440) 10*3/uL Lymphocytes # (0.90-5.00) 10*3/uL Monocytes # (0.20-1.00) 10*3/uL Eosinophils # (0.04-0.35) 10*3/uL APTT (22.0-30.0) sec Chloride (98-107) mmol/L BUN (7-17) mg/dL Creatinine (0.52-1.04) mg/dL Glucose (74-99) mg/dL POC Glucose (mg/dL) 117 H (70-110) mg/dL Calcium (8.4-10.2) mg/dL Magnesium (1.6-2.3) mg/dL Microbiology - Last 24 Hours (Table) 08/14/24 17:04 Blood Culture - Preliminary Blood 08/14/24 13:52 Urine Culture - Final Urine,Voided Klebsiella pneumoniae
--- NOTE | 2024-08-17 15:21 | P.PN ---
Subjective Progress Note Date: 08/16/24 Principal diagnosis: Reason for follow-up is leukocytosis and UTI Patient is a 78-year-old female with a past medical history significant for COPD hypertension osteoarthritis diverticulitis patient has been brought into the hospital for evaluation of weakness patient did have a positive UA elevated white count mental status changes concerning for symptomatic UTI. On today's evaluation that is 08/16/2024,the patient denies any fever or any chills, patient is breathing comfortably on 3 L of oxygen the patient denies chest pain shortness of breath and no significant cough, patient denies abdominal pain, no nausea vomiting or diarrhea. Patient white count is slightly up to 10.66, creatinine is 2.03, urine with gram-negative Objective - Vital Signs Vital signs: Vital Signs Temp 97.9 F 08/15/24 22:00 Pulse 57 L 08/16/24 11:47 Resp 16 08/16/24 05:45 BP 126/68 08/16/24 05:00 Pulse Ox 94 L 08/16/24 10:28 FiO2 Intake & Output 08/15/24 08/16/24 08/16/24 18:59 06:59 18:59 Intake Total 51.71 88.811 0 Balance 51.71 88.811 0 Weight 68.039 kg Intake: Intake, IV Titration 51.71 88.811 Amount Heparin Sod,Pork in 0.45% 51.71 88.811 NaCl 25,000 unit In 0.45 % NaCl 1 250ml.bag @ 12 UNITS/KG/HR 8.165 mls/hr IV .Q24H [facility] Rx#: [id number] Oral 0 Other: Voiding Method External Catheter - Exam GENERAL DESCRIPTION: An elderly female lying in bed in no distress RESPIRATORY SYSTEM: Unlabored breathing , decreased breath sounds at bases HEART: S1 S2 regular rate and rhythm , ABDOMEN: Soft , no tenderness EXTREMITIES: No edema feet - Labs CBC & Chem 7: 08/17/24 02:29 08/17/24 02:29 Labs: Abnormal Lab Results - Last 24 Hours (Table) 08/15/24 08/15/24 08/16/24 Range/Units 06:00 18:25 01:53 WBC (4.50-10.00) 10*3/uL RBC (4.10-5.20) 10*6/uL MCV (80.0-97.0) fL MCH (27.0-32.0) pg MCHC (32.0-37.0) g/dL Plt Count (140-440) 10*3/uL Immature Gran # (0.00-0.04) 10*3/uL Neutrophils # (1.80-7.70) 10*3/uL Lymphocytes # (0.90-5.00) 10*3/uL Eosinophils # (0.04-0.35) 10*3/uL APTT 73.8 H 43.9 H (22.0-30.0) sec BUN (7-17) mg/dL Creatinine (0.52-1.04) mg/dL Glucose (74-99) mg/dL POC Glucose (mg/dL) (70-110) mg/dL Magnesium (1.6-2.3) mg/dL Creatine Kinase 2472 H (26-186) U/L 08/16/24 08/16/24 08/16/24 Range/Units 06:33 07:48 07:48 WBC 10.66 H (4.50-10.00) 10*3/uL RBC 3.77 L (4.10-5.20) 10*6/uL MCV 103.7 H (80.0-97.0) fL MCH 32.1 H (27.0-32.0) pg MCHC 30.9 L (32.0-37.0) g/dL Plt Count 124 L (140-440) 10*3/uL Immature Gran # 0.06 H (0.00-0.04) 10*3/uL Neutrophils # 9.92 H (1.80-7.70) 10*3/uL Lymphocytes # 0.46 L (0.90-5.00) 10*3/uL Eosinophils # 0.00 L (0.04-0.35) 10*3/uL APTT (22.0-30.0) sec BUN 64 H (7-17) mg/dL Creatinine 2.03 H (0.52-1.04) mg/dL Glucose 119 H (74-99) mg/dL POC Glucose (mg/dL) 151 H (70-110) mg/dL Magnesium 2.5 H (1.6-2.3) mg/dL Creatine Kinase 561 H (26-186) U/L 07/02/25 07/02/25 Range/Units 07:48 11:27 WBC (4.50-10.00) 10*3/uL RBC (4.10-5.20) 10*6/uL MCV (80.0-97.0) fL MCH (27.0-32.0) pg MCHC (32.0-37.0) g/dL Plt Count (140-440) 10*3/uL Immature Gran # (0.00-0.04) 10*3/uL Neutrophils # (1.80-7.70) 10*3/uL Lymphocytes # (0.90-5.00) 10*3/uL Eosinophils # (0.04-0.35) 10*3/uL APTT (22.0-30.0) sec BUN (7-17) mg/dL Creatinine (0.52-1.04) mg/dL Glucose (74-99) mg/dL POC Glucose (mg/dL) 118 H (70-110) mg/dL Magnesium (1.6-2.3) mg/dL Creatine Kinase 529 H (26-186) U/L Microbiology - Last 24 Hours (Table) 08/14/24 17:04 Blood Culture - Preliminary Blood 08/14/24 13:52 Urine Culture - Preliminary Urine,Voided Gram Neg Bacilli Assessment and Plan (1) UTI (urinary tract infection) Current Visit: Yes Status: Acute Code(s): N39.0 - URINARY TRACT INFECTION, SITE NOT SPECIFIED SNOMED Code(s): 63534748 (2) Leukocytosis Current Visit: Yes Status: Acute Code(s): D72.829 - ELEVATED WHITE BLOOD CELL COUNT, UNSPECIFIED SNOMED Code(s): 917752228 Plan: 1patient presented to hospital with with weakness did have a fall unable to get up he did have symptom of darker urine and some suprapubic tenderness elevated white count significantly positive UA concerning for symptomatic UTI likely from enteric gram-negative pathogen, patient also have elevated creatinine anemia rule out any obstructive uropathy 2- ultrasound of the abdominal did shows hepatic steatosis and a right renal cyst 3-patient white count slightly up today urine is growing gram-negative patient will be treated with Rocephin 2 g daily to continue while waiting for the culture to finalize Dictation was produced using [employer]ation software. please excuse any grammatical, word or spelling errors. Time with Patient: Less than 30
--- NOTE | 2024-08-17 15:22 | P.PN ---
Subjective Progress Note Date: 08/17/24 Principal diagnosis: Reason for follow-up is leukocytosis and UTI Patient is a 78-year-old female with a past medical history significant for COPD hypertension osteoarthritis diverticulitis patient has been brought into the hospital for evaluation of weakness patient did have a positive UA elevated white count mental status changes concerning for symptomatic UTI. On today's evaluation that is 08/17/2024,the patient remains to be afebrile, patient is on 2 L nasal cannula supplemental oxygen and denies any shortness of breath no chest pain or cough.Patient denies having any nausea or vomiting, no abdominal pain and no diarrhea has been reported complaining of feeling weak today. Patient white count 7.81, creatinine is 1.77, urine culture with Klebsiella pneumonia sensitive to ceftriaxone Objective - Vital Signs Vital signs: Vital Signs Temp 98.0 F 08/17/24 08:00 Pulse 60 08/17/24 09:51 Resp 18 08/17/24 08:00 BP 147/78 08/17/24 08:00 Pulse Ox 98 08/17/24 08:00 FiO2 Intake & Output 08/16/24 08/17/24 08/17/24 18:59 06:59 18:59 Intake Total 240 372.1 420 Output Total 850 Balance 240 -477.9 420 Intake: Intake, IV Titration 372.1 Amount Heparin Sod,Pork in 0.45% 192.1 NaCl 25,000 unit In 0.45 % NaCl 1 250ml.bag @ 12 UNITS/KG/HR 8.165 mls/hr IV .Q24H [facility] Rx#: [id number] Sodium Chloride 0.9% 1, 180 000 ml @ 60 mls/hr IV . [id number] [facility] Rx#:[id number] Oral 240 420 Output: Urine 850 Other: Voiding Method External Catheter External Catheter External Catheter # Bowel Movements 1 - Exam GENERAL DESCRIPTION: An elderly female lying in bed in no distress RESPIRATORY SYSTEM: Unlabored breathing , decreased breath sounds at bases HEART: S1 S2 regular rate and rhythm , ABDOMEN: Soft , no tenderness EXTREMITIES: No edema feet - Labs CBC & Chem 7: 08/17/24 02:29 08/17/24 02:29 Labs: Abnormal Lab Results - Last 24 Hours (Table) 08/16/24 08/16/24 08/17/24 Range/Units 16:35 20:00 02:29 RBC (4.10-5.20) 10*6/uL Hgb (12.0-15.0) g/dL Hct (37.2-46.3) % MCV (80.0-97.0) fL MCH (27.0-32.0) pg MCHC (32.0-37.0) g/dL Plt Count (140-440) 10*3/uL Lymphocytes # (0.90-5.00) 10*3/uL Monocytes # (0.20-1.00) 10*3/uL Eosinophils # (0.04-0.35) 10*3/uL APTT 38.3 H (22.0-30.0) sec Chloride (98-107) mmol/L BUN (7-17) mg/dL Creatinine (0.52-1.04) mg/dL Glucose (74-99) mg/dL POC Glucose (mg/dL) 130 H 120 H (70-110) mg/dL Calcium (8.4-10.2) mg/dL Magnesium (1.6-2.3) mg/dL 08/17/24 08/17/24 08/17/24 Range/Units 02:29 02:29 05:47 RBC 3.51 L (4.10-5.20) 10*6/uL Hgb 11.3 L (12.0-15.0) g/dL Hct 35.6 L (37.2-46.3) % MCV 101.4 H (80.0-97.0) fL MCH 32.2 H (27.0-32.0) pg MCHC 31.7 L (32.0-37.0) g/dL Plt Count 121 L (140-440) 10*3/uL Lymphocytes # 0.41 L (0.90-5.00) 10*3/uL Monocytes # 0.15 L (0.20-1.00) 10*3/uL Eosinophils # 0.00 L (0.04-0.35) 10*3/uL APTT (22.0-30.0) sec Chloride 108 H (98-107) mmol/L BUN 62 H (7-17) mg/dL Creatinine 1.77 H (0.52-1.04) mg/dL Glucose 124 H (74-99) mg/dL POC Glucose (mg/dL) 117 H (70-110) mg/dL Calcium 8.0 L (8.4-10.2) mg/dL Magnesium 2.5 H (1.6-2.3) mg/dL 08/17/24 Range/Units 11:18 RBC (4.10-5.20) 10*6/uL Hgb (12.0-15.0) g/dL Hct (37.2-46.3) % MCV (80.0-97.0) fL MCH (27.0-32.0) pg MCHC (32.0-37.0) g/dL Plt Count (140-440) 10*3/uL Lymphocytes # (0.90-5.00) 10*3/uL Monocytes # (0.20-1.00) 10*3/uL Eosinophils # (0.04-0.35) 10*3/uL APTT (22.0-30.0) sec Chloride (98-107) mmol/L BUN (7-17) mg/dL Creatinine (0.52-1.04) mg/dL Glucose (74-99) mg/dL POC Glucose (mg/dL) 121 H (70-110) mg/dL Calcium (8.4-10.2) mg/dL Magnesium (1.6-2.3) mg/dL Microbiology - Last 24 Hours (Table) 08/14/24 17:04 Blood Culture - Preliminary Blood 08/14/24 13:52 Urine Culture - Final Urine,Voided Klebsiella pneumoniae Assessment and Plan (1) UTI (urinary tract infection) Current Visit: Yes Status: Acute Code(s): N39.0 - URINARY TRACT INFECTION, SITE NOT SPECIFIED SNOMED Code(s): 28106058 (2) Leukocytosis Current Visit: Yes Status: Acute Code(s): D72.829 - ELEVATED WHITE BLOOD CELL COUNT, UNSPECIFIED SNOMED Code(s): 607144373 Plan: 1patient presented to hospital with with weakness did have a fall unable to get up he did have symptom of darker urine and some suprapubic tenderness elevated white count significantly positive UA concerning for symptomatic UTI likely from enteric gram-negative pathogen, patient also have elevated creatinine anemia rule out any obstructive uropathy 2- ultrasound of the abdominal did shows hepatic steatosis and a right renal cyst 3-patient white count has normalized urine is growing Klebsiella pneumonia that is sensitive pathogen 4patient is being treated with Rocephin will be able to finish therapy with oral Ceftin on discharge Dictation was produced using [employer] software. please excuse any grammatical, word or spelling errors. Time with Patient: Less than 30
[2024-08-17 16:21] LABS: Glucose,Whole Blood 152 mg/dL (70-110)
[2024-08-17 17:52] LABS: Glucose,Whole Blood 144 mg/dL (70-110)
--- NOTE | 2024-08-17 18:07 | CDI ---
Documentation Clarification Form Date: 08/17/2024 05:41:46 PM From: Cookie Hayes RN CCDS Phone: [phone] Admit Date: 08/14/2024 08:20:00 PM Patient Name: Pamela Vilchis Visit Number: [id number] Discharge Date: ATTENTION: The Clinical Documentation Specialists (CDI) and [facility] Coding Staff appreciate your assistance in clarifying documentation. Please respond to the clarification below the line at the bottom and electronically sign. The CDI & [facility] Coding staff will review the response and follow-up if needed. Please note: Queries are made part of the Legal Health Record. If you have any questions, please contact the author of this message via ITS. Doctor: Tracey Walker Conflicting documentation has been found in the medical record. As attending physician, please provide clarification. NSTEMI II, type II secondary to rhabdomyolysis, acute kidney injury. Cardiology note, 08/16 Possible Acute [id number] elevation myocardial infarction with troponin up to 6.860, Medicine note, 08/16. History/Risk Factors: 78 year old female presents to the ED after she slid from her chair to the ground and was down for about 12 hours to which she was found by her daughter. Medical history: CKD IV, CHF, COPD and Neurologic disorder 08/15 Nephrology note. Clinical Indicators: 08/14, EKG: Sinus rhythm, Left axis deviation, Pattern consistent with pulmonary disease. Minimal ST Depression. Abnormal ECG 08/14, Troponin: 08/14: 5.070; 5.690; 6.860 08/14, Creatine kinase 6951; 2472; 08/16 561; 08/16 529 08/14, Creatinine 2.12; 08/15 2.2; 08/16 2.03 08/16, 2DEcho: EF 55-60% , Normal LV function, Biatrial enlargement, Mild mitral and tricuspid regurgitation. Treatment: 08/14 0.9ns 500cc IV X 1; 08/14 08/15 0.9NS IV 80cc/hr; 08/15 08/16 0.9NS IV 100cc/hr; 08/16 0.9NS IV 60/cchr Please clarify which diagnosis is most appropriate: [ ] NSTEMI II, type II secondary to rhabdomyolysis, acute kidney injury. [ ] Acute yke-RF-zvuabbb elevation myocardial infarction [ ] Other (please specify) [ ] Unable to determine Unable to determine MTDD
[2024-08-17 20:26] LABS: Glucose,Whole Blood 126 mg/dL (70-110)
--- NOTE | 2024-08-18 01:21 | PN ---
PROGRESS NOTE DATE OF SERVICE: 08/17/2024 SUBJECTIVE: The is an 78-year-old woman, who was admitted with acute rhabdomyolysis, also complaining of weakness. The patient also had multiple falls. No chest pain, no palpitation. PHYSICAL EXAMINATION: VITAL SIGNS: Pulse is 58, blood pressure 146/73, respirations 18. CHEST: Clear to auscultation. CARDIOVASCULAR: S1 and S2. ABDOMEN: Soft. LABORATORY DATA: Reviewed. ASSESSMENT: 1. Acute urinary tract infection with Klebsiella pneumoniae, polysensitive, present on admission. 2. Fall and acute rhabdomyolysis. 3. Chronic obstructive pulmonary disease. 4. Possible acute cad-EZ-llvesad-elevation myocardial infarction with troponin up to 6.860. 5. History of congestive heart failure. 6. Hypertension. 7. History of degenerative joint disease. 8. History of anemia. 9. Remote history of coronavirus disease in 2019. RECOMMENDATIONS: Recommended to continue with current medications, symptomatic treatment. Recommended antibiotics. Closely follow with multiple consultants. PT and OT evaluation, possible ECF and rehab. Further recommendations to follow. 2D echo showed normal LV function. MMODL / IJN: [id number] /
[2024-08-18 06:04] LABS: Glucose,Whole Blood 118 mg/dL (70-110)
[2024-08-18 06:44] LABS: African American GFR (CKD) 39 (>60 ml/min/1.73 sqM); Anion Gap 8 mmol/L; Blood Urea Nitrogen 52 mg/dL (7-17); Calcium 8.1 mg/dL (8.4-10.2); Carbon Dioxide 21 mmol/L (22-30); Chloride 112 mmol/L (98-107); Creatine Kinase 88 U/L (30-135); Glucose 122 mg/dL (74-99); Magnesium 2.5 mg/dL (1.6-2.3); Non-African American GFR(CKD) 33 (>60 ml/min/1.73 sqM); Potassium 4.3 mmol/L (3.5-5.1); Sodium 141 mmol/L (137-145)
--- NOTE | 2024-08-18 09:40 | P.PN ---
Subjective Patient is seen in follow-up for acute kidney injury on chronic kidney disease. Renal function better. No active complaints. Oral intake is good. Vital signs are stable. General: No acute distress. HEENT: Head exam is unremarkable. LUNGS: No audible rhonchi or wheezes. HEART: Rate and Rhythm are regular. ABDOMEN: Nontender. EXTREMITITES: No edema. Objective - Vital Signs Vital signs: Vital Signs Temp 97.7 F 08/18/24 04:00 Pulse 56 L 08/18/24 09:28 Resp 16 08/18/24 04:00 BP 149/72 08/18/24 04:00 Pulse Ox 98 08/18/24 04:00 FiO2 Intake & Output 08/17/24 08/18/24 08/18/24 18:59 06:59 18:59 Intake Total 657 Output Total 250 400 Balance 407 -400 Weight 75.4 kg Intake: Oral 657 Output: Urine 250 400 Other: Voiding Method External Catheter External Catheter # Bowel Movements 1 - Labs CBC & Chem 7: 08/17/24 02:29 08/18/24 05:31 Labs: Abnormal Lab Results - Last 24 Hours (Table) 08/17/24 08/17/24 08/17/24 Range/Units 11:18 16:19 17:50 Chloride (98-107) mmol/L Carbon Dioxide (22-30) mmol/L BUN (7-17) mg/dL Creatinine (0.52-1.04) mg/dL Glucose (74-99) mg/dL POC Glucose (mg/dL) 121 H 152 H 144 H (70-110) mg/dL Calcium (8.4-10.2) mg/dL Magnesium (1.6-2.3) mg/dL 08/17/24 08/18/24 08/18/24 Range/Units 20:24 05:31 06:02 Chloride 112 H (98-107) mmol/L Carbon Dioxide 21 L (22-30) mmol/L BUN 52 H (7-17) mg/dL Creatinine 1.47 H (0.52-1.04) mg/dL Glucose 122 H (74-99) mg/dL POC Glucose (mg/dL) 126 H 118 H (70-110) mg/dL Calcium 8.1 L (8.4-10.2) mg/dL Magnesium 2.5 H (1.6-2.3) mg/dL Microbiology - Last 24 Hours (Table) 08/14/24 17:04 Blood Culture - Preliminary Blood Assessment and Plan Plan: Assessment: 1. Acute kidney injury secondary to ATN secondary to rhabdomyolysis and hypovolemia. Better. Creatinine 1.47 today. Atrophic kidneys with no evidence of hydronephrosis noted. 2. Chronic kidney disease stage IV baseline creatinine 1.7-2 secondary to nephrosclerosis. 3. Klebsiella UTI on antibiotics. 4. Hypertension with chronic kidney disease. Stable. 5. Rhabdomyolysis secondary to fall. CK levels trending down. 6. Non-ST elevated myocardial infarction. Cardiology following. 7. Chronic diastolic CHF. 8. Hypernatremia from lack of oral water intake. Better. Plan: Maintain normal saline at 60 cc an hour. Continue to hold losartan and diuretics. Avoid nephrotoxins. Continue to monitor renal function and urine output. Encouraged oral intake.
[2024-08-18] MEDS: NON FORMULARY DRUG (Alendronate Sodium [Fosamax] 70 MG Tablet) PO SCH (09:57)
[2024-08-18 11:41] LABS: Glucose,Whole Blood 133 mg/dL (70-110)
--- NOTE | 2024-08-18 14:54 | P.PN ---
Subjective Progress Note Date: 08/18/24 Principal diagnosis: Reason for follow-up is leukocytosis and UTI Patient is a 78-year-old female with a past medical history significant for COPD hypertension osteoarthritis diverticulitis patient has been brought into the hospital for evaluation of weakness patient did have a positive UA elevated white count mental status changes concerning for symptomatic UTI. On today's evaluation that is 08/18/2024, the patient continues to be afebrile, the patient is on 2 L nasal oxygen and breathing comfortably, the Pt denies having any chest pain or cough, the patient denies having any abdominal pain no vomiting or any diarrhea patient feeling better was able to get up and around in the room. Patient creatinine is down to 1.47 white count was 7.81 yesterday urine with Klebsiella blood culture negative Objective - Vital Signs Vital signs: Vital Signs Temp 97.7 F 08/18/24 04:00 Pulse 62 08/18/24 14:20 Resp 16 08/18/24 04:00 BP 149/72 08/18/24 04:00 Pulse Ox 98 08/18/24 04:00 FiO2 Intake & Output 08/17/24 08/18/24 08/18/24 18:59 06:59 18:59 Intake Total 657 400 Output Total 250 400 Balance 407 -400 400 Weight 75.4 kg Intake: Oral 657 400 Output: Urine 250 400 Other: Voiding Method External Catheter External Catheter # Voids 1 # Bowel Movements 1 1 - Exam GENERAL DESCRIPTION: An elderly female lying in bed in no distress RESPIRATORY SYSTEM: Unlabored breathing , decreased breath sounds at bases HEART: S1 S2 regular rate and rhythm , ABDOMEN: Soft , no tenderness EXTREMITIES: No edema feet - Labs CBC & Chem 7: 08/17/24 02:29 08/18/24 05:31 Labs: Abnormal Lab Results - Last 24 Hours (Table) 08/17/24 08/17/24 08/17/24 Range/Units 16:19 17:50 20:24 Chloride (98-107) mmol/L Carbon Dioxide (22-30) mmol/L BUN (7-17) mg/dL Creatinine (0.52-1.04) mg/dL Glucose (74-99) mg/dL POC Glucose (mg/dL) 152 H 144 H 126 H (70-110) mg/dL Calcium (8.4-10.2) mg/dL Magnesium (1.6-2.3) mg/dL 08/18/24 08/18/24 08/18/24 Range/Units 05:31 06:02 11:40 Chloride 112 H (98-107) mmol/L Carbon Dioxide 21 L (22-30) mmol/L BUN 52 H (7-17) mg/dL Creatinine 1.47 H (0.52-1.04) mg/dL Glucose 122 H (74-99) mg/dL POC Glucose (mg/dL) 118 H 133 H (70-110) mg/dL Calcium 8.1 L (8.4-10.2) mg/dL Magnesium 2.5 H (1.6-2.3) mg/dL Microbiology - Last 24 Hours (Table) 08/14/24 17:04 Blood Culture - Preliminary Blood Assessment and Plan (1) UTI (urinary tract infection) Current Visit: Yes Status: Acute Code(s): N39.0 - URINARY TRACT INFECTION, SITE NOT SPECIFIED SNOMED Code(s): 90487214 (2) Leukocytosis Current Visit: Yes Status: Acute Code(s): D72.829 - ELEVATED WHITE BLOOD CELL COUNT, UNSPECIFIED SNOMED Code(s): 048371544 Plan: 1patient presented to hospital with with weakness did have a fall unable to get up he did have symptom of darker urine and some suprapubic tenderness elevated white count significantly positive UA concerning for symptomatic UTI likely from enteric gram-negative pathogen, patient also have elevated creatinine anemia rule out any obstructive uropathy 2- ultrasound of the abdominal did shows hepatic steatosis and a right renal cys t 3-patient white count has normalized urine is growing Klebsiella pneumonia that is sensitive pathogen, blood culture has been negative 4patient will be treated with Rocephin while inpatient and monitor clinical course closely Dictation was produced using [employer] dictation software. please excuse any grammatical, word or spelling errors. Time with Patient: Less than 30
[2024-08-18] MEDS ORDERED: ZINC OXIDE PASTE (Z-GUARD) 1 APPLIC TOPICAL PRN (15:20)
[2024-08-18 16:40] LABS: Glucose,Whole Blood 140 mg/dL (70-110)
--- NOTE | 2024-08-18 17:03 | PN ---
PROGRESS NOTE DATE OF SERVICE: 08/18/2024 SUBJECTIVE: This is an 78-year-old woman, who was admitted with UTI with Klebsiella pneumoniae, also had history of fall and rhabdomyolysis. The patient improved significantly. PT, OT evaluating the patient, possibly ECF rehab. PHYSICAL EXAMINATION: VITAL SIGNS: Pulse 56, blood pressure 149/74, respirations 16. CHEST: Clear to auscultation. ABDOMEN: Soft. NERVOUS SYSTEM: Nonfocal. LABORATORY DATA: Creatinine is 1.47. Creatine kinase is normal. ASSESSMENT: 1. Acute urinary tract infection with Klebsiella pneumoniae; polysensitive, present on admission. 2. Fall and acute rhabdomyolysis. 3. Chronic obstructive pulmonary disease. 4. Possible acute dcd-[id number] elevation myocardial infarction with troponin up to 6.860. 5. History of congestive heart failure. 6. Hypertension. 7. History of degenerative joint disease. 8. History of anemia. 9. Remote history of COVID-19. RECOMMENDATIONS: Recommended to continue with current medications. Continue PT, OT. Otherwise, the cultures are noted. Continue antibiotics. Possible ECF rehab. Discussed with family at length. Further recommendations to follow. MMODL / IJN: [id number] /
[2024-08-18 19:53] LABS: Glucose,Whole Blood 113 mg/dL (70-110)
[2024-08-18] MEDS ORDERED: IPRATROPIUM-ALBUTEROL 3 ML NEB INHALATION PRN (21:50)
[2024-08-19 05:59] LABS: Glucose,Whole Blood 115 mg/dL (70-110)
[2024-08-19 07:24] LABS: Basophils # (A) 0.04 10*3/uL (0.00-0.10); Basophils % (A) 0.4 %; Eosinophils # (A) 0.00 10*3/uL (0.04-0.35); Eosinophils % (A) 0.0 %; HCT 38.3 % (37.2-46.3); HGB 12.1 g/dL (12.0-15.0); Lymphocytes # (A) 0.48 10*3/uL (0.90-5.00); Lymphocytes % (A) 4.2 %; MCH 32.0 pg (27.0-32.0); MCHC 31.6 g/dL (32.0-37.0); MCV 101.3 fL (80.0-97.0); Monocytes # (A) 0.67 10*3/uL (0.20-1.00); Monocytes % (A) 5.9 %; Neutrophils # (A) 9.80 10*3/uL (1.80-7.70); Neutrophils % (A) 86.7 %; Platelet Count 151 10*3/uL (140-440); RBC 3.78 10*6/uL (4.10-5.20); RDW 12.7 % (11.5-14.5); WBC 11.31 10*3/uL (4.50-10.00)
[2024-08-19 07:47] LABS: ALT 40 U/L (4-34); AST 30 U/L (14-36); African American GFR (CKD) 38 (>60 ml/min/1.73 sqM); Albumin 3.1 g/dL (3.5-5.0); Alkaline Phosphatase 56 U/L (38-126); Anion Gap 9 mmol/L; Blood Urea Nitrogen 47 mg/dL (7-17); Calcium 8.4 mg/dL (8.4-10.2); Carbon Dioxide 22 mmol/L (22-30); Chloride 114 mmol/L (98-107); Glucose 103 mg/dL (74-99); Magnesium 2.4 mg/dL (1.6-2.3); Non-African American GFR(CKD) 33 (>60 ml/min/1.73 sqM); Potassium 4.0 mmol/L (3.5-5.1); Sodium 145 mmol/L (137-145); Total Protein 5.3 g/dL (6.3-8.2)
[2024-08-19] MEDS: IPRATROPIUM-ALBUTEROL 3 ML NEB INHALATION SCH (08:34)
--- NOTE | 2024-08-19 09:44 | P.PN ---
Subjective Patient is seen in follow-up for acute kidney injury on chronic kidney disease. Renal function stable. No active complaints. Oral intake is good. Vital signs are stable. General: No acute distress. HEENT: Head exam is unremarkable. LUNGS: No audible rhonchi or wheezes. HEART: Rate and Rhythm are regular. ABDOMEN: Nontender. EXTREMITITES: No edema. Objective - Vital Signs Vital signs: Vital Signs Temp 98.2 F 08/19/24 04:00 Pulse 65 08/19/24 08:50 Resp 18 08/19/24 04:00 BP 153/78 08/19/24 04:00 Pulse Ox 96 08/19/24 08:35 FiO2 Intake & Output 08/18/24 08/19/24 08/19/24 18:59 06:59 18:59 Intake Total 640 120 Balance 640 120 Weight 75.4 kg Intake: Oral 640 120 Other: Voiding Method External Catheter External Catheter # Voids 1 1 # Bowel Movements 1 1 - Labs CBC & Chem 7: 08/19/24 05:39 08/19/24 05:39 Labs: Abnormal Lab Results - Last 24 Hours (Table) 08/18/24 08/18/24 08/18/24 Range/Units 11:40 16:37 19:51 WBC (4.50-10.00) 10*3/uL RBC (4.10-5.20) 10*6/uL MCV (80.0-97.0) fL MCHC (32.0-37.0) g/dL Immature Gran # (0.00-0.04) 10*3/uL Neutrophils # (1.80-7.70) 10*3/uL Lymphocytes # (0.90-5.00) 10*3/uL Eosinophils # (0.04-0.35) 10*3/uL Chloride (98-107) mmol/L BUN (7-17) mg/dL Creatinine (0.52-1.04) mg/dL Glucose (74-99) mg/dL POC Glucose (mg/dL) 133 H 140 H 113 H (70-110) mg/dL Magnesium (1.6-2.3) mg/dL ALT (4-34) U/L Total Protein (6.3-8.2) g/dL Albumin (3.5-5.0) g/dL 08/19/24 08/19/24 08/19/24 Range/Units 05:39 05:39 05:58 WBC 11.31 H (4.50-10.00) 10*3/uL RBC 3.78 L (4.10-5.20) 10*6/uL MCV 101.3 H (80.0-97.0) fL MCHC 31.6 L (32.0-37.0) g/dL Immature Gran # 0.32 H (0.00-0.04) 10*3/uL Neutrophils # 9.80 H (1.80-7.70) 10*3/uL Lymphocytes # 0.48 L (0.90-5.00) 10*3/uL Eosinophils # 0.00 L (0.04-0.35) 10*3/uL Chloride 114 H (98-107) mmol/L BUN 47 H (7-17) mg/dL Creatinine 1.48 H (0.52-1.04) mg/dL Glucose 103 H (74-99) mg/dL POC Glucose (mg/dL) 115 H (70-110) mg/dL Magnesium 2.4 H (1.6-2.3) mg/dL ALT 40 H (4-34) U/L Total Protein 5.3 L (6.3-8.2) g/dL Albumin 3.1 L (3.5-5.0) g/dL Assessment and Plan Plan: Assessment: 1. Acute kidney injury secondary to ATN secondary to rhabdomyolysis and hypovol emia. Better. Creatinine 1.48 today. Atrophic kidneys with no evidence of hydronephrosis noted. 2. Chronic kidney disease stage IV baseline creatinine 1.7-2 secondary to nephrosclerosis. 3. Klebsiella UTI on antibiotics. 4. Hypertension with chronic kidney disease. Stable. 5. Rhabdomyolysis secondary to fall. Resolved. 6. Non-ST elevated myocardial infarction. Cardiology following. 7. Chronic diastolic CHF. 8. Hypernatremia from lack of oral water intake. Stable. Plan: Hep-Lock IV fluids. Continue to hold losartan and diuretics. Avoid nephrotoxins. Continue to monitor renal function and urine output. Encouraged oral intake.
[2024-08-19 11:14] LABS: Glucose,Whole Blood 90 mg/dL (70-110)
--- NOTE | 2024-08-19 15:33 | P.PN ---
Subjective Progress Note Date: 08/19/24 Principal diagnosis: Reason for follow-up is leukocytosis and UTI Patient is a 78-year-old female with a past medical history significant for COPD hypertension osteoarthritis diverticulitis patient has been brought into the hospital for evaluation of weakness patient did have a positive UA elevated white count mental status changes concerning for symptomatic UTI. On today's evaluation that is 08/20/2023, patient did have a temperature of 98 F this afternoon and denies having any chills, patient is on room air and breathing comfortably no chest pain or cough, the patient did not have any nausea vomiting abdominal pain or any diarrhea. Patient would close 11.31, creatinine is 1.48 Objective - Vital Signs Vital signs: Vital Signs Temp 98 F 08/19/24 12:35 Pulse 64 08/19/24 12:49 Resp 18 08/19/24 12:35 BP 154/66 08/19/24 12:35 Pulse Ox 96 08/19/24 12:35 FiO2 Intake & Output 08/18/24 08/19/24 08/19/24 18:59 06:59 18:59 Intake Total 640 120 478 Output Total 250 Balance 640 120 228 Weight 75.4 kg Intake: Intake, IV Titration 360 Amount Sodium Chloride 0.9% 1, 360 000 ml @ 60 mls/hr IV . [id number] [facility] Rx#:[id number] Oral 640 120 118 Output: Urine 250 Other: Voiding Method External Catheter External Catheter # Voids 1 1 1 # Bowel Movements 1 1 1 - Exam GENERAL DESCRIPTION: An elderly female lying in bed in no distress RESPIRATORY SYSTEM: Unlabored breathing , decreased breath sounds at bases HEART: S1 S2 regular rate and rhythm , ABDOMEN: Soft , no tenderness EXTREMITIES: No edema feet - Labs CBC & Chem 7: 08/19/24 05:39 08/19/24 05:39 Labs: Abnormal Lab Results - Last 24 Hours (Table) 08/18/24 08/18/24 08/19/24 Range/Units 16:37 19:51 05:39 WBC (4.50-10.00) 10*3/uL RBC (4.10-5.20) 10*6/uL MCV (80.0-97.0) fL MCHC (32.0-37.0) g/dL Immature Gran # (0.00-0.04) 10*3/uL Neutrophils # (1.80-7.70) 10*3/uL Lymphocytes # (0.90-5.00) 10*3/uL Eosinophils # (0.04-0.35) 10*3/uL Chloride 114 H (98-107) mmol/L BUN 47 H (7-17) mg/dL Creatinine 1.48 H (0.52-1.04) mg/dL Glucose 103 H (74-99) mg/dL POC Glucose (mg/dL) 140 H 113 H (70-110) mg/dL Magnesium 2.4 H (1.6-2.3) mg/dL ALT 40 H (4-34) U/L Total Protein 5.3 L (6.3-8.2) g/dL Albumin 3.1 L (3.5-5.0) g/dL 08/19/24 08/19/24 Range/Units 05:39 05:58 WBC 11.31 H (4.50-10.00) 10*3/uL RBC 3.78 L (4.10-5.20) 10*6/uL MCV 101.3 H (80.0-97.0) fL MCHC 31.6 L (32.0-37.0) g/dL Immature Gran # 0.32 H (0.00-0.04) 10*3/uL Neutrophils # 9.80 H (1.80-7.70) 10*3/uL Lymphocytes # 0.48 L (0.90-5.00) 10*3/uL Eosinophils # 0.00 L (0.04-0.35) 10*3/uL Chloride (98-107) mmol/L BUN (7-17) mg/dL Creatinine (0.52-1.04) mg/dL Glucose (74-99) mg/dL POC Glucose (mg/dL) 115 H (70-110) mg/dL Magnesium (1.6-2.3) mg/dL ALT (4-34) U/L Total Protein (6.3-8.2) g/dL Albumin (3.5-5.0) g/dL Assessment and Plan (1) UTI (urinary tract infection) Current Visit: Yes Status: Acute Code(s): N39.0 - URINARY TRACT INFECTION, SITE NOT SPECIFIED SNOMED Code(s): 54156768 (2) Leukocytosis Current Visit: Yes Status: Acute Code(s): D72.829 - ELEVATED WHITE BLOOD CELL COUNT, UNSPECIFIED SNOMED Code(s): 219472989 Plan: 1patient presented to hospital with with weakness did have a fall unable to get up he did have symptom of darker urine and some suprapubic tenderness elevated white count significantly positive UA concerning for symptomatic UTI likely from enteric gram-negative pathogen, patient also have elevated creatinine anemia rule out any obstructive uropathy 2- ultrasound of the abdominal did shows hepatic steatosis and a right renal cyst 3-patient white count initially normalized mildly elevated today will be monitored closely urine is growing Klebsiella pneumonia that is sensitive pathogen, blood culture has been negative 4patient to continue with Rocephin while inpatient and continue supportive care Dictation was produced using [employer] dictation software. please excuse any grammatical, word or spelling errors. Time with Patient: Less than 30
--- NOTE | 2024-08-19 16:09 | P.PN ---
Subjective Progress Note Date: 08/19/24 Patient is a 78-year-old female with a past medical history significant for COPD hypertension osteoarthritis diverticulitis patient has been brought into the hospital for evaluation of weakness patient did have a positive UA elevated white count mental status changes concerning for symptomatic UTI. 08/19. Patient seen examined. Labs reviewed WBC 11.31, hemoglobin 12.1 sodium 140 potassium 4, BUN 47 creatinine 1.48. Continues to be afebrile REVIEW OF SYSTEMS: CONSTITUTIONAL: No fever, no malaise,. CARDIOVASCULAR: No chest pain, no palpitations, no syncope. PULMONARY: No shortness of breath, no cough, GASTROINTESTINAL: No diarrhea, no nausea, no vomiting, no abdominal pain. NEUROLOGICAL: No headaches, no weakness, PHYSICAL EXAMINATION: GENERAL: The patient is alert and oriented x3, ill looking HEENT: Pupils are round and equally reacting to light. EOMI. No scleral icterus. No conjunctival pallor. Normocephalic, atraumatic. No pharyngeal erythema. No thyromegaly. CARDIOVASCULAR: S1 and S2 present. No murmurs, rubs, or gallops. PULMONARY: Chest is clear to auscultation, no wheezing or crackles. ABDOMEN: Soft, nontender, nondistended, normoactive bowel sounds. No palpable organomegaly. MUSCULOSKELETAL: No joint swelling or deformity. EXTREMITIES: No cyanosis, clubbing, or pedal edema. NEUROLOGICAL: Gross neurological examination did not reveal any focal deficits. SKIN: No rashes. Assessment and plan UTI Leukocytosis Acute kidney injury Chronic kidney disease stage IV baseline creatinine 1.7-2 secondary to nephrosclerosis. Klebsiella UTI on antibiotics. Hypertension with chronic kidney disease. Stable. Rhabdomyolysis secondary to fall. Non-ST elevated myocardial infarction. Cardiology following. Chronic diastolic CHF. Hypernatremia from lack of oral water intake Monitor vital signs Monitor CBC Monitor CMP Continue telemetry monitoring Encourage use of incentive spirometer Continue to hold losartan and diuretics. Avoid nephrotoxins. Continue IV Rocephin Cardiology evaluated, no plan for any cardiac intervention Nephrology following ID following Labs and medication were reviewed.. Continue same treatment. Continue with symptomatic treatment. Resume home medication. Monitor labs and vitals. DVT and GI prophylaxis. Further recommendations as per clinical course of the patient Dictation was produced using [employer] dictation software. please excuse any grammatical, word or spelling errors. Objective - Vital Signs Vital signs: Vital Signs Temp 98 F 08/19/24 12:35 Pulse 68 08/19/24 15:52 Resp 18 08/19/24 12:35 BP 154/66 08/19/24 12:35 Pulse Ox 96 08/19/24 12:35 FiO2 Intake & Output 08/18/24 08/19/24 08/19/24 18:59 06:59 18:59 Intake Total 640 120 478 Output Total 250 Balance 640 120 228 Weight 75.4 kg Intake: Intake, IV Titration 360 Amount Sodium Chloride 0.9% 1, 360 000 ml @ 60 mls/hr IV . [id number] [facility] Rx#:[id number] Oral 640 120 118 Output: Urine 250 Other: Voiding Method External Catheter External Catheter # Voids 1 1 1 # Bowel Movements 1 1 1 - Labs CBC & Chem 7: 08/19/24 05:39 08/19/24 05:39 Labs: Abnormal Lab Results - Last 24 Hours (Table) 08/18/24 08/18/24 08/19/24 Range/Units 16:37 19:51 05:39 WBC (4.50-10.00) 10*3/uL RBC (4.10-5.20) 10*6/uL MCV (80.0-97.0) fL MCHC (32.0-37.0) g/dL Immature Gran # (0.00-0.04) 10*3/uL Neutrophils # (1.80-7.70) 10*3/uL Lymphocytes # (0.90-5.00) 10*3/uL Eosinophils # (0.04-0.35) 10*3/uL Chloride 114 H (98-107) mmol/L BUN 47 H (7-17) mg/dL Creatinine 1.48 H (0.52-1.04) mg/dL Glucose 103 H (74-99) mg/dL POC Glucose (mg/dL) 140 H 113 H (70-110) mg/dL Magnesium 2.4 H (1.6-2.3) mg/dL ALT 40 H (4-34) U/L Total Protein 5.3 L (6.3-8.2) g/dL Albumin 3.1 L (3.5-5.0) g/dL 08/19/24 08/19/24 Range/Units 05:39 05:58 WBC 11.31 H (4.50-10.00) 10*3/uL RBC 3.78 L (4.10-5.20) 10*6/uL MCV 101.3 H (80.0-97.0) fL MCHC 31.6 L (32.0-37.0) g/dL Immature Gran # 0.32 H (0.00-0.04) 10*3/uL Neutrophils # 9.80 H (1.80-7.70) 10*3/uL Lymphocytes # 0.48 L (0.90-5.00) 10*3/uL Eosinophils # 0.00 L (0.04-0.35) 10*3/uL Chloride (98-107) mmol/L BUN (7-17) mg/dL Creatinine (0.52-1.04) mg/dL Glucose (74-99) mg/dL POC Glucose (mg/dL) 115 H (70-110) mg/dL Magnesium (1.6-2.3) mg/dL ALT (4-34) U/L Total Protein (6.3-8.2) g/dL Albumin (3.5-5.0) g/dL
[2024-08-19 16:26] LABS: Glucose,Whole Blood 119 mg/dL (70-110)
[2024-08-19 20:42] LABS: Glucose,Whole Blood 128 mg/dL (70-110)
[2024-08-20 05:56] LABS: Glucose,Whole Blood 100 mg/dL (70-110)
--- NOTE | 2024-08-20 10:27 | P.PN ---
Subjective Patient is seen in follow-up for acute kidney injury on chronic kidney disease. Renal function stable as of yesterday. No active complaints. Oral intake is good. Vital signs are stable. General: No acute distress. HEENT: Head exam is unremarkable. LUNGS: No audible rhonchi or wheezes. HEART: Rate and Rhythm are regular. ABDOMEN: Nontender. EXTREMITITES: No edema. Objective - Vital Signs Vital signs: Vital Signs Temp 98.4 F 08/20/24 07:53 Pulse 58 L 08/20/24 07:53 Resp 18 08/20/24 07:53 BP 167/67 08/20/24 07:53 Pulse Ox 99 08/20/24 07:53 FiO2 Intake & Output 08/19/24 08/20/24 08/20/24 18:59 06:59 18:59 Intake Total 596 240 Output Total 500 Balance 96 240 Weight 75.3 kg Intake: Intake, IV Titration 360 Amount Sodium Chloride 0.9% 1, 360 000 ml @ 60 mls/hr IV . [id number] [facility] Rx#:[id number] Oral 236 240 Output: Urine 500 Other: Voiding Method External Catheter # Voids 1 2 # Bowel Movements 1 1 - Labs CBC & Chem 7: 08/19/24 05:39 08/19/24 05:39 Labs: Abnormal Lab Results - Last 24 Hours (Table) 08/19/24 08/19/24 Range/Units 16:24 20:40 POC Glucose (mg/dL) 119 H 128 H (70-110) mg/dL Microbiology - Last 24 Hours (Table) 08/14/24 17:04 Blood Culture - Final Blood Assessment and Plan Plan: Assessment: 1. Acute kidney injury secondary to ATN secondary to rhabdomyolysis and hypovolemia. Improved. Creatinine stable at 1.48 yesterday. Atrophic kidneys with no evidence of hydronephrosis noted. 2. Chronic kidney disease stage IV baseline creatinine 1.7-2 secondary to nephrosclerosis. 3. Klebsiella UTI on antibiotics. 4. Hypertension with chronic kidney disease. Stable. 5. Rhabdomyolysis secondary to fall. Resolved. 6. Non-ST elevated myocardial infarction. Cardiology following. 7. Chronic diastolic CHF. 8. Hypernatremia from lack of oral water intake. Stable. Plan: Off IV fluids. Continue to hold losartan and diuretics. Avoid nephrotoxins. Continue to monitor renal function and urine output. Encouraged oral intake. Increase amlodipine to 5 mg twice daily.
--- NOTE | 2024-08-20 10:58 | P.PN ---
Subjective Patient is a 78-year-old female with a past medical history significant for COPD hypertension osteoarthritis diverticulitis patient has been brought into the hospital for evaluation of weakness patient did have a positive UA elevated white count mental status changes concerning for symptomatic UTI. 08/19. Patient seen examined. Labs reviewed WBC 11.31, hemoglobin 12.1 sodium 140 potassium 4, BUN 47 creatinine 1.48. Continues to be afebrile 08/20/2024 Patient is feeling much better today. Patient will complete her antibiotics for UTI tomorrow. Will discontinue oxygen we will see how her saturations are patient probably will need placement in subacute rehab. Physical therapy need to reevaluate her tomorrow morning. Patient's white count went up yesterday will repeat CBC tomorrow. REVIEW OF SYSTEMS: CONSTITUTIONAL: No fever, no malaise,. CARDIOVASCULAR: No chest pain, no palpitations, no syncope. PULMONARY: No shortness of breath, no cough, GASTROINTESTINAL: No diarrhea, no nausea, no vomiting, no abdominal pain. NEUROLOGICAL: No headaches, no weakness, PHYSICAL EXAMINATION: GENERAL: The patient is alert and oriented x3, ill looking HEENT: Pupils are round and equally reacting to light. EOMI. No scleral icterus. No conjunctival pallor. Normocephalic, atraumatic. No pharyngeal erythema. No thyromegaly. CARDIOVASCULAR: S1 and S2 present. No murmurs, rubs, or gallops. PULMONARY: Chest is clear to auscultation, no wheezing or crackles. ABDOMEN: Soft, nontender, nondistended, normoactive bowel sounds. No palpable organomegaly. MUSCULOSKELETAL: No joint swelling or deformity. EXTREMITIES: No cyanosis, clubbing, or pedal edema. NEUROLOGICAL: Gross neurological examination did not reveal any focal deficits. SKIN: No rashes. Assessment and plan UTI Leukocytosis secondary to urinary tract infection Acute kidney injury Chronic kidney disease stage IV baseline creatinine 1.7-2 secondary to nephrosclerosis. Her creatinine is better than baseline today Klebsiella UTI on antibiotics, Rocephin. Hypertension with chronic kidney disease. Stable. Rhabdomyolysis secondary to fall. Non-ST elevated myocardial infarction. Cardiology following. Chronic diastolic CHF. Hypernatremia from lack of oral water intake Monitor vital signs Monitor CBC Monitor CMP Continue telemetry monitoring Encourage use of incentive spirometer Continue to hold losartan and diuretics. Avoid nephrotoxins. Continue IV Rocephin, will complete antibiotic therapy 08/21/2024 Cardiology evaluated, no plan for any cardiac intervention Nephrology following ID following Labs and medication were reviewed.. Continue same treatment. Continue with symptomatic treatment. Resume home medication. Monitor labs and vitals. DVT and GI prophylaxis. Further recommendations as per clinical course of the patient Objective - Vital Signs Vital signs: Vital Signs Temp 98.4 F 08/20/24 07:53 Pulse 58 L 08/20/24 07:53 Resp 18 08/20/24 07:53 BP 167/67 08/20/24 07:53 Pulse Ox 97 08/20/24 10:25 FiO2 Intake & Output 08/19/24 08/20/24 08/20/24 18:59 06:59 18:59 Intake Total 596 240 Output Total 500 Balance 96 240 Weight 75.3 kg Intake: Intake, IV Titration 360 Amount Sodium Chloride 0.9% 1, 360 000 ml @ 60 mls/hr IV . [id number] [facility] Rx#:[id number] Oral 236 240 Output: Urine 500 Other: Voiding Method External Catheter # Voids 1 2 # Bowel Movements 1 1 - Labs CBC & Chem 7: 08/19/24 05:39 08/19/24 05:39 Labs: Abnormal Lab Results - Last 24 Hours (Table) 08/19/24 08/19/24 Range/Units 16:24 20:40 POC Glucose (mg/dL) 119 H 128 H (70-110) mg/dL Microbiology - Last 24 Hours (Table) 08/14/24 17:04 Blood Culture - Final Blood
[2024-08-20 11:24] LABS: Glucose,Whole Blood 88 mg/dL (70-110)
[2024-08-20 16:29] LABS: Glucose,Whole Blood 110 mg/dL (70-110)
--- NOTE | 2024-08-20 17:11 | P.PN ---
Subjective Progress Note Date: 08/20/24 Principal diagnosis: Reason for follow-up is leukocytosis and UTI Patient is a 78-year-old female with a past medical history significant for COPD hypertension osteoarthritis diverticulitis patient has been brought into the hospital for evaluation of weakness patient did have a positive UA elevated white count mental status changes concerning for symptomatic UTI. On today's evaluation that is 08/20/2024, Patient is afebrile patient is currently on room air and denies having any shortness of breath, the patient denies any chest pain or cough, the patient denies any nausea vomiting did not have any abdominal pain and no diarrhea. No new lab has been obtained today blood culture has been negative Objective - Vital Signs Vital signs: Vital Signs Temp 98.3 F 08/20/24 16:03 Pulse 76 08/20/24 17:06 Resp 18 08/20/24 16:03 BP 162/73 08/20/24 16:03 Pulse Ox 90 L 08/20/24 16:03 FiO2 Intake & Output 08/19/24 08/20/24 08/20/24 18:59 06:59 18:59 Intake Total 596 240 290 Output Total 500 Balance 96 240 290 Weight 75.3 kg Intake: Intake, IV Titration 360 50 Amount Sodium Chloride 0.9% 1, 360 000 ml @ 60 mls/hr IV . [id number] [facility] Rx#:[id number] cefTRIAXone 2 gm In 50 Sodium Chloride 0.9% 50 ml @ 100 mls/hr IVPB Q24HR [facility] Rx#:[id number] Oral 236 240 240 Output: Urine 500 Other: Voiding Method External Catheter # Voids 1 2 3 # Bowel Movements 1 1 - Exam GENERAL DESCRIPTION: An elderly female lying in bed in no distress RESPIRATORY SYSTEM: Unlabored breathing , decreased breath sounds at bases HEART: S1 S2 regular rate and rhythm , ABDOMEN: Soft , no tenderness EXTREMITIES: No edema feet - Labs CBC & Chem 7: 08/19/24 05:39 08/19/24 05:39 Labs: Abnormal Lab Results - Last 24 Hours (Table) 08/19/24 Range/Units 20:40 POC Glucose (mg/dL) 128 H (70-110) mg/dL Microbiology - Last 24 Hours (Table) 08/14/24 17:04 Blood Culture - Final Blood Assessment and Plan (1) UTI (urinary tract infection) Current Visit: Yes Status: Acute Code(s): N39.0 - URINARY TRACT INFECTION, SITE NOT SPECIFIED SNOMED Code(s): 87138747 (2) Leukocytosis Current Visit: Yes Status: Acute Code(s): D72.829 - ELEVATED WHITE BLOOD CELL COUNT, UNSPECIFIED SNOMED Code(s): 942788755 Plan: 1patient presented to hospital with with weakness did have a fall unable to get up he did have symptom of darker urine and some suprapubic tenderness elevated white count significantly positive UA concerning for symptomatic UTI likely from enteric gram-negative pathogen, patient also have elevated creatinine anemia rule out any obstructive uropathy 2- ultrasound of the abdominal did shows hepatic steatosis and a right renal cyst 3-patient white count initially normalized mildly elevated today will be monitored closely urine is growing Klebsiella pneumonia that is sensitive pathogen, blood culture has been negative 4patient has received adequate IV Rocephin while inpatient and may not need any antibiotic on discharge Dictation was produced using [employer] dictation software. please excuse any grammatical, word or spelling errors. Time with Patient: Less than 30
[2024-08-20] MEDS: amLODIPine 5 MG TAB PO SCH (19:51)
[2024-08-20 20:21] LABS: Glucose,Whole Blood 138 mg/dL (70-110)
[2024-08-21 06:02] LABS: Glucose,Whole Blood 89 mg/dL (70-110)
[2024-08-21 08:09] LABS: HCT 39.9 % (37.2-46.3); HGB 12.9 g/dL (12.0-15.0); MCH 31.6 pg (27.0-32.0); MCHC 32.3 g/dL (32.0-37.0); MCV 97.8 fL (80.0-97.0); Platelet Count 185 10*3/uL (140-440); RBC 4.08 10*6/uL (4.10-5.20); RDW 12.8 % (11.5-14.5); WBC 12.75 10*3/uL (4.50-10.00)
[2024-08-21 09:01] LABS: African American GFR (CKD) 45 (>60 ml/min/1.73 sqM); Anion Gap 7 mmol/L; Blood Urea Nitrogen 39 mg/dL (7-17); Calcium 9.2 mg/dL (8.4-10.2); Carbon Dioxide 22 mmol/L (22-30); Chloride 112 mmol/L (98-107); Glucose 86 mg/dL (74-99); Magnesium 2.3 mg/dL (1.6-2.3); Non-African American GFR(CKD) 39 (>60 ml/min/1.73 sqM); Potassium 4.8 mmol/L (3.5-5.1); Sodium 141 mmol/L (137-145)
--- NOTE | 2024-08-21 09:28 | P.DS ---
Providers Date of admission: 08/14/24 20:20 Attending physician: Luis Kemp MD Consults: 08/14/24 16:55 Consult Physician Routine Consulting Provider: Rey Houston Consult Reason/Comments: sepsis Do you want consulting provider notified?: Yes 08/14/24 20:19 Consult Physician Urgent Consulting Provider: Hetal Dalton Consult Reason/Comments: Rhabdomyolysis, ALVA Do you want consulting provider notified?: Yes 08/14/24 21:26 Consult Physician Urgent Consulting Provider: Paul Vegas Consult Reason/Comments: troponin Do you want consulting provider notified?: Already Contacted Primary care physician: Jia Siddiqui Hospital Course: Diagnoses: UTI Leukocytosis secondary to urinary tract infection Acute kidney injury Chronic kidney disease stage IV baseline creatinine 1.7-2 secondary to ne phrosclerosis. Her creatinine is better than baseline today Klebsiella UTI on antibiotics, Rocephin. Hypertension with chronic kidney disease. Stable. Rhabdomyolysis secondary to fall. Non-ST elevated myocardial infarction. Cardiology following. Chronic diastolic CHF. Hypernatremia from lack of oral water intake Hospital course: Patient is a 78-year-old female with a past medical history significant for COPD hypertension osteoarthritis diverticulitis patient has been brought into the hospital for evaluation of weakness patient did have a positive UA elevated white count mental status changes concerning for symptomatic UTI. Also patient found to have rhabdomyolysis secondary to a fall improved with treatment and back to 1.29 which is close to baseline and creatinine kinase improved significantly. Patient continued on small dose of statin recommended by paint brush maker. Losartan and l Lasix can be resumed upon discharge as blood pressure is okay. Meatman also cleared the patient for discharge with cardiac medication, ejection fraction is 55 to 60% on echocardiogram. Patient recommended to follow-up as an outpatient and she agrees Today patient lying in bed feeling stronger but still weak requiring a walker at bedside, she feels ready for discharge. She feels improved back to baseline. Denies any urinary symptoms. No chest pain or dyspnea. No abdominal symptom. Patient was cleared for discharge by emc storage architect infectious disease team and paint brush maker Patient will be discharged on short course of oral antibiotics per ID team Problems and management plan were discussed with the patient and he verbalized understanding and acceptance Patient was found stable and can be discharged home in guarded prognosis however he needs follow-up as an outpatient. Patient was instructed to follow up with PCP within one week and patient agrees Patient instructed to follow-up with paint brush maker Dr. Morfin in 2 weeks and emc storage architect Dr. Ambriz in 1 week and she agrees Physical exam Gen: patient is a AAOx3, no distress CVS: S1-S2, RRR, no murmur Lungs: B/L CTA, no wheezing Abdomen: soft, no distention, no tenderness, positive bowel sounds Extremity: no leg edema or induration Time spent more than 35 minutes Plan - Discharge Summary New Discharge Prescriptions: New Isosorbide Mononitrate ER [Imdur] 30 mg PO DAILY tab Continue Aspirin EC [Ecotrin Low Dose] 81 mg PO W/SUPPER Metoprolol Succinate [[place] Sprinkle] 25 mg PO DAILY Furosemide [Lasix] 40 mg PO DAILY Levothyroxine Sodium [Synthroid] 88 mcg PO AC-BRKFST Alendronate Sodium [Fosamax] 70 mg PO FR Tylenol(Unknown Dose) 1 tab PO BID Unknown Allergy Tab 1 tab PO HS Vitamin B-12(Unknown Dose) 1 tab PO DAILY amLODIPine [Norvasc] 5 mg PO DAILY Losartan [Cozaar] 25 mg PO DAILY Pravastatin Sodium [Pravachol] 20 mg PO W/SUPPER Famotidine [Pepcid] 40 mg PO DAILY Docusate [Colace] 200 mg PO DAILY Fluticasone Nasal [place] [Flonase Nasal [place]] 1 spr EA NOSTRIL DAILY Discharge Medication List Aspirin EC [Ecotrin Low Dose] 81 mg PO W/SUPPER 12/03/18 [History] Metoprolol Succinate [[place] Sprinkle] 25 mg PO DAILY 02/25/19 [History] Furosemide [Lasix] 40 mg PO DAILY 02/03/20 [History] Alendronate Sodium [Fosamax] 70 mg PO FR 04/21/21 [History] Docusate [Colace] 200 mg PO DAILY 04/21/21 [History] Famotidine [Pepcid] 40 mg PO DAILY 04/21/21 [History] Levothyroxine Sodium [Synthroid] 88 mcg PO AC-BRKFST 04/21/21 [History] Fluticasone Nasal [place] [Flonase Nasal [place]] 1 spr EA NOSTRIL DAILY 08/14/24 [History] Losartan [Cozaar] 25 mg PO DAILY 08/14/24 [History] Pravastatin Sodium [Pravachol] 20 mg PO W/SUPPER 08/14/24 [History] Tylenol(Unknown Dose) 1 tab PO BID 08/14/24 [History] Unknown Allergy Tab 1 tab PO HS 08/14/24 [History] Vitamin B-12(Unknown Dose) 1 tab PO DAILY 08/14/24 [History] amLODIPine [Norvasc] 5 mg PO DAILY 08/14/24 [History] Isosorbide Mononitrate ER [Imdur] 30 mg PO DAILY tab 08/21/24 [Rx] Follow up Appointment(s)/Referral(s): Rojelio Jacobson MD [STAFF PHYSICIAN] - 1 Week [facility], [NON-STAFF] - Jia Siddiqui MD [Primary Care Provider] - 1-2 Days Activity/Diet/Wound Care/Special Instructions: heart healthy diet activity as tolerated Discharge Disposition: TRANSFER TO SNF/ECF
--- NOTE | 2024-08-21 11:19 | P.PN ---
Subjective Patient is seen for follow-up for acute kidney injury. Renal function has improved with serum creatinine down to 1.29. CK level was down to 88. Objective - Vital Signs Vital signs: Vital Signs Temp 97.8 F 08/21/24 04:00 Pulse 68 08/21/24 08:16 Resp 16 08/21/24 08:16 BP 155/80 08/21/24 04:00 Pulse Ox 90 L 08/21/24 08:04 FiO2 Intake & Output 08/20/24 08/21/24 08/21/24 18:59 06:59 18:59 Intake Total 530 Balance 530 Weight 74.8 kg Intake: Intake, IV Titration 50 Amount cefTRIAXone 2 gm In 50 Sodium Chloride 0.9% 50 ml @ 100 mls/hr IVPB Q24HR [facility] Rx#:[id number] Oral 480 Other: Voiding Method External Catheter # Voids 3 1 # Bowel Movements 1 - Exam Patient is awake alert, no acute distress Examination of the heart S1 and S2 Examination of the lungs bilateral breath sounds are heard Abdomen is soft nontender Examination of lower extremities shows no significant edema SUPERVISOR ESTIMATOR AND DRAFTER exam grossly intact - Labs CBC & Chem 7: 08/21/24 07:05 08/21/24 07:05 Labs: Abnormal Lab Results - Last 24 Hours (Table) 08/20/24 08/21/24 08/21/24 Range/Units 20:20 07:05 07:05 WBC 12.75 H (4.50-10.00) 10*3/uL RBC 4.08 L (4.10-5.20) 10*6/uL MCV 97.8 H (80.0-97.0) fL Chloride 112 H (98-107) mmol/L BUN 39 H (7-17) mg/dL Creatinine 1.29 H (0.52-1.04) mg/dL POC Glucose (mg/dL) 138 H (70-110) mg/dL Assessment and Plan Assessment: 1. Acute kidney injury secondary to ATN secondary to rhabdomyolysis and hypovolemia. Improved. Creatinine decreased to 1.29. Atrophic kidneys with no evidence of hydronephrosis noted. 2. Chronic kidney disease stage IV baseline creatinine 1.7-2 secondary to nephrosclerosis. 3. Klebsiella UTI on antibiotics. 4. Hypertension with chronic kidney disease. Stable. 5. Rhabdomyolysis secondary to fall. Resolved. 6. Non-ST elevated myocardial infarction. Cardiology following. 7. Chronic diastolic CHF. 8. Hypernatremia from lack of oral water intake. Stable. Plan: Continue to encourage increased oral intake Okay to resume angiotensin receptor blockers and diuretics Repeat labs as outpatient May decrease//discontinue amlodipine once losartan started.
[2024-08-21 11:37] VITALS: BP 170/72; PULSE 78; RESP 18; TEMP 98.3
[2024-08-21 11:47] LABS: Glucose,Whole Blood 83 mg/dL (70-110)
--- NOTE | 2024-08-25 14:45 | P.PN ---
Subjective Progress Note Date: 08/21/24 Principal diagnosis: Reason for follow-up is leukocytosis and UTI Patient is a 78-year-old female with a past medical history significant for COPD hypertension osteoarthritis diverticulitis patient has been brought into the hospital for evaluation of weakness patient did have a positive UA elevated white count mental status changes concerning for symptomatic UTI. On today's evaluation that is 08/21/2024, patient has been afebrile, patient is breathing comfortably and is currently on room air, patient denies having any chest pain and cough, patient denies nausea vomiting or diarrhea and no abdominal pain, feeling better no new symptoms. Patient white count is mild elevated 4.75, creatinine is 1.29 Objective - Vital Signs Vital signs: Vital Signs Temp 97.8 F 08/21/24 04:00 Pulse 68 08/21/24 08:16 Resp 16 08/21/24 08:16 BP 155/80 08/21/24 04:00 Pulse Ox 90 L 08/21/24 08:04 FiO2 Intake & Output 08/20/24 08/21/24 08/21/24 18:59 06:59 18:59 Intake Total 530 Balance 530 Weight 74.8 kg Intake: Intake, IV Titration 50 Amount cefTRIAXone 2 gm In 50 Sodium Chloride 0.9% 50 ml @ 100 mls/hr IVPB Q24HR [facility] Rx#:[id number] Oral 480 Other: Voiding Method External Catheter # Voids 3 1 # Bowel Movements 1 - Exam GENERAL DESCRIPTION: An elderly female lying in bed in no distress RESPIRATORY SYSTEM: Unlabored breathing , decreased breath sounds at bases HEART: S1 S2 regular rate and rhythm , ABDOMEN: Soft , no tenderness EXTREMITIES: No edema feet - Labs CBC & Chem 7: 08/21/24 07:05 08/21/24 07:05 Labs: Abnormal Lab Results - Last 24 Hours (Table) 08/20/24 08/21/24 08/21/24 Range/Units 20:20 07:05 07:05 WBC 12.75 H (4.50-10.00) 10*3/uL RBC 4.08 L (4.10-5.20) 10*6/uL MCV 97.8 H (80.0-97.0) fL Chloride 112 H (98-107) mmol/L BUN 39 H (7-17) mg/dL Creatinine 1.29 H (0.52-1.04) mg/dL POC Glucose (mg/dL) 138 H (70-110) mg/dL Assessment and Plan (1) UTI (urinary tract infection) Status: Acute Code(s): N39.0 - URINARY TRACT INFECTION, SITE NOT SPECIFIED SNOMED Code(s): 82979499 (2) Leukocytosis Status: Acute Code(s): D72.829 - ELEVATED WHITE BLOOD CELL COUNT, UNSPECIFIED SNOMED Code(s): 422967976 Plan: 1patient presented to hospital with with weakness did have a fall unable to get up he did have symptom of darker urine and some suprapubic tenderness elevated white count significantly positive UA concerning for symptomatic UTI likely from enteric gram-negative pathogen, patient also have elevated creatinine anemia rule out any obstructive uropathy 2- ultrasound of the abdominal did shows hepatic steatosis and a right renal cyst 3-patient white count initially normalized mildly elevated today will be monitored closely urine is growing Klebsiella pneumonia that is sensitive pathogen, blood culture has been negative 4patient has received adequate IV Rocephin while inpatient and there is no need for antibiotic on discharge this was discussed with the admitting physician working on discharge she did have mild elevated white count possible related to steroids and can have repeat CBC in the outpatient setting Dictation was produced using [employer] dictation software. please excuse any grammatical, word or spelling errors. Time with Patient: Less than 30
== END 2024-08-21 15:16 | DRG 689 ==
LOC: EC 13:08 → 4SSUR 20:20 → 6NMEDSUR 08-15 06:10 → 3SCARD 08-15 10:46
PROVIDERS: ADMIT Internal Medicine; ATTEND Internal Medicine
DX: N39.0 Urinary tract infection, site not specified (principal); I21.A1 Myocardial infarction type 2; N17.0 Acute kidney failure with tubular necrosis; M62.82 Rhabdomyolysis; E87.0 Hyperosmolality and hypernatremia; J44.1 Chronic obstructive pulmonary disease with (acute) exacerbation; D63.1 Anemia in chronic kidney disease; E86.1 Hypovolemia; I13.0 Hypertensive heart and chronic kidney disease with heart failure and stage 1 through stage 4 chronic kidney disease, or unspecified chronic kidney disease; N18.4 Chronic kidney disease, stage 4 (severe); K76.0 Fatty (change of) liver, not elsewhere classified; I50.32 Chronic diastolic (congestive) heart failure; B96.1 Klebsiella pneumoniae [K. pneumoniae] as the cause of diseases classified elsewhere; M19.90 Unspecified osteoarthritis, unspecified site; Z86.16 Personal history of COVID-19; W07.XXXA Fall from chair, initial encounter; B96.89 Other specified bacterial agents as the cause of diseases classified elsewhere; G62.9 Polyneuropathy, unspecified; N28.1 Cyst of kidney, acquired; Z79.83 Long term (current) use of bisphosphonates; Z79.890 Hormone replacement therapy; Z79.899 Other long term (current) drug therapy
CPT/HCPCS: 36415; 70450; 71046; 76705; 76770; 80048; 80053; 81001; 82550; 83605; 83735; 84443; 84484; 85025; 85027; 85610; 85730; 87040; 87077; 87086; 87186; 93005; 93306; 94640; 94760; 96361; 96365; 96366; 96367; 99291